=== PATIENT | male | born 1965 ===

== ENCOUNTER 2017-03-31 20:47 | Inpatient (IN) | payer SELFPAY ==
[2017-03-31] MEDS ORDERED: Albuterol-Ipratrop 3 mg / 0.5 (3 ml) UD INH STA ×2 (21:25)
[2017-03-31 21:35] LABS: ABG ALLEN TEST YES; ARTERIAL BLOOD GAS HCO3 23.1 mmol/L (21-28); ARTERIAL BLOOD GAS PH 7.47 (7.35-7.45); ARTERIAL BLOOD GAS PO2 49 mm/Hg (80-100)
[2017-03-31] MEDS ORDERED: Sodium Chloride 0.9% 2,000 ML IV STA (21:39)
[2017-03-31] MEDS ORDERED: Albuterol-Ipratrop 3 mg / 0.5 (3 ml) UD ONE (21:42)
--- NOTE | 2017-03-31 21:54 | ED PDOC ---
HPI: Trauma/Fall - HPI Time Seen by Provider: 03/31/17 21:06 Chief Complaint (Nursing): Trauma Chief Complaint (Provider): Weakness History Per: Patient History/Exam Limitations: no limitations Onset/Duration Of Symptoms: Days (2 days) Additional Complaint(s): 55 y/o male presenting to the emergency department complaining of weakness that began two days ago and lasted since. Patient explains that when walking he feels as if his legs are "giving out" and he had fallen multiple times on his head. He experienced the hardest fall today, as he fell on his face after feeling like he was leaning forward and couldn't stand up straight. Patient developed a cough today, though he feels well now. He denies a fever, chest pain , shortness of breath, abdominal pain, urinary symptoms, or any other symptoms. He also denies recent travel or any past medical history. The patient is an active smoker, drinks socially, and does marijuana. Past Medical History Reviewed: Historical Data, Nursing Documentation, Vital Signs Vital Signs: Last Vital Signs Temp 103.6 F H 03/31/17 20:54 Pulse 125 H 03/31/17 20:54 Resp 18 03/31/17 20:54 BP 135/80 03/31/17 20:54 Pulse Ox 99 03/31/17 20:54 - Medical History PMH: No Chronic Diseases - Family History Family History: States: Unknown Family Hx - Social History Current smoker - smoking cessation education provided: Yes Alcohol: Social Drugs: Cannabis - Home Medications Home Medications: Ambulatory Orders Medication Instructions Recorded No Known Home Med 03/31/17 - Allergies Allergies/Adverse Reactions: Allergies Allergy/AdvReac Type Severity Reaction Status Date / Time No Known Allergies Allergy Verified 03/31/17 21:23 Review of Systems ROS Statement: Except As Marked, All Systems Reviewed And Found Negative Constitutional: Positive for: Weakness. Negative for: Fever Cardiovascular: Negative for: Chest Pain Respiratory: Positive for: Cough (developed today). Negative for: Shortness of Breath Gastrointestinal: Negative for: Abdominal Pain Genitourinary Male: Negative for: Dysuria, Frequency, Incontinence, Hematuria Neurological: Positive for: Weakness (felt like his legs were "giving out") Physical Exam - Reviewed Nursing Documentation Reviewed: Yes Vital Signs Reviewed: Yes - Physical Exam Appears: Positive for: No Acute Distress Head Exam: Positive for: ATRAUMATIC (abrasions to the face, laceration to lower lip) Eye Exam: Positive for: Normal appearance ENT: Positive for: Normal ENT Inspection Neck: Positive for: Normal, Supple Cardiovascular/Chest: Positive for: Regular Rate, Rhythm. Negative for: Murmur Respiratory: Positive for: Rhonchi (coarse breath sounds bilaterally), Wheezing (coarse breath sounds bilaterally). Negative for: Normal Breath Sounds Gastrointestinal/Abdominal: Positive for: Normal Exam, Soft. Negative for: Tenderness Back: Positive for: Normal Inspection Extremity: Positive for: Normal ROM. Negative for: Pedal Edema Neurologic/Psych: Positive for: Alert, Oriented (x3) - Laboratory Results Result Diagrams: 03/31/17 21:50 03/31/17 21:50 - ECG O2 Sat by Pulse Oximetry: 99 (RA) Pulse Ox Interpretation: Normal - Critical Care Total Time (In Min): 60 Medical Decision Making Medical Decision Making: Time: 21:23 Initial impression: Urinary Tract infection, pneumonia, other source of infection possible sepsis Initial plan: --Venous blood gas shock panel --CT Head w/o contrast --CT Maxillofacial w/o contrast --EKG --BNP --CMP --CPK --Magnesium stat --Phosphorous stat --Troponin --CBC --PT & PTT --Chest XRay --Acetaminophen 650 mg PO --Albuterol/Ipratropium 3 ml --Albuterol/Ipratropium 3 ml --Cefepime 2 gm --Sodium Chloride 2000 ml --Blood Culture --Urine Culture --Personnel Supervisor --Vital Signs --O2 via Nasal Cannula --Peak flow pre/post TX --Peak flow pre/post TX --Influenza A B Stat --HIV Rapid --Urinalysis Stat Time: 22:00 --Vancomycin 1gm --Azithromycin 500mg Emmett:[id number] Pt. w/ L sided PNA on xray. febrile w/ white count and lactate of 2.1 Pt. has evidence of sepsis. Sepsis protocol initiated. Dr. Levine aware of patient. Dr. Palacios consulted for troponins elevating- lovenox, phosphate, and r/o PE. CT is nondiagnostic for PE at this time, however lovenox already ordered. Dr. Levine at bedside, will admit to ICU. Scribe Attestation: Documented by Eleni Dager, acting as a scribe for Russ Villeda MD. Provider Scribe Attestation: All medical record entries made by the Scribe were at my direction and personally dictated by me. I have reviewed the chart and agree that the record accurately reflects my personal performance of the history, physical exam, medical decision making, and the department course for this patient. I have also personally directed, reviewed, and agree with the discharge instructions and disposition. Procedures - Time-Out Type of Procedure: suture Site of Procedure: Lip Correct Patient (with visual ID + MR# on ID Band): Yes Correct Procedure: Yes Correct Site Marked: Yes Medication Reconciliation / Bloodwork / Allergies Checked: Yes Physician Name: Dr. Russ Villeda - Laceration/Wound Repair lip Wound Length (cm): 3 Anesthesia: 1% Lidocaine Wound Debrided: minimal Wound Repaired With: Sutures Suture Size/Type: 6:0 Number of Sutures: 5 Layer Closure?: No Wound Complexity: Simple Disposition - Clinical Impression Clinical Impression: Sepsis, Pneumonia, Hypophosphatemia, Elevated troponin - Disposition Disposition Time: 22:40 Condition: GUARDED
[2017-03-31] MEDS ORDERED: Cefepime 2 GM in Sodium Chloride 0.9% 100 ML IVPB STA (22:02)
[2017-03-31] MEDS ORDERED: Azithromycin 500 MG in Sodium Chloride 0.9% 250 ML IVPB STA (22:02)
[2017-03-31] MEDS ORDERED: Vancomycin 1 g Inj ONE (22:21)
[2017-03-31 22:23] LABS: BASO # 0.1 K/uL (0.0-0.2); BASO % 0.6 % (0.0-2.0); HEMATOCRIT 39.2 % (35.0-51.0); LYMPH # 0.5 K/uL (1.0-4.3); MEAN CELL VOLUME 88.4 fl (80.0-94.0); MEAN CORPUSCULAR HEMOGLOBIN 29.7 pg (27.0-31.0); MEAN CORPUSCULAR HGB CONC 33.5 g/dL (33.0-37.0); MEAN PLATELET VOLUME 7.3 fl (7.2-11.7); MONO # 0.5 K/uL (0.0-0.8); MONO % 3.6 % (0.0-10.0); NEUT # 11.6 K/uL (1.8-7.0); NEUT % 91.8 % (50.0-75.0); PLATELET COUNT 189 K/uL (130-400); RED CELL DISTRIBUTION WIDTH 13.1 % (11.5-14.5); WHITE BLOOD COUNT 12.6 K/uL (4.8-10.8)
[2017-03-31 22:30] LABS: ALB/GLOB RATIO 1.2 (1.0-2.1); ALKALINE PHOSPHATASE 65 U/L (38-126); ALT/SGPT 81 U/L (21-72); AST/SGOT 247 U/L (17-59); BLOOD UREA NITROGEN 19 mg/dl (9-20); CALCIUM 8.2 mg/dL (8.4-10.2); CARBON DIOXIDE 23 mmol/L (22-30); CHLORIDE 92 mmol/L (98-107); GFR AFRICAN-AMERICAN > 60; GLUCOSE,RANDOM 126 mg/dL (75-110); POTASSIUM 3.9 MMOL/L (3.6-5.0); SODIUM 124 mmol/l (132-148); TOTAL PROTEIN 6.7 G/DL (6.3-8.2)
[2017-03-31 22:36] LABS: PARTIAL THROMBOPLASTIN TIME 35.2 Seconds (25.6-37.1)
[2017-03-31 22:41] LABS: PHOSPHOROUS 0.9 mg/dl (2.5-4.5)
--- NOTE | 2017-03-31 22:45 | RAD ---
HISTORY: Sepsis Patient COMPARISON: No prior. FINDINGS: LUNGS: Left lower lobe infiltrate. PLEURA: No significant pleural effusion identified, no pneumothorax apparent. CARDIOVASCULAR: Normal. OSSEOUS STRUCTURES: No significant abnormalities. VISUALIZED UPPER ABDOMEN: Normal. OTHER FINDINGS: None. IMPRESSION: Left lower lobe infiltrate.
[2017-03-31] MEDS ORDERED: Lidocaine 1% Inj (20ml) IJ ONE (23:05)
[2017-03-31 23:06] LABS: MYELOCYTE 1 % (0-0); NEUTROPHIL 92 % (42-75); TOTAL CELLS COUNTED 100
--- NOTE | 2017-03-31 23:39 | CT ---
EXAM: CT Head Without Intravenous Contrast CLINICAL HISTORY: 51 years old, male; Injury or trauma; Fall; Initial encounter; Laceration; Without loss of consciousness; Without residual foreign body; Face and forehead; Injury date: Today; Injury details: Falling multiple times. B/l facial laceration. Bleeding lips. Smoker; Additional info: Fever, falls, facial injury TECHNIQUE: Axial computed tomography images of the head/brain without intravenous contrast. All CT scans at this facility use one or more dose reduction techniques, viz.: automated exposure control; ma/kV adjustment per patient size (including targeted exams where dose is matched to indication; i.e. head); or iterative reconstruction technique. Coronal and sagittal reformatted images were created and reviewed. COMPARISON: No relevant prior studies available. FINDINGS: Brain: No intracranial hemorrhage. No mass. No edema. Ventricles: No hydrocephalus. Bones/joints: No calvarial fracture. Mastoid air cells: No mastoid effusion. IMPRESSION: 1. No intracranial hemorrhage. 2. See facial bone CT report for additional details.
--- NOTE | 2017-03-31 23:44 | CT ---
EXAM: CT Maxillofacial Without Intravenous Contrast CLINICAL HISTORY: 51 years old, male; Injury or trauma; Fall; Initial encounter; Laceration; Cheek bone and eyelid and head/scalp and forehead and nose and ocular (eye or eyeball) and orbit/periorbital and maxilla and jaw and lip/oral cavity; Without loss of consciousness; Bilateral; Not specified; Both upper and lower; Without residual foreign body; Injury date: Today; Injury details: Falling multiple times. B/l facial laceration. Bleeding lips. Smoker; Additional info: Fever, falls, facial injury TECHNIQUE: Axial computed tomography images of the face without intravenous contrast. All CT scans at this facility use one or more dose reduction techniques, viz.: automated exposure control; ma/kV adjustment per patient size (including targeted exams where dose is matched to indication; i.e. head); or iterative reconstruction technique. Coronal and sagittal reformatted images were created and reviewed. COMPARISON: No relevant prior studies available. FINDINGS: Bones/joints: No acute fracture. Degenerative changes of cervical spine. Subluxation of LEFT temporomandibular joint. Soft tissues: Mild facial soft tissue swelling. Soft tissue irregularity along lower lip. Orbits: Unremarkable as visualized. Sinuses: Scattered minimal to mild mucosal thickening. Small RIGHT maxillary retention cyst. No air-fluid levels. IMPRESSION: 1. No fracture. 2. Incidental/non-acute findings are described above.
[2017-04-01] MEDS ORDERED: Lidocaine 1% Inj (20ml) ONE (00:30)
[2017-04-01] MEDS ORDERED: Albuterol-Ipratrop 3 mg / 0.5 (3 ml) UD ONE (00:34)
[2017-04-01 00:54] LABS: RBC URINE 3 /hpf (0-3); URINE BACTERIA OCC (<OCC); URINE BILIRUBIN NEGATIVE (NEGATIVE); URINE BLOOD LARGE (NEGATIVE); URINE COLOR YELLOW (YELLOW); URINE GLUCOSE (UA) NEG (Normal); URINE KETONE TRACE mg/dL (NEGATIVE); URINE LEUKOCYTE ESTERASE NEG Leu/uL (Negative); URINE PROTEIN 100 mg/dL (NEGATIVE); WBC URINE 7 /hpf (0-5)
[2017-04-01] MEDS ORDERED: Albuterol-Ipratrop 3 mg / 0.5 (3 ml) UD INH STA (00:56)
[2017-04-01] MEDS ORDERED: Azithromycin 500 MG IV IVPB ONE (00:57)
[2017-04-01] MEDS ORDERED: Sodium Chloride 0.9% 50 ML IV ONE (01:34)
[2017-04-01] MEDS ORDERED: Iodixanol 320 MG/ML 100 ML BOTTLE IV ONE (01:34)
--- NOTE | 2017-04-01 01:39 | CP.PCM.HP ---
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 Falling twice on the day of admission. The first fall he received trauma to the left side of the face and left forehead. The second fall was unto his face causing laceration to his lower lip and nose making it difficult to get up from the ground. He began having non productive cough with chills on the day of admission. He refers one day of diarrhea with no blood in stool nor abdominal pain.No recorded fever, no SOB, no palpitations, nausea, vomits, dysuria nor frequency. In the ED the Temperature was 103.6F with HR of 125/min. 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 FH: refers, Unknown family hx Allergy: NKDA Medication: Denies Present on Admission - Present on Admission Any Indicators Present on Admission: No History of DVT/PE: No History of Uncontrolled Diabetes: No Urinary Catheter: No Decubitus Ulcer Present: No Review of Systems - Constitutional Constitutional: Chills, Frequent Falls. absent: Fever - EENT Eyes: Requires Corrective Lenses. absent: Diplopia, Floaters, Photophobia, Sees Flashes Ears: absent: Decreased Hearing, Ear Discharge, Tinnitus Nose/Mouth/Throat: absent: Epistaxis, Nasal Congestion, Nasal Discharge, Sore Throat - Cardiovascular Cardiovascular: absent: Chest Pain, Dyspnea, Edema - Respiratory Respiratory: Cough. absent: Wheezing, Stridor - Gastrointestinal Gastrointestinal: Diarrhea. absent: Abdominal Pain, Constipation, Nausea, Vomiting - Genitourinary Genitourinary: absent: Dysuria, Flank Pain, Hematuria, Urinary Frequency - Musculoskeletal Musculoskeletal: Myalgias - Integumentary Integumentary: absent: Pruritus, Rash, Skin Ulcer, Sores, Striae, Swelling - Neurological Neurological: Disequilibrium - Psychiatric Psychiatric: absent: Anxiety, Change in Appetite, Depression, Panic Attacks - Endocrine Endocrine: absent: Palpitations, Polydipsia, Polyphagia, Polyuria - Hematologic/Lymphatic Hematologic: absent: Easy Bleeding, Easy Bruising Past Patient History - Past Medical History & Family History Past Medical History?: No - Past Social History Smoking Status: Light Smoker < 10 Cigarettes Daily Alcohol: Social Drugs: Cannabis Home Situation {Lives}: Friends - CARDIAC Hx Cardiac Disorders: No Hx Peripheral Vascular Disease: No - PULMONARY Hx Respiratory Disorders: No - NEUROLOGICAL Hx Neurological Disorder: No - HEENT Hx HEENT Problems: No - RENAL Hx Chronic Kidney Disease: No - ENDOCRINE/METABOLIC Hx Endocrine Disorders: No - HEMATOLOGICAL/ONCOLOGICAL Hx Blood Disorders: No - INTEGUMENTARY Hx Dermatological Problems: No - MUSCULOSKELETAL/RHEUMATOLOGICAL Hx Musculoskeletal Disorders: No - GASTROINTESTINAL Hx Gastrointestinal Disorders: No - GENITOURINARY/GYNECOLOGICAL Hx Genitourinary Disorders: No - PSYCHIATRIC Hx Psychophysiologic Disorder: No Hx Substance Use: No - SURGICAL HISTORY Hx Surgeries: No - ANESTHESIA Hx Anesthesia Reactions: No Meds Allergies/Adverse Reactions: Allergies Allergy/AdvReac Type Severity Reaction Status Date / Time No Known Allergies Allergy Verified 03/31/17 21:23 Physical Exam - Constitutional Additional comments: In mild respiratory distress - Head Exam Head Exam: NORMOCEPHALIC Additional comments: Laceration to the lower lip sutured. Bruise to the nose bridge, left forehead, left side of face. - Eye Exam Eye Exam: EOMI, Normal appearance - ENT Exam ENT Exam: Mucous Membranes Moist, Normal Exam, Normal External Ear Exam, Normal Oropharynx - Neck Exam Neck exam: Positive for: Full Rom, Normal Inspection. Negative for: Lymphadenopathy, Tenderness - Respiratory Exam Respiratory Exam: Rales, Wheezes Additional comments: Expiratory wwheezees to both lung hurt Inspirator rales at the left base. - Cardiovascular Exam Cardiovascular Exam: Tachycardia, REGULAR RHYTHM, +S1, +S2. absent: Gallop, JVD - GI/Abdominal Exam GI & Abdominal Exam: Normal Bowel Sounds, Soft Additional comments: Obese, Soft, non-tender, no viceromegaleas. - Rectal Exam Rectal Exam: Deferred - Extremities Exam Extremities exam: Positive for: full ROM, normal inspection. Negative for: calf tenderness, pedal edema - Back Exam Back exam: NORMAL INSPECTION. absent: CVA tenderness (L), CVA tenderness (R) - Neurological Exam Neurological exam: Alert, CN II-XII Intact, Oriented x3, Reflexes Normal - Psychiatric Exam Psychiatric exam: Normal Affect, Normal Mood - Skin Skin Exam: Dry, Intact, Warm Additional comments: Upper left back with erythematous patch 8CM the longest diameter. Results - Vital Signs Recent Vital Signs: Last Vital Signs Temp 100.2 F H 04/01/17 01:15 Pulse 111 H 04/01/17 01:15 Resp 24 04/01/17 01:15 BP 142/74 04/01/17 01:15 Pulse Ox 95 04/01/17 01:15 - Labs Result Diagrams: 03/31/17 21:50 03/31/17 21:50 Labs: Laboratory Results - last 24 hr 04/01/17 00:30 Troponin I 1.2300 H* - EKG Data EKG comments: Sinus Tachycardia 124/min - Imaging and Cardiology CT scan - head Status: Image reviewed by me, Report reviewed by me Additional comment: FINDINGS: Brain: No intracranial hemorrhage. No mass. No edema. Ventricles: No hydrocephalus. Bones/joints: No calvarial fracture. Mastoid air cells: No mastoid effusion. IMPRESSION: 1. No intracranial hemorrhage. 2. See facial bone CT report for additional details. CT Maxilofacial Status: Report reviewed by me Additional comment: FINDINGS: Bones/joints: No acute fracture. Degenerative changes of cervical spine. Subluxation of LEFT temporomandibular joint. Soft tissues: Mild facial soft tissue swelling. Soft tissue irregularity along lower lip. Orbits: Unremarkable as visualized. Sinuses: Scattered minimal to mild mucosal thickening. Small RIGHT maxillary retention cyst. No air-fluid levels. IMPRESSION: 1. No fracture. 2. Incidental/non-acute findings are described above. CTA Chest Status: Report reviewed by me Additional comment: FINDINGS: Limitations: Motion artifact - mild. Suboptimal timing of bolus. Pulmonary arteries: No significant contrast opacification of pulmonary arteries. Aorta: No aneurysm. No dissection. Lungs: Marked patchy and confluent air space disease LEFT lower lobe. Several scattered patchy groundglass/air space opacities, most pronounced LEFT upper lobe. Minimal mosaic pattern of lung parenchyma. Minimal interlobular septal thickening. Pleural space: No significant effusion. No pneumothorax. Heart: No cardiomegaly. No significant pericardial effusion. Mild coronary artery calcifications. Bones/joints: No acute fracture. No dislocation. Soft tissues: Unremarkable. Lymph nodes: Several subcentimeter/few borderline enlarged short axis mediastinal lymph nodes. Gallbladder and bile ducts: Calcified gallstones. Adrenals: Probable RIGHT adrenal adenoma. RIGHT adrenal calcifications. IMPRESSION: 1. Nondiagnostic for pulmonary embolism. 2. Findings compatible with multifocal pneumonia. Followup to resolution to exclude underlying pathology. 3. Possible early interstitial edema. Clinical correlation is needed. 4. Cholelithiasis. 5. Incidental/non-acute findings are described above. Thank you for allowing us to participate in the care of your patient. Chest x-ray Status: Image reviewed by me Additional comment: Left lower lobe Opacity Mild congestion Assessment & Plan - Assessment and Plan (Free Text) Assessment: #. Multifocal Pneumonia #. Sepsis #. Rhabdomyolysis 3. Hyponatremia #. Hypophosphatemis #. Elevated Troponin #. Transaminitis #. Multiple falls #. Imbalance #. 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 Falling twice receiving trauma to the left side of the face and left forehead, laceration to his lower lip and nose. He began having non productive cough with chills and diarrhea on the day of admission. In the ED the Temperature was 103.6F with HR of 125/min. #. Multifocal Pneumonia - Consult Dr Khalil of Pulmonary - Vancomycin/ Cefepime/Azithromycin given in the ED -Continue with Vancomycin/Azithromycin and Ceftriaxone -Duoneb Q4H #. Sepsis - Consult Dr Parsons - Continue Above Antibiotics - follow Blood and Sputum Cultures - IV fluid at NS 200Mls/min #. Rhabdomyolysis Due to muscle injury caused by the Falls - IV fluids NS at 200mls/hr - Follow CPK levels #. Hyponatremia probably due to SIADH caused by the Pneumonia - IV Fluids NS 200ml/hr because of the Rhabdomyolysis - follow Serum and Urine Osmolality and urine Sodium - Follow Serum Electrolytes #. Hypophosphatemis - Repleat with Neutro Phos - Follow Phosphorous #. Elevated Troponin Probably secondary to cardiac trauma r/o ACS - Consult Dr Atkinson - Lovenox Therapeutic dose Q12H - ASA - Lipid Panel - Serial Troponin - Serial EKG - ECHO for wall motion #. Mild pulmonary congestion r/o CHF - Cardiology on consult - Lasix IV - ECHO for Left ventricle Function and EF #. Transaminitis secondary to the muscle injury - Follow LFT #. Imbalance with Multiple falls - OT/PT evaluation and Treatment #. Nicotine Addiction - Nicotine Patch #. Coagulopathy with elevated INR - Vitamin K 5mg - Follow INR #. Subluxation of the left temperomandibular joint - Pain management #.Cholelithiasis, Stable #. DVT Prophylaxis with SCD and Lovenox #. Code Status: Full - Date & Time Date: 04/01/17 Time: 01:39
[2017-04-01] MEDS ORDERED: Sodium Chloride 3% for Inhalation 4 ML VIAL.NEB IH PRN (01:58)
--- NOTE | 2017-04-01 02:20 | CT ---
EXAM: CT Angiography Chest With Intravenous Contrast CLINICAL HISTORY: 51 years old, male; Signs and symptoms; Dyspnea; Additional info: SOB, tachycardia, high trop. Issues with bolus injection during exam TECHNIQUE: Axial computed tomographic angiography images of the chest with intravenous contrast using pulmonary embolism protocol. All CT scans at this facility use one or more dose reduction techniques, viz.: automated exposure control; ma/kV adjustment per patient size (including targeted exams where dose is matched to indication; i.e. head); or iterative reconstruction technique. MIP reconstructed images were created and reviewed. Coronal and sagittal reformatted images were created and reviewed. CONTRAST: 80 mL of visipaque administered intravenously. COMPARISON: No relevant prior studies available. FINDINGS: Limitations: Motion artifact - mild. Suboptimal timing of bolus. Pulmonary arteries: No significant contrast opacification of pulmonary arteries. Aorta: No aneurysm. No dissection. Lungs: Marked patchy and confluent air space disease LEFT lower lobe. Several scattered patchy groundglass/air space opacities, most pronounced LEFT upper lobe. Minimal mosaic pattern of lung parenchyma. Minimal interlobular septal thickening. Pleural space: No significant effusion. No pneumothorax. Heart: No cardiomegaly. No significant pericardial effusion. Mild coronary artery calcifications. Bones/joints: No acute fracture. No dislocation. Soft tissues: Unremarkable. Lymph nodes: Several subcentimeter/few borderline enlarged short axis mediastinal lymph nodes. Gallbladder and bile ducts: Calcified gallstones. Adrenals: Probable RIGHT adrenal adenoma. RIGHT adrenal calcifications. IMPRESSION: 1. Nondiagnostic for pulmonary embolism. 2. Findings compatible with multifocal pneumonia. Followup to resolution to exclude underlying pathology. 3. Possible early interstitial edema. Clinical correlation is needed. 4. Cholelithiasis. 5. Incidental/non-acute findings are described above.
[2017-04-01 03:08] VITALS: BMI 36.6
[2017-04-01] MEDS: Sodium Chloride 0.9% 1,000 ML IV SCH ×3 (03:45→15:58)
[2017-04-01] MEDS: Albuterol-Ipratrop 3 mg / 0.5 (3 ml) UD INH SCH ×5 (04:57→19:25)
[2017-04-01 05:59] LABS: BASO % 0.2 % (0.0-2.0); EOS % 0.4 % (0.0-4.0); HEMATOCRIT 38.5 % (35.0-51.0); LYMPH # 0.3 K/uL (1.0-4.3); LYMPH % 2.8 % (20.0-40.0); MEAN CELL VOLUME 89.6 fl (80.0-94.0); MEAN CORPUSCULAR HEMOGLOBIN 29.9 pg (27.0-31.0); MEAN CORPUSCULAR HGB CONC 33.4 g/dL (33.0-37.0); MEAN PLATELET VOLUME 7.3 fl (7.2-11.7); MONO # 0.2 K/uL (0.0-0.8); MONO % 1.4 % (0.0-10.0); NEUT # 11.5 K/uL (1.8-7.0); NEUT % 95.2 % (50.0-75.0); NRBC % 0.1 % (0.0-0.0); PLATELET COUNT 183 K/uL (130-400); RED CELL DISTRIBUTION WIDTH 13.3 % (11.5-14.5); WHITE BLOOD COUNT 12.1 K/uL (4.8-10.8)
[2017-04-01] MEDS ORDERED: Influenza Vaccine 18yr & older 0.5 ML/45 MCG SYR IM ONE (06:00)
[2017-04-01] MEDS ORDERED: Pneumococcal 23-Valent Vaccine IM ONE (06:00)
[2017-04-01 06:07] LABS: ALB/GLOB RATIO 1.1 (1.0-2.1); ALKALINE PHOSPHATASE 60 U/L (38-126); ALT/SGPT 106 U/L (21-72); AST/SGOT 361 U/L (17-59); BILIRUBIN,TOTAL 0.9 mg/dl (0.2-1.3); BLOOD UREA NITROGEN 15 mg/dl (9-20); CALCIUM 7.6 mg/dL (8.4-10.2); CARBON DIOXIDE 17 mmol/L (22-30); CHLORIDE 104 mmol/L (98-107); CHOLESTEROL 90 mg/dL (0-199); GFR AFRICAN-AMERICAN > 60; GLUCOSE,RANDOM 138 mg/dL (75-110); POTASSIUM 3.7 MMOL/L (3.6-5.0); SODIUM 134 mmol/l (132-148); TOTAL PROTEIN 6.5 G/DL (6.3-8.2)
[2017-04-01 07:06] LABS: NEUTROPHIL 95 % (42-75); TOTAL CELLS COUNTED 100
[2017-04-01] MEDS: Enoxaparin 100 mg Syringe SC SCH ×2 (08:19→21:43)
[2017-04-01] MEDS: Potassium & Sodium Phosphate PO SCH ×4 (08:19→21:43)
[2017-04-01] MEDS: Azithromycin 500 MG in Sodium Chloride 0.9% 250 ML IVPB SCH (08:20)
--- NOTE | 2017-04-01 09:23 | CARD ---
APPROVED REPORT EKG Measurement Heart [id number] CO [id number] <Conclusion> Sinus tachycardia with premature atrial complexes Otherwise normal ECG
--- NOTE | 2017-04-01 09:24 | CARD ---
APPROVED REPORT EKG Measurement Heart [id number] LA 140P61 [id number] <Conclusion> Sinus tachycardia with premature atrial complexes Otherwise normal ECG
--- NOTE | 2017-04-01 09:24 | CARD ---
APPROVED REPORT EKG Measurement Heart [id number] 142P53 [id number] <Conclusion> Sinus tachycardia with premature atrial complexes Possible Left atrial enlargement Borderline ECG
[2017-04-01 10:27] LABS: BLOOD UREA NITROGEN 15 mg/dl (9-20); CALCIUM 7.5 mg/dL (8.4-10.2); CARBON DIOXIDE 20 mmol/L (22-30); CHLORIDE 103 mmol/L (98-107); GFR AFRICAN-AMERICAN > 60; GLUCOSE,RANDOM 180 mg/dL (75-110); POTASSIUM 3.8 MMOL/L (3.6-5.0); SODIUM 134 mmol/l (132-148)
[2017-04-01 11:26] LABS: ALCOHOL SERUM < 10 mg/dl (0-10)
[2017-04-01] MEDS ORDERED: Multivitamin (MVI) 10 ML, Folic Acid 1 MG, Thiamine 100 MG in Dextrose 5%/0.45% NS 1,00... IV ONE (16:06)
--- NOTE | 2017-04-01 20:42 | CON ---
DATE: HISTORY OF PRESENT ILLNESS: Mr. Harerll is a 51-year-old male who was referred for pulmonary evaluation by Dr. Brennan, following admission to the intensive care unit because of multiple falls at home, feeling dizzy and have to balance with a dry cough and fever for the past several days prior to presentation. He had a fall with a trauma to the left side of the forehead and again fell causing laceration of the lower lip. PAST MEDICAL HISTORY: He has an unremarkable s past medical history. FAMILY HISTORY: Unremarkable. SOCIAL HISTORY: Socially, he smokes one pack of cigarettes daily. 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 Presently lives with a friend. REVIEW OF SYSTEMS: Essentially, unremarkable. PHYSICAL EXAMINATION: GENERAL: The patient is alert and oriented, appears to be in mild distress, because of facial trauma, but in the case that he has improved since admission to the hospital. VITAL SIGNS: Blood pressure 112/75, pulse of 110, respiratory rate is 22 per minute, he is afebrile to low-grade temperature of 99.6 degrees Fahrenheit, O2 sat was 93% on room air. SKIN: Shows fair turgor. HEENT: There is evidence of facial trauma. Mouth shows poor hygiene. LUNGS: Fair aeration with scattered bilateral rales left worse than right. HEART: Regular, tachycardiac. ABDOMEN: Soft and nontender. No organomegaly. EXTREMITIES: Shows no edema or cyanosis. CENTRAL NERVOUS SYSTEM: Grossly intact. LABORATORY DATA: HIV and herpes screen are nonreactive. Influenza A and B negative. Urine toxicology positive for cannabinoids. WBC 12.1, hemoglobin 12.9, platelet count 183,000, neutrophils 95, lymphocytes 2.8. PT is 16.7, INR of 16. ABGs: PH 7.47, pCO2 28, pO2 of 49, bicarbonate of 23, O2 sat 92. Sodium 124, potassium 3.9, BUN 19, creatinine 1.2, serum glucose 125, troponin 1.040, CPK 20,322. Chest x-ray remarkable for left lower lobe infiltrate. EKG, sinus tachycardia with premature intracomplexes, possible left atrial enlargement. IMPRESSION: In this young gentleman with a history of alcohol, marijuana use w ho has had multiple falls with facial trauma and cough with mild shortness of breath and hypoxemia and arterial blood gases is remarkable for pneumonia left base with superimposed alcohol and drug problems and hyponatremia probably secondary to pulmonary infection with syndrome of inappropriate antidiuretic hormone. PLAN: The plan is to continue therapy for pneumonia. Obtain carter cultures. Supplement oxygen. Repeat arterial blood gases. Alcohol withdrawal protocol. We will continue to follow with you. Repeat serial chest x-rays until pneumonia resolves completely. Mark Anthony Khalil MD
[2017-04-01] MEDS ORDERED: Sodium Chloride 0.9% 1,000 ML IV SCH (20:45)
--- NOTE | 2017-04-01 21:48 | CP.PCM.CON ---
History of Present Illness - History of Present Illness History of Present Illness: Infectious Disease Consult Note- Asked to see this patient at the request of hospitalist for fever/sepsis. HPI- Ephraim is a 51 year old male with no pmh who was admitted with 2 days feeling of weakness and heavy sensation in the legs and feeling groggy and chills. 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 He also mentions that he started to have chills and some diarrhea the day of the admission and his friend called EMS and he was brought to ED for further evaluation and treatment . On admission pt. was found to have high fever and leukocytosis and found to also be in rhabdomyolysis and multifocal pneumonia. Pt's urine legionella AG was reported positive. pt. has been on zithromax, vanco and ceftriaxone as per primary team . Pt. currently denies any fever or chills but as per nurse has been febrile. He seems slightly groggy but states he is starting to remember what has happened little by little. He states he does smoke Marijuana but denies using it the day that he felt weak and sluggish. denies any DOW and denies any change in his vision. He denies ever having felt this way before. asper nurse pt. was tachycardic earlier today when he was febrile but not now. Review of Systems - Review of Systems Review of Systems: ROS- + chills at home, + fever while inpatient, denies any DOW, denies any cough, denies any sob, denies any chestpain, + weakness, positive heaviness sensation in his legs, denies any dysurea, + diarrhea at home but denies it here. denies any sick contacts denies any recent travel denies any animal exposure Past Patient History - Past Medical History & Family History Past Medical History?: No - Past Social History Smoking Status: Light Smoker < 10 Cigarettes Daily Alcohol: Social Drugs: Cannabis Home Situation {Lives}: Friends - CARDIAC Hx Cardiac Disorders: No - PULMONARY Hx Respiratory Disorders: No - NEUROLOGICAL Hx Neurological Disorder: No - HEENT Hx HEENT Problems: No - RENAL Hx Chronic Kidney Disease: No - ENDOCRINE/METABOLIC Hx Endocrine Disorders: No - HEMATOLOGICAL/ONCOLOGICAL Hx Blood Disorders: No - INTEGUMENTARY Hx Dermatological Problems: No - MUSCULOSKELETAL/RHEUMATOLOGICAL Hx Musculoskeletal Disorders: No - GASTROINTESTINAL Hx Gastrointestinal Disorders: No - GENITOURINARY/GYNECOLOGICAL Hx Genitourinary Disorders: No - PSYCHIATRIC Hx Psychophysiologic Disorder: No Hx Substance Use: No - SURGICAL HISTORY Hx Surgeries: No - ANESTHESIA Hx Anesthesia Reactions: No Meds Allergies/Adverse Reactions: Allergies Allergy/AdvReac Type Severity Reaction Status Date / Time No Known Allergies Allergy Verified 03/31/17 21:23 - Medications Medications: Current Medications Acetaminophen (Tylenol 325mg Tab) 325 mg PO Q4 PRN PRN Reason: Fever >100.4 F Albuterol/Ipratropium (Duoneb 3 Mg/0.5 Mg (3 Ml) Ud) 3 ml INH RQ4 [facility] Last Admin: 04/01/17 19:25 Dose: 3 ml Aspirin (Ecotrin) 81 mg PO DAILY [facility] Last Admin: 04/01/17 08:19 Dose: 81 mg Carvedilol (Coreg) 3.125 mg PO Q12 [facility] Last Admin: 04/01/17 21:42 Dose: 3.125 mg Enoxaparin Sodium (Lovenox) 90 mg SC Q12 [facility] PRN Reason: Protocol Last Admin: 04/01/17 21:43 Dose: 90 mg Furosemide (Lasix) 40 mg IV DAILY [facility] Vancomycin HCl 1 gm/ Sodium (Chloride) 250 mls @ 166.667 mls/hr IVPB Q12 [facility] Last Admin: 04/01/17 21:41 Dose: 166.667 mls/hr Azithromycin 500 mg/ Sodium (Chloride) 250 mls @ 250 mls/hr IVPB DAILY [facility] Last Admin: 04/01/17 08:20 Dose: 250 mls/hr Ceftriaxone Sodium 1 gm/ (Sodium Chloride) 100 mls @ 100 mls/hr IVPB DAILY [facility] Last Admin: 04/01/17 11:40 Dose: 100 mls/hr Multivitamins/Vitamin C 10 ml/Folic Acid 1 mg/ Thiamine HCl 100 mg/ Dextrose/ Sodium Chloride 1,011.2 mls @ 125 mls/hr IV .Q8H6M ONE Stop: 04/02/17 00:11 Last Admin: 04/01/17 17:10 Dose: 125 mls/hr Sodium Chloride (Sodium Chloride 0.9%) 1,000 mls @ 125 mls/hr IV .Q8H [facility] Stop: 04/02/17 20:34 Lorazepam (Ativan) 1 mg IVP Q6 PRN PRN Reason: Agitation Nicotine (Nicoderm Cq) 1 patch TD DAILY [facility] Last Admin: 04/01/17 08:22 Dose: 1 patch Potassium Phos/Sodium Phos (Neutra-Phos) 1 pkt PO QID [facility] Stop: 04/04/17 09:01 Last Admin: 04/01/17 21:43 Dose: 1 pkt Physical Exam - Constitutional Appears: No Acute Distress - Head Exam Additional comments: small left forehead superficail abrasion and one on the tip of the nose and one in left lower lip region - Eye Exam Eye Exam: EOMI, PERRL - ENT Exam ENT Exam: Normal Oropharynx - Neck Exam Neck exam: Positive for: Full Rom Additional comments: supple - Respiratory Exam Additional comments: slightly tachypneic coarse breath sounds b/l + mild exp wheezing b/l as well - Cardiovascular Exam Cardiovascular Exam: Tachycardia, +S1, +S2 - GI/Abdominal Exam GI & Abdominal Exam: Normal Bowel Sounds, Soft Additional comments: NT, ND no guarding, No rebound - Extremities Exam Additional comments: no edema b/l LE - Neurological Exam Neurological exam: Alert Additional comments: oriented x 3 but somewhat groggy - Skin Skin Exam: Abrasion Additional comments: small abrasion on forehead and tip of nose and left lip region + echymosis on left knee region adn left upper back region and posterior left arm region Results - Vital Signs Recent Vital Signs: Last Vital Signs Temp 99.5 F 04/01/17 20:00 Pulse 111 H 04/01/17 21:42 Resp 22 04/01/17 20:00 BP 103/61 04/01/17 21:42 Pulse Ox 95 04/01/17 20:00 - Labs Result Diagrams: 04/02/17 04:45 04/02/17 04:45 Labs: Laboratory Results - last 24 hr 04/01/17 04/01/17 04/01/17 00:30 02:20 02:20 WBC RBC Hgb Hct MCV MCH MCHC RDW Plt Count MPV Neut % (Auto) Lymph % (Auto) [place] % (Auto) Eos % (Auto) Baso % (Auto) Neut # Lymph # [place] # Eos # Baso # Neutrophils % (Manual) Lymphocytes % (Manual) Monocytes % (Manual) Platelet Estimate PT INR Sodium Potassium Chloride Carbon Dioxide Anion Gap BUN Creatinine Est GFR ( Amer) Est GFR (Non-Af Amer) Random Glucose Serum Osmolality 276 Lactic Acid 1.0 Calcium Total Bilirubin AST ALT Alkaline Phosphatase Total Creatine Kinase Troponin I 1.2300 H* Total Protein Albumin Globulin Albumin/Globulin Ratio Triglycerides Cholesterol LDL Cholesterol Direct HDL Cholesterol Urine Osmolality Ur Random Sodium Ur Random Potassium Urine Opiates Screen Urine Methadone Screen Ur Barbiturates Screen Ur Phencyclidine Scrn Ur Amphetamines Screen U Benzodiazepines Scrn U Oth Cocaine Metabols U Cannabinoids Screen Alcohol, Quantitative Ur L.pneumophila Ag 04/01/17 04/01/17 04/01/17 02:45 02:45 05:30 WBC 12.1 H RBC 4.30 L Hgb 12.9 Hct 38.5 MCV 89.6 MCH 29.9 MCHC 33.4 RDW 13.3 Plt Count 183 MPV 7.3 Neut % (Auto) 95.2 H Lymph % (Auto) 2.8 L [place] % (Auto) 1.4 Eos % (Auto) 0.4 Baso % (Auto) 0.2 Neut # 11.5 H Lymph # 0.3 L [place] # 0.2 Eos # 0.0 Baso # 0.0 Neutrophils % (Manual) 95 H Lymphocytes % (Manual) 4 L Monocytes % (Manual) 1 Platelet Estimate Normal PT INR Sodium Potassium Chloride Carbon Dioxide Anion Gap BUN Creatinine Est GFR ( Amer) Est GFR (Non-Af Amer) Random Glucose Serum Osmolality Lactic Acid Calcium Total Bilirubin AST ALT Alkaline Phosphatase Total Creatine Kinase Troponin I Total Protein Albumin Globulin Albumin/Globulin Ratio Triglycerides Cholesterol LDL Cholesterol Direct HDL Cholesterol Urine Osmolality 215 L Ur Random Sodium 17 Ur Random Potassium 10.4 Urine Opiates Screen Negative Urine Methadone Screen Negative Ur Barbiturates Screen Negative Ur Phencyclidine Scrn Negative Ur Amphetamines Screen Negative U Benzodiazepines Scrn Negative U Oth Cocaine Metabols Negative U Cannabinoids Screen Positive H Alcohol, Quantitative Ur L.pneumophila Ag 04/01/17 04/01/17 04/01/17 05:30 10:00 10:15 WBC RBC Hgb Hct MCV MCH MCHC RDW Plt Count MPV Neut % (Auto) Lymph % (Auto) [place] % (Auto) Eos % (Auto) Baso % (Auto) Neut # Lymph # [place] # Eos # Baso # Neutrophils % (Manual) Lymphocytes % (Manual) Monocytes % (Manual) Platelet Estimate PT INR Sodium 134 134 Potassium 3.7 3.8 Chloride 104 103 Carbon Dioxide 17 L 20 L Anion Gap 17 15 BUN 15 15 Creatinine 1.0 0.9 Est GFR ( Amer) > 60 > 60 Est GFR (Non-Af Amer) > 60 > 60 Random Glucose 138 H 180 H Serum Osmolality Lactic Acid Calcium 7.6 L 7.5 L Total Bilirubin 0.9 AST 361 H D ALT 106 H D Alkaline Phosphatase 60 Total Creatine Kinase 13166 H 00261 H Troponin I 0.7760 H* 0.5340 H* Total Protein 6.5 Albumin 3.4 L Globulin 3.1 Albumin/Globulin Ratio 1.1 Triglycerides 176 H Cholesterol 90 LDL Cholesterol Direct 32 HDL Cholesterol 14 L Urine Osmolality Ur Random Sodium Ur Random Potassium Urine Opiates Screen Urine Methadone Screen Ur Barbiturates Screen Ur Phencyclidine Scrn Ur Amphetamines Screen U Benzodiazepines Scrn U Oth Cocaine Metabols U Cannabinoids Screen Alcohol, Quantitative < 10 Ur L.pneumophila Ag Positive H 04/01/17 11:30 WBC RBC Hgb Hct MCV MCH MCHC RDW Plt Count MPV Neut % (Auto) Lymph % (Auto) [place] % (Auto) Eos % (Auto) Baso % (Auto) Neut # Lymph # [place] # Eos # Baso # Neutrophils % (Manual) Lymphocytes % (Manual) Monocytes % (Manual) Platelet Estimate PT 16.6 H INR 1.6 H Sodium Potassium Chloride Carbon Dioxide Anion Gap BUN Creatinine Est GFR ( Amer) Est GFR (Non-Af Amer) Random Glucose Serum Osmolality Lactic Acid Calcium Total Bilirubin AST ALT Alkaline Phosphatase Total Creatine Kinase Troponin I Total Protein Albumin Globulin Albumin/Globulin Ratio Triglycerides Cholesterol LDL Cholesterol Direct HDL Cholesterol Urine Osmolality Ur Random Sodium Ur Random Potassium Urine Opiates Screen Urine Methadone Screen Ur Barbiturates Screen Ur Phencyclidine Scrn Ur Amphetamines Screen U Benzodiazepines Scrn U Oth Cocaine Metabols U Cannabinoids Screen Alcohol, Quantitative Ur L.pneumophila Ag Laboratory Results - last 72 hr 03/31/17 03/31/17 03/31/17 21:28 21:31 21:46 WBC RBC Hgb Hct MCV MCH MCHC RDW Plt Count MPV Neut % (Auto) Lymph % (Auto) [place] % (Auto) Eos % (Auto) Baso % (Auto) Neut # Lymph # [place] # Eos # Baso # Neutrophils % (Manual) Band Neutrophils % Lymphocytes % (Manual) Monocytes % (Manual) Myelocytes % Platelet Estimate RBC Morphology Polychromasia PT INR APTT pCO2 28 L pO2 49 L HCO3 23.1 ABG pH 7.47 H ABG Total CO2 21.3 L ABG O2 Saturation 92.1 L ABG O2 Content ABG Base Excess -2.0 ABG Hemoglobin ABG Carboxyhemoglobin POC ABG HHb (Measured) ABG Methemoglobin ABG O2 Capacity Raúl Test Yes ABG Potassium 3.8 A-a O2 Difference 66.0 Hgb O2 Saturation Sodium 122.0 L Chloride 92.0 L Glucose 140 H Lactate 2.1 Vent Mode FiO2 21.0 Potassium Carbon Dioxide Anion Gap BUN Creatinine Est GFR ( Amer) Est GFR (Non-Af Amer) POC Glucose (mg/dL) 125 H Random Glucose Hemoglobin A1c Serum Osmolality Lactic Acid Calcium Phosphorus Magnesium Total Bilirubin AST ALT Alkaline Phosphatase Total Creatine Kinase Troponin I NT-Pro-B Natriuret Pep Total Protein Albumin Globulin Albumin/Globulin Ratio Triglycerides Cholesterol LDL Cholesterol Direct HDL Cholesterol Arterial Blood Potassium 3.8 Urine Color Yellow Urine Clarity Cloudy Urine pH 6.0 Ur Specific [place] 1.011 Urine Protein 100 Urine Glucose (UA) Neg Urine Ketones Trace Urine Blood Large Urine Nitrate Negative Urine Bilirubin Negative Urine Urobilinogen 2.0 Ur Leukocyte Esterase Neg Urine RBC (Auto) 3 Urine Microscopic WBC 7 H Ur Squamous Epith Cells 1 Urine Bacteria Occ H Urine Yeast (Budding) Occ H Urine Osmolality Ur Random Sodium Ur Random Potassium Vancomycin Trough Urine Opiates Screen Urine Methadone Screen Ur Barbiturates Screen Ur Phencyclidine Scrn Ur Amphetamines Screen U Benzodiazepines Scrn U Oth Cocaine Metabols U Cannabinoids Screen Alcohol, Quantitative HIV-1 Ab Rapid Screen Influenza Typ A,B (EIA) Ur L.pneumophila Ag 03/31/17 03/31/17 03/31/17 21:50 21:50 21:50 WBC 12.6 H RBC 4.43 Hgb 13.1 Hct 39.2 MCV 88.4 MCH 29.7 MCHC 33.5 RDW 13.1 Plt Count 189 MPV 7.3 Neut % (Auto) 91.8 H Lymph % (Auto) 4.0 L [place] % (Auto) 3.6 Eos % (Auto) 0.0 Baso % (Auto) 0.6 Neut # 11.6 H Lymph # 0.5 L [place] # 0.5 Eos # 0.0 Baso # 0.1 Neutrophils % (Manual) 92 H Band Neutrophils % Lymphocytes % (Manual) 3 L Monocytes % (Manual) 4 Myelocytes % 1 H Platelet Estimate Normal RBC Morphology Polychromasia Slight PT 16.7 H INR 1.6 H APTT 35.2 pCO2 pO2 HCO3 ABG pH ABG Total CO2 ABG O2 Saturation ABG O2 Content ABG Base Excess ABG Hemoglobin ABG Carboxyhemoglobin POC ABG HHb (Measured) ABG Methemoglobin ABG O2 Capacity Raúl Test ABG Potassium A-a O2 Difference Hgb O2 Saturation Sodium 124 L Chloride 92 L Glucose Lactate Vent Mode FiO2 Potassium 3.9 Carbon Dioxide 23 Anion Gap 13 BUN 19 Creatinine 1.2 Est GFR ( Amer) > 60 Est GFR (Non-Af Amer) > 60 POC Glucose (mg/dL) Random Glucose 126 H Hemoglobin A1c Serum Osmolality Lactic Acid Calcium 8.2 L Phosphorus 0.9 L* Magnesium 2.0 Total Bilirubin 1.0 AST 247 H ALT 81 H Alkaline Phosphatase 65 Total Creatine Kinase 75358 H Troponin I 1.0400 H* NT-Pro-B Natriuret Pep 1280 H Total Protein 6.7 Albumin 3.6 Globulin 3.1 Albumin/Globulin Ratio 1.2 Triglycerides Cholesterol LDL Cholesterol Direct HDL Cholesterol Arterial Blood Potassium Urine Color Urine Clarity Urine pH Ur Specific [place] Urine Protein Urine Glucose (UA) Urine Ketones Urine Blood Urine Nitrate Urine Bilirubin Urine Urobilinogen Ur Leukocyte Esterase Urine RBC (Auto) Urine Microscopic WBC Ur Squamous Epith Cells Urine Bacteria Urine Yeast (Budding) Urine Osmolality Ur Random Sodium Ur Random Potassium Vancomycin Trough Urine Opiates Screen Urine Methadone Screen Ur Barbiturates Screen Ur Phencyclidine Scrn Ur Amphetamines Screen U Benzodiazepines Scrn U Oth Cocaine Metabols U Cannabinoids Screen Alcohol, Quantitative HIV-1 Ab Rapid Screen Influenza Typ A,B (EIA) Ur L.pneumophila Ag 03/31/17 03/31/17 04/01/17 21:50 21:56 00:30 WBC RBC Hgb Hct MCV MCH MCHC RDW Plt Count MPV Neut % (Auto) Lymph % (Auto) [place] % (Auto) Eos % (Auto) Baso % (Auto) Neut # Lymph # [place] # Eos # Baso # Neutrophils % (Manual) Band Neutrophils % Lymphocytes % (Manual) Monocytes % (Manual) Myelocytes % Platelet Estimate RBC Morphology Polychromasia PT INR APTT pCO2 pO2 HCO3 ABG pH ABG Total CO2 ABG O2 Saturation ABG O2 Content ABG Base Excess ABG Hemoglobin ABG Carboxyhemoglobin POC ABG HHb (Measured) ABG Methemoglobin ABG O2 Capacity Raúl Test ABG Potassium A-a O2 Difference Hgb O2 Saturation Sodium Chloride Glucose Lactate Vent Mode FiO2 Potassium Carbon Dioxide Anion Gap BUN Creatinine Est GFR ( Amer) Est GFR (Non-Af Amer) POC Glucose (mg/dL) Random Glucose Hemoglobin A1c Serum Osmolality Lactic Acid Calcium Phosphorus Magnesium Total Bilirubin AST ALT Alkaline Phosphatase Total Creatine Kinase Troponin I 1.2300 H* NT-Pro-B Natriuret Pep Total Protein Albumin Globulin Albumin/Globulin Ratio Triglycerides Cholesterol LDL Cholesterol Direct HDL Cholesterol Arterial Blood Potassium Urine Color Urine Clarity Urine pH Ur Specific [place] Urine Protein Urine Glucose (UA) Urine Ketones Urine Blood Urine Nitrate Urine Bilirubin Urine Urobilinogen Ur Leukocyte Esterase Urine RBC (Auto) Urine Microscopic WBC Ur Squamous Epith Cells Urine Bacteria Urine Yeast (Budding) Urine Osmolality Ur Random Sodium Ur Random Potassium Vancomycin Trough Urine Opiates Screen Urine Methadone Screen Ur Barbiturates Screen Ur Phencyclidine Scrn Ur Amphetamines Screen U Benzodiazepines Scrn U Oth Cocaine Metabols U Cannabinoids Screen Alcohol, Quantitative HIV-1 Ab Rapid Screen Non reactive Influenza Typ A,B (EIA) Negative for flu a/b Ur L.pneumophila Ag 04/01/17 04/01/17 04/01/17 02:20 02:20 02:45 WBC RBC Hgb Hct MCV MCH MCHC RDW Plt Count MPV Neut % (Auto) Lymph % (Auto) [place] % (Auto) Eos % (Auto) Baso % (Auto) Neut # Lymph # [place] # Eos # Baso # Neutrophils % (Manual) Band Neutrophils % Lymphocytes % (Manual) Monocytes % (Manual) Myelocytes % Platelet Estimate RBC Morphology Polychromasia PT INR APTT pCO2 pO2 HCO3 ABG pH ABG Total CO2 ABG O2 Saturation ABG O2 Content ABG Base Excess ABG Hemoglobin ABG Carboxyhemoglobin POC ABG HHb (Measured) ABG Methemoglobin ABG O2 Capacity Raúl Test ABG Potassium A-a O2 Difference Hgb O2 Saturation Sodium Chloride Glucose Lactate Vent Mode FiO2 Potassium Carbon Dioxide Anion Gap BUN Creatinine Est GFR ( Amer) Est GFR (Non-Af Amer) POC Glucose (mg/dL) Random Glucose Hemoglobin A1c Serum Osmolality 276 Lactic Acid 1.0 Calcium Phosphorus Magnesium Total Bilirubin AST ALT Alkaline Phosphatase Total Creatine Kinase Troponin I NT-Pro-B Natriuret Pep Total Protein Albumin Globulin Albumin/Globulin Ratio Triglycerides Cholesterol LDL Cholesterol Direct HDL Cholesterol Arterial Blood Potassium Urine Color Urine Clarity Urine pH Ur Specific [place] Urine Protein Urine Glucose (UA) Urine Ketones Urine Blood Urine Nitrate Urine Bilirubin Urine Urobilinogen Ur Leukocyte Esterase Urine RBC (Auto) Urine Microscopic WBC Ur Squamous Epith Cells Urine Bacteria Urine Yeast (Budding) Urine Osmolality 215 L Ur Random Sodium Ur Random Potassium Vancomycin Trough Urine Opiates Screen Urine Methadone Screen Ur Barbiturates Screen Ur Phencyclidine Scrn Ur Amphetamines Screen U Benzodiazepines Scrn U Oth Cocaine Metabols U Cannabinoids Screen Alcohol, Quantitative HIV-1 Ab Rapid Screen Influenza Typ A,B (EIA) Ur L.pneumophila Ag 04/01/17 04/01/17 04/01/17 02:45 05:30 05:30 WBC 12.1 H RBC 4.30 L Hgb 12.9 Hct 38.5 MCV 89.6 MCH 29.9 MCHC 33.4 RDW 13.3 Plt Count 183 MPV 7.3 Neut % (Auto) 95.2 H Lymph % (Auto) 2.8 L [place] % (Auto) 1.4 Eos % (Auto) 0.4 Baso % (Auto) 0.2 Neut # 11.5 H Lymph # 0.3 L [place] # 0.2 Eos # 0.0 Baso # 0.0 Neutrophils % (Manual) 95 H Band Neutrophils % Lymphocytes % (Manual) 4 L Monocytes % (Manual) 1 Myelocytes % Platelet Estimate Normal RBC Morphology Polychromasia PT INR APTT pCO2 pO2 HCO3 ABG pH ABG Total CO2 ABG O2 Saturation ABG O2 Content ABG Base Excess ABG Hemoglobin ABG Carboxyhemoglobin POC ABG HHb (Measured) ABG Methemoglobin ABG O2 Capacity Raúl Test ABG Potassium A-a O2 Difference Hgb O2 Saturation Sodium 134 Chloride 104 Glucose Lactate Vent Mode FiO2 Potassium 3.7 Carbon Dioxide 17 L Anion Gap 17 BUN 15 Creatinine 1.0 Est GFR ( Amer) > 60 Est GFR (Non-Af Amer) > 60 POC Glucose (mg/dL) Random Glucose 138 H Hemoglobin A1c Serum Osmolality Lactic Acid Calcium 7.6 L Phosphorus Magnesium Total Bilirubin 0.9 AST 361 H D ALT 106 H D Alkaline Phosphatase 60 Total Creatine Kinase 01271 H Troponin I 0.7760 H* NT-Pro-B Natriuret Pep Total Protein 6.5 Albumin 3.4 L Globulin 3.1 Albumin/Globulin Ratio 1.1 Triglycerides 176 H Cholesterol 90 LDL Cholesterol Direct 32 HDL Cholesterol 14 L Arterial Blood Potassium Urine Color Urine Clarity Urine pH Ur Specific [place] Urine Protein Urine Glucose (UA) Urine Ketones Urine Blood Urine Nitrate Urine Bilirubin Urine Urobilinogen Ur Leukocyte Esterase Urine RBC (Auto) Urine Microscopic WBC Ur Squamous Epith Cells Urine Bacteria Urine Yeast (Budding) Urine Osmolality Ur Random Sodium 17 Ur Random Potassium 10.4 Vancomycin Trough Urine Opiates Screen Negative Urine Methadone Screen Negative Ur Barbiturates Screen Negative Ur Phencyclidine Scrn Negative Ur Amphetamines Screen Negative U Benzodiazepines Scrn Negative U Oth Cocaine Metabols Negative U Cannabinoids Screen Positive H Alcohol, Quantitative HIV-1 Ab Rapid Screen Influenza Typ A,B (EIA) Ur L.pneumophila Ag 04/01/17 04/01/17 04/01/17 10:00 10:15 11:30 WBC RBC Hgb Hct MCV MCH MCHC RDW Plt Count MPV Neut % (Auto) Lymph % (Auto) [place] % (Auto) Eos % (Auto) Baso % (Auto) Neut # Lymph # [place] # Eos # Baso # Neutrophils % (Manual) Band Neutrophils % Lymphocytes % (Manual) Monocytes % (Manual) Myelocytes % Platelet Estimate RBC Morphology Polychromasia PT 16.6 H INR 1.6 H APTT pCO2 pO2 HCO3 ABG pH ABG Total CO2 ABG O2 Saturation ABG O2 Content ABG Base Excess ABG Hemoglobin ABG Carboxyhemoglobin POC ABG HHb (Measured) ABG Methemoglobin ABG O2 Capacity Raúl Test ABG Potassium A-a O2 Difference Hgb O2 Saturation Sodium 134 Chloride 103 Glucose Lactate Vent Mode FiO2 Potassium 3.8 Carbon Dioxide 20 L Anion Gap 15 BUN 15 Creatinine 0.9 Est GFR ( Amer) > 60 Est GFR (Non-Af Amer) > 60 POC Glucose (mg/dL) Random Glucose 180 H Hemoglobin A1c Serum Osmolality Lactic Acid Calcium 7.5 L Phosphorus Magnesium Total Bilirubin AST ALT Alkaline Phosphatase Total Creatine Kinase 69417 H Troponin I 0.5340 H* NT-Pro-B Natriuret Pep Total Protein Albumin Globulin Albumin/Globulin Ratio Triglycerides Cholesterol LDL Cholesterol Direct HDL Cholesterol Arterial Blood Potassium Urine Color Urine Clarity Urine pH Ur Specific [place] Urine Protein Urine Glucose (UA) Urine Ketones Urine Blood Urine Nitrate Urine Bilirubin Urine Urobilinogen Ur Leukocyte Esterase Urine RBC (Auto) Urine Microscopic WBC Ur Squamous Epith Cells Urine Bacteria Urine Yeast (Budding) Urine Osmolality Ur Random Sodium Ur Random Potassium Vancomycin Trough Urine Opiates Screen Urine Methadone Screen Ur Barbiturates Screen Ur Phencyclidine Scrn Ur Amphetamines Screen U Benzodiazepines Scrn U Oth Cocaine Metabols U Cannabinoids Screen Alcohol, Quantitative < 10 HIV-1 Ab Rapid Screen Influenza Typ A,B (EIA) Ur L.pneumophila Ag Positive H 04/02/17 04/02/17 04/02/17 04:45 04:45 04:45 WBC 13.1 H RBC 4.10 L Hgb 12.3 Hct 36.6 MCV 89.3 MCH 30.0 MCHC 33.6 RDW 13.8 Plt Count 193 MPV 7.5 Neut % (Auto) 90.9 H Lymph % (Auto) 3.8 L [place] % (Auto) 4.8 Eos % (Auto) 0.3 Baso % (Auto) 0.2 Neut # 11.9 H Lymph # 0.5 L [place] # 0.6 Eos # 0.0 Baso # 0.0 Neutrophils % (Manual) 87 H Band Neutrophils % 2 Lymphocytes % (Manual) 7 L Monocytes % (Manual) 4 Myelocytes % Platelet Estimate Normal RBC Morphology Normal Polychromasia PT INR APTT pCO2 pO2 HCO3 ABG pH ABG Total CO2 ABG O2 Saturation ABG O2 Content ABG Base Excess ABG Hemoglobin ABG Carboxyhemoglobin POC ABG HHb (Measured) ABG Methemoglobin ABG O2 Capacity Raúl Test ABG Potassium A-a O2 Difference Hgb O2 Saturation Sodium 138 Chloride 105 Glucose Lactate Vent Mode FiO2 Potassium 4.2 Carbon Dioxide 25 Anion Gap 12 BUN 15 Creatinine 0.7 L Est GFR ( Amer) > 60 Est GFR (Non-Af Amer) > 60 POC Glucose (mg/dL) Random Glucose 159 H Hemoglobin A1c 6.1 Serum Osmolality Lactic Acid Calcium 7.9 L Phosphorus 2.5 Magnesium Total Bilirubin 0.6 AST 334 H ALT 139 H D Alkaline Phosphatase 57 Total Creatine Kinase 00041 H Troponin I NT-Pro-B Natriuret Pep Total Protein 6.0 L Albumin 3.1 L Globulin 2.9 Albumin/Globulin Ratio 1.1 Triglycerides Cholesterol LDL Cholesterol Direct HDL Cholesterol Arterial Blood Potassium Urine Color Urine Clarity Urine pH Ur Specific [place] Urine Protein Urine Glucose (UA) Urine Ketones Urine Blood Urine Nitrate Urine Bilirubin Urine Urobilinogen Ur Leukocyte Esterase Urine RBC (Auto) Urine Microscopic WBC Ur Squamous Epith Cells Urine Bacteria Urine Yeast (Budding) Urine Osmolality Ur Random Sodium Ur Random Potassium Vancomycin Trough Urine Opiates Screen Urine Methadone Screen Ur Barbiturates Screen Ur Phencyclidine Scrn Ur Amphetamines Screen U Benzodiazepines Scrn U Oth Cocaine Metabols U Cannabinoids Screen Alcohol, Quantitative HIV-1 Ab Rapid Screen Influenza Typ A,B (EIA) Ur L.pneumophila Ag 04/02/17 04/02/17 04:45 05:22 WBC RBC Hgb Hct MCV MCH MCHC RDW Plt Count MPV Neut % (Auto) Lymph % (Auto) [place] % (Auto) Eos % (Auto) Baso % (Auto) Neut # Lymph # [place] # Eos # Baso # Neutrophils % (Manual) Band Neutrophils % Lymphocytes % (Manual) Monocytes % (Manual) Myelocytes % Platelet Estimate RBC Morphology Polychromasia PT INR APTT pCO2 35 pO2 62 L HCO3 24.8 ABG pH 7.44 ABG Total CO2 24.9 ABG O2 Saturation 96.1 ABG O2 Content 16.4 ABG Base Excess 0 ABG Hemoglobin 12.6 ABG Carboxyhemoglobin 2.1 H POC ABG HHb (Measured) 3.7 ABG Methemoglobin 1.9 ABG O2 Capacity 17.1 Raúl Test Yes ABG Potassium A-a O2 Difference 122.0 Hgb O2 Saturation 92.3 L Sodium Chloride Glucose Lactate Vent Mode Nasal cannula FiO2 32.0 Potassium Carbon Dioxide Anion Gap BUN Creatinine Est GFR ( Amer) Est GFR (Non-Af Amer) POC Glucose (mg/dL) Random Glucose Hemoglobin A1c Serum Osmolality Lactic Acid Calcium Phosphorus Magnesium Total Bilirubin AST ALT Alkaline Phosphatase Total Creatine Kinase Troponin I NT-Pro-B Natriuret Pep Total Protein Albumin Globulin Albumin/Globulin Ratio Triglycerides Cholesterol LDL Cholesterol Direct HDL Cholesterol Arterial Blood Potassium Urine Color Urine Clarity Urine pH Ur Specific [place] Urine Protein Urine Glucose (UA) Urine Ketones Urine Blood Urine Nitrate Urine Bilirubin Urine Urobilinogen Ur Leukocyte Esterase Urine RBC (Auto) Urine Microscopic WBC Ur Squamous Epith Cells Urine Bacteria Urine Yeast (Budding) Urine Osmolality Ur Random Sodium Ur Random Potassium Vancomycin Trough 8.8 Urine Opiates Screen Urine Methadone Screen Ur Barbiturates Screen Ur Phencyclidine Scrn Ur Amphetamines Screen U Benzodiazepines Scrn U Oth Cocaine Metabols U Cannabinoids Screen Alcohol, Quantitative HIV-1 Ab Rapid Screen Influenza Typ A,B (EIA) Ur L.pneumophila Ag Microbiology 04/01/17 05:00 Nose MRSA Culture (Admit) - Final MRSA NOT DETECTED 03/31/17 05:00 Urine,Clean Catch Urine Culture - Final No Growth (<1,000 CFU/ML) 03/31/17 05:00 Blood Blood Culture - Preliminary NO GROWTH AFTER 24 HOURS 03/31/17 05:00 Blood Blood Culture - Preliminary NO GROWTH AFTER 24 HOURS Accession No. : [id number] Patient Name / ID : CHAR CARPENTER / [id number] Exam Date : 04/01/2017 01:31:31 ( Approved ) Study Comment : Sex / Age : M / 51Y Creator : Otto Angulo MD Dictator : Manual Tester : Manager Trade : Otto Angulo MD Approver2 : Report Date : 04/01/2017 02:20:00 My Comment : [facility] Division of Radiology [address] [place] [address] Tel. no. Patient Name: JAYDEN PARDO Pt. Address: [address] [place] [address] Med. Rec #: [id number] [place] [address]: Sheryl TAVERAS,Rosalinda Goldman Pt CELL Order Location: .ICU/ CCU : 1965 Male Age: 51 Order #: [id number] Reason for exam: SOB, Tachycardia, High Trop CT Scan ANGIO CHEST PE PROTOCOL Exam Date: 04/01/17 This imaging exam was performed at [facility] ADDENDUM Addendum created by Otto Angulo MD on 04/01/2017 3:36:28 AM EDT Lymph nodes: Several subcentimeter/few borderline enlarged/few mildly enlarged short axis mediastinal and hilar lymph nodes. Initial report created on 04/01/2017 2:20:16 AM EDT EXAM: CT Angiography Chest With Intravenous Contrast CLINICAL HISTORY: 51 years old, male; Signs and symptoms; Dyspnea; Additional info: SOB, tachycardia, high trop. Issues with bolus injection during exam TECHNIQUE: Axial computed tomographic angiography images of the chest with intravenous contrast using pulmonary embolism protocol. All CT scans at this facility use one or more dose reduction techniques, viz.: automated exposure control; ma/kV adjustment per patient size (including targeted exams where dose is matched to indication; i.e. head); or iterative reconstruction technique. MIP reconstructed images were created and reviewed. Coronal and sagittal reformatted images were created and reviewed. CONTRAST: 80 mL of visipaque administered intravenously. COMPARISON: No relevant prior studies available. FINDINGS: Limitations: Motion artifact - mild. Suboptimal timing of bolus. Pulmonary arteries: No significant contrast opacification of pulmonary arteries. Aorta: No aneurysm. No dissection. Lungs: Marked patchy and confluent air space disease LEFT lower lobe. Several scattered patchy groundglass/air space opacities, most pronounced LEFT upper lobe. Minimal mosaic pattern of lung parenchyma. Minimal interlobular septal thickening. Pleural space: No significant effusion. No pneumothorax. Heart: No cardiomegaly. No significant pericardial effusion. Mild coronary artery calcifications. Bones/joints: No acute fracture. No dislocation. Soft tissues: Unremarkable. Lymph nodes: Several subcentimeter/few borderline enlarged short axis mediastinal lymph nodes. Gallbladder and bile ducts: Calcified gallstones. Adrenals: Probable RIGHT adrenal adenoma. RIGHT adrenal calcifications. IMPRESSION: 1. Nondiagnostic for pulmonary embolism. 2. Findings compatible with multifocal pneumonia. Followup to resolution to exclude underlying pathology. 3. Possible early interstitial edema. Clinical correlation is needed. 4. Cholelithiasis. 5. Incidental/non-acute findings are described above. Addendum Dictated By: Otto Angulo MD Addendum Dictated Date Time:04/01/17 Addendum Signed by:Otto Angulo MD Addendum signed Date Time: 04/01/17335 Addendum Transcribed By: CONSTANCE Addendum Transcribed Date Time: 04/01/17 [facility] EXAM: CT Angiography Chest With Intravenous Contrast CLINICAL HISTORY: 51 years old, male; Signs and symptoms; Dyspnea; Additional info: SOB, tachycardia, high trop. Issues with bolus injection during exam TECHNIQUE: Axial computed tomographic angiography images of the chest with intravenous contrast using pulmonary embolism protocol. All CT scans at this facility use one or more dose reduction techniques, viz.: automated exposure control; ma/kV adjustment per patient size (including targeted exams where dose is matched to indication; i.e. head); or iterative reconstruction technique. MIP reconstructed images were created and reviewed. Coronal and sagittal reformatted images were created and reviewed. CONTRAST: 80 mL of visipaque administered intravenously. COMPARISON: No relevant prior studies available. FINDINGS: Limitations: Motion artifact - mild. Suboptimal timing of bolus. Pulmonary arteries: No significant contrast opacification of pulmonary arteries. Aorta: No aneurysm. No dissection. Lungs: Marked patchy and confluent air space disease LEFT lower lobe. Several scattered patchy groundglass/air space opacities, most pronounced LEFT upper lobe. Minimal mosaic pattern of lung parenchyma. Minimal interlobular septal thickening. Pleural space: No significant effusion. No pneumothorax. Heart: No cardiomegaly. No significant pericardial effusion. Mild coronary artery calcifications. Bones/joints: No acute fracture. No dislocation. Soft tissues: Unremarkable. Lymph nodes: Several subcentimeter/few borderline enlarged short axis mediastinal lymph nodes. Gallbladder and bile ducts: Calcified gallstones. Adrenals: Probable RIGHT adrenal adenoma. RIGHT adrenal calcifications. IMPRESSION: 1. Nondiagnostic for pulmonary embolism. 2. Findings compatible with multifocal pneumonia. Followup to resolution to exclude underlying pathology. 3. Possible early interstitial edema. Clinical correlation is needed. 4. Cholelithiasis. 5. Incidental/non-acute findings are described above. Dictated By: Otto Angulo MD Dictated Date/Time: 04/01/17219 Signed By: Otto Angulo MD Date Signed: [id number] Transcribed By: CONSTANCE Transcribe Date/Time : 04/01/17219 [facility]/SHRUTI Accession No. : [id number] Patient Name / ID : CHAR CARPENTER / [id number] Exam Date : 03/31/2017 22:59:05 ( Approved ) Study Comment : Sex / Age : M / 51Y Creator : Otto Angulo MD Dictator : Manual Tester : Manager Trade : Otto Angulo MD Approver2 : Report Date : 03/31/2017 23:43:00 My Comment : [facility] Division of Radiology [address] [place] [address] Tel. no. Patient Name: JAYDEN PARDO Pt. Address: [address] [place] [address] Rec #: [id number] [place] [address]: MD Ronal [facility] Pt CELL Order Location: .TEL : 1965 Male Age: 51 Order #: [id number] Reason for exam: fever, falls, facial injury CT Scan MAXILLOFACIAL W/O CONTRAST Exam Date: 03/31/17 This imaging exam was performed at [facility] EXAM: CT Maxillofacial Without Intravenous Contrast CLINICAL HISTORY: 51 years old, male; Injury or trauma; Fall; Initial encounter; Laceration; Cheek bone and eyelid and head/scalp and forehead and nose and ocular (eye or eyeball) and orbit/periorbital and maxilla and jaw and lip/oral cavity; Without loss of consciousness; Bilateral; Not specified; Both upper and lower; Without residual foreign body; Injury date: Today; Injury details: Falling multiple times. B/l facial laceration. Bleeding lips. Smoker; Additional info: Fever, falls, facial injury TECHNIQUE: Axial computed tomography images of the face without intravenous contrast. All CT scans at this facility use one or more dose reduction techniques, viz.: automated exposure control; ma/kV adjustment per patient size (including targeted exams where dose is matched to indication; i.e. head); or iterative reconstruction technique. Coronal and sagittal reformatted images were created and reviewed. COMPARISON: No relevant prior studies available. FINDINGS: Bones/joints: No acute fracture. Degenerative changes of cervical spine. Subluxation of LEFT temporomandibular joint. Soft tissues: Mild facial soft tissue swelling. Soft tissue irregularity along lower lip. Orbits: Unremarkable as visualized. Sinuses: Scattered minimal to mild mucosal thickening. Small RIGHT maxillary retention cyst. No air-fluid levels. IMPRESSION: 1. No fracture. 2. Incidental/non-acute findings are described above. Dictated By: Otto Angulo MD Dictated Date/Time: 03/31/172342 Signed By: Otto Angulo MD Date Signed: [id number] Exam Date : 03/31/2017 22:56:18 ( Approved ) Study Comment : Sex / Age : M / 51Y Creator : Otto Angulo MD Dictator : Manual Tester : Manager Trade : Otto Angulo MD Approver2 : Report Date : 03/31/2017 23:38:00 My Comment : [facility] Division of Radiology [address] [place] [address] Tel. no. Patient Name: JAYDEN PARDO Pt. Address: [address] [place] [address]. Rec #: [id number] [place] [address]: MD Ronal [facility] Pt CELL Order Location: TEL : 1965 Male Age: 51 Order #: [id number] Reason for exam: fever, falls, facial injury CT Scan HEAD W/O CONTRAST Exam Date: 03/31/17 This imaging exam was performed at [facility] EXAM: CT Head Without Intravenous Contrast CLINICAL HISTORY: 51 years old, male; Injury or trauma; Fall; Initial encounter; Laceration; Without loss of consciousness; Without residual foreign body; Face and forehead; Injury date: Today; Injury details: Falling multiple times. B/l facial laceration. Bleeding lips. Smoker; Additional info: Fever, falls, facial injury TECHNIQUE: Axial computed tomography images of the head/brain without intravenous contrast. All CT scans at this facility use one or more dose reduction techniques, viz.: automated exposure control; ma/kV adjustment per patient size (including targeted exams where dose is matched to indication; i.e. head); or iterative reconstruction technique. Coronal and sagittal reformatted images were created and reviewed. COMPARISON: No relevant prior studies available. FINDINGS: Brain: No intracranial hemorrhage. No mass. No edema. Ventricles: No hydrocephalus. Bones/joints: No calvarial fracture. Mastoid air cells: No mastoid effusion. IMPRESSION: 1. No intracranial hemorrhage. 2. See facial bone CT report for additional details. Dictated By: Otto Angulo MD Dictated Date/Time: 03/31/172337 Signed By: Otto Angulo MD Date Signed: [id number] Transcribed By: CONSTANCE Transcribe Date/Time : 03/31/172337 [facility]02/VRD Assessment & Plan (1) Legionella pneumophila infection Status: Acute (2) Pneumonia Status: Acute (3) Fever Status: Acute (4) Rhabdomyolysis Status: Acute (5) Transaminitis Status: Acute - Assessment and Plan (Free Text) Assessment: A/P- 51 year old male with no PMH admitted with rhabdomyolysis, fever, leukocytosis and multifocal pneumonia. 1. + legionella pneumophila 2.multifocal pneumonia 3. rhabdomyolysis 4.fever 5.transaminitis t-max 102.[address]- multifocal pneumonia urine legionella- pos HIV ab- neg influenza- neg blood cx- neg x 3 UA- neg urine tox- pos for cannabis high CK Transaminitis trending up Plan- advise to continue with azithromycin for legionella treatment. advise to d/c ceftriaxone and place on broader spectrum antibiotic namely zosyn for broader gram neg coverage. advise to continue with IV vancomycin , keep trough <15. check sputum cx. IV hydration for the rhabdo as per ICU team. check hepatitis panel in light of the transaminitis. transaminitis could be secondary to sepsis and or meds such and/or rhanbdo itself as well. f/u LFTs . check 2 more blood cx. All above d/w patient and he verbalizes full understanding of all above. Thank you for allowing me to take part in the care of this patient. ICU time spent 70 minutes. all labs and imaging and notes reviewed.
[2017-04-02] MEDS: Albuterol-Ipratrop 3 mg / 0.5 (3 ml) UD INH SCH ×6 (00:42→19:31)
[2017-04-02 05:03] LABS: BASO % 0.2 % (0.0-2.0); EOS % 0.3 % (0.0-4.0); HEMATOCRIT 36.6 % (35.0-51.0); LYMPH # 0.5 K/uL (1.0-4.3); LYMPH % 3.8 % (20.0-40.0); MEAN CELL VOLUME 89.3 fl (80.0-94.0); MEAN CORPUSCULAR HGB CONC 33.6 g/dL (33.0-37.0); MEAN PLATELET VOLUME 7.5 fl (7.2-11.7); MONO # 0.6 K/uL (0.0-0.8); MONO % 4.8 % (0.0-10.0); NEUT # 11.9 K/uL (1.8-7.0); NEUT % 90.9 % (50.0-75.0); PLATELET COUNT 193 K/uL (130-400); RED CELL DISTRIBUTION WIDTH 13.8 % (11.5-14.5); WHITE BLOOD COUNT 13.1 K/uL (4.8-10.8)
[2017-04-02 05:08] LABS: ALKALINE PHOSPHATASE 57 U/L (38-126); ALT/SGPT 139 U/L (21-72); AST/SGOT 334 U/L (17-59); BILIRUBIN,TOTAL 0.6 mg/dl (0.2-1.3); BLOOD UREA NITROGEN 15 mg/dl (9-20); CALCIUM 7.9 mg/dL (8.4-10.2); CARBON DIOXIDE 25 mmol/L (22-30); CHLORIDE 105 mmol/L (98-107); GFR AFRICAN-AMERICAN > 60; GLUCOSE,RANDOM 159 mg/dL (75-110); PHOSPHOROUS 2.5 mg/dl (2.5-4.5); POTASSIUM 4.2 MMOL/L (3.6-5.0); SODIUM 138 mmol/l (132-148)
[2017-04-02 05:23] LABS: ALB/GLOB RATIO 1.1 (1.0-2.1)
[2017-04-02 05:25] LABS: ABG ALLEN TEST YES; ARTERIAL BLOOD GAS HCO3 24.8 mmol/L (21-28); ARTERIAL BLOOD GAS MODE NASAL CANNULA; ARTERIAL BLOOD GAS O2 CAPACITY 17.1 mL/dL (16-24); ARTERIAL BLOOD GAS O2 CONTENT 16.4 ML/dL (15-23); ARTERIAL BLOOD GAS PH 7.44 (7.35-7.45); ARTERIAL BLOOD GAS PO2 62 mm/Hg (80-100); ARTERIAL BLOOD HGB O2 SAT 92.3 % (95.0-98.0); CARBOXYHEMOGLOBIN 2.1 % (0.5-1.5); HHB 3.7 % (0.0-5.0); METHEMOGLOBIN 1.9 % (0.0-3.0)
[2017-04-02 06:17] LABS: NEUTROPHIL 87 % (42-75); TOTAL CELLS COUNTED 100
--- NOTE | 2017-04-02 07:26 | CP.CCUPN ---
CCU Subjective - Physician Review Events Since Last Encounter (Free Text): 04/02/17 16:16 The patient was Seen/interviewed and examined by me at the bedside during ICU round, Medical records reviewed and Management issues were discussed and formulated with the house staff. 51 Y/O M who presented to the emergency department last night complaining of weakness that began two days ago and lasted since, He was admitted to the ICU for Multifocal Pneumonia, Sepsis, Elevated trop, Hyponatremia and Rhabdomyolysis Due to muscle injury caused by the Falls Started on IV aggressive hydrations, Antibiotics with IV Vanco, Rocephin and Zithromax Repeat labs reviewed [employer] trending down and Alcohol <10 Pt's urine legionella AG was reported positive. Pt AAO x3. Alert, follows some commands This morning he feels well and is hemodynamically stable, denies any chest pain or SOB Awake, comfortable, NAD Tmax overnight 101.9, had fever this mornig and was tachcardiac received one dose of Tylenol and motrin, HR better now Blood and urine cultures negative Last 24H I&O 4798/1550 On IV hydrations with 0.9% NS at 125/H, Good urine output IV ceftriaxone switched to zosyn for broader spectrum coverage 04/02/17 16:35 HIV AB: neg Influenza: neg 04/01/2017: CT Angiography Chest With Intravenous Contrast Adrenals: Probable RIGHT adrenal adenoma. RIGHT adrenal calcifications. IMPRESSION: 1. Nondiagnostic for pulmonary embolism. 2. Findings compatible with multifocal pneumonia. Followup to resolution to exclude underlying pathology. 3. Possible early interstitial edema. Clinical correlation is needed. 4. Cholelithiasis. CCU Objective - Vital Signs / Intake & Output Vital Signs (Last 4 hours): Vital Signs Temp Pulse Resp BP Pulse Ox 04/02/17 06:00 122 H 19 115/74 95 04/02/17 04:00 98.5 F 116 H 23 108/76 92 L Intake and Output (Last 8hrs): Intake & Output 04/01/17 04/02/17 04/02/17 22:59 06:59 14:59 Intake Total 2588 1250 Output Total 400 600 Balance 2188 650 Intake: IV 2100 1250 Intake, Piggyback 250 Oral 238 Output: Urine 400 600 Urine, Voided 400 600 Other: # Voids Urine, Voided 1 2 # Bowel Movements 0 - Physical Exam Physical Exam Limitations: Positive for: Clinical Condition Pupils: Positive for: PERRL Extroacular Muscles: Positive for: EOMI Conjunctiva: Positive for: Normal Mouth: Positive for: Moist Mucous Membranes Nose (Internal): Positive for: Normal Inspection Neck: Positive for: Normal Range of Motion, Trachea Midline. Negative for: Meningeal Signs, MIDLINE TENDERNESS, Paraspinal Tenderness, JVD, Lymphadenopathy , Bruit, Other Respiratory/Chest: Positive for: Respiratory Distress (MILD, Tachtpnea), Wheezes , Rhonchi, Tachypneic. Negative for: Rales Cardiovascular: Positive for: Regular Rate and Rhythm, Normal S1, S2, Peripheal Pulses Present, Tachycardic. Negative for: Murmurs Abdomen: Positive for: Normal Bowel Sounds. Negative for: Tenderness, Distention, Peritoneal Signs Upper Extremity: Positive for: Normal Inspection, Capillary Refill < 2s. Negative for: Cyanosis, Edema Lower Extremity: Positive for: Normal Inspection, NORMAL PULSES, Capillary Refill < 2 s. Negative for: Edema, CALF TENDERNESS Neurological: Positive for: GCS=15, CN II-XII Intact, Speech Normal, Motor Func Grossly Intact, Normal Sensory Function Psychiatric: Positive for: Alert, Oriented x 3 - Medications Active Medications: Active Medications Generic Name Dose Route Start Last Admin Trade Name Freq PRN Reason Stop Dose Admin Acetaminophen 325 mg 04/01/17 04:28 Tylenol 325mg Tab PO Q4 PRN Fever >100.4 F Albuterol/Ipratropium 3 ml 04/01/17 04:00 04/02/17 05:17 Duoneb 3 Mg/0.5 Mg (3 Ml) Ud INH 3 ml RQ4 JUAREZ Administration Aspirin 81 mg 04/01/17 09:00 04/01/17 08:19 Ecotrin PO 81 mg DAILY JUAREZ Administration Carvedilol 3.125 mg 04/01/17 21:00 04/01/17 21:42 Coreg PO 3.125 mg Q12 JUAREZ Administration Enoxaparin Sodium 90 mg 04/01/17 09:00 04/01/17 21:43 Lovenox SC 90 mg Q12 JUAREZ Administration Protocol Furosemide 40 mg 04/02/17 09:00 Lasix IV DAILY JUAREZ Vancomycin HCl 1 gm/ Sodium 250 mls @ 166.667 mls/hr 04/01/17 09:00 04/01/17 21:41 Chloride IVPB 166.667 mls/hr Q12 JUAREZ Administration Azithromycin 500 mg/ Sodium 250 mls @ 250 mls/hr 04/01/17 09:00 04/01/17 08: 20 Chloride IVPB 250 mls/hr DAILY JUAREZ Administration Ceftriaxone Sodium 1 gm/ 100 mls @ 100 mls/hr 04/01/17 09:00 04/01/17 11:40 Sodium Chloride IVPB 100 mls/hr DAILY JUAREZ Administration Sodium Chloride 1,000 mls @ 125 mls/hr 04/01/17 20:45 04/01/17 23:00 Sodium Chloride 0.9% IV 04/02/17 20:34 125 mls/hr .Q8H JUAREZ Administration Lorazepam 1 mg 04/01/17 21:02 Ativan IVP Q6 PRN Agitation Nicotine 1 patch 04/01/17 09:00 04/01/17 08:22 Nicoderm Cq TD 1 patch DAILY JUAREZ Administration Potassium Phos/Sodium Phos 1 pkt 04/01/17 09:00 04/01/17 21:43 Neutra-Phos PO 04/04/17 09:01 1 pkt QID JUAREZ Administration - Patient Studies Lab Studies: Lab Studies 04/02/17 04/02/17 04/02/17 Range/Units 05:22 04:45 04:45 WBC 13.1 H (4.8-10.8) K/uL RBC 4.10 L (4.40-5.90) Mil/uL Hgb 12.3 (12.0-18.0) g/dL Hct 36.6 (35.0-51.0) % MCV 89.3 (80.0-94.0) fl MCH 30.0 (27.0-31.0) pg MCHC 33.6 (33.0-37.0) g/dL RDW 13.8 (11.5-14.5) % Plt Count 193 (130-400) K/uL MPV 7.5 (7.2-11.7) fl Neut % (Auto) 90.9 H (50.0-75.0) % Lymph % (Auto) 3.8 L (20.0-40.0) % [place] % (Auto) 4.8 (0.0-10.0) % Eos % (Auto) 0.3 (0.0-4.0) % Baso % (Auto) 0.2 (0.0-2.0) % Neut # 11.9 H (1.8-7.0) K/uL Lymph # 0.5 L (1.0-4.3) K/uL [place] # 0.6 (0.0-0.8) K/uL Eos # 0.0 (0.0-0.7) K/uL Baso # 0.0 (0.0-0.2) K/uL Neutrophils % (Manual) 87 H (42-75) % Band Neutrophils % 2 (0-2) % Lymphocytes % (Manual) 7 L (20-50) % Monocytes % (Manual) 4 (0-10) % Platelet Estimate Normal (NORMAL) RBC Morphology Normal (NORMAL) PT (9.8-13.1) Seconds INR (0.9-1.2) pCO2 35 (35-45) mm/Hg pO2 62 L (80-100) mm/Hg HCO3 24.8 (21-28) mmol/L ABG pH 7.44 (7.35-7.45) ABG Total CO2 24.9 (22-28) mmol/L ABG O2 Saturation 96.1 (95-98) % ABG O2 Content 16.4 (15-23) ML/dL ABG Base Excess 0 (-2.0-3.0) mmol/L ABG Hemoglobin 12.6 (11.7-17.4) g/dL ABG Carboxyhemoglobin 2.1 H (0.5-1.5) % POC ABG HHb (Measured) 3.7 (0.0-5.0) % ABG Methemoglobin 1.9 (0.0-3.0) % ABG O2 Capacity 17.1 (16-24) mL/dL Raúl Test Yes A-a O2 Difference 122.0 mm/Hg Hgb O2 Saturation 92.3 L (95.0-98.0) % Vent Mode Nasal cannula FiO2 32.0 % Sodium (132-148) mmol/l Potassium (3.6-5.0) MMOL/L Chloride (98-107) mmol/L Carbon Dioxide (22-30) mmol/L Anion Gap (10-20) BUN (9-20) mg/dl Creatinine (0.8-1.5) mg/dL Est GFR ( Amer) Est GFR (Non-Af Amer) Random Glucose (75-110) mg/dL Calcium (8.4-10.2) mg/dL Phosphorus (2.5-4.5) mg/dl Total Bilirubin (0.2-1.3) mg/dl AST (17-59) U/L ALT (21-72) U/L Alkaline Phosphatase (38-126) U/L Total Creatine Kinase (55-170) U/L Troponin I (0.00-0.120) ng/mL Total Protein (6.3-8.2) G/DL Albumin (3.5-5.0) g/dL Globulin (2.2-3.9) gm/dL Albumin/Globulin Ratio (1.0-2.1) Vancomycin Trough 8.8 (5.0-10.0) ug/mL Alcohol, Quantitative (0-10) mg/dl Ur L.pneumophila Ag (NEGATIVE) 04/02/17 04/01/17 04/01/17 Range/Units 04:45 11:30 10:15 WBC (4.8-10.8) K/uL RBC (4.40-5.90) Mil/uL Hgb (12.0-18.0) g/dL Hct (35.0-51.0) % MCV (80.0-94.0) fl MCH (27.0-31.0) pg MCHC (33.0-37.0) g/dL RDW (11.5-14.5) % Plt Count (130-400) K/uL MPV (7.2-11.7) fl Neut % (Auto) (50.0-75.0) % Lymph % (Auto) (20.0-40.0) % [place] % (Auto) (0.0-10.0) % Eos % (Auto) (0.0-4.0) % Baso % (Auto) (0.0-2.0) % Neut # (1.8-7.0) K/uL Lymph # (1.0-4.3) K/uL [place] # (0.0-0.8) K/uL Eos # (0.0-0.7) K/uL Baso # (0.0-0.2) K/uL Neutrophils % (Manual) (42-75) % Band Neutrophils % (0-2) % Lymphocytes % (Manual) (20-50) % Monocytes % (Manual) (0-10) % Platelet Estimate (NORMAL) RBC Morphology (NORMAL) PT 16.6 H (9.8-13.1) Seconds INR 1.6 H (0.9-1.2) pCO2 (35-45) mm/Hg pO2 (80-100) mm/Hg HCO3 (21-28) mmol/L ABG pH (7.35-7.45) ABG Total CO2 (22-28) mmol/L ABG O2 Saturation (95-98) % ABG O2 Content (15-23) ML/dL ABG Base Excess (-2.0-3.0) mmol/L ABG Hemoglobin (11.7-17.4) g/dL ABG Carboxyhemoglobin (0.5-1.5) % POC ABG HHb (Measured) (0.0-5.0) % ABG Methemoglobin (0.0-3.0) % ABG O2 Capacity (16-24) mL/dL Raúl Test A-a O2 Difference mm/Hg Hgb O2 Saturation (95.0-98.0) % Vent Mode FiO2 % Sodium 138 (132-148) mmol/l Potassium 4.2 (3.6-5.0) MMOL/L Chloride 105 (98-107) mmol/L Carbon Dioxide 25 (22-30) mmol/L Anion Gap 12 (10-20) BUN 15 (9-20) mg/dl Creatinine 0.7 L (0.8-1.5) mg/dL Est GFR ( Amer) > 60 Est GFR (Non-Af Amer) > 60 Random Glucose 159 H (75-110) mg/dL Calcium 7.9 L (8.4-10.2) mg/dL Phosphorus 2.5 (2.5-4.5) mg/dl Total Bilirubin 0.6 (0.2-1.3) mg/dl AST 334 H (17-59) U/L ALT 139 H D (21-72) U/L Alkaline Phosphatase 57 (38-126) U/L Total Creatine Kinase 77154 H (55-170) U/L Troponin I (0.00-0.120) ng/mL Total Protein 6.0 L (6.3-8.2) G/DL Albumin 3.1 L (3.5-5.0) g/dL Globulin 2.9 (2.2-3.9) gm/dL Albumin/Globulin Ratio 1.1 (1.0-2.1) Vancomycin Trough (5.0-10.0) ug/mL Alcohol, Quantitative (0-10) mg/dl Ur L.pneumophila Ag Positive H (NEGATIVE) 04/01/17 Range/Units 10:00 WBC (4.8-10.8) K/uL RBC (4.40-5.90) Mil/uL Hgb (12.0-18.0) g/dL Hct (35.0-51.0) % MCV (80.0-94.0) fl MCH (27.0-31.0) pg MCHC (33.0-37.0) g/dL RDW (11.5-14.5) % Plt Count (130-400) K/uL MPV (7.2-11.7) fl Neut % (Auto) (50.0-75.0) % Lymph % (Auto) (20.0-40.0) % [place] % (Auto) (0.0-10.0) % Eos % (Auto) (0.0-4.0) % Baso % (Auto) (0.0-2.0) % Neut # (1.8-7.0) K/uL Lymph # (1.0-4.3) K/uL [place] # (0.0-0.8) K/uL Eos # (0.0-0.7) K/uL Baso # (0.0-0.2) K/uL Neutrophils % (Manual) (42-75) % Band Neutrophils % (0-2) % Lymphocytes % (Manual) (20-50) % Monocytes % (Manual) (0-10) % Platelet Estimate (NORMAL) RBC Morphology (NORMAL) PT (9.8-13.1) Seconds INR (0.9-1.2) pCO2 (35-45) mm/Hg pO2 (80-100) mm/Hg HCO3 (21-28) mmol/L ABG pH (7.35-7.45) ABG Total CO2 (22-28) mmol/L ABG O2 Saturation (95-98) % ABG O2 Content (15-23) ML/dL ABG Base Excess (-2.0-3.0) mmol/L ABG Hemoglobin (11.7-17.4) g/dL ABG Carboxyhemoglobin (0.5-1.5) % POC ABG HHb (Measured) (0.0-5.0) % ABG Methemoglobin (0.0-3.0) % ABG O2 Capacity (16-24) mL/dL Raúl Test A-a O2 Difference mm/Hg Hgb O2 Saturation (95.0-98.0) % Vent Mode FiO2 % Sodium 134 (132-148) mmol/l Potassium 3.8 (3.6-5.0) MMOL/L Chloride 103 (98-107) mmol/L Carbon Dioxide 20 L (22-30) mmol/L Anion Gap 15 (10-20) BUN 15 (9-20) mg/dl Creatinine 0.9 (0.8-1.5) mg/dL Est GFR ( Amer) > 60 Est GFR (Non-Af Amer) > 60 Random Glucose 180 H (75-110) mg/dL Calcium 7.5 L (8.4-10.2) mg/dL Phosphorus (2.5-4.5) mg/dl Total Bilirubin (0.2-1.3) mg/dl AST (17-59) U/L ALT (21-72) U/L Alkaline Phosphatase (38-126) U/L Total Creatine Kinase 37999 H (55-170) U/L Troponin I 0.5340 H* (0.00-0.120) ng/mL Total Protein (6.3-8.2) G/DL Albumin (3.5-5.0) g/dL Globulin (2.2-3.9) gm/dL Albumin/Globulin Ratio (1.0-2.1) Vancomycin Trough (5.0-10.0) ug/mL Alcohol, Quantitative < 10 (0-10) mg/dl Ur L.pneumophila Ag (NEGATIVE) Laboratory Results - last 24 hr 04/01/17 04/01/17 04/01/17 10:00 10:15 11:30 WBC RBC Hgb Hct MCV MCH MCHC RDW Plt Count MPV Neut % (Auto) Lymph % (Auto) [place] % (Auto) Eos % (Auto) Baso % (Auto) Neut # Lymph # [place] # Eos # Baso # Neutrophils % (Manual) Band Neutrophils % Lymphocytes % (Manual) Monocytes % (Manual) Platelet Estimate RBC Morphology PT 16.6 H INR 1.6 H pCO2 pO2 HCO3 ABG pH ABG Total CO2 ABG O2 Saturation ABG O2 Content ABG Base Excess ABG Hemoglobin ABG Carboxyhemoglobin POC ABG HHb (Measured) ABG Methemoglobin ABG O2 Capacity Raúl Test A-a O2 Difference Hgb O2 Saturation Vent Mode FiO2 Sodium 134 Potassium 3.8 Chloride 103 Carbon Dioxide 20 L Anion Gap 15 BUN 15 Creatinine 0.9 Est GFR ( Amer) > 60 Est GFR (Non-Af Amer) > 60 Random Glucose 180 H Calcium 7.5 L Phosphorus Total Bilirubin AST ALT Alkaline Phosphatase Total Creatine Kinase 11768 H Troponin I 0.5340 H* Total Protein Albumin Globulin Albumin/Globulin Ratio Vancomycin Trough Alcohol, Quantitative < 10 Ur L.pneumophila Ag Positive H 04/02/17 04/02/17 04/02/17 04:45 04:45 04:45 WBC 13.1 H RBC 4.10 L Hgb 12.3 Hct 36.6 MCV 89.3 MCH 30.0 MCHC 33.6 RDW 13.8 Plt Count 193 MPV 7.5 Neut % (Auto) 90.9 H Lymph % (Auto) 3.[address] % (Auto) 4.8 Eos % (Auto) 0.3 Baso % (Auto) 0.2 Neut # 11.9 H Lymph # 0.[address] # 0.6 Eos # 0.0 Baso # 0.0 Neutrophils % (Manual) 87 H Band Neutrophils % 2 Lymphocytes % (Manual) 7 L Monocytes % (Manual) 4 Platelet Estimate Normal RBC Morphology Normal PT INR pCO2 pO2 HCO3 ABG pH ABG Total CO2 ABG O2 Saturation ABG O2 Content ABG Base Excess ABG Hemoglobin ABG Carboxyhemoglobin POC ABG HHb (Measured) ABG Methemoglobin ABG O2 Capacity Raúl Test A-a O2 Difference Hgb O2 Saturation Vent Mode FiO2 Sodium 138 Potassium 4.2 Chloride 105 Carbon Dioxide 25 Anion Gap 12 BUN 15 Creatinine 0.7 L Est GFR ( Amer) > 60 Est GFR (Non-Af Amer) > 60 Random Glucose 159 H Calcium 7.9 L Phosphorus 2.5 Total Bilirubin 0.6 AST 334 H ALT 139 H D Alkaline Phosphatase 57 Total Creatine Kinase 48078 H Troponin I Total Protein 6.0 L Albumin 3.1 L Globulin 2.9 Albumin/Globulin Ratio 1.1 Vancomycin Trough 8.8 Alcohol, Quantitative Ur L.pneumophila Ag 04/02/17 05:22 WBC RBC Hgb Hct MCV MCH MCHC RDW Plt Count MPV Neut % (Auto) Lymph % (Auto) [place] % (Auto) Eos % (Auto) Baso % (Auto) Neut # Lymph # [place] # Eos # Baso # Neutrophils % (Manual) Band Neutrophils % Lymphocytes % (Manual) Monocytes % (Manual) Platelet Estimate RBC Morphology PT INR pCO2 35 pO2 62 L HCO3 24.8 ABG pH 7.44 ABG Total CO2 24.9 ABG O2 Saturation 96.1 ABG O2 Content 16.4 ABG Base Excess 0 ABG Hemoglobin 12.6 ABG Carboxyhemoglobin 2.1 H POC ABG HHb (Measured) 3.7 ABG Methemoglobin 1.9 ABG O2 Capacity 17.1 Raúl Test Yes A-a O2 Difference 122.0 Hgb O2 Saturation 92.3 L Vent Mode Nasal cannula FiO2 32.0 Sodium Potassium Chloride Carbon Dioxide Anion Gap BUN Creatinine Est GFR ( Amer) Est GFR (Non-Af Amer) Random Glucose Calcium Phosphorus Total Bilirubin AST ALT Alkaline Phosphatase Total Creatine Kinase Troponin I Total Protein Albumin Globulin Albumin/Globulin Ratio Vancomycin Trough Alcohol, Quantitative Ur L.pneumophila Ag Review of Systems - Cardiovascular Cardiovascular: Dyspnea, Dyspnea on Exertion. absent: Chest Pain, Chest Pain at Rest, Chest Pain with Activity, Claudication, Diaphoresis - Respiratory Respiratory: Cough, Dyspnea, Dyspnea on Exertion, Chest Congestion. absent: Hemoptysis, Wheezing, Snoring, Stridor - Gastrointestinal Gastrointestinal: absent: Abdominal Pain Critical Care Progress Note - Extremities/Vascular Does the Patient have a Central Venous Catheter?: No Does the Patient need a Central Venous Catheter?: No - Nutrition Nutrition: Nutrition Category Date Time Status Heart Healthy Diet [DIET] Diets 04/01/17 Breakfast Active Assessment/Plan (1) Fever Current Visit: Yes Status: Acute (2) Legionella pneumophila infection Current Visit: Yes Status: Acute (3) Pneumonia Current Visit: Yes Status: Acute (4) Rhabdomyolysis Current Visit: Yes Status: Acute (5) Transaminitis Current Visit: Yes Status: Acute - Assessment and Plan (Free Text) Assessment: Continue current management, IV Hydrations, Cardiology and ID consulted IV ceftriaxone switched to zosyn for broader spectrum coverage Follow up final C/S results Continue ASA, Carvedilol, Lovenox and Antibiotics (as per ID) Duoneb 3 Mg/0.5 Mg (3 Ml) Ud) 3 ml INH RQ4 Trend CPK, LFTs,. check hepatitis panel OOB ECHO today Nicotine 1 patch TD DAILY PRN Ativan GI/DVT PPX
--- NOTE | 2017-04-02 07:30 | CP.PCM.PN ---
Subjective - Date & Time of Evaluation Date of Evaluation: 04/02/17 Time of Evaluation: 07:29 - Subjective Subjective: pt seen examined bedside audible wheezing, not in distress. tmax overnight 101.9, Blood cultures ordered LFTs trending up will eval all meds CK trending down Repeat CXR pending TACHY this AM 120s, likely 2/2 fever good urine output no other complaints, pt stable, cont monitor Objective - Vital Signs/Intake and Output Vital Signs (last 24 hours): Temp Pulse Resp BP Pulse Ox 98.5 F 122 H 19 115/74 95 04/02/17 04:00 04/02/17 06:00 04/02/17 06:00 04/02/17 06:00 04/02/17 06:00 GEN: WDWN, alert, cooperative HEENT: facial abrasions. PERRL, EOMI Neck: supple, no lymphadenopathy CARDIO: +S1S2, RRR, NO M/R/G LUNG: +audible wheezes/rhonchi bilaterally ABD: soft, NT, ND, no masses, no HSM EXT: no edema, pedal pulses Neuro: AAOx3, Strength equal, bilateral UE/LE Psych: normal mood, normal affect Intake and Output: 04/02/17 04/02/17 06:59 18:59 Intake Total 2000 Output Total 1000 Balance 1000 - Medications Medications: Current Medications Acetaminophen (Tylenol 325mg Tab) 325 mg PO Q4 PRN PRN Reason: Fever >100.4 F Albuterol/Ipratropium (Duoneb 3 Mg/0.5 Mg (3 Ml) Ud) 3 ml INH RQ4 JUAREZ Last Admin: 04/02/17 05:17 Dose: 3 ml Aspirin (Ecotrin) 81 mg PO DAILY JUAREZ Last Admin: 04/01/17 08:19 Dose: 81 mg Carvedilol (Coreg) 3.125 mg PO Q12 JUAREZ Last Admin: 04/01/17 21:42 Dose: 3.125 mg Enoxaparin Sodium (Lovenox) 90 mg SC Q12 JUAREZ PRN Reason: Protocol Last Admin: 04/01/17 21:43 Dose: 90 mg Furosemide (Lasix) 40 mg IV DAILY [facility] Vancomycin HCl 1 gm/ Sodium (Chloride) 250 mls @ 166.667 mls/hr IVPB Q12 JUAREZ Last Admin: 04/01/17 21:41 Dose: 166.667 mls/hr Azithromycin 500 mg/ Sodium (Chloride) 250 mls @ 250 mls/hr IVPB DAILY [facility] Last Admin: 04/01/17 08:20 Dose: 250 mls/hr Ceftriaxone Sodium 1 gm/ (Sodium Chloride) 100 mls @ 100 mls/hr IVPB DAILY [facility] Last Admin: 04/01/17 11:40 Dose: 100 mls/hr Sodium Chloride (Sodium Chloride 0.9%) 1,000 mls @ 125 mls/hr IV .Q8H [facility] Stop: 04/02/17 20:34 Last Admin: 04/01/17 23:00 Dose: 125 mls/hr Lorazepam (Ativan) 1 mg IVP Q6 PRN PRN Reason: Agitation Nicotine (Nicoderm Cq) 1 patch TD DAILY [facility] Last Admin: 04/01/17 08:22 Dose: 1 patch Potassium Phos/Sodium Phos (Neutra-Phos) 1 pkt PO QID [facility] Stop: 04/04/17 09:01 Last Admin: 04/01/17 21:43 Dose: 1 pkt - Labs Labs: 04/02/17 04:45 04/02/17 04:45 PT 16.6 Seconds (9.8-13.1) H 04/01/17 11:30 INR 1.6 (0.9-1.2) H 04/01/17 11:30 APTT 35.2 Seconds (25.6-37.1) 03/31/17 21:50 Assessment and Plan - Assessment and Plan (Free Text) Plan: CT scan - head FINDINGS: Brain: No intracranial hemorrhage. No mass. No edema. Ventricles: No hydrocephalus. Bones/joints: No calvarial fracture. Mastoid air cells: No mastoid effusion. IMPRESSION: 1. No intracranial hemorrhage. 2. See facial bone CT report for additional details. CT Maxilofacial FINDINGS: Bones/joints: No acute fracture. Degenerative changes of cervical spine. Subluxation of LEFT temporomandibular joint. Soft tissues: Mild facial soft tissue swelling. Soft tissue irregularity along lower lip. Orbits: Unremarkable as visualized. Sinuses: Scattered minimal to mild mucosal thickening. Small RIGHT maxillary retention cyst. No air-fluid levels. IMPRESSION: 1. No fracture. 2. Incidental/non-acute findings are described above. CTA Chest FINDINGS: Limitations: Motion artifact - mild. Suboptimal timing of bolus. Pulmonary arteries: No significant contrast opacification of pulmonary arteries. Aorta: No aneurysm. No dissection. Lungs: Marked patchy and confluent air space disease LEFT lower lobe. Several scattered patchy groundglass/air space opacities, most pronounced LEFT upper lobe. Minimal mosaic pattern of lung parenchyma. Minimal interlobular septal thickening. Pleural space: No significant effusion. No pneumothorax. Heart: No cardiomegaly. No significant pericardial effusion. Mild coronary artery calcifications. Bones/joints: No acute fracture. No dislocation. Soft tissues: Unremarkable. Lymph nodes: Several subcentimeter/few borderline enlarged short axis mediastinal lymph nodes. Gallbladder and bile ducts: Calcified gallstones. Adrenals: Probable RIGHT adrenal adenoma. RIGHT adrenal calcifications. IMPRESSION: 1. Nondiagnostic for pulmonary embolism. 2. Findings compatible with multifocal pneumonia. Followup to resolution to exclude underlying pathology. 3. Possible early interstitial edema. Clinical correlation is needed. 4. Cholelithiasis. 5. Incidental/non-acute findings are described above. Thank you for allowing us to participate in the care of your patient. Chest x-ray Left lower lobe Opacity Mild congestion #. Multifocal Pneumonia #. Sepsis #. Rhabdomyolysis 3. Hyponatremia #. Hypophosphatemis #. Elevated Troponin #. Transaminitis #. Multiple falls #. Imbalance #. 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 Falling twice receiving trauma to the left side of the face and left forehead, laceration to his lower lip and nose. He began having non productive cough with chills and diarrhea on the day of admission. In the ED the Temperature was 103.6F with HR of 125/min. #. Multifocal Pneumonia - pt admitted for ETOH, trauma 2/2 fall, found to have URI sx, CT showed multifocal pneumonia - WBC trending up today, as are LFTs - will evaluate abx' - + Legionella POSITIVE cont Azithromycin - Mycoplasma pending - Consult Dr Khalil of Pulmonary - Vancomycin/Cefepime/Azithromycin given in the ED -Continue with Vancomycin/Azithromycin and Ceftriaxone -Duoneb Q4H - initiate steroids for audible wheezing today, will likely cause additional leukocytosis tomorrow - REPEAT chest XR today pending #. Sepsis - Consult Dr Parsons - Continue Above Antibiotics, discussed re: LFTs - follow Blood and Sputum Cultures - IV fluid at NS 200Mls/min #. Rhabdomyolysis Due to muscle injury caused by the Falls - IV fluids NS at 200mls/hr - Follow CPK levels, which are trneding down #. Hyponatremia probably due to SIADH caused by the Pneumonia - IV Fluids NS 200ml/hr because of the Rhabdomyolysis - follow Serum and Urine Osmolality and urine Sodium - Follow Serum Electrolytes - RESOLVED #. Hypophosphatemia - Repleat with Neutro Phos - Follow Phosphorous #. Elevated Troponin Probably secondary to cardiac trauma r/o ACS - Consult Dr Atkinson - Lovenox Therapeutic dose Q12H - ASA - Lipid Panel - Serial Troponin - Serial EKG - ECHO for wall motion #. Mild pulmonary congestion r/o CHF - Cardiology on consult - Lasix IV - ECHO for Left ventricle Function and EF #. Transaminitis secondary to the muscle injury - Follow LFT, trending up, will monitor #. Imbalance with Multiple falls - OT/PT evaluation and Treatment #. Nicotine Addiction - Nicotine Patch #. Coagulopathy with elevated INR - Vitamin K 5mg - Follow INR #. Subluxation of the left temperomandibular joint - Pain management #.Cholelithiasis, Stable #. DVT Prophylaxis with SCD and Lovenox #. Code Status: Full
[2017-04-02] MEDS: Enoxaparin 100 mg Syringe SC SCH ×2 (08:58→20:21)
[2017-04-02] MEDS: Potassium & Sodium Phosphate PO SCH ×4 (09:00→21:54)
[2017-04-02] MEDS: Azithromycin 500 MG in Sodium Chloride 0.9% 250 ML IVPB SCH (09:02)
[2017-04-02] MEDS: NS IVPB SCH ×2 (13:29→17:41)
[2017-04-02] MEDS: METHYLPREDNISOLONE IVPB SCH ×2 (13:29→17:41)
--- NOTE | 2017-04-02 14:10 | PN ---
DATE: SUBJECTIVE: The patient is at times confused and he is tremulous. He is also febrile and has fever with 102.4 and currently is 99.9. PHYSICAL EXAMINATION VITAL SIGNS: Blood pressure 107/63, hear rate 105, and temperature 99.9. HEENT: Frontal abrasions. CHEST: Bibasilar course and crepitations. HEART: S1 and S2 regular. ABDOMEN: Soft. EXTREMITIES: Trace leg edema. LABORATORY DATA: Today's white count 15.1, hemoglobin, hematocrit, and platelet count are within normal limits. Today's SMA-7 is within normal limits except for glucose of 159 and creatinine 0.7. Total CPK today is 18,000. Troponin 0.534. Today's chest x-ray revealed worsening opacification of the entire left lung as well as right middle lobe. ASSESSMENT: 1. Legionella pneumonia. 2. Rhabdomyolysis. 3. Cannabinoid abuse. 4. Alcohol abuse. RECOMMENDATIONS: Continue current IV Zithromax and IV Rocephin. Continue subcutaneous Lovenox at 90 mg twice a day, normal saline infusion 125 mL per hour, Lasix was started at 40 mg intravenously daily today which I agree with and continue Coreg at 3.125 mg once a day. Awaiting bedside echo cardiac study today. The patient sounds a specific candidate for invasive cardiac workup at least at this time. Marcio Atkinson MD
--- NOTE | 2017-04-02 14:27 | CON ---
REASON FOR CONSULTATION: Elevated troponin. HISTORY OF PRESENT ILLNESS: The patient is a 51-year-old male who was admitted to ICU because of weakness and a fall and the patient sustained frontal ecchymosis. The patient has history of EtOH abuse. He did report shortness of breath and was diagnosed with Legionella pneumonia as well as rhabdomyolysis. The patient also tested positive for cannabinoids. The patient is having chest pain and he is unaware of any prior cardiac history. MEDICATIONS: Zithromax 500 mg intravenously daily, Rocephin 1 g intravenously daily, vancomycin 1 g intravenously q. 12 hours. The patient is on nicotine patch, multivitamin infusion, subcutaneous Lovenox at 90 mg twice a day in a therapeutic regimen. Lasix at 40 mg intravenously q. 8 hours, aspirin 81 mg once a day. PHYSICAL EXAMINATION: GENERAL: The patient is a middle-aged male, who is anxious and tremulous. VITAL SIGNS: Blood pressure 123/73, heart rate 115, temperature 101.6, respirations . HEENT: Frontal ecchymosis. NECK: No JVD. CHEST: Bilateral rhonchi. HEART: S1 and S2 regular. ABDOMEN: Soft. EXTREMITIES: Trace leg edema. LABORATORY DATA: SMA-7 is within normal limits except for glucose of 180 and carbon dioxide of 20. Troponins were as follows 1.04, 0.77, 0.534. Phosphorous was below normal on admission at 0.9. Total creatine kinase, the highest number is 31,276. Urine legionella antigen is positive and drug screen is positive for cannabinoids. Alcohol level is below 10. INR is 1.1. revealed sinus tachycardia with premature atrial complexes, possible left atrial enlargement, heart rate 124. Today's EKG revealed sinus tachycardia with premature atrial complexes, rate 118. Head CT scan without contrast, revealed no intracranial hemorrhage. Maxillofacial CT scan without contrast revealed no fracture. Chest CT angio revealed nondiagnostic for pulmonary embolus. Findings compatible with multifocal pneumonia. Possible early interstitial edema. Cholelithiasis. ASSESSMENT: 1. Legionella pneumonia. 2. Rhabdomyolysis. 3. Alcohol withdrawal. 4. Marijuana abuse. 5. Hypophosphatemia. RECOMMENDATIONS: Case was discussed yesterday with Emergency Room team and today with the database specialist. Continue current triple antibiotic therapy, including IV Rocephin, IV Zithromax and IV vancomycin. Continue intravenous multivitamin infusion and continue hydration with normal saline. Monitor for any signs of volume overload. Monitor for alcohol withdrawal. Continue IV Lasix q. 8 hours and aspirin 81 mg once a day. Statins will not be advisable in view of elevated liver enzymes. I will start Coreg at 3.125 mg twice a day. Obtain a bedside echocardiogram. Marcio Atkinson MD
--- NOTE | 2017-04-02 14:55 | RAD ---
HISTORY: Pneumonia. COMPARISON: 03/31/2017 single-view chest. April 01, 2017. CT thorax FINDINGS: LUNGS: Progression of multifocal infiltrates particularly left lower lobe and left upper lobe. Right upper lobe infiltrate is more conspicuous. PLEURA: No significant pleural effusion identified, no pneumothorax apparent. CARDIOVASCULAR: Normal. OSSEOUS STRUCTURES: No significant abnormalities. VISUALIZED UPPER ABDOMEN: Normal. OTHER FINDINGS: PET-CT IMPRESSION: Worsening bilateral infiltrates left greater than right
[2017-04-02] MEDS: Piperacillin/Tazobact 3.375 GM in Sodium Chloride 0.9% 100 ML IVPB SCH (17:41)
[2017-04-02] MEDS: Sodium Chloride 0.9% 1,000 ML IV SCH (20:25)
[2017-04-03] MEDS: NS IVPB SCH ×3 (00:05→16:48)
[2017-04-03] MEDS: Albuterol-Ipratrop 3 mg / 0.5 (3 ml) UD INH SCH ×6 (00:05→19:32)
[2017-04-03] MEDS: METHYLPREDNISOLONE IVPB SCH ×3 (00:05→16:48)
[2017-04-03] MEDS: Piperacillin/Tazobact 3.375 GM in Sodium Chloride 0.9% 100 ML IVPB SCH ×3 (00:06→16:48)
[2017-04-03] MEDS ORDERED: Albuterol-Ipratrop 3 mg / 0.5 (3 ml) UD INH STA ×2 (02:10→08:09)
[2017-04-03] MEDS: Sodium Chloride 0.9% 1,000 ML IV SCH (04:02)
[2017-04-03 05:35] LABS: BASO % 0.2 % (0.0-2.0); EOS # 0.1 K/uL (0.0-0.7); EOS % 0.7 % (0.0-4.0); HEMATOCRIT 36.9 % (35.0-51.0); LYMPH # 0.3 K/uL (1.0-4.3); LYMPH % 2.7 % (20.0-40.0); MEAN CELL VOLUME 88.9 fl (80.0-94.0); MEAN CORPUSCULAR HEMOGLOBIN 30.5 pg (27.0-31.0); MEAN CORPUSCULAR HGB CONC 34.4 g/dL (33.0-37.0); MEAN PLATELET VOLUME 7.8 fl (7.2-11.7); MONO # 0.2 K/uL (0.0-0.8); MONO % 1.9 % (0.0-10.0); NEUT # 11.5 K/uL (1.8-7.0); NEUT % 94.5 % (50.0-75.0); NRBC % 1.4 % (0.0-0.0); PLATELET COUNT 218 K/uL (130-400); RED CELL DISTRIBUTION WIDTH 13.9 % (11.5-14.5); WHITE BLOOD COUNT 12.1 K/uL (4.8-10.8)
[2017-04-03 07:37] LABS: BLOOD UREA NITROGEN 19 mg/dl (9-20); CALCIUM 7.8 mg/dL (8.4-10.2); CARBON DIOXIDE 24 mmol/L (22-30); CHLORIDE 105 mmol/L (98-107); GFR AFRICAN-AMERICAN > 60; GLUCOSE,RANDOM 161 mg/dL (75-110); MAGNESIUM 2.1 MG/DL (1.6-2.3); PHOSPHOROUS 2.6 mg/dl (2.5-4.5); POTASSIUM 4.1 MMOL/L (3.6-5.0); SODIUM 136 mmol/l (132-148); TOTAL PROTEIN 6.1 G/DL (6.3-8.2)
[2017-04-03 07:38] LABS: ALB/GLOB RATIO 0.9 (1.0-2.1); ALKALINE PHOSPHATASE 62 U/L (38-126); ALT/SGPT 184 U/L (21-72); AST/SGOT 291 U/L (17-59); BILIRUBIN,TOTAL 0.8 mg/dl (0.2-1.3)
[2017-04-03] MEDS ORDERED: Albuterol-Ipratrop 3 mg / 0.5 (3 ml) UD INH SCH (08:00)
[2017-04-03 08:18] LABS: ABG ALLEN TEST YES; ARTERIAL BLOOD GAS HCO3 24.8 mmol/L (21-28); ARTERIAL BLOOD GAS O2 CAPACITY 17.8 mL/dL (16-24); ARTERIAL BLOOD GAS O2 CONTENT 15.3 ML/dL (15-23); ARTERIAL BLOOD GAS PH 7.42 (7.35-7.45); ARTERIAL BLOOD GAS PO2 45 mm/Hg (80-100); ARTERIAL BLOOD HGB O2 SAT 82.2 % (95.0-98.0); CARBOXYHEMOGLOBIN 2.3 % (0.5-1.5); HHB 13.6 % (0.0-5.0)
[2017-04-03] MEDS: Enoxaparin 100 mg Syringe SC SCH ×2 (08:31→21:00)
[2017-04-03] MEDS: Potassium & Sodium Phosphate PO SCH ×4 (08:32→22:00)
[2017-04-03] MEDS: Azithromycin 500 MG in Sodium Chloride 0.9% 250 ML IVPB SCH (08:33)
--- NOTE | 2017-04-03 08:38 | CP.CCUPN ---
CCU Subjective - Physician Review Events Since Last Encounter (Free Text): 04/03/17 14:40 51 Y/O M who presented to the emergency department on03/31 night complaining of weakness that began two days ago and lasted since, He was admitted to the ICU for Multifocal Pneumonia, Sepsis, Elevated trop, Hyponatremia and Rhabdomyolysis Due to muscle injury caused by the fall at home. Patient is former tobacco smoker, actively drinks Alcohol and smokes marijuana He was started on IV aggressive hydrations, Antibiotics with IV Vanco, Rocephin and Zithromax Repeat labs reviewed CPK & Trop trending down and Alcohol <10 Pt's urine legionella AG was reported positive. IV ceftriaxone switched to zosyn for broader spectrum coverage Overnight he is more confused, Afebrile overnight, Tmx 102.4 yesterday morning Blood and urine cultures negative Last 24H I&O 4715/2851 This morning he is more anxious/agitated, received 1 mg IV Ativan at 6AM, and another dose about 8AM. Labored breathing this morning and mild distress noted, Stat CXR/ABG ordered.He was also noted to with audable wheezing, Stat dose of IV Solumedrol and Neb given Low threshold for intubation and mechanical ventilation. This morning labs reviewed CPK level [id number], Stable renal function, Persistant leucocytosis CCU Objective - Vital Signs / Intake & Output Vital Signs (Last 4 hours): Vital Signs Pulse Resp BP Pulse Ox 04/03/17 08:32 121 H 115/84 04/03/17 06:00 115 H 33 H 122/81 100 Intake and Output (Last 8hrs): Intake & Output 04/02/17 04/03/17 04/03/17 22:59 06:59 14:59 Intake Total 1490 1325 Output Total 501 800 Balance 989 525 Intake: IV 750 875 Intake, Piggyback 250 150 Oral 490 300 Output: Urine 501 800 Urine, Voided 501 800 Other: # Voids Urine, Voided 250 1 - Physical Exam Physical Exam Limitations: Positive for: Altered Mental Status, Clinical Condition Head: Positive for: Atraumatic, Normocephalic Pupils: Positive for: PERRL Extroacular Muscles: Positive for: EOMI Conjunctiva: Positive for: Normal Mouth: Positive for: Moist Mucous Membranes Nose (Internal): Positive for: Normal Inspection Neck: Positive for: Normal Range of Motion, Trachea Midline. Negative for: Meningeal Signs, MIDLINE TENDERNESS, Paraspinal Tenderness, JVD, Lymphadenopathy , Bruit, Other Respiratory/Chest: Positive for: Respiratory Distress (MILD, Tachtpnea), Accessory Muscle Use, Wheezes, Rhonchi, Tachypneic. Negative for: Rales Cardiovascular: Positive for: Regular Rate and Rhythm, Normal S1, S2, Peripheal Pulses Present, Tachycardic. Negative for: Murmurs Abdomen: Positive for: Normal Bowel Sounds. Negative for: Tenderness, Distention, Peritoneal Signs Upper Extremity: Positive for: Normal Inspection, Capillary Refill < 2s. Negative for: Cyanosis, Edema Lower Extremity: Positive for: Normal Inspection, NORMAL PULSES, Capillary Refill < 2 s. Negative for: Edema, CALF TENDERNESS Neurological: Positive for: GCS=15, CN II-XII Intact, Speech Normal, Motor Func Grossly Intact, Normal Sensory Function Psychiatric: Positive for: Alert, Oriented x 3 - Medications Active Medications: Active Medications Generic Name Dose Route Start Last Admin Trade Name Freq PRN Reason Stop Dose Admin Albuterol/Ipratropium 3 ml 04/01/17 04:00 04/03/17 07:49 Duoneb 3 Mg/0.5 Mg (3 Ml) Ud INH 3 ml RQ4 [facility] Administration Aspirin 81 mg 04/01/17 09:00 04/03/17 08:33 Ecotrin PO 81 mg DAILY JU[facility]Z Administration Carvedilol 3.125 mg 04/01/17 21:00 04/03/17 08:32 Coreg PO 3.125 mg Q12 [facility] Administration Enoxaparin Sodium 90 mg 04/01/17 09:00 04/03/17 08:31 Lovenox SC 90 mg Q12 [facility] Administration Protocol Furosemide 40 mg 04/02/17 09:00 04/02/17 09:11 Lasix IV 40 mg DAILY JU[facility]Z Administration Vancomycin HCl 1 gm/ Sodium 250 mls @ 166.667 mls/hr 04/01/17 09:00 04/03/17 08:37 Chloride IVPB 166.667 mls/hr Q12 [facility] Administration Azithromycin 500 mg/ Sodium 250 mls @ 250 mls/hr 04/01/17 09:00 04/03/17 08: 33 Chloride IVPB 250 mls/hr DAILY [facility] Administration Methylprednisolone 60 mg/ 50 mls @ 100 mls/hr 04/02/17 10:30 04/03/17 08:36 Sodium Chloride IVPB 100 mls/hr Q8 [facility] Administration Piperacillin Sod/Tazobactam 100 mls @ 100 mls/hr 04/02/17 17:00 04/03/17 08: 34 Sod 3.375 gm/ Sodium Chloride IVPB 100 mls/hr Q8 [facility] Administration Sodium Chloride 1,000 mls @ 125 mls/hr 04/02/17 20:00 04/03/17 04:02 Sodium Chloride 0.9% IV 04/03/17 20:00 125 mls/hr .Q8H [facility] Administration Lorazepam 1 mg 04/01/17 21:02 04/03/17 06:10 Ativan IVP 1 mg Q6 PRN Administration Agitation Nicotine 1 patch 04/01/17 09:00 04/03/17 08:32 Nicoderm Cq TD 1 patch DAILY [facility] Administration Potassium Phos/Sodium Phos 1 pkt 04/01/17 09:00 04/03/17 08:32 Neutra-Phos PO 04/04/17 09:01 1 pkt QID [facility]Z Administration - Patient Studies Lab Studies: Microbiology Studies 03/31/17 05:00 Blood Culture - Preliminary Blood NO GROWTH AFTER 48 HOURS 03/31/17 05:00 Blood Culture - Preliminary Blood NO GROWTH AFTER 48 HOURS 04/02/17 10:53 Gram Stain - Final Sputum 04/01/17 05:00 MRSA Culture (Admit) - Final Nose MRSA NOT DETECTED 03/31/17 05:00 Urine Culture - Final Urine,Clean Catch No Growth (<1,000 CFU/ML) Lab Studies 04/03/17 04/03/17 04/03/17 Range/Units 08:05 04:10 04:10 WBC 12.1 H (4.8-10.8) K/uL RBC 4.15 L (4.40-5.90) Mil/uL Hgb 12.7 (12.0-18.0) g/dL Hct 36.9 (35.0-51.0) % MCV 88.9 (80.0-94.0) fl MCH 30.5 (27.0-31.0) pg MCHC 34.4 (33.0-37.0) g/dL RDW 13.9 (11.5-14.5) % Plt Count 218 (130-400) K/uL MPV 7.8 (7.2-11.7) fl Neut % (Auto) 94.5 H (50.0-75.0) % Lymph % (Auto) 2.7 L (20.0-40.0) % [place] % (Auto) 1.9 (0.0-10.0) % Eos % (Auto) 0.7 (0.0-4.0) % Baso % (Auto) 0.2 (0.0-2.0) % Neut # 11.5 H (1.8-7.0) K/uL Lymph # 0.3 L (1.0-4.3) K/uL [place] # 0.2 (0.0-0.8) K/uL Eos # 0.1 (0.0-0.7) K/uL Baso # 0.0 (0.0-0.2) K/uL pCO2 38 (35-45) mm/Hg pO2 45 L (80-100) mm/Hg HCO3 24.8 (21-28) mmol/L ABG pH 7.42 (7.35-7.45) ABG Total CO2 25.8 (22-28) mmol/L ABG O2 Saturation 85.8 L (95-98) % ABG O2 Content 15.3 (15-23) ML/dL ABG Base Excess 0.3 (-2.0-3.0) mmol/L ABG Hemoglobin 13.3 (11.7-17.4) g/dL ABG Carboxyhemoglobin 2.3 H (0.5-1.5) % POC ABG HHb (Measured) 13.6 H (0.0-5.0) % ABG Methemoglobin 2.0 (0.0-3.0) % ABG O2 Capacity 17.8 (16-24) mL/dL Raúl Test Yes A-a O2 Difference 164.0 mm/Hg Hgb O2 Saturation 82.2 L (95.0-98.0) % FiO2 36.0 % Sodium 136 (132-148) mmol/l Potassium 4.1 (3.6-5.0) MMOL/L Chloride 105 (98-107) mmol/L Carbon Dioxide 24 (22-30) mmol/L Anion Gap 11 (10-20) BUN 19 (9-20) mg/dl Creatinine 0.7 L (0.8-1.5) mg/dL Est GFR ( Amer) > 60 Est GFR (Non-Af Amer) > 60 Random Glucose 161 H (75-110) mg/dL Hemoglobin A1c (4.2-6.5) % Calcium 7.8 L (8.4-10.2) mg/dL Phosphorus 2.6 (2.5-4.5) mg/dl Magnesium 2.1 (1.6-2.3) MG/DL Total Bilirubin 0.8 (0.2-1.3) mg/dl AST 291 H (17-59) U/L ALT 184 H D (21-72) U/L Alkaline Phosphatase 62 (38-126) U/L Total Creatine Kinase 7783 H (55-170) U/L Total Protein 6.1 L (6.3-8.2) G/DL Albumin 2.9 L (3.5-5.0) g/dL Globulin 3.2 (2.2-3.9) gm/dL Albumin/Globulin Ratio 0.9 L (1.0-2.1) 04/02/17 Range/Units 04:45 WBC (4.8-10.8) K/uL RBC (4.40-5.90) Mil/uL Hgb (12.0-18.0) g/dL Hct (35.0-51.0) % MCV (80.0-94.0) fl MCH (27.0-31.0) pg MCHC (33.0-37.0) g/dL RDW (11.5-14.5) % Plt Count (130-400) K/uL MPV (7.2-11.7) fl Neut % (Auto) (50.0-75.0) % Lymph % (Auto) (20.0-40.0) % [place] % (Auto) (0.0-10.0) % Eos % (Auto) (0.0-4.0) % Baso % (Auto) (0.0-2.0) % Neut # (1.8-7.0) K/uL Lymph # (1.0-4.3) K/uL [place] # (0.0-0.8) K/uL Eos # (0.0-0.7) K/uL Baso # (0.0-0.2) K/uL pCO2 (35-45) mm/Hg pO2 (80-100) mm/Hg HCO3 (21-28) mmol/L ABG pH (7.35-7.45) ABG Total CO2 (22-28) mmol/L ABG O2 Saturation (95-98) % ABG O2 Content (15-23) ML/dL ABG Base Excess (-2.0-3.0) mmol/L ABG Hemoglobin (11.7-17.4) g/dL ABG Carboxyhemoglobin (0.5-1.5) % POC ABG HHb (Measured) (0.0-5.0) % ABG Methemoglobin (0.0-3.0) % ABG O2 Capacity (16-24) mL/dL Raúl Test A-a O2 Difference mm/Hg Hgb O2 Saturation (95.0-98.0) % FiO2 % Sodium (132-148) mmol/l Potassium (3.6-5.0) MMOL/L Chloride (98-107) mmol/L Carbon Dioxide (22-30) mmol/L Anion Gap (10-20) BUN (9-20) mg/dl Creatinine (0.8-1.5) mg/dL Est GFR ( Amer) Est GFR (Non-Af Amer) Random Glucose (75-110) mg/dL Hemoglobin A1c 6.1 (4.2-6.5) % Calcium (8.4-10.2) mg/dL Phosphorus (2.5-4.5) mg/dl Magnesium (1.6-2.3) MG/DL Total Bilirubin (0.2-1.3) mg/dl AST (17-59) U/L ALT (21-72) U/L Alkaline Phosphatase (38-126) U/L Total Creatine Kinase (55-170) U/L Total Protein (6.3-8.2) G/DL Albumin (3.5-5.0) g/dL Globulin (2.2-3.9) gm/dL Albumin/Globulin Ratio (1.0-2.1) Laboratory Results - last 24 hr 04/02/17 04/03/17 04/03/17 04:45 04:10 04:10 WBC 12.1 H RBC 4.15 L Hgb 12.7 Hct 36.9 MCV 88.9 MCH 30.5 MCHC 34.4 RDW 13.9 Plt Count 218 MPV 7.8 Neut % (Auto) 94.5 H Lymph % (Auto) 2.7 L [place] % (Auto) 1.9 Eos % (Auto) 0.7 Baso % (Auto) 0.2 Neut # 11.5 H Lymph # 0.3 L [place] # 0.2 Eos # 0.1 Baso # 0.0 pCO2 pO2 HCO3 ABG pH ABG Total CO2 ABG O2 Saturation ABG O2 Content ABG Base Excess ABG Hemoglobin ABG Carboxyhemoglobin POC ABG HHb (Measured) ABG Methemoglobin ABG O2 Capacity Raúl Test A-a O2 Difference Hgb O2 Saturation FiO2 Sodium 136 Potassium 4.1 Chloride 105 Carbon Dioxide 24 Anion Gap 11 BUN 19 Creatinine 0.7 L Est GFR ( Amer) > 60 Est GFR (Non-Af Amer) > 60 Random Glucose 161 H Hemoglobin A1c 6.1 Calcium 7.8 L Phosphorus 2.6 Magnesium 2.1 Total Bilirubin 0.8 AST 291 H ALT 184 H D Alkaline Phosphatase 62 Total Creatine Kinase 7783 H Total Protein 6.1 L Albumin 2.9 L Globulin 3.2 Albumin/Globulin Ratio 0.9 L 04/03/17 08:05 WBC RBC Hgb Hct MCV MCH MCHC RDW Plt Count MPV Neut % (Auto) Lymph % (Auto) [place] % (Auto) Eos % (Auto) Baso % (Auto) Neut # Lymph # [place] # Eos # Baso # pCO2 38 pO2 45 L HCO3 24.8 ABG pH 7.42 ABG Total CO2 25.8 ABG O2 Saturation 85.8 L ABG O2 Content 15.3 ABG Base Excess 0.3 ABG Hemoglobin 13.3 ABG Carboxyhemoglobin 2.3 H POC ABG HHb (Measured) 13.6 H ABG Methemoglobin 2.0 ABG O2 Capacity 17.8 Raúl Test Yes A-a O2 Difference 164.0 Hgb O2 Saturation 82.2 L FiO2 36.0 Sodium Potassium Chloride Carbon Dioxide Anion Gap BUN Creatinine Est GFR ( Amer) Est GFR (Non-Af Amer) Random Glucose Hemoglobin A1c Calcium Phosphorus Magnesium Total Bilirubin AST ALT Alkaline Phosphatase Total Creatine Kinase Total Protein Albumin Globulin Albumin/Globulin Ratio Critical Care Progress Note - Extremities/Vascular Does the Patient have a Central Venous Catheter?: No Does the Patient need a Central Venous Catheter?: No Does the Patient have a [place] Catheter?: No Does the Patient need a [place] Catheter?: No - Nutrition Nutrition: Nutrition Category Date Time Status Heart Healthy Diet [DIET] Diets 04/01/17 Breakfast Active Assessment/Plan (1) Fever Current Visit: Yes Status: Acute (2) Legionella pneumophila infection Current Visit: Yes Status: Acute (3) Pneumonia Current Visit: Yes Status: Acute (4) Rhabdomyolysis Current Visit: Yes Status: Acute (5) Transaminitis Current Visit: Yes Status: Acute - Assessment and Plan (Free Text) Assessment: IV ceftriaxone switched to zosyn for broader spectrum coverage Low threshold for intubation and mechanical ventilation. Follow up final C/S results IV Solumedrol Continue ASA, Carvedilol, Lovenox and Antibiotics (as per ID) Duoneb 3 Mg/0.5 Mg (3 Ml) Ud) 3 ml INH RQ4 Trend CPK, LFTs, check hepatitis panel OOB F/up ECHO results Nicotine 1 patch TD DAILY PRN Ativan Cardiology and ID consulted GI/DVT PPX
--- NOTE | 2017-04-03 08:57 | CP.PCM.PN ---
Subjective - Date & Time of Evaluation Date of Evaluation: 04/03/17 Time of Evaluation: 08:30 - Subjective Subjective: Patient seen and examined bedside. Lethargic, tachycardic , tachypneic . With episodes of confusion and delirium overnight, agitated , received ativan this AM BP 122/81 Hr 120 RR 33 Tmax 100.1 last 12 hours saturating 98 % on 4 L O2 via [place]c ABG PO2 45 PCO2 38 HCO3 24 ph 7.4 CXR with diffuse bilateral infiltrates I/O 4715/2841 Objective - Vital Signs/Intake and Output Vital Signs (last 24 hours): Temp Pulse Resp BP Pulse Ox 99.8 F H 121 H 22 115/84 99 04/03/17 08:00 04/03/17 08:32 04/03/17 08:00 04/03/17 08:32 04/03/17 08:00 Intake and Output: 04/03/17 04/03/17 06:59 18:59 Intake Total 2065 Output Total 801 Balance 1264 - Medications Medications: Current Medications Albuterol/Ipratropium (Duoneb 3 Mg/0.5 Mg (3 Ml) Ud) 3 ml INH RQ4 [facility] Last Admin: 04/03/17 07:49 Dose: 3 ml Aspirin (Ecotrin) 81 mg PO DAILY [facility] Last Admin: 04/03/17 08:33 Dose: 81 mg Carvedilol (Coreg) 3.125 mg PO Q12 [facility] Last Admin: 04/03/17 08:32 Dose: 3.125 mg Enoxaparin Sodium (Lovenox) 90 mg SC Q12 [facility] PRN Reason: Protocol Last Admin: 04/03/17 08:31 Dose: 90 mg Furosemide (Lasix) 40 mg IV DAILY [facility] Last Admin: 04/02/17 09:11 Dose: 40 mg Vancomycin HCl 1 gm/ Sodium (Chloride) 250 mls @ 166.667 mls/hr IVPB Q12 [facility] Last Admin: 04/03/17 08:37 Dose: 166.667 mls/hr Azithromycin 500 mg/ Sodium (Chloride) 250 mls @ 250 mls/hr IVPB DAILY [facility] Last Admin: 04/03/17 08:33 Dose: 250 mls/hr Methylprednisolone 60 mg/ (Sodium Chloride) 50 mls @ 100 mls/hr IVPB Q8 [facility] Last Admin: 04/03/17 08:36 Dose: 100 mls/hr Piperacillin Sod/Tazobactam (Sod 3.375 gm/ Sodium Chloride) 100 mls @ 100 mls/ hr IVPB Q8 [facility] Last Admin: 04/03/17 08:34 Dose: 100 mls/hr Sodium Chloride (Sodium Chloride 0.9%) 1,000 mls @ 125 mls/hr IV .Q8H [facility] Stop: 04/03/17 20:00 Last Admin: 04/03/17 04:02 Dose: 125 mls/hr Lorazepam (Ativan) 1 mg IVP Q6 PRN PRN Reason: Agitation Last Admin: 04/03/17 06:10 Dose: 1 mg Nicotine (Nicoderm Cq) 1 patch TD DAILY [facility] Last Admin: 04/03/17 08:32 Dose: 1 patch Potassium Phos/Sodium Phos (Neutra-Phos) 1 pkt PO QID [facility] Stop: 04/04/17 09:01 Last Admin: 04/03/17 08:32 Dose: 1 pkt - Labs Labs: 04/03/17 04:10 04/03/17 04:10 PT 16.6 Seconds (9.8-13.1) H 04/01/17 11:30 INR 1.6 (0.9-1.2) H 04/01/17 11:30 APTT 35.2 Seconds (25.6-37.1) 03/31/17 21:50 - Constitutional Appears: In Acute Distress (in respiratory distress with accessory muiscle use ) , Confused, Other (lethargic , ) - Head Exam Head Exam: ATRAUMATIC, NORMAL INSPECTION Additional comments: small left forehead superficail abrasion and one on the tip of the nose and one in left lower lip region - Eye Exam Eye Exam: PERRL - ENT Exam ENT Exam: Mucous Membranes Dry - Neck Exam Neck Exam: Normal Inspection - Respiratory Exam Respiratory Exam: Accessory Muscle Use, Decreased Breath Sounds (bibasilar ), Prolonged Expiratory Phase, Rhonchi, Wheezes (diffuse bilateral ), Respiratory Distress - Cardiovascular Exam Cardiovascular Exam: Tachycardia. absent: JVD - GI/Abdominal Exam GI & Abdominal Exam: Soft, Tenderness (with palpation to left mid abomen). absent: Guarding, Rebound - Rectal Exam Rectal Exam: Deferred - Extremities Exam Extremities Exam: Full ROM, Normal Capillary Refill, Normal Inspection. 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 Falling twice receiving trauma to the left side of the face and left forehead, laceration to his lower lip and nose. He began having non productive cough with chills and diarrhea on the day of admission. In the ED the Temperature was 103.6F with HR of 125/min. Patient admitted to ICU for Sepsis, acute hypoxemic respiratory failure 1. Sepsis Most likely secondary to multifocal Pneumonia Follow up blood , urine , sputum cx Continue Vanco, Zosyn and Zithromax IV ID , pulmonary on consult Continue IVF 2.Acute hypoxemic respiratory failure secondary to Multifocal Pneumonia CXr showed diffuse bilateral infiltartes WBC still elevated 12 K Legionella Ag positive Continue IV antibiotics, Duonebs, Solumedrol IV ABG showing significant hypoxemia 45 and patient is lethargic and delirious Will most likely need to be intubated Pulmonary and critical care cosnultants following 3. Metabolic encephalopathy Multifactorial :most likely secondary to hypoxemia,sepsis and possible ETOG withdrawal Continue respiratory support Thiamine, folic acid anmd MVI on IVF Repeat ABG and CXR patient will most likely need to be intubated 4. Suspected ETOH withdrawal / Impending DT-s patient tachycardic , delirius , agitated , flushed started Thimain, Folic acid and MVI Ativan PRN Avoid sedation 5. Rhabdomyolysis most likely due to muscle injury caused by the [place] [address] to 7783 Continue IVF 6.Hyponatremia - resolved probably due to SIADH caused by the legionella Pneumonia continue IV Fluids 7.Elevated Troponin Probably secondary to cardiac trauma Consult with Dr Atkinson appreciated Continue Lovenox Therapeutic dose Q12H, ASA no statin due to elevated LFT-s F/u echo report 8.Hypophosphatemia Replete with Neutro Phos 9. Imbalance with Multiple falls CT head showed no acute pathology -OT/PT evaluation and Treatment once stable 10. Mild pulmonary congestion r/o CHF Cardiology on consult Lasix IV f/u ECHO 11.Transaminitis secondary to the muscle injury and sepsis Follow up LFT, tr-s 12. Nicotine Addiction Nicotine Patch 13. Coagulopathy with elevated INR Vitamin K 5mg given repeat INR 14. Subluxation of the left temperomandibular joint Pain management 15.Cholelithiasis Stable 16. DVT Prophylaxis with SCD and Lovenox
[2017-04-03] MEDS ORDERED: Thiamine 100 MG, Folic Acid 1 MG, Multivitamin 10 ML in Sodium Chloride 0.9% 1,000 ML IV SCH ×2 (09:01→09:15)
[2017-04-03] MEDS ORDERED: Midazolam 2 MG/2 ML VIAL ONE ×2 (09:38→10:00)
--- NOTE | 2017-04-03 09:38 | CP.PCM.PN ---
Subjective - Date & Time of Evaluation Date of Evaluation: 04/03/17 Time of Evaluation: 09:38 - Subjective Subjective: OBTUNDED,DYSPNEIC AND TACHYCARDIC TODAY MODERATE RESPIRATORY DISTRESS WITH AUDIBLE RALES AND WHEEZING CXR-WORSENING PNEUMONIA WILL NEED ENDOTRACHEAL INTUBATION AND VENTILATION CASE DISCUSSED WITH THE DRAINMAN AND HOSPITALIST Objective - Vital Signs/Intake and Output Vital Signs (last 24 hours): Temp Pulse Resp BP Pulse Ox 99.8 F H 121 H 22 115/84 99 04/03/17 08:00 04/03/17 08:32 04/03/17 08:00 04/03/17 08:32 04/03/17 08:00 Intake and Output: 04/03/17 04/03/17 06:59 18:59 Intake Total 2065 Output Total 801 Balance 1264 - Medications Medications: Current Medications Albuterol/Ipratropium (Duoneb 3 Mg/0.5 Mg (3 Ml) Ud) 3 ml INH RQ4 [facility] Last Admin: 04/03/17 07:49 Dose: 3 ml Aspirin (Ecotrin) 81 mg PO DAILY [facility] Last Admin: 04/03/17 08:33 Dose: 81 mg Carvedilol (Coreg) 3.125 mg PO Q12 [facility] Last Admin: 04/03/17 08:32 Dose: 3.125 mg Enoxaparin Sodium (Lovenox) 90 mg SC Q12 [facility] PRN Reason: Protocol Last Admin: 04/03/17 08:31 Dose: 90 mg Furosemide (Lasix) 40 mg IV DAILY [facility] Last Admin: 04/02/17 09:11 Dose: 40 mg Vancomycin HCl 1 gm/ Sodium (Chloride) 250 mls @ 166.667 mls/hr IVPB Q12 [facility] Last Admin: 04/03/17 08:37 Dose: 166.667 mls/hr Azithromycin 500 mg/ Sodium (Chloride) 250 mls @ 250 mls/hr IVPB DAILY [facility] Last Admin: 04/03/17 08:33 Dose: 250 mls/hr Methylprednisolone 60 mg/ (Sodium Chloride) 50 mls @ 100 mls/hr IVPB Q8 [facility] Last Admin: 04/03/17 08:36 Dose: 100 mls/hr Piperacillin Sod/Tazobactam (Sod 3.375 gm/ Sodium Chloride) 100 mls @ 100 mls/ hr IVPB Q8 [facility] Last Admin: 04/03/17 08:34 Dose: 100 mls/hr Thiamine HCl 100 mg/ Folic Acid 1 mg/ Multivitamins/Vitamin C 10 ml/ Sodium Chloride 1,011.2 mls @ 125 mls/hr IV .Q8H6M [facility] Stop: 04/03/17 17:06 Lorazepam (Ativan) 1 mg IVP Q6 PRN PRN Reason: Agitation Last Admin: 04/03/17 06:10 Dose: 1 mg Nicotine (Nicoderm Cq) 1 patch TD DAILY [facility] Last Admin: 04/03/17 08:32 Dose: 1 patch Potassium Phos/Sodium Phos (Neutra-Phos) 1 pkt PO QID [facility] Stop: 04/04/17 09:01 Last Admin: 04/03/17 08:32 Dose: 1 pkt - Labs Labs: 04/03/17 04:10 04/03/17 04:10 PT 16.6 Seconds (9.8-13.1) H 04/01/17 11:30 INR 1.6 (0.9-1.2) H 04/01/17 11:30 APTT 35.2 Seconds (25.6-37.1) 03/31/17 21:50
[2017-04-03] MEDS ORDERED: Propofol 10 mg/ml 3,000 MG/300 ML VIAL ONE (09:39)
[2017-04-03] MEDS: Propofol 10 mg/ml 1,000 MG/100 ML VIAL IV SCH ×4 (10:00→22:59)
[2017-04-03 10:06] LABS: EOSINOPHIL 1 % (0-7); NEUTROPHIL 88 % (42-75); TOTAL CELLS COUNTED 100
--- NOTE | 2017-04-03 10:19 | PCM.ANES ---
Anesthesia Emergent Intubation - Diagnosis Working Diagnosis:: pneumonia - Consult Reason for Consult:: respiratory distress - Intubation Attempts Previous Number of Intubation Attempts:: 0 - Pre-Intubation Vital Signs Blood Pressure: 111/67 Heart Rate: 115 Respiratory Rate: 34 O2 Sat: 91 FIO2: 30 Oxygen Delivery Method: Nasal Cannula Level Of Consciousness: Combative, Disoriented Intubation Meds Given: Versed, Propofol - Airway Management Oropharyngeal Area Suctioned: Yes PreOxygenation: 100 Inhalation: No Rapid Sequence: No Cricoid Pressure: No Possible Aspiration: No - Method of Intubation Intubation Method: Oral ETT ETT Size: 7.5 Lipline@: 23 Easy: No Atramatic: No (patient was resisting intubation) - Intubation Devices Jono Blade Size Used: 4 [place] Forcepts Used: No [place] Scope Used: No Fiber Optic Scope: No - Placement Confirmation Breath Sounds Present & Equal Bilaterally: Yes Gurgling Sounds Not Audible at Epigastrum: No Positive EtCO2: Yes Portable CXR: No - Post-Intubation Vital Signs Blood Pressure: 115/69 Heart Rate: 113 Respiratory Rate: 20 O2 Sat: 94 FIO2: 1
--- NOTE | 2017-04-03 10:32 | RAD ---
PROCEDURE: CHEST RADIOGRAPH, 1 VIEW HISTORY: Pneumonia, follow up COMPARISON: Portable chest 04/02/2017. FINDINGS: LUNGS: Exposure is increased in taking this into account, opacity at the mid to superior left lung has increased suggesting worsening left upper lobe and likely lingular pneumonia with the left heart border diminished in clarity. Further, opacity at the mid right chest extends toward the right heart border and partially obliterates the suggesting right middle lobe infiltrate which is worsened as well. PLEURA: No pneumothorax or pleural fluid seen. CARDIOVASCULAR: Cardiac silhouette is partially obscured but is likely unchanged. Pulmonary vascular pattern is obscured by infiltrates bilaterally. OSSEOUS STRUCTURES: No significant abnormalities. VISUALIZED UPPER ABDOMEN: Normal. OTHER FINDINGS: None. IMPRESSION: Interval worsening of bilateral pneumonia, greater at the left and right sides as discussed above. Left upper lobe and right middle lobes appear most affected as well as likely medial left lower lobe.
[2017-04-03] MEDS ORDERED: Midazolam 2 MG/2 ML VIAL IV ONE (11:32)
--- NOTE | 2017-04-03 12:03 | RAD ---
PROCEDURE: CHEST RADIOGRAPH, 1 VIEW HISTORY: post intubation COMPARISON: Portable chest 04/02/2017 9:07 a.m.. FINDINGS: Patient now status post endotracheal intubation with the tube terminating just below level of clavicles in the plane of the trachea and well above the nav. In a NG tube is in place with tip directed into left upper quadrant abdomen but off the image inferiorly. LUNGS: Status posts mechanical ventilation, improved aeration is appreciate bilaterally with bilateral infiltrates remaining greater the left and right lung with the right leg and contrary at the mid lung/perihilar region and left lung affecting the majority of left lung base sparing the lateral left base and medial left apex. PLEURA: No pneumothorax or pleural fluid seen. CARDIOVASCULAR: Normal. OSSEOUS STRUCTURES: No significant abnormalities. VISUALIZED UPPER ABDOMEN: Normal. OTHER FINDINGS: None. IMPRESSION: Status post endotracheal intubation as discussed above. Bilateral pulmonary infiltrates remains significantly greater the left and right sides with improved aeration noted diffusely status post endotracheal intubation. No pleural effusion bilaterally.
--- NOTE | 2017-04-03 12:06 | CP.PCM.PN ---
Subjective - Date & Time of Evaluation Date of Evaluation: 04/03/17 Time of Evaluation: 12:06 - Subjective Subjective: ID Note- Pt. seen and examined in ICU today. Pt. apparently was in resp distress earlier today and hence was intubatd. currently he is intubated and sedated. low grade fever earlier today. Objective - Vital Signs/Intake and Output Vital Signs (last 24 hours): Temp Pulse Resp BP Pulse Ox 99.8 F H 115 H 34 H 111/67 91 L 04/03/17 08:00 04/03/17 10:23 04/03/17 10:23 04/03/17 10:23 04/03/17 10:23 Intake and Output: 04/03/17 04/03/17 06:59 18:59 Intake Total 2065 Output Total 801 Balance 1264 - Medications Medications: Current Medications Albuterol/Ipratropium (Duoneb 3 Mg/0.5 Mg (3 Ml) Ud) 3 ml INH RQ4 [facility] Last Admin: 04/03/17 11:28 Dose: 3 ml Aspirin (Ecotrin) 81 mg PO DAILY [facility] Last Admin: 04/03/17 08:33 Dose: 81 mg Carvedilol (Coreg) 3.125 mg PO Q12 [facility] Last Admin: 04/03/17 08:32 Dose: 3.125 mg Enoxaparin Sodium (Lovenox) 90 mg SC Q12 [facility] PRN Reason: Protocol Last Admin: 04/03/17 08:31 Dose: 90 mg Furosemide (Lasix) 40 mg IV DAILY [facility] Last Admin: 04/02/17 09:11 Dose: 40 mg Vancomycin HCl 1 gm/ Sodium (Chloride) 250 mls @ 166.667 mls/hr IVPB Q12 [facility] Last Admin: 04/03/17 08:37 Dose: 166.667 mls/hr Azithromycin 500 mg/ Sodium (Chloride) 250 mls @ 250 mls/hr IVPB DAILY [facility] Last Admin: 04/03/17 08:33 Dose: 250 mls/hr Methylprednisolone 60 mg/ (Sodium Chloride) 50 mls @ 100 mls/hr IVPB Q8 [facility] Last Admin: 04/03/17 08:36 Dose: 100 mls/hr Piperacillin Sod/Tazobactam (Sod 3.375 gm/ Sodium Chloride) 100 mls @ 100 mls/ hr IVPB Q8 [facility] Last Admin: 04/03/17 08:34 Dose: 100 mls/hr Thiamine HCl 100 mg/ Folic Acid 1 mg/ Multivitamins/Vitamin C 10 ml/ Sodium Chloride 1,011.2 mls @ 125 mls/hr IV .Q8H6M [facility] Stop: 04/03/17 17:06 Last Admin: 04/03/17 11:27 Dose: 125 mls/hr Propofol (Diprivan) 1,000 mg in 100 mls @ 17.35 mls/hr IV .Q5H46M [facility]; 25 MCG/ KG/MIN PRN Reason: Protocol Stop: 04/04/17 11:36 Lorazepam (Ativan) 1 mg IVP Q6 PRN PRN Reason: Agitation Last Admin: 04/03/17 06:10 Dose: 1 mg Nicotine (Nicoderm Cq) 1 patch TD DAILY [facility] Last Admin: 04/03/17 08:32 Dose: 1 patch Potassium Phos/Sodium Phos (Neutra-Phos) 1 pkt PO QID [facility] Stop: 04/04/17 09:01 Last Admin: 04/03/17 08:32 Dose: 1 pkt - Labs Labs: - Additional Findings Additional findings: - Constitutional Appears: Intubated and sedated - Head Exam Additional comments: small left forehead superficail abrasion and one on the tip of the nose and one in left lower lip region - Eye Exam Eye Exam: EOMI, PERRL - ENT Exam ENT Exam: ET tube in place - Neck Exam Neck exam: Positive for: Full Rom Additional comments: supple - Respiratory Exam Additional comments: Intubated coarse breath sounds b/l + mild exp wheezing b/l as well - Cardiovascular Exam Cardiovascular Exam: Tachycardia, +S1, +S2 - GI/Abdominal Exam GI & Abdominal Exam: Normal Bowel Sounds, Soft Additional comments: NT, ND no guarding, No rebound - Extremities Exam Additional comments: no edema b/l LE - Neurological Exam Neurological exam: Alert Additional comments: sedated - Skin Skin Exam: Abrasion Additional comments: small abrasion on forehead and tip of nose and left lip region + echymosis on left knee region adn left upper back region and posterior left arm region Laboratory Results - last 72 hr 03/31/17 03/31/17 03/31/17 21:28 21:31 21:46 WBC RBC Hgb Hct MCV MCH MCHC RDW Plt Count MPV Neut % (Auto) Lymph % (Auto) [place] % (Auto) Eos % (Auto) Baso % (Auto) Neut # Lymph # [place] # Eos # Baso # Neutrophils % (Manual) Band Neutrophils % Lymphocytes % (Manual) Monocytes % (Manual) Eosinophils % (Manual) Myelocytes % Platelet Estimate RBC Morphology Polychromasia PT INR APTT pCO2 28 L pO2 49 L HCO3 23.1 ABG pH 7.47 H ABG Total CO2 21.3 L ABG O2 Saturation 92.1 L ABG O2 Content ABG Base Excess -2.0 ABG Hemoglobin ABG Carboxyhemoglobin POC ABG HHb (Measured) ABG Methemoglobin ABG O2 Capacity Raúl Test Yes ABG Potassium 3.8 A-a O2 Difference 66.0 Hgb O2 Saturation Sodium 122.0 L Chloride 92.0 L Glucose 140 H Lactate 2.1 Vent Mode FiO2 21.0 Potassium Carbon Dioxide Anion Gap BUN Creatinine Est GFR ( Amer) Est GFR (Non-Af Amer) POC Glucose (mg/dL) 125 H Random Glucose Hemoglobin A1c Serum Osmolality Lactic Acid Calcium Phosphorus Magnesium Total Bilirubin AST ALT Alkaline Phosphatase Total Creatine Kinase Troponin I NT-Pro-B Natriuret Pep Total Protein Albumin Globulin Albumin/Globulin Ratio Triglycerides Cholesterol LDL Cholesterol Direct HDL Cholesterol Arterial Blood Potassium 3.8 Urine Color Yellow Urine Clarity Cloudy Urine pH 6.0 Ur Specific [place] 1.011 Urine Protein 100 Urine Glucose (UA) Neg Urine Ketones Trace Urine Blood Large Urine Nitrate Negative Urine Bilirubin Negative Urine Urobilinogen 2.0 Ur Leukocyte Esterase Neg Urine RBC (Auto) 3 Urine Microscopic WBC 7 H Ur Squamous Epith Cells 1 Urine Bacteria Occ H Urine Yeast (Budding) Occ H Urine Osmolality Ur Random Sodium Ur Random Potassium Vancomycin Trough Urine Opiates Screen Urine Methadone Screen Ur Barbiturates Screen Ur Phencyclidine Scrn Ur Amphetamines Screen U Benzodiazepines Scrn U Oth Cocaine Metabols U Cannabinoids Screen Alcohol, Quantitative HIV-1 Ab Rapid Screen Influenza Typ A,B (EIA) Ur L.pneumophila Ag Mycoplasma pneumon IgM 03/31/17 03/31/17 03/31/17 21:50 21:50 21:50 WBC 12.6 H RBC 4.43 Hgb 13.1 Hct 39.2 MCV 88.4 MCH 29.7 MCHC 33.5 RDW 13.1 Plt Count 189 MPV 7.3 Neut % (Auto) 91.8 H Lymph % (Auto) 4.0 L [place] % (Auto) 3.6 Eos % (Auto) 0.0 Baso % (Auto) 0.6 Neut # 11.6 H Lymph # 0.5 L [place] # 0.5 Eos # 0.0 Baso # 0.1 Neutrophils % (Manual) 92 H Band Neutrophils % Lymphocytes % (Manual) 3 L Monocytes % (Manual) 4 Eosinophils % (Manual) Myelocytes % 1 H Platelet Estimate Normal RBC Morphology Polychromasia Slight PT 16.7 H INR 1.6 H APTT 35.2 pCO2 pO2 HCO3 ABG pH ABG Total CO2 ABG O2 Saturation ABG O2 Content ABG Base Excess ABG Hemoglobin ABG Carboxyhemoglobin POC ABG HHb (Measured) ABG Methemoglobin ABG O2 Capacity Raúl Test ABG Potassium A-a O2 Difference Hgb O2 Saturation Sodium 124 L Chloride 92 L Glucose Lactate Vent Mode FiO2 Potassium 3.9 Carbon Dioxide 23 Anion Gap 13 BUN 19 Creatinine 1.2 Est GFR ( Amer) > 60 Est GFR (Non-Af Amer) > 60 POC Glucose (mg/dL) Random Glucose 126 H Hemoglobin A1c Serum Osmolality Lactic Acid Calcium 8.2 L Phosphorus 0.9 L* Magnesium 2.0 Total Bilirubin 1.0 AST 247 H ALT 81 H Alkaline Phosphatase 65 Total Creatine Kinase 13443 H Troponin I 1.0400 H* NT-Pro-B Natriuret Pep 1280 H Total Protein 6.7 Albumin 3.6 Globulin 3.1 Albumin/Globulin Ratio 1.2 Triglycerides Cholesterol LDL Cholesterol Direct HDL Cholesterol Arterial Blood Potassium Urine Color Urine Clarity Urine pH Ur Specific [place] Urine Protein Urine Glucose (UA) Urine Ketones Urine Blood Urine Nitrate Urine Bilirubin Urine Urobilinogen Ur Leukocyte Esterase Urine RBC (Auto) Urine Microscopic WBC Ur Squamous Epith Cells Urine Bacteria Urine Yeast (Budding) Urine Osmolality Ur Random Sodium Ur Random Potassium Vancomycin Trough Urine Opiates Screen Urine Methadone Screen Ur Barbiturates Screen Ur Phencyclidine Scrn Ur Amphetamines Screen U Benzodiazepines Scrn U Oth Cocaine Metabols U Cannabinoids Screen Alcohol, Quantitative HIV-1 Ab Rapid Screen Influenza Typ A,B (EIA) Ur L.pneumophila Ag Mycoplasma pneumon IgM 03/31/17 03/31/17 04/01/17 21:50 21:56 00:30 WBC RBC Hgb Hct MCV MCH MCHC RDW Plt Count MPV Neut % (Auto) Lymph % (Auto) [place] % (Auto) Eos % (Auto) Baso % (Auto) Neut # Lymph # [place] # Eos # Baso # Neutrophils % (Manual) Band Neutrophils % Lymphocytes % (Manual) Monocytes % (Manual) Eosinophils % (Manual) Myelocytes % Platelet Estimate RBC Morphology Polychromasia PT INR APTT pCO2 pO2 HCO3 ABG pH ABG Total CO2 ABG O2 Saturation ABG O2 Content ABG Base Excess ABG Hemoglobin ABG Carboxyhemoglobin POC ABG HHb (Measured) ABG Methemoglobin ABG O2 Capacity Raú[place] Test ABG Potassium A-a O2 Difference Hgb O2 Saturation Sodium Chloride Glucose Lactate Vent Mode FiO2 Potassium Carbon Dioxide Anion Gap BUN Creatinine Est GFR ( Amer) Est GFR (Non-Af Amer) POC Glucose (mg/dL) Random Glucose Hemoglobin A1c Serum Osmolality Lactic Acid Calcium Phosphorus Magnesium Total Bilirubin AST ALT Alkaline Phosphatase Total Creatine Kinase Troponin I 1.2300 H* NT-Pro-B Natriuret Pep Total Protein Albumin Globulin Albumin/Globulin Ratio Triglycerides Cholesterol LDL Cholesterol Direct HDL Cholesterol Arterial Blood Potassium Urine Color Urine Clarity Urine pH Ur Specific [place] Urine Protein Urine Glucose (UA) Urine Ketones Urine Blood Urine Nitrate Urine Bilirubin Urine Urobilinogen Ur Leukocyte Esterase Urine RBC (Auto) Urine Microscopic WBC Ur Squamous Epith Cells Urine Bacteria Urine Yeast (Budding) Urine Osmolality Ur Random Sodium Ur Random Potassium Vancomycin Trough Urine Opiates Screen Urine Methadone Screen Ur Barbiturates Screen Ur Phencyclidine Scrn Ur Amphetamines Screen U Benzodiazepines Scrn U Oth Cocaine Metabols U Cannabinoids Screen Alcohol, Quantitative HIV-1 Ab Rapid Screen Non reactive Influenza Typ A,B (EIA) Negative for flu a/b Ur L.pneumophila Ag Mycoplasma pneumon IgM 04/01/17 04/01/17 04/01/17 02:20 02:20 02:45 WBC RBC Hgb Hct MCV MCH MCHC RDW Plt Count MPV Neut % (Auto) Lymph % (Auto) [place] % (Auto) Eos % (Auto) Baso % (Auto) Neut # Lymph # [place] # Eos # Baso # Neutrophils % (Manual) Band Neutrophils % Lymphocytes % (Manual) Monocytes % (Manual) Eosinophils % (Manual) Myelocytes % Platelet Estimate RBC Morphology Polychromasia PT INR APTT pCO2 pO2 HCO3 ABG pH ABG Total CO2 ABG O2 Saturation ABG O2 Content ABG Base Excess ABG Hemoglobin ABG Carboxyhemoglobin POC ABG HHb (Measured) ABG Methemoglobin ABG O2 Capacity [place] Test ABG Potassium A-a O2 Difference Hgb O2 Saturation Sodium Chloride Glucose Lactate Vent Mode FiO2 Potassium Carbon Dioxide Anion Gap BUN Creatinine Est GFR ( Amer) Est GFR (Non-Af Amer) POC Glucose (mg/dL) Random Glucose Hemoglobin A1c Serum Osmolality 276 Lactic Acid 1.0 Calcium Phosphorus Magnesium Total Bilirubin AST ALT Alkaline Phosphatase Total Creatine Kinase Troponin I NT-Pro-B Natriuret Pep Total Protein Albumin Globulin Albumin/Globulin Ratio Triglycerides Cholesterol LDL Cholesterol Direct HDL Cholesterol Arterial Blood Potassium Urine Color Urine Clarity Urine pH Ur Specific [place] Urine Protein Urine Glucose (UA) Urine Ketones Urine Blood Urine Nitrate Urine Bilirubin Urine Urobilinogen Ur Leukocyte Esterase Urine RBC (Auto) Urine Microscopic WBC Ur Squamous Epith Cells Urine Bacteria Urine Yeast (Budding) Urine Osmolality 215 L Ur Random Sodium Ur Random Potassium Vancomycin Trough Urine Opiates Screen Urine Methadone Screen Ur Barbiturates Screen Ur Phencyclidine Scrn Ur Amphetamines Screen U Benzodiazepines Scrn U Oth Cocaine Metabols U Cannabinoids Screen Alcohol, Quantitative HIV-1 Ab Rapid Screen Influenza Typ A,B (EIA) Ur L.pneumophila Ag Mycoplasma pneumon IgM 04/01/17 04/01/17 04/01/17 02:45 05:30 05:30 WBC 12.1 H RBC 4.30 L Hgb 12.9 Hct 38.5 MCV 89.6 MCH 29.9 MCHC 33.4 RDW 13.3 Plt Count 183 MPV 7.3 Neut % (Auto) 95.2 H Lymph % (Auto) 2.8 L [place] % (Auto) 1.4 Eos % (Auto) 0.4 Baso % (Auto) 0.2 Neut # 11.5 H Lymph # 0.3 L [place] # 0.2 Eos # 0.0 Baso # 0.0 Neutrophils % (Manual) 95 H Band Neutrophils % Lymphocytes % (Manual) 4 L Monocytes % (Manual) 1 Eosinophils % (Manual) Myelocytes % Platelet Estimate Normal RBC Morphology Polychromasia PT INR APTT pCO2 pO2 HCO3 ABG pH ABG Total CO2 ABG O2 Saturation ABG O2 Content ABG Base Excess ABG Hemoglobin ABG Carboxyhemoglobin POC ABG HHb (Measured) ABG Methemoglobin ABG O2 Capacity Raú[place] Test ABG Potassium A-a O2 Difference Hgb O2 Saturation Sodium 134 Chloride 104 Glucose Lactate Vent Mode FiO2 Potassium 3.7 Carbon Dioxide 17 L Anion Gap 17 BUN 15 Creatinine 1.0 Est GFR ( Amer) > 60 Est GFR (Non-Af Amer) > 60 POC Glucose (mg/dL) Random Glucose 138 H Hemoglobin A1c Serum Osmolality Lactic Acid Calcium 7.6 L Phosphorus Magnesium Total Bilirubin 0.9 AST 361 H D ALT 106 H D Alkaline Phosphatase 60 Total Creatine Kinase 85055 H Troponin I 0.7760 H* NT-Pro-B Natriuret Pep Total Protein 6.5 Albumin 3.4 L Globulin 3.1 Albumin/Globulin Ratio 1.1 Triglycerides 176 H Cholesterol 90 LDL Cholesterol Direct 32 HDL Cholesterol 14 L Arterial Blood Potassium Urine Color Urine Clarity Urine pH Ur Specific [place] Urine Protein Urine Glucose (UA) Urine Ketones Urine Blood Urine Nitrate Urine Bilirubin Urine Urobilinogen Ur Leukocyte Esterase Urine RBC (Auto) Urine Microscopic WBC Ur Squamous Epith Cells Urine Bacteria Urine Yeast (Budding) Urine Osmolality Ur Random Sodium 17 Ur Random Potassium 10.4 Vancomycin Trough Urine Opiates Screen Negative Urine Methadone Screen Negative Ur Barbiturates Screen Negative Ur Phencyclidine Scrn Negative Ur Amphetamines Screen Negative U Benzodiazepines Scrn Negative U Oth Cocaine Metabols Negative U Cannabinoids Screen Positive H Alcohol, Quantitative HIV-1 Ab Rapid Screen Influenza Typ A,B (EIA) Ur L.pneumophila Ag Mycoplasma pneumon IgM 04/01/17 04/01/17 04/01/17 10:00 10:00 10:15 WBC RBC Hgb Hct MCV MCH MCHC RDW Plt Count MPV Neut % (Auto) Lymph % (Auto) [place] % (Auto) Eos % (Auto) Baso % (Auto) Neut # Lymph # [place] # Eos # Baso # Neutrophils % (Manual) Band Neutrophils % Lymphocytes % (Manual) Monocytes % (Manual) Eosinophils % (Manual) Myelocytes % Platelet Estimate RBC Morphology Polychromasia PT INR APTT pCO2 pO2 HCO3 ABG pH ABG Total CO2 ABG O2 Saturation ABG O2 Content ABG Base Excess ABG Hemoglobin ABG Carboxyhemoglobin POC ABG HHb (Measured) ABG Methemoglobin ABG O2 Capacity [place] Test ABG Potassium A-a O2 Difference Hgb O2 Saturation Sodium 134 Chloride 103 Glucose Lactate Vent Mode FiO2 Potassium 3.8 Carbon Dioxide 20 L Anion Gap 15 BUN 15 Creatinine 0.9 Est GFR ( Amer) > 60 Est GFR (Non-Af Amer) > 60 POC Glucose (mg/dL) Random Glucose 180 H Hemoglobin A1c Serum Osmolality Lactic Acid Calcium 7.5 L Phosphorus Magnesium Total Bilirubin AST ALT Alkaline Phosphatase Total Creatine Kinase 11262 H Troponin I 0.5340 H* NT-Pro-B Natriuret Pep Total Protein Albumin Globulin Albumin/Globulin Ratio Triglycerides Cholesterol LDL Cholesterol Direct HDL Cholesterol Arterial Blood Potassium Urine Color Urine Clarity Urine pH Ur Specific [place] Urine Protein Urine Glucose (UA) Urine Ketones Urine Blood Urine Nitrate Urine Bilirubin Urine Urobilinogen Ur Leukocyte Esterase Urine RBC (Auto) Urine Microscopic WBC Ur Squamous Epith Cells Urine Bacteria Urine Yeast (Budding) Urine Osmolality Ur Random Sodium Ur Random Potassium Vancomycin Trough Urine Opiates Screen Urine Methadone Screen Ur Barbiturates Screen Ur Phencyclidine Scrn Ur Amphetamines Screen U Benzodiazepines Scrn U Oth Cocaine Metabols U Cannabinoids Screen Alcohol, Quantitative < 10 HIV-1 Ab Rapid Screen Influenza Typ A,B (EIA) Ur L.pneumophila Ag Positive H Mycoplasma pneumon IgM 2 04/01/17 04/02/17 04/02/17 11:30 04:45 04:45 WBC 13.1 H RBC 4.10 L Hgb 12.3 Hct 36.6 MCV 89.3 MCH 30.0 MCHC 33.6 RDW 13.8 Plt Count 193 MPV 7.5 Neut % (Auto) 90.9 H Lymph % (Auto) 3.8 L [place] % (Auto) 4.8 Eos % (Auto) 0.3 Baso % (Auto) 0.2 Neut # 11.9 H Lymph # 0.5 L [place] # 0.6 Eos # 0.0 Baso # 0.0 Neutrophils % (Manual) 87 H Band Neutrophils % 2 Lymphocytes % (Manual) 7 L Monocytes % (Manual) 4 Eosinophils % (Manual) Myelocytes % Platelet Estimate Normal RBC Morphology Normal Polychromasia PT 16.6 H INR 1.6 H APTT pCO2 pO2 HCO3 ABG pH ABG Total CO2 ABG O2 Saturation ABG O2 Content ABG Base Excess ABG Hemoglobin ABG Carboxyhemoglobin POC ABG HHb (Measured) ABG Methemoglobin ABG O2 Capacity Raú[place] Test ABG Potassium A-a O2 Difference Hgb O2 Saturation Sodium 138 Chloride 105 Glucose Lactate Vent Mode FiO2 Potassium 4.2 Carbon Dioxide 25 Anion Gap 12 BUN 15 Creatinine 0.7 L Est GFR ( Amer) > 60 Est GFR (Non-Af Amer) > 60 POC Glucose (mg/dL) Random Glucose 159 H Hemoglobin A1c Serum Osmolality Lactic Acid Calcium 7.9 L Phosphorus 2.5 Magnesium Total Bilirubin 0.6 AST 334 H ALT 139 H D Alkaline Phosphatase 57 Total Creatine Kinase 10303 H Troponin I NT-Pro-B Natriuret Pep Total Protein 6.0 L Albumin 3.1 L Globulin 2.9 Albumin/Globulin Ratio 1.1 Triglycerides Cholesterol LDL Cholesterol Direct HDL Cholesterol Arterial Blood Potassium Urine Color Urine Clarity Urine pH Ur Specific [place] Urine Protein Urine Glucose (UA) Urine Ketones Urine Blood Urine Nitrate Urine Bilirubin Urine Urobilinogen Ur Leukocyte Esterase Urine RBC (Auto) Urine Microscopic WBC Ur Squamous Epith Cells Urine Bacteria Urine Yeast (Budding) Urine Osmolality Ur Random Sodium Ur Random Potassium Vancomycin Trough Urine Opiates Screen Urine Methadone Screen Ur Barbiturates Screen Ur Phencyclidine Scrn Ur Amphetamines Screen U Benzodiazepines Scrn U Oth Cocaine Metabols U Cannabinoids Screen Alcohol, Quantitative HIV-1 Ab Rapid Screen Influenza Typ A,B (EIA) Ur L.pneumophila Ag Mycoplasma pneumon IgM 04/02/17 04/02/17 04/02/17 04:45 04:45 05:22 WBC RBC Hgb Hct MCV MCH MCHC RDW Plt Count MPV Neut % (Auto) Lymph % (Auto) [place] % (Auto) Eos % (Auto) Baso % (Auto) Neut # Lymph # [place] # Eos # Baso # Neutrophils % (Manual) Band Neutrophils % Lymphocytes % (Manual) Monocytes % (Manual) Eosinophils % (Manual) Myelocytes % Platelet Estimate RBC Morphology Polychromasia PT INR APTT pCO2 35 pO2 62 L HCO3 24.8 ABG pH 7.44 ABG Total CO2 24.9 ABG O2 Saturation 96.1 ABG O2 Content 16.4 ABG Base Excess 0 ABG Hemoglobin 12.6 ABG Carboxyhemoglobin 2.1 H POC ABG HHb (Measured) 3.7 ABG Methemoglobin 1.9 ABG O2 Capacity 17.1 Raúl Test Yes ABG Potassium A-a O2 Difference 122.0 Hgb O2 Saturation 92.3 L Sodium Chloride Glucose Lactate Vent Mode Nasal cannula FiO2 32.0 Potassium Carbon Dioxide Anion Gap BUN Creatinine Est GFR ( Amer) Est GFR (Non-Af Amer) POC Glucose (mg/dL) Random Glucose Hemoglobin A1c 6.1 Serum Osmolality Lactic Acid Calcium Phosphorus Magnesium Total Bilirubin AST ALT Alkaline Phosphatase Total Creatine Kinase Troponin I NT-Pro-B Natriuret Pep Total Protein Albumin Globulin Albumin/Globulin Ratio Triglycerides Cholesterol LDL Cholesterol Direct HDL Cholesterol Arterial Blood Potassium Urine Color Urine Clarity Urine pH Ur Specific [place] Urine Protein Urine Glucose (UA) Urine Ketones Urine Blood Urine Nitrate Urine Bilirubin Urine Urobilinogen Ur Leukocyte Esterase Urine RBC (Auto) Urine Microscopic WBC Ur Squamous Epith Cells Urine Bacteria Urine Yeast (Budding) Urine Osmolality Ur Random Sodium Ur Random Potassium Vancomycin Trough 8.8 Urine Opiates Screen Urine Methadone Screen Ur Barbiturates Screen Ur Phencyclidine Scrn Ur Amphetamines Screen U Benzodiazepines Scrn U Oth Cocaine Metabols U Cannabinoids Screen Alcohol, Quantitative HIV-1 Ab Rapid Screen Influenza Typ A,B (EIA) Ur L.pneumophila Ag Mycoplasma pneumon IgM 04/03/17 04/03/17 04/03/17 04:10 04:10 08:05 WBC 12.1 H RBC 4.15 L Hgb 12.7 Hct 36.9 MCV 88.9 MCH 30.5 MCHC 34.4 RDW 13.9 Plt Count 218 MPV 7.8 Neut % (Auto) 94.5 H Lymph % (Auto) 2.7 L [place] % (Auto) 1.9 Eos % (Auto) 0.7 Baso % (Auto) 0.2 Neut # 11.5 H Lymph # 0.3 L [place] # 0.2 Eos # 0.1 Baso # 0.0 Neutrophils % (Manual) 88 H Band Neutrophils % 3 H Lymphocytes % (Manual) 3 L Monocytes % (Manual) 5 Eosinophils % (Manual) 1 Myelocytes % Platelet Estimate Normal RBC Morphology Normal Polychromasia PT INR APTT pCO2 38 pO2 45 L HCO3 24.8 ABG pH 7.42 ABG Total CO2 25.8 ABG O2 Saturation 85.8 L ABG O2 Content 15.3 ABG Base Excess 0.3 ABG Hemoglobin 13.3 ABG Carboxyhemoglobin 2.3 H POC ABG HHb (Measured) 13.6 H ABG Methemoglobin 2.0 ABG O2 Capacity 17.8 Raúl Test Yes ABG Potassium A-a O2 Difference 164.0 Hgb O2 Saturation 82.2 L Sodium 136 Chloride 105 Glucose Lactate Vent Mode FiO2 36.0 Potassium 4.1 Carbon Dioxide 24 Anion Gap 11 BUN 19 Creatinine 0.7 L Est GFR ( Amer) > 60 Est GFR (Non-Af Amer) > 60 POC Glucose (mg/dL) Random Glucose 161 H Hemoglobin A1c Serum Osmolality Lactic Acid Calcium 7.8 L Phosphorus 2.6 Magnesium 2.1 Total Bilirubin 0.8 AST 291 H ALT 184 H D Alkaline Phosphatase 62 Total Creatine Kinase 7783 H Troponin I NT-Pro-B Natriuret Pep Total Protein 6.1 L Albumin 2.9 L Globulin 3.2 Albumin/Globulin Ratio 0.9 L Triglycerides Cholesterol LDL Cholesterol Direct HDL Cholesterol Arterial Blood Potassium Urine Color Urine Clarity Urine pH Ur Specific [place] Urine Protein Urine Glucose (UA) Urine Ketones Urine Blood Urine Nitrate Urine Bilirubin Urine Urobilinogen Ur Leukocyte Esterase Urine RBC (Auto) Urine Microscopic WBC Ur Squamous Epith Cells Urine Bacteria Urine Yeast (Budding) Urine Osmolality Ur Random Sodium Ur Random Potassium Vancomycin Trough Urine Opiates Screen Urine Methadone Screen Ur Barbiturates Screen Ur Phencyclidine Scrn Ur Amphetamines Screen U Benzodiazepines Scrn U Oth Cocaine Metabols U Cannabinoids Screen Alcohol, Quantitative HIV-1 Ab Rapid Screen Influenza Typ A,B (EIA) Ur L.pneumophila Ag Mycoplasma pneumon IgM Microbiology 04/02/17 17:00 Blood-Venous Blood Culture - Preliminary NO GROWTH AFTER 24 HOURS 04/02/17 17:00 Blood-Venous Blood Culture - Preliminary NO GROWTH AFTER 24 HOURS 04/02/17 10:45 Blood Blood Culture - Preliminary NO GROWTH AFTER 24 HOURS 04/02/17 10:40 Blood Blood Culture - Preliminary NO GROWTH AFTER 24 HOURS 03/31/17 05:00 Blood Blood Culture - Preliminary NO GROWTH AFTER 48 HOURS 03/31/17 05:00 Blood Blood Culture - Preliminary NO GROWTH AFTER 48 HOURS 04/02/17 10:53 Sputum Gram Stain - Final 04/01/17 05:00 Nose MRSA Culture (Admit) - Final MRSA NOT DETECTED 03/31/17 05:00 Urine,Clean Catch Urine Culture - Final No Growth (<1,000 CFU/ML) Accession No. : [id number] Patient Name / ID : CHAR CARPENTER / [id number] Exam Date : 04/03/2017 11:07:53 ( Approved ) Study Comment : Sex / Age : M / 51Y Creator : Jairon Edwards MD Dictator : Jairon Edwards MD Financial Investigator : Channel Development Manager : Jairon Edwards MD Approver2 : Report Date : 04/03/2017 12:01:45 My Comment : PROCEDURE: CHEST RADIOGRAPH, 1 VIEW HISTORY: post intubation COMPARISON: Portable chest 04/02/2017 9:07 a.m.. FINDINGS: Patient now status post endotracheal intubation with the tube terminating just below level of clavicles in the plane of the trachea and well above the nav. In a NG tube is in place with tip directed into left upper quadrant abdomen but off the image inferiorly. LUNGS: Status posts mechanical ventilation, improved aeration is appreciate bilaterally with bilateral infiltrates remaining greater the left and right lung with the right leg and contrary at the mid lung/perihilar region and left lung affecting the majority of left lung base sparing the lateral left base and medial left apex. PLEURA: No pneumothorax or pleural fluid seen. CARDIOVASCULAR: Normal. OSSEOUS STRUCTURES: No significant abnormalities. VISUALIZED UPPER ABDOMEN: Normal. OTHER FINDINGS: None. IMPRESSION: Status post endotracheal intubation as discussed above. Bilateral pulmonary infiltrates remains significantly greater the left and right sides with improved aeration noted diffusely status post endotracheal intubation. No pleural effusion bilaterally. Assessment and Plan (1) Legionella pneumophila infection Status: Acute (2) Pneumonia Status: Acute (3) Fever Status: Acute (4) Rhabdomyolysis Status: Acute (5) Transaminitis Status: Acute - Assessment and Plan (Free Text) Assessment: A/P- 51 year old male with no PMH admitted with rhabdomyolysis, fever, leukocytosis and multifocal pneumonia. 1. + legionella pneumophila 2.multifocal pneumonia 3. rhabdomyolysis 4.fever 5.transaminitis t-max 100 tachycardic resp distress s/p intubation today chest ct- multifocal pneumonia urine legionella- pos HIV ab- neg influenza- neg blood cx- neg x 6 UA- neg urine tox- pos for cannabis high CK but trending down Transaminitis lower today Plan- advise to continue with azithromycin for legionella treatment. day #3 advise to d/c zosyn and start meropenem today. advise to continue with IV vancomycin , keep trough <15. check sputum cx. IV hydration for the rhabdo as per ICU team. await hepatitis panel in light of the transaminitis. transaminitis could be secondary to sepsis and or meds such and/or rhanbdo itself as well. f/u LFT. ICu time 50 minutes.
--- NOTE | 2017-04-03 14:58 | CARD ---
APPROVED REPORT EXAM: Two-dimensional and M-mode echocardiogram with Doppler and color Doppler. Other Information Quality : Good[employer] : NSR INDICATION ELEVATED TROPONIN 2D DIMENSIONS IVSd1.14 (0.7-1.1cm)LVDd5.75 (3.9-5.9cm) LVOT Diameter2.33 (1.8-2.4cm)PWd1.01 (0.7-1.1cm) IVSs1.00 (0.8-1.2cm)LVDs5.01 (2.5-4.0cm) FS (%) 12.8 %PWs1.33 (0.8-1.2cm) M-Mode DIMENSIONS Left Atrium (MM)4.73 (2.5-4.0cm)IVSd1.03 (0.7-1.1cm) Aortic Root3.11 (2.2-3.7cm)LVDd6.32 (4.0-5.6cm) Aortic Cusp Exc.2.25 (1.5-2.0cm)PWd0.83 (0.7-1.1cm) IVSs1.49 cmFS (%) 29 % LVDs4.47 (2.0-3.8cm)PWs1.42 cm Mitral Valve E/A ratio0.0 TDI E/Lateral E'0.0E/Medial E'0.0 Pulmonary Valve PV Peak [id number]/s LEFT VENTRICLE The left ventricle is normal size. There is normal left ventricular wall thickness. The systolic function is mildly to moderately impaired. The Ejection Fraction is 30-35%. There is global hypokinesis of the left ventricle. The left ventricular diastolic function is normal. No left ventricle thrombus noted on this study. There is no mass noted in the left ventricle. RIGHT VENTRICLE The right ventricle is normal size. There is normal right ventricular wall thickness. The right ventricular systolic function is normal. ATRIA The left atrium size is normal. The right atrium size is normal. The interatrial septum is intact with no evidence for an atrial septal defect. AORTIC VALVE The aortic valve is normal in structure and function. No aortic regurgitation is present. There is no aortic valvular stenosis. There is no aortic valvular vegetation. MITRAL VALVE The mitral valve is normal in structure and function. There is no evidence of mitral valve prolapse. There is no mitral valve stenosis. Mitral regurgitation is mild. TRICUSPID VALVE The tricuspid valve is normal in structure and function. There is no tricuspid valve regurgitation noted. There is no tricuspid valve prolapse or vegetation. There is no tricuspid valve stenosis. PULMONIC VALVE The pulmonary valve is normal in structure and function. There is no pulmonic valvular regurgitation. There is no pulmonic valvular stenosis. GREAT VESSELS The aortic root is normal in size. The IVC is normal in size and collapses >50% with inspiration. PERICARDIAL EFFUSION The pericardium appears normal. There is no pleural effusion. <Conclusion> The left ventricle is normal size. The systolic function is mildly to moderately impaired. The Ejection Fraction is 30-35%. There is global hypokinesis of the left ventricle. Mitral regurgitation is mild.
--- NOTE | 2017-04-03 19:32 | PN ---
DATE: SUBJECTIVE: The patient is in respiratory failure requiring intubation and mechanical ventilation, currently sedated. PHYSICAL EXAMINATION: VITAL SIGNS: Blood pressure 94/55, heart rate 99, temperature 98.8, respirations 19. HEENT: Normocephalic. CHEST: Bilateral coarse crepitations. HEART: S1 and S2 regular. EXTREMITIES: Trace leg edema. LABORATORY DATA: Hemoglobin and hematocrit 12.7 and 36.9, white count 12.1, platelet count 118,000. SMA-7 is within normal limit, except for glucose is 161 and creatinine of 0.7. Total creatine kinase 7783. Chest x-ray revealed worsening bilateral pneumonia. ASSESSMENT: 1. Acute respiratory failure. 2. Legionella pneumonia. 3. Borderline troponin elevation. 4. Cannabinoid abuse. RECOMMENDATIONS: Continue current IV Zithromax, IV Zosyn and IV vancomycin. Continue thiamine and multivitamin infusion. Continue Lasix 20 mg intravenously once a day, therapeutic subcutaneous Lovenox 90 mg twice a day, Coreg 3.125 mg twice a day and IV Ativan p.r.n. Marcio Atkinosn MD
[2017-04-03] MEDS: Meropenem 1 GM in Sodium Chloride 0.9% 100 ML IVPB SCH (23:09)
[2017-04-04] MEDS: Albuterol-Ipratrop 3 mg / 0.5 (3 ml) UD INH SCH ×7 (00:05→23:29)
[2017-04-04] MEDS: NS IVPB SCH ×2 (00:15→08:22)
[2017-04-04] MEDS: METHYLPREDNISOLONE IVPB SCH ×2 (00:15→08:22)
[2017-04-04] MEDS: Meropenem 1 GM in Sodium Chloride 0.9% 100 ML IVPB SCH ×3 (00:16→16:10)
[2017-04-04] MEDS ORDERED: Dextrose 5%/0.9% NS 1,000 ML IV SCH (01:00)
[2017-04-04] MEDS: Propofol 10 mg/ml 1,000 MG/100 ML VIAL IV SCH ×5 (04:00→19:00)
[2017-04-04 05:13] LABS: HEMATOCRIT 36.5 % (35.0-51.0); MEAN CELL VOLUME 90.8 fl (80.0-94.0); MEAN CORPUSCULAR HEMOGLOBIN 29.8 pg (27.0-31.0); MEAN CORPUSCULAR HGB CONC 32.8 g/dL (33.0-37.0); RED CELL DISTRIBUTION WIDTH 14.3 % (11.5-14.5); WHITE BLOOD COUNT 13.5 K/uL (4.8-10.8)
[2017-04-04 05:20] LABS: ABG ALLEN TEST YES; ABG MECHANICAL RATE 16; ARTERIAL BLOOD GAS MODE A/C; ARTERIAL BLOOD GAS O2 CAPACITY 16.9 mL/dL (16-24); ARTERIAL BLOOD GAS O2 CONTENT 16.7 ML/dL (15-23); ARTERIAL BLOOD GAS PH 7.46 (7.35-7.45); ARTERIAL BLOOD GAS PO2 85 mm/Hg (80-100); ARTERIAL BLOOD HGB O2 SAT 95.2 % (95.0-98.0); ATERIAL BLOOD GAS PEEP 5; CARBOXYHEMOGLOBIN 1.6 % (0.5-1.5); HHB 1.2 % (0.0-5.0)
[2017-04-04 05:30] LABS: ALKALINE PHOSPHATASE 55 U/L (38-126); ALT/SGPT 159 U/L (21-72); AST/SGOT 161 U/L (17-59); BILIRUBIN,TOTAL 0.7 mg/dl (0.2-1.3); BLOOD UREA NITROGEN 25 mg/dl (9-20); CALCIUM 8.2 mg/dL (8.4-10.2); CARBON DIOXIDE 30 mmol/L (22-30); CHLORIDE 106 mmol/L (98-107); GFR AFRICAN-AMERICAN > 60; GLUCOSE,RANDOM 202 mg/dL (75-110); POTASSIUM 4.5 MMOL/L (3.6-5.0); SODIUM 142 mmol/l (132-148); TOTAL PROTEIN 5.5 G/DL (6.3-8.2)
[2017-04-04] MEDS: Enoxaparin 100 mg Syringe SC SCH ×2 (08:20→20:19)
[2017-04-04] MEDS: Potassium & Sodium Phosphate PO SCH (08:21)
[2017-04-04] MEDS: Azithromycin 500 MG in Sodium Chloride 0.9% 250 ML IVPB SCH (08:24)
--- NOTE | 2017-04-04 10:05 | RAD ---
PROCEDURE: CHEST RADIOGRAPH, 1 VIEW HISTORY: multifocal pneumonia COMPARISON: Made with chest radiograph 04/03/[address] scan chest dated 04/01/2017. FINDINGS: In situ ETT, tip of which lies approximately 6.5 cm above nav. NGT is present, the tip of which appears to be located in the left parasagittal upper abdomen. LUNGS: Persistent patchy infiltrate left lower lobe. There is also an area of atelectasis and or infiltrate in the right mid lung field. PLEURA: No pneumothorax or pleural fluid seen. CARDIOVASCULAR: Normal. OSSEOUS STRUCTURES: No significant abnormalities. VISUALIZED UPPER ABDOMEN: Normal. OTHER FINDINGS: None. IMPRESSION: Persistent patchy infiltrate left lower lobe. There is also an area of atelectasis and or infiltrate in the right mid lung field.
--- NOTE | 2017-04-04 12:42 | CP.PCM.PN ---
Subjective - Date & Time of Evaluation Date of Evaluation: 04/04/17 Time of Evaluation: 12:00 - Subjective Subjective: ID note- Pt. seen and examined today in ICU. remains intubated and sedated but FIO2 requirement much lower. Objective - Vital Signs/Intake and Output Vital Signs (last 24 hours): Temp Pulse Resp BP Pulse Ox 97.4 F L 75 25 H 104/76 98 04/04/17 12:00 04/04/17 12:00 04/04/17 12:00 04/04/17 12:00 04/04/17 12:00 Intake and Output: 04/04/17 04/04/17 06:59 18:59 Intake Total 1575 950 Output Total 700 Balance 875 950 - Medications Medications: Current Medications Albuterol/Ipratropium (Duoneb 3 Mg/0.5 Mg (3 Ml) Ud) 3 ml INH RQ4 [facility] Last Admin: 04/04/17 11:09 Dose: 3 ml Aspirin (Ecotrin) 81 mg PO DAILY [facility] Last Admin: 04/04/17 08:20 Dose: 81 mg Carvedilol (Coreg) 3.125 mg PO Q12 [facility] Last Admin: 04/04/17 08:08 Dose: Not Given Enoxaparin Sodium (Lovenox) 90 mg SC Q12 [facility] PRN Reason: Protocol Last Admin: 04/04/17 08:20 Dose: 90 mg Vancomycin HCl 1 gm/ Sodium (Chloride) 250 mls @ 166.667 mls/hr IVPB Q12 [facility] Last Admin: 04/04/17 08:23 Dose: 166.667 mls/hr Azithromycin 500 mg/ Sodium (Chloride) 250 mls @ 250 mls/hr IVPB DAILY [facility] Last Admin: 04/04/17 08:24 Dose: 250 mls/hr Meropenem 1 gm/ Sodium (Chloride) 100 mls @ 100 mls/hr IVPB Q8 [facility] Last Admin: 04/04/17 08:21 Dose: 100 mls/hr Dextrose/Sodium Chloride (Dextrose 5%/0.9% Ns 1000 Ml) 1,000 mls @ 75 mls/hr IV .[id number] [facility] Stop: 04/05/17 00:47 Last Admin: 04/04/17 01:56 Dose: 75 mls/hr Lorazepam (Ativan) 1 mg IVP Q6 PRN PRN Reason: Agitation Last Admin: 04/03/17 21:41 Dose: 1 mg Nicotine (Nicoderm Cq) 1 patch TD DAILY [facility] Last Admin: 04/04/17 08:22 Dose: 1 patch Pantoprazole Sodium (Protonix Inj) 40 mg IVP DAILY [facility] - Labs Labs: - Additional Findings Additional findings: - Head Exam Additional comments: small left forehead superficial abrasion and one on the tip of the nose and one in left lower lip region - ENT Exam ENT Exam: ET tube in place - Neck Exam Neck exam: Positive for: Full Rom Additional comments: supple - Respiratory Exam Additional comments: Intubated coarse breath sounds b/l + mild exp wheezing b/l as well - Cardiovascular Exam Cardiovascular Exam: Tachycardia, +S1, +S2 - GI/Abdominal Exam GI & Abdominal Exam: Normal Bowel Sounds, Soft Additional comments: NT, ND no guarding, No rebound - Extremities Exam Additional comments: no edema b/l LE - Neurological Exam Neurological exam: Alert Additional comments: sedated Laboratory Results - last 72 hr 04/01/17 04/02/17 04/02/17 10:00 04:45 04:45 WBC 13.1 H RBC 4.10 L Hgb 12.3 Hct 36.6 MCV 89.3 MCH 30.0 MCHC 33.6 RDW 13.8 Plt Count 193 MPV 7.5 Neut % (Auto) 90.9 H Lymph % (Auto) 3.8 L [place] % (Auto) 4.8 Eos % (Auto) 0.3 Baso % (Auto) 0.2 Neut # 11.9 H Lymph # 0.5 L [place] # 0.6 Eos # 0.0 Baso # 0.0 Neutrophils % (Manual) 87 H Band Neutrophils % 2 Lymphocytes % (Manual) 7 L Monocytes % (Manual) 4 Eosinophils % (Manual) Platelet Estimate Normal RBC Morphology Normal pCO2 pO2 HCO3 ABG pH ABG Total CO2 ABG O2 Saturation ABG O2 Content ABG Base Excess ABG Hemoglobin ABG Carboxyhemoglobin POC ABG HHb (Measured) ABG Methemoglobin ABG O2 Capacity Raúl Test A-a O2 Difference Hgb O2 Saturation Vent Mode Mechanical Rate FiO2 Tidal Volume PEEP Sodium 138 Potassium 4.2 Chloride 105 Carbon Dioxide 25 Anion Gap 12 BUN 15 Creatinine 0.7 L Est GFR ( Amer) > 60 Est GFR (Non-Af Amer) > 60 Random Glucose 159 H Hemoglobin A1c Lactic Acid Calcium 7.9 L Phosphorus 2.5 Magnesium Total Bilirubin 0.6 AST 334 H ALT 139 H D Alkaline Phosphatase 57 Total Creatine Kinase 78081 H Total Protein 6.0 L Albumin 3.1 L Globulin 2.9 Albumin/Globulin Ratio 1.1 Vancomycin Trough Mycoplasma pneumon IgM 2 04/02/17 04/02/17 04/02/17 04:45 04:45 05:22 WBC RBC Hgb Hct MCV MCH MCHC RDW Plt Count MPV Neut % (Auto) Lymph % (Auto) [place] % (Auto) Eos % (Auto) Baso % (Auto) Neut # Lymph # [place] # Eos # Baso # Neutrophils % (Manual) Band Neutrophils % Lymphocytes % (Manual) Monocytes % (Manual) Eosinophils % (Manual) Platelet Estimate RBC Morphology pCO2 35 pO2 62 L HCO3 24.8 ABG pH 7.44 ABG Total CO2 24.9 ABG O2 Saturation 96.1 ABG O2 Content 16.4 ABG Base Excess 0 ABG Hemoglobin 12.6 ABG Carboxyhemoglobin 2.1 H POC ABG HHb (Measured) 3.7 ABG Methemoglobin 1.9 ABG O2 Capacity 17.1 Raúl Test Yes A-a O2 Difference 122.0 Hgb O2 Saturation 92.3 L Vent Mode Nasal cannula Mechanical Rate FiO2 32.0 Tidal Volume PEEP Sodium Potassium Chloride Carbon Dioxide Anion Gap BUN Creatinine Est GFR ( Amer) Est GFR (Non-Af Amer) Random Glucose Hemoglobin A1c 6.1 Lactic Acid Calcium Phosphorus Magnesium Total Bilirubin AST ALT Alkaline Phosphatase Total Creatine Kinase Total Protein Albumin Globulin Albumin/Globulin Ratio Vancomycin Trough 8.8 Mycoplasma pneumon IgM 04/03/17 04/03/17 04/03/17 04:10 04:10 08:05 WBC 12.1 H RBC 4.15 L Hgb 12.7 Hct 36.9 MCV 88.9 MCH 30.5 MCHC 34.4 RDW 13.9 Plt Count 218 MPV 7.8 Neut % (Auto) 94.5 H Lymph % (Auto) 2.7 L [place] % (Auto) 1.9 Eos % (Auto) 0.7 Baso % (Auto) 0.2 Neut # 11.5 H Lymph # 0.3 L [place] # 0.2 Eos # 0.1 Baso # 0.0 Neutrophils % (Manual) 88 H Band Neutrophils % 3 H Lymphocytes % (Manual) 3 L Monocytes % (Manual) 5 Eosinophils % (Manual) 1 Platelet Estimate Normal RBC Morphology Normal pCO2 38 pO2 45 L HCO3 24.8 ABG pH 7.42 ABG Total CO2 25.8 ABG O2 Saturation 85.8 L ABG O2 Content 15.3 ABG Base Excess 0.3 ABG Hemoglobin 13.3 ABG Carboxyhemoglobin 2.3 H POC ABG HHb (Measured) 13.6 H ABG Methemoglobin 2.0 ABG O2 Capacity 17.8 Raúl Test Yes A-a O2 Difference 164.0 Hgb O2 Saturation 82.2 L Vent Mode Mechanical Rate FiO2 36.0 Tidal Volume PEEP Sodium 136 Potassium 4.1 Chloride 105 Carbon Dioxide 24 Anion Gap 11 BUN 19 Creatinine 0.7 L Est GFR ( Amer) > 60 Est GFR (Non-Af Amer) > 60 Random Glucose 161 H Hemoglobin A1c Lactic Acid Calcium 7.8 L Phosphorus 2.6 Magnesium 2.1 Total Bilirubin 0.8 AST 291 H ALT 184 H D Alkaline Phosphatase 62 Total Creatine Kinase 7783 H Total Protein 6.1 L Albumin 2.9 L Globulin 3.2 Albumin/Globulin Ratio 0.9 L Vancomycin Trough Mycoplasma pneumon IgM 04/04/17 04/04/17 04/04/17 04:45 04:45 04:45 WBC 13.5 H RBC 4.02 L Hgb 11.9 L Hct 36.5 MCV 90.8 MCH 29.8 MCHC 32.8 L RDW 14.3 Plt Count 237 MPV Neut % (Auto) Lymph % (Auto) [place] % (Auto) Eos % (Auto) Baso % (Auto) Neut # Lymph # [place] # Eos # Baso # Neutrophils % (Manual) Band Neutrophils % Lymphocytes % (Manual) Monocytes % (Manual) Eosinophils % (Manual) Platelet Estimate RBC Morphology pCO2 pO2 HCO3 ABG pH ABG Total CO2 ABG O2 Saturation ABG O2 Content ABG Base Excess ABG Hemoglobin ABG Carboxyhemoglobin POC ABG HHb (Measured) ABG Methemoglobin ABG O2 Capacity Raúl Test A-a O2 Difference Hgb O2 Saturation Vent Mode Mechanical Rate FiO2 Tidal Volume PEEP Sodium 142 Potassium 4.5 Chloride 106 Carbon Dioxide 30 Anion Gap 11 BUN 25 H Creatinine 0.7 L Est GFR ( Amer) > 60 Est GFR (Non-Af Amer) > 60 Random Glucose 202 H Hemoglobin A1c Lactic Acid 1.4 Calcium 8.2 L Phosphorus Magnesium Total Bilirubin 0.7 AST 161 H D ALT 159 H Alkaline Phosphatase 55 Total Creatine Kinase Total Protein 5.5 L Albumin 2.8 L Globulin 2.7 Albumin/Globulin Ratio 1.0 Vancomycin Trough Mycoplasma pneumon IgM 04/04/17 05:18 WBC RBC Hgb Hct MCV MCH MCHC RDW Plt Count MPV Neut % (Auto) Lymph % (Auto) [place] % (Auto) Eos % (Auto) Baso % (Auto) Neut # Lymph # [place] # Eos # Baso # Neutrophils % (Manual) Band Neutrophils % Lymphocytes % (Manual) Monocytes % (Manual) Eosinophils % (Manual) Platelet Estimate RBC Morphology pCO2 44 pO2 85 HCO3 30.0 H ABG pH 7.46 H ABG Total CO2 32.7 H ABG O2 Saturation 98.8 H ABG O2 Content 16.7 ABG Base Excess 6.6 H ABG Hemoglobin 12.4 ABG Carboxyhemoglobin 1.6 H POC ABG HHb (Measured) 1.2 ABG Methemoglobin 2.0 ABG O2 Capacity 16.9 Raúl Test Yes A-a O2 Difference 288.0 Hgb O2 Saturation 95.2 Vent Mode A/c Mechanical Rate 16 FiO2 60.0 Tidal Volume 500 PEEP 5 Sodium Potassium Chloride Carbon Dioxide Anion Gap BUN Creatinine Est GFR ( Amer) Est GFR (Non-Af Amer) Random Glucose Hemoglobin A1c Lactic Acid Calcium Phosphorus Magnesium Total Bilirubin AST ALT Alkaline Phosphatase Total Creatine Kinase Total Protein Albumin Globulin Albumin/Globulin Ratio Vancomycin Trough Mycoplasma pneumon IgM Microbiology 04/02/17 10:53 Sputum Gram Stain - Final 04/02/17 10:53 Sputum Sputum Culture - Final NORMAL ORAL RAISSA 04/02/17 10:45 Blood Blood Culture - Preliminary NO GROWTH AFTER 48 HOURS 04/02/17 10:40 Blood Blood Culture - Preliminary NO GROWTH AFTER 48 HOURS 03/31/17 05:00 Blood Blood Culture - Preliminary NO GROWTH AFTER 3 DAYS 03/31/17 05:00 Blood Blood Culture - Preliminary NO GROWTH AFTER 3 DAYS 04/02/17 17:00 Blood-Venous Blood Culture - Preliminary NO GROWTH AFTER 24 HOURS 04/02/17 17:00 Blood-Venous Blood Culture - Preliminary NO GROWTH AFTER 24 HOURS 04/01/17 05:00 Nose MRSA Culture (Admit) - Final MRSA NOT DETECTED 03/31/17 05:00 Urine,Clean Catch Urine Culture - Final No Growth (<1,000 CFU/ML) Assessment and Plan (1) Legionella pneumophila infection Status: Acute (2) Pneumonia Status: Acute (3) Fever Status: Acute (4) Rhabdomyolysis Status: Acute (5) Transaminitis Status: Acute - Assessment and Plan (Free Text) Assessment: A/P- 51 year old male with no PMH admitted with rhabdomyolysis, fever, leukocytosis and multifocal pneumonia. 1. + legionella pneumophila 2.multifocal pneumonia 3. rhabdomyolysis 4.fever 5.transaminitis afebrile past 48 hours resp distress s/p intubation [address]- multifocal pneumonia urine legionella- pos HIV ab- neg influenza- neg blood cx- neg x 6 UA- neg urine tox- pos for cannabis high CK but trending down Transaminitis trending downsputum cx- neg Plan- advise to continue with azithromycin for legionella treatment. day #4 continue with IV meropenem day #2. advise to continue with IV vancomycin , keep trough <15. check sputum cx. IV hydration for the rhabdo as per ICU team. ICu time 50 minutes.
--- NOTE | 2017-04-04 12:55 | CP.PCM.PN ---
Subjective - Date & Time of Evaluation Date of Evaluation: 04/04/17 Time of Evaluation: 12:56 - Subjective Subjective: intubated and being ventilated sedated with diprivan Objective - Vital Signs/Intake and Output Vital Signs (last 24 hours): Temp Pulse Resp BP Pulse Ox 97.4 F L 75 25 H 104/76 98 04/04/17 12:00 04/04/17 12:00 04/04/17 12:00 04/04/17 12:00 04/04/17 12:00 Intake and Output: 04/04/17 04/04/17 06:59 18:59 Intake Total 1575 950 Output Total 700 Balance 875 950 - Medications Medications: Current Medications Albuterol/Ipratropium (Duoneb 3 Mg/0.5 Mg (3 Ml) Ud) 3 ml INH RQ4 [facility] Last Admin: 04/04/17 11:09 Dose: 3 ml Aspirin (Ecotrin) 81 mg PO DAILY [facility] Last Admin: 04/04/17 08:20 Dose: 81 mg Carvedilol (Coreg) 3.125 mg PO Q12 [facility] Last Admin: 04/04/17 08:08 Dose: Not Given Enoxaparin Sodium (Lovenox) 90 mg SC Q12 [facility] PRN Reason: Protocol Last Admin: 04/04/17 08:20 Dose: 90 mg Vancomycin HCl 1 gm/ Sodium (Chloride) 250 mls @ 166.667 mls/hr IVPB Q12 [facility] Last Admin: 04/04/17 08:23 Dose: 166.667 mls/hr Azithromycin 500 mg/ Sodium (Chloride) 250 mls @ 250 mls/hr IVPB DAILY [facility] Last Admin: 04/04/17 08:24 Dose: 250 mls/hr Meropenem 1 gm/ Sodium (Chloride) 100 mls @ 100 mls/hr IVPB Q8 [facility] Last Admin: 04/04/17 08:21 Dose: 100 mls/hr Dextrose/Sodium Chloride (Dextrose 5%/0.9% Ns 1000 Ml) 1,000 mls @ 75 mls/hr IV .[id number] [facility] Stop: 04/05/17 00:47 Last Admin: 04/04/17 01:56 Dose: 75 mls/hr Lorazepam (Ativan) 1 mg IVP Q6 PRN PRN Reason: Agitation Last Admin: 04/03/17 21:41 Dose: 1 mg Nicotine (Nicoderm Cq) 1 patch TD DAILY [facility] Last Admin: 04/04/17 08:22 Dose: 1 patch Pantoprazole Sodium (Protonix Inj) 40 mg IVP DAILY [facility] - Labs Labs: 04/04/17 04:45 04/04/17 04:45 PT 16.6 Seconds (9.8-13.1) H 04/01/17 11:30 INR 1.6 (0.9-1.2) H 04/01/17 11:30 APTT 35.2 Seconds (25.6-37.1) 03/31/17 21:50 - Constitutional Appears: Chronically Ill - Head Exam Head Exam: ATRAUMATIC, NORMAL INSPECTION, NORMOCEPHALIC - Eye Exam Eye Exam: EOMI, Normal appearance, PERRL Pupil Exam: NORMAL ACCOMODATION, PERRL - ENT Exam ENT Exam: Mucous Membranes Moist, Normal Exam - Neck Exam Neck Exam: Full ROM, Normal Inspection. absent: Lymphadenopathy - Respiratory Exam Respiratory Exam: Clear to Ausculation Bilateral, Rales Additional comments: ventilated - Cardiovascular Exam Cardiovascular Exam: REGULAR RHYTHM, +S1, +S2. absent: Murmur - GI/Abdominal Exam GI & Abdominal Exam: Soft, Normal Bowel Sounds. absent: Tenderness - Rectal Exam Rectal Exam: NORMAL INSPECTION - Extremities Exam Extremities Exam: Full ROM, Normal Capillary Refill, Normal Inspection. absent : Joint Swelling, Pedal Edema - Back Exam Back Exam: NORMAL INSPECTION - Neurological Exam Neurological Exam: Alert, Awake, CN II-XII Intact, Normal Gait, Oriented x3 - Psychiatric Exam Psychiatric exam: Normal Affect, Normal Mood - Skin Skin Exam: Dry, Intact, Normal Color, Warm Assessment and Plan - Assessment and Plan (Free Text) Assessment: acute respiratory failure bilateral pneumonia Plan: continue antibiotic rx and vent care attempt to extubate once clinically stable and pneumonia resolves
--- NOTE | 2017-04-04 14:48 | CP.PCM.PN ---
Subjective - Date & Time of Evaluation Date of Evaluation: 04/04/17 Time of Evaluation: 07:30 - Subjective Subjective: Patient seen and examined bedside.Intubated on MV PRVC mode 16/450/5/60 % with ABG 44/85/30/7.46 , sedated on Propofol drip Hemodynamically stable, afebrile last 24 hours , WBC 13 k Hgb 11.9 BUN/cr 25/0.7 AST/ALt 161/159 CXR showed improved left lower lobe infiltrate I/O 3105/2700 No acute issues overnight Objective - Vital Signs/Intake and Output Vital Signs (last 24 hours): Temp Pulse Resp BP Pulse Ox 97.4 F L 80 24 101/63 100 04/04/17 12:00 04/04/17 14:00 04/04/17 14:00 04/04/17 14:00 04/04/17 14:00 Intake and Output: 04/04/17 04/04/17 06:59 18:59 Intake Total 1575 1134 Output Total 700 Balance 875 1134 - Medications Medications: Current Medications Albuterol/Ipratropium (Duoneb 3 Mg/0.5 Mg (3 Ml) Ud) 3 ml INH RQ4 [facility] Last Admin: 04/04/17 11:09 Dose: 3 ml Aspirin (Ecotrin) 81 mg PO DAILY [facility] Last Admin: 04/04/17 08:20 Dose: 81 mg Carvedilol (Coreg) 3.125 mg PO Q12 [facility] Last Admin: 04/04/17 08:08 Dose: Not Given Enoxaparin Sodium (Lovenox) 90 mg SC Q12 [facility] PRN Reason: Protocol Last Admin: 04/04/17 08:20 Dose: 90 mg Vancomycin HCl 1 gm/ Sodium (Chloride) 250 mls @ 166.667 mls/hr IVPB Q12 [facility] Last Admin: 04/04/17 08:23 Dose: 166.667 mls/hr Azithromycin 500 mg/ Sodium (Chloride) 250 mls @ 250 mls/hr IVPB DAILY [facility] Last Admin: 04/04/17 08:24 Dose: 250 mls/hr Meropenem 1 gm/ Sodium (Chloride) 100 mls @ 100 mls/hr IVPB Q8 [facility] Last Admin: 04/04/17 08:21 Dose: 100 mls/hr Dextrose/Sodium Chloride (Dextrose 5%/0.9% Ns 1000 Ml) 1,000 mls @ 75 mls/hr IV .[id number] [facility] Stop: 04/05/17 00:47 Last Admin: 04/04/17 01:56 Dose: 75 mls/hr Lorazepam (Ativan) 1 mg IVP Q6 PRN PRN Reason: Agitation Last Admin: 04/03/17 21:41 Dose: 1 mg Nicotine (Nicoderm Cq) 1 patch TD DAILY [facility] Last Admin: 04/04/17 08:22 Dose: 1 patch Pantoprazole Sodium (Protonix Inj) 40 mg IVP DAILY [facility] - Labs Labs: 04/04/17 04:45 04/04/17 04:45 PT 16.6 Seconds (9.8-13.1) H 04/01/17 11:30 INR 1.6 (0.9-1.2) H 04/01/17 11:30 APTT 35.2 Seconds (25.6-37.1) 03/31/17 21:50 - Constitutional Appears: Other (intubated on MV sedated ) - Head Exam Head Exam: NORMOCEPHALIC Additional comments: multiple left frontal , nasal bridge and lower lip abrasions - Eye Exam Eye Exam: EOMI, PERRL Pupil Exam: NORMAL ACCOMODATION - ENT Exam ENT Exam: Mucous Membranes Dry, Normal Exam - Neck Exam Neck Exam: Normal Inspection - Respiratory Exam Respiratory Exam: absent: Rhonchi, Wheezes, Respiratory Distress Additional comments: intubated - Cardiovascular Exam Cardiovascular Exam: REGULAR RHYTHM, RRR, +S1, +S2. absent: JVD - GI/Abdominal Exam GI & Abdominal Exam: Soft, Normal Bowel Sounds. absent: Distended, Guarding, Rebound - Rectal Exam Rectal Exam: Deferred - Extremities Exam Extremities Exam: Normal Capillary Refill, Normal Inspection. 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 Falling twice receiving trauma to the left side of the face and left forehead, laceration to his lower lip and nose. He began having non productive cough with chills and diarrhea on the day of admission. In the ED the Temperature was 103.6F with HR of 125/min. Patient admitted to ICU for Sepsis, acute hypoxemic respiratory failure .at present intubated on MV and sedated 1. Sepsis Most likely secondary to multifocal Pneumonia blood , urine , sputum cx-- with no growth so far CXR today showed improvement , LLL infiltrate Continue Vanco, Zithromax IV . Changed Zosyn to Meropenem IV ID , pulmonary on consult Vent management with daily weaning protocol 2.Acute hypoxemic respiratory failure secondary to Multifocal Pneumonia Intubated ON MV PRVC/ Ac mode 16/450/5/60 % FIO2 ABG 44/85/30/7.46 CXR today showed improvement ,present LLL infiltrate WBC still elevated 13.5 K Legionella Ag positive Continue IV antibiotics( Meropenem, Vanco and Zithromax ), Duonebs,vent weaning trials as tolerated Discontinued Solumedrol IV Pulmonary consulted 3. Metabolic encephalopathy Patient was confused , agitated, restless , lethargic yesterday Multifactorial :most likely secondary to hypoxemia,sepsis and possible ETOH withdrawal Continue vent support , sedation with propofol and sedation vacation Thiamine, folic acid and MVI on IVF 4. Suspected ETOH withdrawal / Impending DT-s patient was tachycardic , delirius , agitated , flushed At present sedated on propofol drip and better continue Thiamin, Folic acid and MVI 5. Rhabdomyolysis most likely due to muscle injury caused by the [place] [address] to 7783 Continue IVF 6.Hyponatremia - resolved probably due to SIADH caused by the legionella Pneumonia continue IV Fluids 7.Elevated Troponin Probably secondary to cardiac trauma Consult with Dr Atkinson appreciated Continue Lovenox Therapeutic dose Q12H, ASA no statin due to elevated LFT-s echo showed global hypokinesis and EF 30-35 5 No cardiac intervention at present 8.Hypophosphatemia Repleted with Neutro Phos 9. Imbalance with Multiple falls CT head showed no acute pathology OT/PT evaluation and Treatment once stable 10. Mild pulmonary congestion most likely CHF systolic dysfunction EF 30-35% with global hypokinesis Cardiology on consult monitor I/O lasix PRN Continue ASa, Lovenox therapeutic and coreg 11.Transaminitis secondary to the muscle injury and sepsis improving 12. Nicotine Addiction Nicotine Patch offered 13. Coagulopathy with elevated INR Vitamin K 5mg given repeat INR 14. Subluxation of the left temperomandibular joint Pain management PRN 15.Cholelithiasis Stable 16. DVT Prophylaxis with SCD and Lovenox
--- NOTE | 2017-04-04 15:14 | CP.CCUPN ---
<Ara Rosen - Last Filed: 04/04/17 14:37> CCU Subjective - Physician Review Subjective (Free Text): 04/04/17 14:37 Patient seen and examined at bedside. Remains intubated, sedated, a trial of spontaneous breathing resulted in paradoxical abdominal breathing. 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 FiO2 was lowered to 35%, pt tolerated it. CCU Objective - Vital Signs / Intake & Output Vital Signs (Last 4 hours): Vital Signs Temp Pulse Resp BP Pulse Ox 04/04/17 14:00 80 24 101/63 100 04/04/17 13:00 86 28 H 119/63 100 04/04/17 12:00 97.4 F L 75 25 H 104/76 98 04/04/17 11:00 81 19 100/60 100 Intake and Output (Last 8hrs): Intake & Output 04/03/17 04/04/17 04/04/17 22:59 06:59 14:59 Intake Total 855 1040 1134 Output Total 1600 700 Balance -349 304 4926 Weight 256 lb Intake: IV 505 650 434 Intake, Piggyback 290 150 650 Tube Feeding 50 Free Water Flush 60 240 Output: Urine 1600 700 Urethral (Vernon) 1600 700 - Physical Exam Head: Positive for: Normocephalic, Abrasion (left face, bridge of nose, lower lip) Pupils: Positive for: PERRL Extroacular Muscles: Positive for: EOMI Conjunctiva: Positive for: Normal Mouth: Positive for: Moist Mucous Membranes Neck: Positive for: Normal Range of Motion. Negative for: Meningeal Signs, MIDLINE TENDERNESS, Paraspinal Tenderness, JVD, Lymphadenopathy, Bruit, Other Respiratory/Chest: Positive for: Respiratory Distress (intubated, tachypnea during spontaneous breathing trial), Accessory Muscle Use (paradoxical abdominal breathing), Wheezes, Rhonchi, Tachypneic. Negative for: Rales Cardiovascular: Positive for: Regular Rate and Rhythm, Normal S1, S2, Peripheal Pulses Present. Negative for: Murmurs Abdomen: Positive for: Other (decreased bowel sounds). Negative for: Tenderness , Distention, Peritoneal Signs Upper Extremity: Positive for: Normal Inspection (bilateral wrist restraints, IV line in right and left hand), Capillary Refill < 2s. Negative for: Cyanosis , Edema Lower Extremity: Positive for: Normal Inspection, NORMAL PULSES, Capillary Refill < 2 s. Negative for: Edema, CALF TENDERNESS Neurological: Positive for: Other (strength 5/5, responds with hand adjunct sociology professor and head gestures when off sedation) Psychiatric: Positive for: Alert (for short period of time on sedation vacation : awake, follows commands) - Medications Active Medications: Active Medications Generic Name Dose Route Start Last Admin Trade Name Freq PRN Reason Stop Dose Admin Albuterol/Ipratropium 3 ml 04/01/17 04:00 04/04/17 11:09 Duoneb 3 Mg/0.5 Mg (3 Ml) Ud INH 3 ml RQ4 [facility] Administration Aspirin 81 mg 04/01/17 09:00 04/04/17 08:20 Ecotrin PO 81 mg DAILY [facility] Administration Carvedilol 3.125 mg 04/01/17 21:00 04/04/17 08:08 Coreg PO Not Given Q12 [facility] Enoxaparin Sodium 90 mg 04/01/17 09:00 04/04/17 08:20 Lovenox SC 90 mg Q12 [facility] Administration Protocol Vancomycin HCl 1 gm/ Sodium 250 mls @ 166.667 mls/hr 04/01/17 09:00 04/04/17 08:23 Chloride IVPB 166.667 mls/hr Q12 [facility] Administration Azithromycin 500 mg/ Sodium 250 mls @ 250 mls/hr 04/01/17 09:00 04/04/17 08: 24 Chloride IVPB 250 mls/hr DAILY [facility] Administration Meropenem 1 gm/ Sodium 100 mls @ 100 mls/hr 04/03/17 20:30 04/04/17 08:21 Chloride IVPB 100 mls/hr Q8 [facility] Administration Dextrose/Sodium Chloride 1,000 mls @ 75 mls/hr 04/04/17 01:00 04/04/17 01:56 Dextrose 5%/0.9% Ns 1000 Ml IV 04/05/17 00:47 75 mls/hr .[id number] [facility] Administration Lorazepam 1 mg 04/01/17 21:02 04/03/17 21:41 Ativan IVP 1 mg Q6 PRN Administration Agitation Nicotine 1 patch 04/01/17 09:00 04/04/17 08:22 Nicoderm Cq TD 1 patch DAILY [facility] Administration Pantoprazole Sodium 40 mg 04/04/17 12:30 Protonix Inj IVP DAILY [facility] - Patient Studies Lab Studies: Microbiology Studies 04/02/17 10:53 Gram Stain - Final Sputum Sputum Culture - Final NORMAL ORAL RAISSA 04/02/17 10:45 Blood Culture - Preliminary Blood NO GROWTH AFTER 48 HOURS 04/02/17 10:40 Blood Culture - Preliminary Blood NO GROWTH AFTER 48 HOURS 03/31/17 05:00 Blood Culture - Preliminary Blood NO GROWTH AFTER 3 DAYS 03/31/17 05:00 Blood Culture - Preliminary Blood NO GROWTH AFTER 3 DAYS 04/02/17 17:00 Blood Culture - Preliminary Blood-Venous NO GROWTH AFTER 24 HOURS 04/02/17 17:00 Blood Culture - Preliminary Blood-Venous NO GROWTH AFTER 24 HOURS Lab Studies 04/04/17 04/04/17 04/04/17 Range/Units 05:18 04:45 04:45 WBC (4.8-10.8) K/uL RBC (4.40-5.90) Mil/uL Hgb (12.0-18.0) g/dL Hct (35.0-51.0) % MCV (80.0-94.0) fl MCH (27.0-31.0) pg MCHC (33.0-37.0) g/dL RDW (11.5-14.5) % Plt Count (130-400) K/uL pCO2 44 (35-45) mm/Hg pO2 85 (80-100) mm/Hg HCO3 30.0 H (21-28) mmol/L ABG pH 7.46 H (7.35-7.45) ABG Total CO2 32.7 H (22-28) mmol/L ABG O2 Saturation 98.8 H (95-98) % ABG O2 Content 16.7 (15-23) ML/dL ABG Base Excess 6.6 H (-2.0-3.0) mmol/L ABG Hemoglobin 12.4 (11.7-17.4) g/dL ABG Carboxyhemoglobin 1.6 H (0.5-1.5) % POC ABG HHb (Measured) 1.2 (0.0-5.0) % ABG Methemoglobin 2.0 (0.0-3.0) % ABG O2 Capacity 16.9 (16-24) mL/dL Raúl Test Yes A-a O2 Difference 288.0 mm/Hg Hgb O2 Saturation 95.2 (95.0-98.0) % Vent Mode A/c Mechanical Rate 16 FiO2 60.0 % Tidal Volume 500 PEEP 5 Sodium 142 (132-148) mmol/l Potassium 4.5 (3.6-5.0) MMOL/L Chloride 106 (98-107) mmol/L Carbon Dioxide 30 (22-30) mmol/L Anion Gap 11 (10-20) BUN 25 H (9-20) mg/dl Creatinine 0.7 L (0.8-1.5) mg/dL Est GFR ( Amer) > 60 Est GFR (Non-Af Amer) > 60 Random Glucose 202 H (75-110) mg/dL Lactic Acid 1.4 (0.7-2.1) MMOL/L Calcium 8.2 L (8.4-10.2) mg/dL Total Bilirubin 0.7 (0.2-1.3) mg/dl AST 161 H D (17-59) U/L ALT 159 H (21-72) U/L Alkaline Phosphatase 55 (38-126) U/L Total Protein 5.5 L (6.3-8.2) G/DL Albumin 2.8 L (3.5-5.0) g/dL Globulin 2.7 (2.2-3.9) gm/dL Albumin/Globulin Ratio 1.0 (1.0-2.1) Mycoplasma pneumon IgM (<770) U/mL 04/04/17 04/01/17 Range/Units 04:45 10:00 WBC 13.5 H (4.8-10.8) K/uL RBC 4.02 L (4.40-5.90) Mil/uL Hgb 11.9 L (12.0-18.0) g/dL Hct 36.5 (35.0-51.0) % MCV 90.8 (80.0-94.0) fl MCH 29.8 (27.0-31.0) pg MCHC 32.8 L (33.0-37.0) g/dL RDW 14.3 (11.5-14.5) % Plt Count 237 (130-400) K/uL pCO2 (35-45) mm/Hg pO2 (80-100) mm/Hg HCO3 (21-28) mmol/L ABG pH (7.35-7.45) ABG Total CO2 (22-28) mmol/L ABG O2 Saturation (95-98) % ABG O2 Content (15-23) ML/dL ABG Base Excess (-2.0-3.0) mmol/L ABG Hemoglobin (11.7-17.4) g/dL ABG Carboxyhemoglobin (0.5-1.5) % POC ABG HHb (Measured) (0.0-5.0) % ABG Methemoglobin (0.0-3.0) % ABG O2 Capacity (16-24) mL/dL Raúl Test A-a O2 Difference mm/Hg Hgb O2 Saturation (95.0-98.0) % Vent Mode Mechanical Rate FiO2 % Tidal Volume PEEP Sodium (132-148) mmol/l Potassium (3.6-5.0) MMOL/L Chloride (98-107) mmol/L Carbon Dioxide (22-30) mmol/L Anion Gap (10-20) BUN (9-20) mg/dl Creatinine (0.8-1.5) mg/dL Est GFR ( Amer) Est GFR (Non-Af Amer) Random Glucose (75-110) mg/dL Lactic Acid (0.7-2.1) MMOL/L Calcium (8.4-10.2) mg/dL Total Bilirubin (0.2-1.3) mg/dl AST (17-59) U/L ALT (21-72) U/L Alkaline Phosphatase (38-126) U/L Total Protein (6.3-8.2) G/DL Albumin (3.5-5.0) g/dL Globulin (2.2-3.9) gm/dL Albumin/Globulin Ratio (1.0-2.1) Mycoplasma pneumon IgM 2 (<770) U/mL Laboratory Results - last 24 hr 04/01/17 04/04/17 04/04/17 10:00 04:45 04:45 WBC 13.5 H RBC 4.02 L Hgb 11.9 L Hct 36.5 MCV 90.8 MCH 29.8 MCHC 32.8 L RDW 14.3 Plt Count 237 pCO2 pO2 HCO3 ABG pH ABG Total CO2 ABG O2 Saturation ABG O2 Content ABG Base Excess ABG Hemoglobin ABG Carboxyhemoglobin POC ABG HHb (Measured) ABG Methemoglobin ABG O2 Capacity Raúl Test A-a O2 Difference Hgb O2 Saturation Vent Mode Mechanical Rate FiO2 Tidal Volume PEEP Sodium 142 Potassium 4.5 Chloride 106 Carbon Dioxide 30 Anion Gap 11 BUN 25 H Creatinine 0.7 L Est GFR ( Amer) > 60 Est GFR (Non-Af Amer) > 60 Random Glucose 202 H Lactic Acid Calcium 8.2 L Total Bilirubin 0.7 AST 161 H D ALT 159 H Alkaline Phosphatase 55 Total Protein 5.5 L Albumin 2.8 L Globulin 2.7 Albumin/Globulin Ratio 1.0 Mycoplasma pneumon IgM 2 04/04/17 04/04/17 04:45 05:18 WBC RBC Hgb Hct MCV MCH MCHC RDW Plt Count pCO2 44 pO2 85 HCO3 30.0 H ABG pH 7.46 H ABG Total CO2 32.7 H ABG O2 Saturation 98.8 H ABG O2 Content 16.7 ABG Base Excess 6.6 H ABG Hemoglobin 12.4 ABG Carboxyhemoglobin 1.6 H POC ABG HHb (Measured) 1.2 ABG Methemoglobin 2.0 ABG O2 Capacity 16.9 Raúl Test Yes A-a O2 Difference 288.0 Hgb O2 Saturation 95.2 Vent Mode A/c Mechanical Rate 16 FiO2 60.0 Tidal Volume 500 PEEP 5 Sodium Potassium Chloride Carbon Dioxide Anion Gap BUN Creatinine Est GFR ( Amer) Est GFR (Non-Af Amer) Random Glucose Lactic Acid 1.4 Calcium Total Bilirubin AST ALT Alkaline Phosphatase Total Protein Albumin Globulin Albumin/Globulin Ratio Mycoplasma pneumon IgM Review of Systems - Review of Systems Systems not reviewed;Unavailable: Intubated (was able to nod "no" to pain) Critical Care Progress Note - Ventilator Checklist Head of Bed 30 Degrees: Yes Daily Sedation Vacation: Yes Daily Assessment of Readiness to Wean: Yes Daily Spontaneous Breathing Trial: Yes PUD Prophalyxis: Yes DVT Prophylaxis: Yes Oral Care with Chlorhexidine Gluconate {CHG}: Yes - Vent Settings MODE:: PRVC TIDAL VOLUME:: 500 RESP RATE:: 16 FIO2:: 35 PEEP:: 5 - Extremities/Vascular Does the Patient have a Central Venous Catheter?: No Does the Patient need a Central Venous Catheter?: No Does the Patient have a Vernon Catheter?: Yes Does the Patient need a Vernon Catheter?: Yes Catheter Insertion Criteria: Need for accurate measurement of output in critically ill patient - Restraints Justification for Restraints: High risk for self extubation - Prophylaxis GI Prophylaxis GI: PPI - Prophylaxis DVT Prophylaxis DVT: Heparin SQ - Nutrition Nutrition: Nutrition Category Date Time Status NPO Diet [DIET] Diets 04/03/17 Breakfast Active Assessment/Plan - Assessment and Plan (Free Text) Assessment: 51 yr old M with PMHx of current smoker 1 PPD and marijuana use admitted to ICU for sepsis and acute respiratory failure requiring intubation secondary to Multifocal pneumonia, hyperphosphatemia and elevated serial troponins. Patient remains intubated, with daily spontaneous breathing trials and daily sedation vacation. 1. Acute Hypoxemic Respiratory Failure secondary to Multifocal pneumonia 2. Sepsis with no shock state 3. Coagulopathy 4. Acute Rhabdomyolysis/ monitor for pigment nephropathy 5. Troponin elevation (non-ischemic elevation) as well as mild transaminase elevations secondary to rhabdomyolysis 6. s/p multiple falls of unclear etiology with multiple facial abrasions/ lacerations head trauma ruled out 7. Cardiomyopathy of unclear etiology 8. Hx of substance abuse (Cannabinoids and possible Etoh) 9. s/p Hyponatremia on admission 10. DVT/GI prophylaxis 1. Intubated 04/03/17; Urine + Legionella pneumophila Ag; ID on board- Azithromycin, Meropenem and Vancomycin 2. Given a trial of spontaneous breathing, tolerated only 3-5 min before becoming tachypneic and returning to full MV support 3. INR 1.6 on admission and next day, f/u INR 4. Increase IV fluid hydration today, remains on the vent with lung protection, FiO2 requirements have not increased Hopefully will avoid further rise in BUN/Cr 5. Per cardio pt is on therapeutic Lovenox, Coreg and ASA. If transaminases do not return to normal levels, will consider hepatitis serologies 6. 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 Echo showed LVEF 30-35%, cardiology on board, will follow recommendations 8. Utox + for cannabinoids, continue to observe for possible signs of Etoh withdrawal 9. Na was 124 on 03/31/17; pt was hydrated with NS and Na is now wnl 10. Therapeutic Lovenox and ASA/ Protonix 40mg IV QD - Date & Time Date: 04/04/17 Time: 10:00 <Norm Ziegler - Last Filed: 04/04/17 18:05> Assessment/Plan - Assessment and Plan (Free Text) Plan: Attestation: Patient seen and examined at the bedside with Resident Dr. Hilda Rosen; and I agree with her outline of plans and management as documented below and discussed on AM rounds today, April 04, 2017.
[2017-04-04] MEDS: THIAMINE IV SCH (16:37)
[2017-04-04] MEDS: SODIUM CHLORIDE IV SCH (16:37)
[2017-04-04] MEDS: MULTIVITAMIN IV SCH (16:37)
[2017-04-04] MEDS: FOLIC ACID IV SCH (16:37)
[2017-04-04] MEDS ORDERED: Propofol 10 mg/ml 1,000 MG/100 ML VIAL IV SCH (18:45)
--- NOTE | 2017-04-04 20:30 | PN ---
SUBJECTIVE: The patient has to be started on sedation again. He is still on the ventilator. PHYSICAL EXAMINATION VITAL SIGNS: Blood pressure 108/65, heart rate 92, temperature 97.4, respirations 25. HEENT: Normocephalic. CHEST: Bilateral coarse crepitations. HEART: S1 and S2 regular. EXTREMITIES: No edema. LABORATORY DATA: Today's BUN and creatinine 25 and 0.7, glucose 202. The rest of SMA-7 is within normal limits. Calcium below normal at 8.2. Liver enzyme elevation has improved compared to yesterday. Hemoglobin and hematocrit 11.9 and 36.5, white count 15.5, platelet count 137,000. Today's official chest x-ray report, persistent patchy infiltrate left lower lobe. There is also an area of atelectasis or infiltrate in the right mid lung field. ASSESSMENT: 1. Legionella pneumonia. 2. Respiratory failure. 3. Borderline troponin elevation. 4. Ethyl alcohol abuse. 5. ejection fraction, and the echo finding reported ejection fraction of 30% to 35% with global hypokinesis of the left ventricle. RECOMMENDATIONS: Continue IV Zithromax, IV meropenem, and IV vancomycin. Continue Coreg at 3.125 mg twice a day. Hold on diuretic therapy in view of prerenal azotemia picture. The patient is also a suitable candidate for invasive cardiac workup at least at this time. Continue therapeutic subcutaneous Lovenox at 90 mg twice a day. Marcio Atkinson MD
[2017-04-05] MEDS ORDERED: Dextrose 5%/0.9% NS 1,000 ML IV SCH ×2 (00:10→00:14)
[2017-04-05] MEDS: Meropenem 1 GM in Sodium Chloride 0.9% 100 ML IVPB SCH ×3 (00:49→16:42)
[2017-04-05] MEDS: Propofol 10 mg/ml 1,000 MG/100 ML VIAL IV SCH ×4 (00:55→17:23)
[2017-04-05] MEDS: Albuterol-Ipratrop 3 mg / 0.5 (3 ml) UD INH SCH ×6 (04:55→23:38)
[2017-04-05 05:18] LABS: ABG ALLEN TEST YES; ABG MECHANICAL RATE 16; ARTERIAL BLOOD GAS HCO3 30.1 mmol/L (21-28); ARTERIAL BLOOD GAS MODE PRVC AC; ARTERIAL BLOOD GAS O2 CAPACITY 17.4 mL/dL (16-24); ARTERIAL BLOOD GAS O2 CONTENT 16.9 ML/dL (15-23); ARTERIAL BLOOD GAS PH 7.47 (7.35-7.45); ARTERIAL BLOOD GAS PO2 67 mm/Hg (80-100); ARTERIAL BLOOD HGB O2 SAT 93.1 % (95.0-98.0); ATERIAL BLOOD GAS PEEP 5; CARBOXYHEMOGLOBIN 2.2 % (0.5-1.5); METHEMOGLOBIN 1.7 % (0.0-3.0)
[2017-04-05 06:28] LABS: HEMATOCRIT 38.4 % (35.0-51.0); MEAN CELL VOLUME 90.7 fl (80.0-94.0); MEAN CORPUSCULAR HGB CONC 33.1 g/dL (33.0-37.0); RED CELL DISTRIBUTION WIDTH 14.1 % (11.5-14.5); WHITE BLOOD COUNT 13.4 K/uL (4.8-10.8)
[2017-04-05] MEDS ORDERED: Acetaminophen 650mg/20.3ml solution UD PO PRN (06:30)
[2017-04-05 06:40] LABS: ALB/GLOB RATIO 1.1 (1.0-2.1); ALKALINE PHOSPHATASE 64 U/L (38-126); ALT/SGPT 151 U/L (21-72); AST/SGOT 139 U/L (17-59); BILIRUBIN,TOTAL 0.8 mg/dl (0.2-1.3); BLOOD UREA NITROGEN 25 mg/dl (9-20); CALCIUM 8.1 mg/dL (8.4-10.2); CARBON DIOXIDE 26 mmol/L (22-30); CHLORIDE 110 mmol/L (98-107); GFR AFRICAN-AMERICAN > 60; GLUCOSE,RANDOM 126 mg/dL (75-110); MAGNESIUM 2.2 MG/DL (1.6-2.3); PHOSPHOROUS 2.3 mg/dl (2.5-4.5); POTASSIUM 4.3 MMOL/L (3.6-5.0); SODIUM 142 mmol/l (132-148); TOTAL PROTEIN 5.8 G/DL (6.3-8.2)
[2017-04-05 06:55] LABS: THYROID STIMULATING HORMONE 1.33 mIU/ML (0.46-4.68)
[2017-04-05] MEDS: Enoxaparin 100 mg Syringe SC SCH ×2 (08:01→20:43)
[2017-04-05] MEDS: Azithromycin 500 MG in Sodium Chloride 0.9% 250 ML IVPB SCH (08:02)
[2017-04-05] MEDS: THIAMINE IV SCH (09:28)
[2017-04-05] MEDS: MULTIVITAMIN IV SCH (09:28)
[2017-04-05] MEDS: SODIUM CHLORIDE IV SCH (09:28)
[2017-04-05] MEDS: FOLIC ACID IV SCH (09:28)
--- NOTE | 2017-04-05 09:35 | CP.PCM.PN ---
Subjective - Date & Time of Evaluation Date of Evaluation: 04/05/17 Time of Evaluation: 09:37 - Subjective Subjective: still intubated and being ventilated more awake today Objective - Vital Signs/Intake and Output Vital Signs (last 24 hours): Temp Pulse Resp BP Pulse Ox 100.6 F H 98 H 25 H 115/67 97 04/05/17 08:00 04/05/17 08:00 04/05/17 08:00 04/05/17 08:00 04/05/17 08:00 Intake and Output: 04/05/17 04/05/17 06:59 18:59 Intake Total 1805 312 Output Total 0 Balance 1805 312 - Medications Medications: Current Medications Acetaminophen (Tylenol 650mg/20.3ml Solution Ud) 650 mg PO Q6 PRN PRN Reason: Fever >100.4 F Last Admin: 04/05/17 06:44 Dose: 650 mg Albuterol/Ipratropium (Duoneb 3 Mg/0.5 Mg (3 Ml) Ud) 3 ml INH RQ4 [facility] Last Admin: 04/05/17 07:25 Dose: 3 ml Aspirin (Ecotrin) 81 mg PO DAILY [facility] Last Admin: 04/05/17 08:00 Dose: 81 mg Carvedilol (Coreg) 3.125 mg PO Q12 [facility] Last Admin: 04/05/17 08:00 Dose: 3.125 mg Enoxaparin Sodium (Lovenox) 90 mg SC Q12 [facility] PRN Reason: Protocol Last Admin: 04/05/17 08:01 Dose: 90 mg Vancomycin HCl 1 gm/ Sodium (Chloride) 250 mls @ 166.667 mls/hr IVPB Q12 [facility] Last Admin: 04/05/17 08:03 Dose: 166.667 mls/hr Azithromycin 500 mg/ Sodium (Chloride) 250 mls @ 250 mls/hr IVPB DAILY [facility] Last Admin: 04/05/17 08:02 Dose: 250 mls/hr Meropenem 1 gm/ Sodium (Chloride) 100 mls @ 100 mls/hr IVPB Q8 [facility] Last Admin: 04/05/17 08:01 Dose: 100 mls/hr Thiamine HCl 100 mg/ Folic Acid 1 mg/ Multivitamins/Vitamin C 10 ml/ Sodium Chloride 1,011.2 mls @ 80 mls/hr IV .[id number] [facility] Stop: 04/05/17 15:46 Last Admin: 04/05/17 09:28 Dose: 80 mls/hr Propofol (Diprivan) 1,000 mg in 100 mls @ 17.418 mls/hr IV .[id number] [facility]; 25 MCG/ KG/MIN PRN Reason: Protocol Stop: 04/05/17 18:41 Last Titration: 04/05/17 06:50 Dose: 25 mcg/kg/min, 17.418 mls/hr Lorazepam (Ativan) 1 mg IVP Q6 PRN PRN Reason: Agitation Last Admin: 04/05/17 01:55 Dose: 1 mg Nicotine (Nicoderm Cq) 1 patch TD DAILY [facility] Last Admin: 04/05/17 08:01 Dose: 1 patch Pantoprazole Sodium (Protonix Inj) 40 mg IVP DAILY [facility] Last Admin: 04/05/17 08:01 Dose: 40 mg - Labs Labs: 04/05/17 05:00 04/05/17 05:00 PT 13.7 Seconds (9.8-13.1) H 04/05/17 05:00 INR 1.3 (0.9-1.2) H 04/05/17 05:00 APTT 35.2 Seconds (25.6-37.1) 03/31/17 21:50 - Constitutional Appears: Chronically Ill - Head Exam Head Exam: ATRAUMATIC, NORMAL INSPECTION, NORMOCEPHALIC - Eye Exam Eye Exam: EOMI, Normal appearance, PERRL Pupil Exam: NORMAL ACCOMODATION, PERRL - ENT Exam ENT Exam: Mucous Membranes Moist, Normal Exam - Neck Exam Neck Exam: Full ROM, Normal Inspection. absent: Lymphadenopathy - Respiratory Exam Respiratory Exam: Decreased Breath Sounds, Rales, Wheezes Additional comments: on the respirator - Cardiovascular Exam Cardiovascular Exam: REGULAR RHYTHM, +S1, +S2. absent: Murmur - GI/Abdominal Exam GI & Abdominal Exam: Soft, Normal Bowel Sounds. absent: Tenderness - Rectal Exam Rectal Exam: NORMAL INSPECTION - Extremities Exam Extremities Exam: Full ROM, Normal Capillary Refill, Normal Inspection. absent : Joint Swelling, Pedal Edema - Back Exam Back Exam: NORMAL INSPECTION - Psychiatric Exam Psychiatric exam: Normal Affect, Normal Mood - Skin Skin Exam: Dry, Intact, Normal Color, Warm Assessment and Plan - Assessment and Plan (Free Text) Assessment: acute resp failure rhabdomyolysis Plan: continue present rx
--- NOTE | 2017-04-05 09:57 | CP.PCM.PN ---
Subjective - Date & Time of Evaluation Date of Evaluation: 04/05/17 Time of Evaluation: 12:00 - Subjective Subjective: ID Note- Pt. seen and examined today in ICU. remains intubated and as per ICU team gets tachycardic once sedation is weaned and hence he is still on sedation. Febrile today. Objective - Vital Signs/Intake and Output Vital Signs (last 24 hours): Temp Pulse Resp BP Pulse Ox 100.6 F H 98 H 25 H 115/67 97 04/05/17 08:00 04/05/17 08:00 04/05/17 08:00 04/05/17 08:00 04/05/17 08:00 Intake and Output: 04/05/17 04/05/17 06:59 18:59 Intake Total 1805 312 Output Total 0 Balance 1805 312 - Medications Medications: Current Medications Acetaminophen (Tylenol 650mg/20.3ml Solution Ud) 650 mg PO Q6 PRN PRN Reason: Fever >100.4 F Last Admin: 04/05/17 06:44 Dose: 650 mg Albuterol/Ipratropium (Duoneb 3 Mg/0.5 Mg (3 Ml) Ud) 3 ml INH RQ4 [facility] Last Admin: 04/05/17 07:25 Dose: 3 ml Aspirin (Ecotrin) 81 mg PO DAILY [facility] Last Admin: 04/05/17 08:00 Dose: 81 mg Carvedilol (Coreg) 3.125 mg PO Q12 [facility] Last Admin: 04/05/17 08:00 Dose: 3.125 mg Enoxaparin Sodium (Lovenox) 90 mg SC Q12 [facility] PRN Reason: Protocol Last Admin: 04/05/17 08:01 Dose: 90 mg Vancomycin HCl 1 gm/ Sodium (Chloride) 250 mls @ 166.667 mls/hr IVPB Q12 [facility] Last Admin: 04/05/17 08:03 Dose: 166.667 mls/hr Azithromycin 500 mg/ Sodium (Chloride) 250 mls @ 250 mls/hr IVPB DAILY [facility] Last Admin: 04/05/17 08:02 Dose: 250 mls/hr Meropenem 1 gm/ Sodium (Chloride) 100 mls @ 100 mls/hr IVPB Q8 [facility] Last Admin: 04/05/17 08:01 Dose: 100 mls/hr Thiamine HCl 100 mg/ Folic Acid 1 mg/ Multivitamins/Vitamin C 10 ml/ Sodium Chloride 1,011.2 mls @ 80 mls/hr IV .[id number] [facility] Stop: 04/05/17 15:46 Last Admin: 04/05/17 09:28 Dose: 80 mls/hr Propofol (Diprivan) 1,000 mg in 100 mls @ 17.418 mls/hr IV .[id number] JUAREZ; 25 MCG/ KG/MIN PRN Reason: Protocol Stop: 04/05/17 18:41 Last Titration: 04/05/17 06:50 Dose: 25 mcg/kg/min, 17.418 mls/hr Lorazepam (Ativan) 1 mg IVP Q6 PRN PRN Reason: Agitation Last Admin: 04/05/17 01:55 Dose: 1 mg Nicotine (Nicoderm Cq) 1 patch TD DAILY [facility] Last Admin: 04/05/17 08:01 Dose: 1 patch Pantoprazole Sodium (Protonix Inj) 40 mg IVP DAILY [facility] Last Admin: 04/05/17 08:01 Dose: 40 mg - Labs Labs: - Additional Findings Additional findings: - Head Exam Additional comments: small left forehead superficial abrasion and one on the tip of the nose and one in left lower lip region - ENT Exam ENT Exam: ET tube in place - Neck Exam Neck exam: Positive for: Full Rom Additional comments: supple - Respiratory Exam Additional comments: Intubated coarse breath sounds b/l - Cardiovascular Exam Cardiovascular Exam: Tachycardia, +S1, +S2 - GI/Abdominal Exam GI & Abdominal Exam: Normal Bowel Sounds, Soft Additional comments: NT, ND no guarding, No rebound - Extremities Exam Additional comments: no edema b/l LE - Neurological Exam Neurological exam: Additional comments: sedated Laboratory Results - last 72 hr 04/01/17 04/03/17 04/03/17 10:00 04:10 04:10 WBC 12.1 H RBC 4.15 L Hgb 12.7 Hct 36.9 MCV 88.9 MCH 30.5 MCHC 34.4 RDW 13.9 Plt Count 218 MPV 7.8 Neut % (Auto) 94.5 H Lymph % (Auto) 2.7 L [place] % (Auto) 1.9 Eos % (Auto) 0.7 Baso % (Auto) 0.2 Neut # 11.5 H Lymph # 0.3 L [place] # 0.2 Eos # 0.1 Baso # 0.0 Neutrophils % (Manual) 88 H Band Neutrophils % 3 H Lymphocytes % (Manual) 3 L Monocytes % (Manual) 5 Eosinophils % (Manual) 1 Platelet Estimate Normal RBC Morphology Normal PT INR pCO2 pO2 HCO3 ABG pH ABG Total CO2 ABG O2 Saturation ABG O2 Content ABG Base Excess ABG Hemoglobin ABG Carboxyhemoglobin POC ABG HHb (Measured) ABG Methemoglobin ABG O2 Capacity Ra[place] Test A-a O2 Difference Hgb O2 Saturation Vent Mode Mechanical Rate FiO2 Tidal Volume PEEP Sodium 136 Potassium 4.1 Chloride 105 Carbon Dioxide 24 Anion Gap 11 BUN 19 Creatinine 0.7 L Est GFR ( Amer) > 60 Est GFR (Non-Af Amer) > 60 Random Glucose 161 H Lactic Acid Calcium 7.8 L Phosphorus 2.6 Magnesium 2.1 Total Bilirubin 0.8 AST 291 H ALT 184 H D Alkaline Phosphatase 62 Total Creatine Kinase 7783 H NT-Pro-B Natriuret Pep Total Protein 6.1 L Albumin 2.9 L Globulin 3.2 Albumin/Globulin Ratio 0.9 L Vitamin B12 Free T4 TSH 3rd Generation Mycoplasma pneumon IgM 2 04/03/17 04/04/17 04/04/17 08:05 04:45 04:45 WBC 13.5 H RBC 4.02 L Hgb 11.9 L Hct 36.5 MCV 90.8 MCH 29.8 MCHC 32.8 L RDW 14.3 Plt Count 237 MPV Neut % (Auto) Lymph % (Auto) [place] % (Auto) Eos % (Auto) Baso % (Auto) Neut # Lymph # [place] # Eos # Baso # Neutrophils % (Manual) Band Neutrophils % Lymphocytes % (Manual) Monocytes % (Manual) Eosinophils % (Manual) Platelet Estimate RBC Morphology PT INR pCO2 38 pO2 45 L HCO3 24.8 ABG pH 7.42 ABG Total CO2 25.8 ABG O2 Saturation 85.8 L ABG O2 Content 15.3 ABG Base Excess 0.3 ABG Hemoglobin 13.3 ABG Carboxyhemoglobin 2.3 H POC ABG HHb (Measured) 13.6 H ABG Methemoglobin 2.0 ABG O2 Capacity 17.8 Raúl Test Yes A-a O2 Difference 164.0 Hgb O2 Saturation 82.2 L Vent Mode Mechanical Rate FiO2 36.0 Tidal Volume PEEP Sodium 142 Potassium 4.5 Chloride 106 Carbon Dioxide 30 Anion Gap 11 BUN 25 H Creatinine 0.7 L Est GFR ( Amer) > 60 Est GFR (Non-Af Amer) > 60 Random Glucose 202 H Lactic Acid Calcium 8.2 L Phosphorus Magnesium Total Bilirubin 0.7 AST 161 H D ALT 159 H Alkaline Phosphatase 55 Total Creatine Kinase NT-Pro-B Natriuret Pep Total Protein 5.5 L Albumin 2.8 L Globulin 2.7 Albumin/Globulin Ratio 1.0 Vitamin B12 Free T4 TSH 3rd Generation Mycoplasma pneumon IgM 04/04/17 04/04/17 04/05/17 04:45 05:18 05:00 WBC 13.4 H RBC 4.23 L Hgb 12.7 Hct 38.4 MCV 90.7 MCH 30.0 MCHC 33.1 RDW 14.1 Plt Count 343 D MPV Neut % (Auto) Lymph % (Auto) [place] % (Auto) Eos % (Auto) Baso % (Auto) Neut # Lymph # [place] # Eos # Baso # Neutrophils % (Manual) Band Neutrophils % Lymphocytes % (Manual) Monocytes % (Manual) Eosinophils % (Manual) Platelet Estimate RBC Morphology PT INR pCO2 44 pO2 85 HCO3 30.0 H ABG pH 7.46 H ABG Total CO2 32.7 H ABG O2 Saturation 98.8 H ABG O2 Content 16.7 ABG Base Excess 6.6 H ABG Hemoglobin 12.4 ABG Carboxyhemoglobin 1.6 H POC ABG HHb (Measured) 1.2 ABG Methemoglobin 2.0 ABG O2 Capacity 16.9 Raúl Test Yes A-a O2 Difference 288.0 Hgb O2 Saturation 95.2 Vent Mode A/c Mechanical Rate 16 FiO2 60.0 Tidal Volume 500 PEEP 5 Sodium Potassium Chloride Carbon Dioxide Anion Gap BUN Creatinine Est GFR ( Amer) Est GFR (Non-Af Amer) Random Glucose Lactic Acid 1.4 Calcium Phosphorus Magnesium Total Bilirubin AST ALT Alkaline Phosphatase Total Creatine Kinase NT-Pro-B Natriuret Pep Total Protein Albumin Globulin Albumin/Globulin Ratio Vitamin B12 Free T4 TSH 3rd Generation Mycoplasma pneumon IgM 04/05/17 04/05/17 04/05/17 05:00 05:00 05:00 WBC RBC Hgb Hct MCV MCH MCHC RDW Plt Count MPV Neut % (Auto) Lymph % (Auto) [place] % (Auto) Eos % (Auto) Baso % (Auto) Neut # Lymph # [place] # Eos # Baso # Neutrophils % (Manual) Band Neutrophils % Lymphocytes % (Manual) Monocytes % (Manual) Eosinophils % (Manual) Platelet Estimate RBC Morphology PT 13.7 H INR 1.3 H pCO2 pO2 HCO3 ABG pH ABG Total CO2 ABG O2 Saturation ABG O2 Content ABG Base Excess ABG Hemoglobin ABG Carboxyhemoglobin POC ABG HHb (Measured) ABG Methemoglobin ABG O2 Capacity Raúl Test A-a O2 Difference Hgb O2 Saturation Vent Mode Mechanical Rate FiO2 Tidal Volume PEEP Sodium 142 Potassium 4.3 Chloride 110 H Carbon Dioxide 26 Anion Gap 10 BUN 25 H Creatinine 0.7 L Est GFR ( Amer) > 60 Est GFR (Non-Af Amer) > 60 Random Glucose 126 H Lactic Acid Calcium 8.1 L Phosphorus 2.3 L Magnesium 2.2 Total Bilirubin 0.8 AST 139 H ALT 151 H Alkaline Phosphatase 64 Total Creatine Kinase 1515 H NT-Pro-B Natriuret Pep 425 Total Protein 5.8 L Albumin 3.0 L Globulin 2.8 Albumin/Globulin Ratio 1.1 Vitamin B12 766 Free T4 1.63 TSH 3rd Generation 1.33 Mycoplasma pneumon IgM 04/05/17 05:10 WBC RBC Hgb Hct MCV MCH MCHC RDW Plt Count MPV Neut % (Auto) Lymph % (Auto) [place] % (Auto) Eos % (Auto) Baso % (Auto) Neut # Lymph # [place] # Eos # Baso # Neutrophils % (Manual) Band Neutrophils % Lymphocytes % (Manual) Monocytes % (Manual) Eosinophils % (Manual) Platelet Estimate RBC Morphology PT INR pCO2 43 pO2 67 L HCO3 30.1 H ABG pH 7.47 H ABG Total CO2 32.6 H ABG O2 Saturation 96.9 ABG O2 Content 16.9 ABG Base Excess 6.8 H ABG Hemoglobin 12.9 ABG Carboxyhemoglobin 2.2 H POC ABG HHb (Measured) 3.0 ABG Methemoglobin 1.7 ABG O2 Capacity 17.4 Raúl Test Yes A-a O2 Difference 129.0 Hgb O2 Saturation 93.1 L Vent Mode Prvc ac Mechanical Rate 16 FiO2 35.0 Tidal Volume 500 PEEP 5 Sodium Potassium Chloride Carbon Dioxide Anion Gap BUN Creatinine Est GFR ( Amer) Est GFR (Non-Af Amer) Random Glucose Lactic Acid Calcium Phosphorus Magnesium Total Bilirubin AST ALT Alkaline Phosphatase Total Creatine Kinase NT-Pro-B Natriuret Pep Total Protein Albumin Globulin Albumin/Globulin Ratio Vitamin B12 Free T4 TSH 3rd Generation Mycoplasma pneumon IgM Microbiology 04/04/17 12:49 Trachasp Gram Stain - Final 04/04/17 12:49 Trachasp Sputum Culture - Preliminary NORMAL ORAL RAISSA 04/02/17 10:45 Blood Blood Culture - Preliminary NO GROWTH AFTER 3 DAYS 04/02/17 10:40 Blood Blood Culture - Preliminary NO GROWTH AFTER 3 DAYS 04/03/17 08:34 Urine,[place] Urine Culture - Final No Growth (<1,000 CFU/ML) 03/31/17 05:00 Blood Blood Culture - Preliminary NO GROWTH AFTER 4 DAYS 03/31/17 05:00 Blood Blood Culture - Preliminary NO GROWTH AFTER 4 DAYS 04/02/17 17:00 Blood-Venous Blood Culture - Preliminary NO GROWTH AFTER 48 HOURS 04/02/17 17:00 Blood-Venous Blood Culture - Preliminary NO GROWTH AFTER 48 HOURS 04/02/17 10:53 Sputum Gram Stain - Final 04/02/17 10:53 Sputum Sputum Culture - Final NORMAL ORAL RAISSA 04/01/17 05:00 Nose MRSA Culture (Admit) - Final MRSA NOT DETECTED 03/31/17 05:00 Urine,Clean Catch Urine Culture - Final No Growth (<1,000 CFU/ML) Accession No. : [id number] Patient Name / ID : CHAR CARPENTER / [id number] Exam Date : 04/05/2017 04:34:11 ( Approved ) Study Comment : Sex / Age : M / 51Y Creator : NADINE CAMACHO MD Dictator : NADINE CAMACHO MD Dolly Operator : Mining Support Worker : NADINE CAMACHO MD Approver2 : Report Date : 04/05/2017 10:40:58 My Comment : HISTORY: pneumonia COMPARISON: 04/04/2017. FINDINGS: The endotracheal tube is high in position and terminates at the thoracic inlet. The nasogastric tube terminates in the stomach. LUNGS: There is improving airspace disease in the right mid lung. There is persistent airspace disease in the left perihilar region and lower lobe. PLEURA: Suspect left pleural effusion. No significant right pleural effusion identified , no pneumothorax apparent. CARDIOVASCULAR: Normal. OSSEOUS STRUCTURES: No significant abnormalities. VISUALIZED UPPER ABDOMEN: Normal. OTHER FINDINGS: None. IMPRESSION: Improving right middle lobe. Persistent left lower lobe and perihilar pneumonia and left pleural effusion. Endotracheal tube is high in position and terminates at the thoracic inlet. Assessment and Plan (1) Legionella pneumophila infection Status: Acute (2) Pneumonia Status: Acute (3) Fever Status: Acute (4) Rhabdomyolysis Status: Acute (5) Transaminitis Status: Acute - Assessment and Plan (Free Text) Assessment: A/P- 51 year old male with no PMH admitted with rhabdomyolysis, fever, leukocytosis and multifocal pneumonia. 1. + legionella pneumophila 2.multifocal pneumonia 3. rhabdomyolysis 4.fever 5.transaminitis was afebrile for 48 hours and now today again febrile resp distress s/p intubation [address]- multifocal pneumonia urine legionella- pos HIV ab- neg influenza- neg blood cx- neg x 6 UA- neg urine tox- pos for cannabis high CK but trending down Transaminitis trending down sputum cx- neg cxr- report Improving right middle lobe. Persistent left lower lobe and perihilar pneumonia and left pleural effusion. Plan- advise to continue with azithromycin for legionella treatment. day #5. continue with IV meropenem day #3. advise to continue with IV vancomycin , keep trough <15. IV hydration for the rhabdo as per ICU team. check 2 more blood cx and Ua nd urine cx today. ICU time 50 minutes.
--- NOTE | 2017-04-05 10:46 | RAD ---
HISTORY: pneumonia COMPARISON: 04/04/2017. FINDINGS: The endotracheal tube is high in position and terminates at the thoracic inlet. The nasogastric tube terminates in the stomach. LUNGS: There is improving airspace disease in the right mid lung. There is persistent airspace disease in the left perihilar region and lower lobe. PLEURA: Suspect left pleural effusion. No significant right pleural effusion identified, no pneumothorax apparent. CARDIOVASCULAR: Normal. OSSEOUS STRUCTURES: No significant abnormalities. VISUALIZED UPPER ABDOMEN: Normal. OTHER FINDINGS: None. IMPRESSION: Improving right middle lobe. Persistent left lower lobe and perihilar pneumonia and left pleural effusion. Endotracheal tube is high in position and terminates at the thoracic inlet.
--- NOTE | 2017-04-05 11:49 | CP.PCM.PN ---
Subjective - Date & Time of Evaluation Date of Evaluation: 04/05/17 Time of Evaluation: 11:00 - Subjective Subjective: Pt seen and examined Pt is sedated on Propofol Remains intubated Febrile Was restless this am , calmed down after sedation Objective - Vital Signs/Intake and Output Vital Signs (last 24 hours): Temp Pulse Resp BP Pulse Ox 100.6 F H 99 H 30 H 118/67 99 04/05/17 08:00 04/05/17 10:00 04/05/17 10:00 04/05/17 10:00 04/05/17 10:00 Intake and Output: 04/05/17 04/05/17 06:59 18:59 Intake Total 1805 1266 Output Total 0 Balance 1805 1266 - Medications Medications: Current Medications Acetaminophen (Tylenol 650mg/20.3ml Solution Ud) 650 mg PO Q6 PRN PRN Reason: Fever >100.4 F Last Admin: 04/05/17 06:44 Dose: 650 mg Albuterol/Ipratropium (Duoneb 3 Mg/0.5 Mg (3 Ml) Ud) 3 ml INH RQ4 [facility] Last Admin: 04/05/17 11:18 Dose: 3 ml Aspirin (Ecotrin) 81 mg PO DAILY [facility] Last Admin: 04/05/17 08:00 Dose: 81 mg Carvedilol (Coreg) 3.125 mg PO Q12 [facility] Last Admin: 04/05/17 08:00 Dose: 3.125 mg Enoxaparin Sodium (Lovenox) 90 mg SC Q12 [facility] PRN Reason: Protocol Last Admin: 04/05/17 08:01 Dose: 90 mg Vancomycin HCl 1 gm/ Sodium (Chloride) 250 mls @ 166.667 mls/hr IVPB Q12 [facility] Last Admin: 04/05/17 08:03 Dose: 166.667 mls/hr Azithromycin 500 mg/ Sodium (Chloride) 250 mls @ 250 mls/hr IVPB DAILY [facility] Last Admin: 04/05/17 08:02 Dose: 250 mls/hr Meropenem 1 gm/ Sodium (Chloride) 100 mls @ 100 mls/hr IVPB Q8 [facility] Last Admin: 04/05/17 08:01 Dose: 100 mls/hr Thiamine HCl 100 mg/ Folic Acid 1 mg/ Multivitamins/Vitamin C 10 ml/ Sodium Chloride 1,011.2 mls @ 80 mls/hr IV .[id number] [facility] Stop: 04/05/17 15:46 Last Admin: 04/05/17 09:28 Dose: 80 mls/hr Propofol (Diprivan) 1,000 mg in 100 mls @ 17.418 mls/hr IV .[id number] [facility]; 25 MCG/ KG/MIN PRN Reason: Protocol Stop: 04/05/17 18:41 Last Admin: 04/05/17 11:16 Dose: 25 mcg/kg/min, 17.418 mls/hr Lorazepam (Ativan) 1 mg IVP Q6 PRN PRN Reason: Agitation Last Admin: 04/05/17 10:42 Dose: 1 mg Nicotine (Nicoderm Cq) 1 patch TD DAILY [facility] Last Admin: 04/05/17 08:01 Dose: 1 patch Pantoprazole Sodium (Protonix Inj) 40 mg IVP DAILY [facility] Last Admin: 04/05/17 08:01 Dose: 40 mg - Labs Labs: 04/05/17 05:00 04/05/17 05:00 PT 13.7 Seconds (9.8-13.1) H 04/05/17 05:00 INR 1.3 (0.9-1.2) H 04/05/17 05:00 APTT 35.2 Seconds (25.6-37.1) 03/31/17 21:50 - Constitutional Appears: Other (Intubated on Vent) - Head Exam Head Exam: NORMAL INSPECTION, NORMOCEPHALIC - Eye Exam Eye Exam: Normal appearance, PERRL - ENT Exam ENT Exam: Mucous Membranes Dry, Normal External Ear Exam - Respiratory Exam Respiratory Exam: Rales, Rhonchi Additional comments: Intubated on Vent - Cardiovascular Exam Cardiovascular Exam: REGULAR RHYTHM, +S1, +S2 - GI/Abdominal Exam GI & Abdominal Exam: Soft, Normal Bowel Sounds. 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 Falling twice receiving trauma to the left side of the face and left forehead, laceration to his lower lip and nose. He began having non productive cough with chills and diarrhea on the day of admission. In the ED the Temperature was 103.6F with HR of 125/min. Patient admitted to ICU for Sepsis, acute hypoxemic respiratory failure. At present intubated on MV and sedated 1. Sepsis Most likely secondary to multifocal Pneumonia blood , urine , sputum cx-- with no growth so far CXR showed improvement , LLL infiltrate Continue Vanco, Zithromax IV . Changed Zosyn to Meropenem IV ID , pulmonary on consult Vent management with daily weaning protocol Legionella + 2.Acute hypoxemic respiratory failure secondary to Multifocal Pneumonia Intubated ON MV PRVC/AC CXR today showed improvement ,present LLL infiltrate WBC still elevated 13..4 K Legionella Ag positive Continue IV antibiotics( Meropenem, Vanco and Zithromax ), Duonebs,vent weaning trials as tolerated Discontinued Solumedrol IV Pulmonary consulted 3. Metabolic encephalopathy Patient was confused , agitated, restless , lethargic Multifactorial :most likely secondary to hypoxemia,sepsis and possible ETOH withdrawal Continue vent support , sedation with propofol and sedation vacation Thiamine, folic acid and MVI on IVF 4. Suspected ETOH withdrawal / Impending DT-s patient was tachycardic , delirius , agitated , flushed At present sedated on propofol drip and better continue Thiamine, Folic acid and MVI 5. Rhabdomyolysis most likely due to muscle injury caused by the [place] [id number] to [id number] Continue IVF 6.Hyponatremia - resolved probably due to SIADH caused by the legionella Pneumonia continue IV Fluids 7.Elevated Troponin Probably secondary to cardiac trauma Consult with Dr Atkinson appreciated Continue Lovenox Therapeutic dose Q12H, ASA no statin due to elevated LFT-s, CPK echo showed global hypokinesis and EF 30-35 5 No cardiac intervention at present 8.Hypophosphatemia Repleted with Neutro Phos 9. Imbalance with Multiple falls CT head showed no acute pathology OT/PT evaluation and Treatment once stable 10. Mild pulmonary congestion most likely CHF systolic dysfunction EF 30-35% with global hypokinesis Cardiology on consult monitor I/O lasix PRN Continue ASa, Lovenox therapeutic and coreg 11.Transaminitis secondary to the muscle injury and sepsis improving 12. Nicotine Addiction Nicotine Patch 13. Coagulopathy with elevated INR Vitamin K 5mg given repeat INR 1.3 14. Subluxation of the left temperomandibular joint Pain management PRN 15.Cholelithiasis Stable 16. DVT Prophylaxis with SCD and Lovenox
--- NOTE | 2017-04-05 12:06 | CP.CCUPN ---
<Ara Rosen - Last Filed: 04/05/17 11:28> CCU Subjective - Physician Review Subjective (Free Text): 04/05/17 11:28 Patient seen and examined at bedside, remains intubated. Daily sedation vacation this AM resulted in pt being awake and alert, spontaneously moving all extremities, nodding head "no" when asked of he felt any pain and when abd palpated also denied pain. Explained to patient sedation would continue as he is tachypneic while on the vent and becomes restless while awake. CCU Objective - Vital Signs / Intake & Output Vital Signs (Last 4 hours): Vital Signs Temp Pulse Resp BP Pulse Ox 04/05/17 10:00 99 H 30 H 118/67 99 04/05/17 09:00 98 H 29 H 122/65 98 04/05/17 08:00 100.6 F H 98 H 25 H 115/67 97 04/05/17 07:44 100.9 F H Intake and Output (Last 8hrs): Intake & Output 04/04/17 04/05/17 04/05/17 22:59 06:59 14:59 Intake Total 1340 1125 1266 Output Total 600 Balance 740 1125 1266 Intake: IV 480 595 386 Intake, Piggyback 350 100 450 Tube Feeding 360 280 280 Free Water Flush 150 150 150 Output: Gastric Amount 0 Stomach 0 Urine 600 Urethral (Marcano) 600 - Physical Exam Head: Positive for: Normocephalic, Abrasion (left face, bridge of nose, lower lip) Pupils: Positive for: PERRL Extroacular Muscles: Positive for: EOMI Conjunctiva: Positive for: Normal Mouth: Positive for: Moist Mucous Membranes (OG tube in place,continuous feed; ET tube in place-vent on PRVC mode) Nose (Internal): Positive for: Normal Inspection Neck: Positive for: Normal Range of Motion. Negative for: Meningeal Signs, MIDLINE TENDERNESS, Paraspinal Tenderness, JVD, Lymphadenopathy, Bruit, Other Respiratory/Chest: Positive for: Respiratory Distress (intubated, tachypneic at rest while on PRVC vent mode), Accessory Muscle Use (paradoxical abdominal breathing), Wheezes, Rhonchi, Tachypneic. Negative for: Rales Cardiovascular: Positive for: Regular Rate and Rhythm, Normal S1, S2, Peripheal Pulses Present. Negative for: Murmurs Abdomen: Negative for: Tenderness, Distention, Peritoneal Signs Genitourinary Male: Positive for: Other (marcano catheter in place, draining clear yellow urine) Upper Extremity: Positive for: Normal Inspection (bilateral wrist restraints, IV line in right and left hand), Capillary Refill < 2s. Negative for: Cyanosis , Edema Lower Extremity: Positive for: Normal Inspection, NORMAL PULSES, Capillary Refill < 2 s. Negative for: Edema, CALF TENDERNESS Neurological: Positive for: Other (strength 5/5, spontaneous movements of all extremities, head gestures when off sedation) Psychiatric: Positive for: Alert (for short period of time on sedation vacation : awake, follows commands) - Medications Active Medications: Active Medications Generic Name Dose Route Start Last Admin Trade Name Freq PRN Reason Stop Dose Admin Acetaminophen 650 mg 04/05/17 06:30 04/05/17 06:44 Tylenol 650mg/20.3ml Solution Ud PO 650 mg Q6 PRN Administration Fever >100.4 F Albuterol/Ipratropium 3 ml 04/01/17 04:00 04/05/17 11:18 Duoneb 3 Mg/0.5 Mg (3 Ml) Ud INH 3 ml RQ4 JUAREZ Administration Aspirin 81 mg 04/01/17 09:00 04/05/17 08:00 Ecotrin PO 81 mg DAILY JUAREZ Administration Carvedilol 3.125 mg 04/01/17 21:00 04/05/17 08:00 Coreg PO 3.125 mg Q12 JUAREZ Administration Enoxaparin Sodium 90 mg 04/01/17 09:00 04/05/17 08:01 Lovenox SC 90 mg Q12 JUAREZ Administration Protocol Vancomycin HCl 1 gm/ Sodium 250 mls @ 166.667 mls/hr 04/01/17 09:00 04/05/17 08:03 Chloride IVPB 166.667 mls/hr Q12 JUAREZ Administration Azithromycin 500 mg/ Sodium 250 mls @ 250 mls/hr 04/01/17 09:00 04/05/17 08: 02 Chloride IVPB 250 mls/hr DAILY JUAREZ Administration Meropenem 1 gm/ Sodium 100 mls @ 100 mls/hr 04/03/17 20:30 04/05/17 08:01 Chloride IVPB 100 mls/hr Q8 JUAREZ Administration Thiamine HCl 100 mg/ Folic 1,011.2 mls @ 80 mls/hr 04/04/17 16:00 04/05/17 09 :28 Acid 1 mg/ Multivitamins/ IV 04/05/17 15:46 80 mls/hr Vitamin C 10 ml/ Sodium .[id number] JUAREZ Administration Chloride Propofol 1,000 mg in 100 mls @ 17.418 mls/hr 04/04/17 19:00 04/05/17 11:16 Diprivan IV 04/05/17 18:41 25 mcg/kg/min .[id number] JUAREZ 17.418 mls/hr Protocol Administration 25 MCG/KG/MIN Lorazepam 1 mg 04/01/17 21:02 04/05/17 10:42 Ativan IVP 1 mg Q6 PRN Administration Agitation Nicotine 1 patch 04/01/17 09:00 04/05/17 08:01 Nicoderm Cq TD 1 patch DAILY JUAREZ Administration Pantoprazole Sodium 40 mg 04/04/17 12:30 04/05/17 08:01 Protonix Inj IVP 40 mg DAILY JUAREZ Administration - Patient Studies Lab Studies: Microbiology Studies 04/02/17 10:45 Blood Culture - Preliminary Blood NO GROWTH AFTER 3 DAYS 04/02/17 10:40 Blood Culture - Preliminary Blood NO GROWTH AFTER 3 DAYS 04/03/17 08:34 Urine Culture - Final Urine,Marcano No Growth (<1,000 CFU/ML) 03/31/17 05:00 Blood Culture - Preliminary Blood NO GROWTH AFTER 4 DAYS 03/31/17 05:00 Blood Culture - Preliminary Blood NO GROWTH AFTER 4 DAYS 04/04/17 12:49 Gram Stain - Final Trachasp 04/02/17 17:00 Blood Culture - Preliminary Blood-Venous NO GROWTH AFTER 48 HOURS 04/02/17 17:00 Blood Culture - Preliminary Blood-Venous NO GROWTH AFTER 48 HOURS 04/02/17 10:53 Gram Stain - Final Sputum Sputum Culture - Final NORMAL ORAL RAISSA Lab Studies 04/05/17 04/05/17 04/05/17 Range/Units 05:10 05:00 05:00 WBC (4.8-10.8) K/uL RBC (4.40-5.90) Mil/uL Hgb (12.0-18.0) g/dL Hct (35.0-51.0) % MCV (80.0-94.0) fl MCH (27.0-31.0) pg MCHC (33.0-37.0) g/dL RDW (11.5-14.5) % Plt Count (130-400) K/uL PT 13.7 H (9.8-13.1) Seconds INR 1.3 H (0.9-1.2) pCO2 43 (35-45) mm/Hg pO2 67 L (80-100) mm/Hg HCO3 30.1 H (21-28) mmol/L ABG pH 7.47 H (7.35-7.45) ABG Total CO2 32.6 H (22-28) mmol/L ABG O2 Saturation 96.9 (95-98) % ABG O2 Content 16.9 (15-23) ML/dL ABG Base Excess 6.8 H (-2.0-3.0) mmol/L ABG Hemoglobin 12.9 (11.7-17.4) g/dL ABG Carboxyhemoglobin 2.2 H (0.5-1.5) % POC ABG HHb (Measured) 3.0 (0.0-5.0) % ABG Methemoglobin 1.7 (0.0-3.0) % ABG O2 Capacity 17.4 (16-24) mL/dL Raúl Test Yes A-a O2 Difference 129.0 mm/Hg Hgb O2 Saturation 93.1 L (95.0-98.0) % Vent Mode Prvc ac Mechanical Rate 16 FiO2 35.0 % Tidal Volume 500 PEEP 5 Sodium (132-148) mmol/l Potassium (3.6-5.0) MMOL/L Chloride (98-107) mmol/L Carbon Dioxide (22-30) mmol/L Anion Gap (10-20) BUN (9-20) mg/dl Creatinine (0.8-1.5) mg/dL Est GFR ( Amer) Est GFR (Non-Af Amer) Random Glucose (75-110) mg/dL Calcium (8.4-10.2) mg/dL Phosphorus (2.5-4.5) mg/dl Magnesium (1.6-2.3) MG/DL Total Bilirubin (0.2-1.3) mg/dl AST (17-59) U/L ALT (21-72) U/L Alkaline Phosphatase (38-126) U/L Total Creatine Kinase (55-170) U/L NT-Pro-B Natriuret Pep (0-900) pg/ml Total Protein (6.3-8.2) G/DL Albumin (3.5-5.0) g/dL Globulin (2.2-3.9) gm/dL Albumin/Globulin Ratio (1.0-2.1) Vitamin B12 (239-931) pg/mL Free T4 1.63 (0.78-2.19) ng/dL TSH 3rd Generation (0.46-4.68) mIU/ML 04/05/17 04/05/17 Range/Units 05:00 05:00 WBC 13.4 H (4.8-10.8) K/uL RBC 4.23 L (4.40-5.90) Mil/uL Hgb 12.7 (12.0-18.0) g/dL Hct 38.4 (35.0-51.0) % MCV 90.7 (80.0-94.0) fl MCH 30.0 (27.0-31.0) pg MCHC 33.1 (33.0-37.0) g/dL RDW 14.1 (11.5-14.5) % Plt Count 343 D (130-400) K/uL PT (9.8-13.1) Seconds INR (0.9-1.2) pCO2 (35-45) mm/Hg pO2 (80-100) mm/Hg HCO3 (21-28) mmol/L ABG pH (7.35-7.45) ABG Total CO2 (22-28) mmol/L ABG O2 Saturation (95-98) % ABG O2 Content (15-23) ML/dL ABG Base Excess (-2.0-3.0) mmol/L ABG Hemoglobin (11.7-17.4) g/dL ABG Carboxyhemoglobin (0.5-1.5) % POC ABG HHb (Measured) (0.0-5.0) % ABG Methemoglobin (0.0-3.0) % ABG O2 Capacity (16-24) mL/dL Raúl Test A-a O2 Difference mm/Hg Hgb O2 Saturation (95.0-98.0) % Vent Mode Mechanical Rate FiO2 % Tidal Volume PEEP Sodium 142 (132-148) mmol/l Potassium 4.3 (3.6-5.0) MMOL/L Chloride 110 H (98-107) mmol/L Carbon Dioxide 26 (22-30) mmol/L Anion Gap 10 (10-20) BUN 25 H (9-20) mg/dl Creatinine 0.7 L (0.8-1.5) mg/dL Est GFR ( Amer) > 60 Est GFR (Non-Af Amer) > 60 Random Glucose 126 H (75-110) mg/dL Calcium 8.1 L (8.4-10.2) mg/dL Phosphorus 2.3 L (2.5-4.5) mg/dl Magnesium 2.2 (1.6-2.3) MG/DL Total Bilirubin 0.8 (0.2-1.3) mg/dl AST 139 H (17-59) U/L ALT 151 H (21-72) U/L Alkaline Phosphatase 64 (38-126) U/L Total Creatine Kinase 1515 H (55-170) U/L NT-Pro-B Natriuret Pep 425 (0-900) pg/ml Total Protein 5.8 L (6.3-8.2) G/DL Albumin 3.0 L (3.5-5.0) g/dL Globulin 2.8 (2.2-3.9) gm/dL Albumin/Globulin Ratio 1.1 (1.0-2.1) Vitamin B12 766 (239-931) pg/mL Free T4 (0.78-2.19) ng/dL TSH 3rd Generation 1.33 (0.46-4.68) mIU/ML Laboratory Results - last 24 hr 04/05/17 04/05/17 04/05/17 05:00 05:00 05:00 WBC 13.4 H RBC 4.23 L Hgb 12.7 Hct 38.4 MCV 90.7 MCH 30.0 MCHC 33.1 RDW 14.1 Plt Count 343 D PT 13.7 H INR 1.3 H pCO2 pO2 HCO3 ABG pH ABG Total CO2 ABG O2 Saturation ABG O2 Content ABG Base Excess ABG Hemoglobin ABG Carboxyhemoglobin POC ABG HHb (Measured) ABG Methemoglobin ABG O2 Capacity Raúl Test A-a O2 Difference Hgb O2 Saturation Vent Mode Mechanical Rate FiO2 Tidal Volume PEEP Sodium 142 Potassium 4.3 Chloride 110 H Carbon Dioxide 26 Anion Gap 10 BUN 25 H Creatinine 0.7 L Est GFR ( Amer) > 60 Est GFR (Non-Af Amer) > 60 Random Glucose 126 H Calcium 8.1 L Phosphorus 2.3 L Magnesium 2.2 Total Bilirubin 0.8 AST 139 H ALT 151 H Alkaline Phosphatase 64 Total Creatine Kinase 1515 H NT-Pro-B Natriuret Pep 425 Total Protein 5.8 L Albumin 3.0 L Globulin 2.8 Albumin/Globulin Ratio 1.1 Vitamin B12 766 Free T4 TSH 3rd Generation 1.33 04/05/17 04/05/17 05:00 05:10 WBC RBC Hgb Hct MCV MCH MCHC RDW Plt Count PT INR pCO2 43 pO2 67 L HCO3 30.1 H ABG pH 7.47 H ABG Total CO2 32.6 H ABG O2 Saturation 96.9 ABG O2 Content 16.9 ABG Base Excess 6.8 H ABG Hemoglobin 12.9 ABG Carboxyhemoglobin 2.2 H POC ABG HHb (Measured) 3.0 ABG Methemoglobin 1.7 ABG O2 Capacity 17.4 Raúl Test Yes A-a O2 Difference 129.0 Hgb O2 Saturation 93.1 L Vent Mode Prvc ac Mechanical Rate 16 FiO2 35.0 Tidal Volume 500 PEEP 5 Sodium Potassium Chloride Carbon Dioxide Anion Gap BUN Creatinine Est GFR ( Amer) Est GFR (Non-Af Amer) Random Glucose Calcium Phosphorus Magnesium Total Bilirubin AST ALT Alkaline Phosphatase Total Creatine Kinase NT-Pro-B Natriuret Pep Total Protein Albumin Globulin Albumin/Globulin Ratio Vitamin B12 Free T4 1.63 TSH 3rd Generation Review of Systems - Review of Systems Systems not reviewed;Unavailable: Intubated (but denies any pain and abdominal pain with head gestures) Critical Care Progress Note - Ventilator Checklist Head of Bed 30 Degrees: Yes Daily Sedation Vacation: Yes Daily Assessment of Readiness to Wean: Yes Daily Spontaneous Breathing Trial: No (held today as patient was tachypneic at rest while on vent ) PUD Prophalyxis: Yes DVT Prophylaxis: Yes Oral Care with Chlorhexidine Gluconate {CHG}: Yes - Vent Settings MODE:: PRVC TIDAL VOLUME:: 500 RESP RATE:: 16 FIO2:: 40 PEEP:: 5 - Extremities/Vascular Does the Patient have a Central Venous Catheter?: No Does the Patient need a Central Venous Catheter?: No Does the Patient have a Marcano Catheter?: Yes Does the Patient need a Marcano Catheter?: Yes Catheter Insertion Criteria: Need for accurate measurement of output in critically ill patient - Restraints Justification for Restraints: High risk for self extubation - Prophylaxis GI Prophylaxis GI: PPI - Prophylaxis DVT Prophylaxis DVT: Lovenox - Nutrition Nutrition: Nutrition Category Date Time Status NPO Diet [DIET] Diets 04/03/17 Breakfast Active Assessment/Plan - Assessment and Plan (Free Text) Assessment: 51 yr old M with PMHx of current smoker 1 PPD and marijuana use admitted to ICU for sepsis and acute respiratory failure requiring intubation secondary to Multifocal pneumonia, hyperphosphatemia and elevated serial troponins. Patient remains intubated. Today we held daily spontaneous breathing trial as patient is tachypneic at rest while on PRVC/AC vent mode. Daily sedation vacation done , patient spontaneously moves al extremities, becomes restless, will nod head to answer some questions. 1. Acute Hypoxemic Respiratory Failure secondary to Multifocal pneumonia 2. Sepsis with no shock state 3. Coagulopathy 4. Acute Rhabdomyolysis/ monitor for pigment nephropathy 5. Troponin elevation (non-ischemic elevation) as well as mild transaminase elevations secondary to rhabdomyolysis 6. s/p multiple falls of unclear etiology with multiple facial abrasions/ lacerations head trauma ruled out 7. Cardiomyopathy of unclear etiology 8. Hx of substance abuse (Cannabinoids and possible Etoh) 9. s/p Hyponatremia on admission 10. DVT/GI prophylaxis 1. Intubated 04/03/17; Urine + Legionella pneumophila Ag; ID on board- Azithromycin, Meropenem and Vancomycin, vanco trough 13.6 this AM, CXR: improving right middle lobe pneumonia, persistent LLL and perihilar pneumonia, and left pleural effusion 2. Held trial of spontaneous breathing today as pt is tachypneic at rest on PRVC vent mode, remains on full MV support 3. INR 1.3 today, improved 4. IV fluids, remains on the vent with lung protection, FiO2 requirements increased to 40%, Hopefully will avoid further rise in BUN/Cr 5. Per cardio pt is on therapeutic Lovenox, Coreg and ASA. If transaminases do not return to normal levels, will consider hepatitis serologies 6. 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 Echo showed LVEF 30-35%, cardiology on board, will follow recommendations 8. Utox + for cannabinoids, continue to observe for possible signs of Etoh withdrawal 9. Na was 124 on 03/31/17; pt was hydrated with NS and Na is now wnl 10. Therapeutic Lovenox and ASA/ Protonix 40mg IV QD - Date & Time Date: 04/05/17 Time: 10:30 <Norm Ziegler - Last Filed: 04/05/17 19:42> Assessment/Plan - Assessment and Plan (Free Text) Plan: Attestation: Patient seen and examined at the bedside with Resident Dr. Hilda Rosen; and I agree with her outline of plans and management as documented below and discussed on AM rounds today, April 05, 2017.
[2017-04-05] MEDS ORDERED: Potassium Phosphate 30 MMOLE in Dextrose 5% In Water 250 ML IV ONE (14:51)
[2017-04-05 18:20] LABS: URINE COLOR YELLOW (YELLOW)
[2017-04-05 18:21] LABS: PH,URINE 6 (5.0-8.0); URINE BILIRUBIN NEGATIVE (NEGATIVE); URINE BLOOD NEGATIVE (NEGATIVE); URINE GLUCOSE (UA) NEGATIVE (Normal); URINE KETONE NEGATIVE (NEGATIVE); URINE PROTEIN TRACE mg/dL (NEGATIVE)
[2017-04-05 18:22] LABS: RBC URINE 2 /hpf (0-3); URINE LEUKOCYTE ESTERASE NEGATIVE Leu/uL (Negative); URINE UROBILINOGEN 0.2 mg/dL (0.2-1.0); WBC URINE 2 /hpf (0-5)
[2017-04-05 19:03] LABS: FOLATE 16.1 ng/mL
[2017-04-05] MEDS ORDERED: Propofol 10 mg/ml 1,000 MG/100 ML VIAL IV SCH (23:45)
[2017-04-06] MEDS: Meropenem 1 GM in Sodium Chloride 0.9% 100 ML IVPB SCH ×3 (00:06→16:40)
--- NOTE | 2017-04-06 00:20 | PN ---
SUBJECTIVE: The patient is still on a ventilation, she is sedated. PHYSICAL EXAMINATION VITAL SIGNS: Blood pressure 115/66, heart rate 95, temperature 99.1, respirations 28.. HEENT: Normocephalic. CHEST: Left basal rales. HEART: Heart sounds regular. EXTREMITIES: No edema. LABORATORY DATA: Hemoglobin and hematocrit 12.7 and 38.4, white count 16.4, platelet count 343,000. SMA-7: Sodium 142, potassium 4.3, chloride 110, CO2 26, glucose 126, BUN 25, creatinine 0.7. Chest x-ray revealed left lower lobe infiltrate. ASSESSMENT: 1. Legionella pneumonia. 2. Respiratory failure. 3. Cardiomyopathy. 4. Borderline troponin elevation. 5. ETOH abuse. 6. Status post fall. RECOMMENDATIONS: Continue current IV Zithromax, IV meropenem and IV vancomycin. Continue Coreg 3.125 mg twice a day, therapeutic subcutaneous Lovenox 90 mg twice a day, aspirin 81 mg once a day. Start enalapril 2.5 mg daily via nasogastric tube and Lasix once a day. Marcio Atkinson MD
[2017-04-06] MEDS: Albuterol-Ipratrop 3 mg / 0.5 (3 ml) UD INH SCH ×6 (03:26→23:37)
[2017-04-06 05:36] LABS: HEMATOCRIT 35.1 % (35.0-51.0); MEAN CELL VOLUME 91.2 fl (80.0-94.0); MEAN CORPUSCULAR HEMOGLOBIN 30.1 pg (27.0-31.0); RED CELL DISTRIBUTION WIDTH 14.1 % (11.5-14.5); WHITE BLOOD COUNT 9.2 K/uL (4.8-10.8)
[2017-04-06 05:43] LABS: ALKALINE PHOSPHATASE 53 U/L (38-126); ALT/SGPT 128 U/L (21-72); AST/SGOT 102 U/L (17-59); BILIRUBIN,TOTAL 0.6 mg/dl (0.2-1.3); BLOOD UREA NITROGEN 19 mg/dl (9-20); CALCIUM 7.9 mg/dL (8.4-10.2); CARBON DIOXIDE 31 mmol/L (22-30); CHLORIDE 104 mmol/L (98-107); GFR AFRICAN-AMERICAN > 60; GLUCOSE,RANDOM 112 mg/dL (75-110); PHOSPHOROUS 3.4 mg/dl (2.5-4.5); POTASSIUM 3.9 MMOL/L (3.6-5.0); SODIUM 140 mmol/l (132-148); TOTAL PROTEIN 5.3 G/DL (6.3-8.2)
[2017-04-06 05:54] LABS: ABG ALLEN TEST YES; ABG MECHANICAL RATE 16; ARTERIAL BLOOD GAS HCO3 33.5 mmol/L (21-28); ARTERIAL BLOOD GAS MODE A/C; ARTERIAL BLOOD GAS O2 CAPACITY 15.7 mL/dL (16-24); ARTERIAL BLOOD GAS O2 CONTENT 15.1 ML/dL (15-23); ARTERIAL BLOOD GAS PH 7.52 (7.35-7.45); ARTERIAL BLOOD GAS PO2 64 mm/Hg (80-100); ARTERIAL BLOOD HGB O2 SAT 92.6 % (95.0-98.0); ATERIAL BLOOD GAS PEEP 5; HHB 3.5 % (0.0-5.0); METHEMOGLOBIN 1.8 % (0.0-3.0)
[2017-04-06] MEDS: Propofol 10 mg/ml 1,000 MG/100 ML VIAL IV SCH ×3 (06:15→23:27)
--- NOTE | 2017-04-06 09:20 | CP.CCUPN ---
<Ara Rosen - Last Filed: 04/06/17 08:52> CCU Subjective - Physician Review Subjective (Free Text): 04/06/17 08:52 Patient seen and examined at bedside, remains intubated and sedated. FiO2 increased to 60% due to low pO2 on ABG this AM. CXR this AM shows minimal improvement in LLL pneumonia. Will continue mechanical ventilation weaning protocol as tolerated. CCU Objective - Vital Signs / Intake & Output Vital Signs (Last 4 hours): Vital Signs Temp Pulse Resp BP Pulse Ox 04/06/17 08:00 98.9 F 87 19 119/64 100 04/06/17 07:00 87 24 121/69 04/06/17 06:00 91 H 22 124/72 100 04/06/17 05:00 94 H 26 H 130/63 100 Intake and Output (Last 8hrs): Intake & Output 04/05/17 04/06/17 04/06/17 22:59 06:59 14:59 Intake Total 1958 1120 Output Total 2900 900 Balance -942 220 Intake: IV 818 400 Intake, Piggyback 350 Tube Feeding 490 420 Free Water Flush 300 300 Output: Urine 2900 900 Urethral (Marcano) 2900 900 Other: # Bowel Movements 1 - Physical Exam Head: Positive for: Normocephalic, Abrasion (left face, bridge of nose, lower lip) Mouth: Positive for: Moist Mucous Membranes (OG tube in place,continuous feed; ET tube in place-vent on PRVC mode) Nose (Internal): Positive for: Normal Inspection Neck: Positive for: Normal Range of Motion. Negative for: Meningeal Signs, MIDLINE TENDERNESS, Paraspinal Tenderness, JVD, Lymphadenopathy, Bruit, Other Respiratory/Chest: Positive for: Respiratory Distress (intubated, normal O2 sat on PRVC mode at 60% FiO2), Rhonchi (mild, bilateral). Negative for: Rales Cardiovascular: Positive for: Regular Rate and Rhythm, Normal S1, S2, Peripheal Pulses Present. Negative for: Murmurs Abdomen: Negative for: Tenderness, Distention, Peritoneal Signs Genitourinary Male: Positive for: Other (marcano catheter in place, draining clear yellow urine) Upper Extremity: Positive for: Normal Inspection (bilateral wrist restraints, IV line in right and left hand), Capillary Refill < 2s. Negative for: Cyanosis , Edema Lower Extremity: Positive for: Normal Inspection, NORMAL PULSES, Capillary Refill < 2 s. Negative for: Edema, CALF TENDERNESS Neurological: Positive for: Other (sedated) Skin: Positive for: Warm, Dry - Medications Active Medications: Active Medications Generic Name Dose Route Start Last Admin Trade Name Freq PRN Reason Stop Dose Admin Acetaminophen 650 mg 04/05/17 06:30 04/05/17 06:44 Tylenol 650mg/20.3ml Solution Ud PO 650 mg Q6 PRN Administration Fever >100.4 F Albuterol/Ipratropium 3 ml 04/01/17 04:00 04/06/17 07:38 Duoneb 3 Mg/0.5 Mg (3 Ml) Ud INH 3 ml RQ4 JUAREZ Administration Aspirin 81 mg 04/01/17 09:00 04/05/17 08:00 Ecotrin PO 81 mg DAILY JUAREZ Administration Carvedilol 3.125 mg 04/01/17 21:00 04/05/17 20:42 Coreg PO 3.125 mg Q12 JUAREZ Administration Enalapril Maleate 2.5 mg 04/05/17 16:30 04/05/17 17:47 Vasotec NG 2.5 mg DAILY JUAREZ Administration Enoxaparin Sodium 90 mg 04/01/17 09:00 04/05/17 20:43 Lovenox SC 90 mg Q12 JUAREZ Administration Protocol Furosemide 40 mg 04/05/17 16:30 04/05/17 17:24 Lasix IV 40 mg DAILY JUAREZ Administration Vancomycin HCl 1 gm/ Sodium 250 mls @ 166.667 mls/hr 04/01/17 09:00 04/05/17 20:44 Chloride IVPB 166.667 mls/hr Q12 JUAREZ Administration Azithromycin 500 mg/ Sodium 250 mls @ 250 mls/hr 04/01/17 09:00 04/05/17 08: 02 Chloride IVPB 250 mls/hr DAILY JUAREZ Administration Meropenem 1 gm/ Sodium 100 mls @ 100 mls/hr 04/03/17 20:30 04/06/17 00:06 Chloride IVPB 100 mls/hr Q8 JUAREZ Administration Propofol 1,000 mg in 100 mls @ 17.418 mls/hr 04/06/17 06:15 04/06/17 06:15 Diprivan IV 04/07/17 06:12 25 mcg/kg/min .Q5H45M JUAREZ 17.418 mls/hr Protocol Administration 25 MCG/KG/MIN Lorazepam 1 mg 04/01/17 21:02 04/05/17 10:42 Ativan IVP 1 mg Q6 PRN Administration Agitation Nicotine 1 patch 04/01/17 09:00 04/05/17 08:01 Nicoderm Cq TD 1 patch DAILY JUAREZ Administration Pantoprazole Sodium 40 mg 04/04/17 12:30 04/05/17 08:01 Protonix Inj IVP 40 mg DAILY JUAREZ Administration - Patient Studies Lab Studies: Microbiology Studies 03/31/17 05:00 Blood Culture - Final Blood NO GROWTH AFTER 5 DAYS Gram Stain - Final TEST NOT PERFORMED 03/31/17 05:00 Blood Culture - Final Blood NO GROWTH AFTER 5 DAYS Gram Stain - Final TEST NOT PERFORMED 04/02/17 17:00 Blood Culture - Preliminary Blood-Venous NO GROWTH AFTER 3 DAYS 04/02/17 17:00 Blood Culture - Preliminary Blood-Venous NO GROWTH AFTER 3 DAYS 04/04/17 12:49 Gram Stain - Final Trachasp Sputum Culture - Preliminary NORMAL ORAL RAISSA 04/02/17 10:45 Blood Culture - Preliminary Blood NO GROWTH AFTER 3 DAYS 04/02/17 10:40 Blood Culture - Preliminary Blood NO GROWTH AFTER 3 DAYS 04/03/17 08:34 Urine Culture - Final Urine,Marcano No Growth (<1,000 CFU/ML) Lab Studies 04/06/17 04/06/17 04/06/17 Range/Units 06:00 04:30 04:30 WBC 9.2 (4.8-10.8) K/uL RBC 3.84 L (4.40-5.90) Mil/uL Hgb 11.6 L (12.0-18.0) g/dL Hct 35.1 (35.0-51.0) % MCV 91.2 (80.0-94.0) fl MCH 30.1 (27.0-31.0) pg MCHC 33.0 (33.0-37.0) g/dL RDW 14.1 (11.5-14.5) % Plt Count 302 (130-400) K/uL pCO2 43 (35-45) mm/Hg pO2 64 L (80-100) mm/Hg HCO3 33.5 H (21-28) mmol/L ABG pH 7.52 H (7.35-7.45) ABG Total CO2 36.4 H (22-28) mmol/L ABG O2 Saturation 96.4 (95-98) % ABG O2 Content 15.1 (15-23) ML/dL ABG Base Excess 11.1 H (-2.0-3.0) mmol/L ABG Hemoglobin 11.6 L (11.7-17.4) g/dL ABG Carboxyhemoglobin 2.0 H (0.5-1.5) % POC ABG HHb (Measured) 3.5 (0.0-5.0) % ABG Methemoglobin 1.8 (0.0-3.0) % ABG O2 Capacity 15.7 L (16-24) mL/dL Raúl Test Yes A-a O2 Difference 167.0 mm/Hg Hgb O2 Saturation 92.6 L (95.0-98.0) % Vent Mode A/c Mechanical Rate 16 FiO2 40.0 % Tidal Volume 500 PEEP 5 Sodium 140 (132-148) mmol/l Potassium 3.9 (3.6-5.0) MMOL/L Chloride 104 (98-107) mmol/L Carbon Dioxide 31 H (22-30) mmol/L Anion Gap 9 L (10-20) BUN 19 (9-20) mg/dl Creatinine 0.6 L (0.8-1.5) mg/dL Est GFR ( Amer) > 60 Est GFR (Non-Af Amer) > 60 Random Glucose 112 H (75-110) mg/dL Calcium 7.9 L (8.4-10.2) mg/dL Phosphorus 3.4 (2.5-4.5) mg/dl Magnesium 2.0 (1.6-2.3) MG/DL Total Bilirubin 0.6 (0.2-1.3) mg/dl AST 102 H D (17-59) U/L ALT 128 H (21-72) U/L Alkaline Phosphatase 53 (38-126) U/L Total Creatine Kinase 1100 H (55-170) U/L Total Protein 5.3 L (6.3-8.2) G/DL Albumin 2.6 L (3.5-5.0) g/dL Globulin 2.7 (2.2-3.9) gm/dL Albumin/Globulin Ratio 1.0 (1.0-2.1) Folate ng/mL Urine Color (YELLOW) Urine Clarity (Clear) Urine pH (5.0-8.0) Ur Specific Tea (1.003-1.030) Urine Protein (NEGATIVE) mg/dL Urine Glucose (UA) (Normal) mg/dL Urine Ketones (NEGATIVE) mg/dL Urine Blood (NEGATIVE) Urine Nitrate (NEGATIVE) Urine Bilirubin (NEGATIVE) Urine Urobilinogen (0.2-1.0) mg/dL Ur Leukocyte Esterase (Negative) José Luis/uL Urine RBC (Auto) (0-3) /hpf Urine Microscopic WBC (0-5) /hpf Ur Squamous Epith Cells (0-5) /hpf Mycoplasma pneumon IgG (<=0.90) Mycoplasma pneumon IgM (<770) U/mL 04/05/17 04/05/17 04/01/17 Range/Units 17:08 05:00 10:00 WBC (4.8-10.8) K/uL RBC (4.40-5.90) Mil/uL Hgb (12.0-18.0) g/dL Hct (35.0-51.0) % MCV (80.0-94.0) fl MCH (27.0-31.0) pg MCHC (33.0-37.0) g/dL RDW (11.5-14.5) % Plt Count (130-400) K/uL pCO2 (35-45) mm/Hg pO2 (80-100) mm/Hg HCO3 (21-28) mmol/L ABG pH (7.35-7.45) ABG Total CO2 (22-28) mmol/L ABG O2 Saturation (95-98) % ABG O2 Content (15-23) ML/dL ABG Base Excess (-2.0-3.0) mmol/L ABG Hemoglobin (11.7-17.4) g/dL ABG Carboxyhemoglobin (0.5-1.5) % POC ABG HHb (Measured) (0.0-5.0) % ABG Methemoglobin (0.0-3.0) % ABG O2 Capacity (16-24) mL/dL Raúl Test A-a O2 Difference mm/Hg Hgb O2 Saturation (95.0-98.0) % Vent Mode Mechanical Rate FiO2 % Tidal Volume PEEP Sodium (132-148) mmol/l Potassium (3.6-5.0) MMOL/L Chloride (98-107) mmol/L Carbon Dioxide (22-30) mmol/L Anion Gap (10-20) BUN (9-20) mg/dl Creatinine (0.8-1.5) mg/dL Est GFR ( Amer) Est GFR (Non-Af Amer) Random Glucose (75-110) mg/dL Calcium (8.4-10.2) mg/dL Phosphorus (2.5-4.5) mg/dl Magnesium (1.6-2.3) MG/DL Total Bilirubin (0.2-1.3) mg/dl AST (17-59) U/L ALT (21-72) U/L Alkaline Phosphatase (38-126) U/L Total Creatine Kinase (55-170) U/L Total Protein (6.3-8.2) G/DL Albumin (3.5-5.0) g/dL Globulin (2.2-3.9) gm/dL Albumin/Globulin Ratio (1.0-2.1) Folate 16.1 ng/mL Urine Color Yellow (YELLOW) Urine Clarity Clear (Clear) Urine pH 6 (5.0-8.0) Ur Specific Tea 1.025 (1.003-1.030) Urine Protein Trace (NEGATIVE) mg/dL Urine Glucose (UA) Negative (Normal) mg/dL Urine Ketones Negative (NEGATIVE) mg/dL Urine Blood Negative (NEGATIVE) Urine Nitrate Negative (NEGATIVE) Urine Bilirubin Negative (NEGATIVE) Urine Urobilinogen 0.2 (0.2-1.0) mg/dL Ur Leukocyte Esterase Negative (Negative) José Luis/uL Urine RBC (Auto) 2 (0-3) /hpf Urine Microscopic WBC 2 (0-5) /hpf Ur Squamous Epith Cells 3 (0-5) /hpf Mycoplasma pneumon IgG 1.00 H (<=0.90) Mycoplasma pneumon IgM 2 (<770) U/mL Laboratory Results - last 24 hr 04/01/17 04/05/17 04/05/17 10:00 05:00 17:08 WBC RBC Hgb Hct MCV MCH MCHC RDW Plt Count pCO2 pO2 HCO3 ABG pH ABG Total CO2 ABG O2 Saturation ABG O2 Content ABG Base Excess ABG Hemoglobin ABG Carboxyhemoglobin POC ABG HHb (Measured) ABG Methemoglobin ABG O2 Capacity Raúl Test A-a O2 Difference Hgb O2 Saturation Vent Mode Mechanical Rate FiO2 Tidal Volume PEEP Sodium Potassium Chloride Carbon Dioxide Anion Gap BUN Creatinine Est GFR ( Amer) Est GFR (Non-Af Amer) Random Glucose Calcium Phosphorus Magnesium Total Bilirubin AST ALT Alkaline Phosphatase Total Creatine Kinase Total Protein Albumin Globulin Albumin/Globulin Ratio Folate 16.1 Urine Color Yellow Urine Clarity Clear Urine pH 6 Ur Specific Tea 1.025 Urine Protein Trace Urine Glucose (UA) Negative Urine Ketones Negative Urine Blood Negative Urine Nitrate Negative Urine Bilirubin Negative Urine Urobilinogen 0.2 Ur Leukocyte Esterase Negative Urine RBC (Auto) 2 Urine Microscopic WBC 2 Ur Squamous Epith Cells 3 Mycoplasma pneumon IgG 1.00 H Mycoplasma pneumon IgM 2 04/06/17 04/06/17 04/06/17 04:30 04:30 06:00 WBC 9.2 RBC 3.84 L Hgb 11.6 L Hct 35.1 MCV 91.2 MCH 30.1 MCHC 33.0 RDW 14.1 Plt Count 302 pCO2 43 pO2 64 L HCO3 33.5 H ABG pH 7.52 H ABG Total CO2 36.4 H ABG O2 Saturation 96.4 ABG O2 Content 15.1 ABG Base Excess 11.1 H ABG Hemoglobin 11.6 L ABG Carboxyhemoglobin 2.0 H POC ABG HHb (Measured) 3.5 ABG Methemoglobin 1.8 ABG O2 Capacity 15.7 L Raúl Test Yes A-a O2 Difference 167.0 Hgb O2 Saturation 92.6 L Vent Mode A/c Mechanical Rate 16 FiO2 40.0 Tidal Volume 500 PEEP 5 Sodium 140 Potassium 3.9 Chloride 104 Carbon Dioxide 31 H Anion Gap 9 L BUN 19 Creatinine 0.6 L Est GFR ( Amer) > 60 Est GFR (Non-Af Amer) > 60 Random Glucose 112 H Calcium 7.9 L Phosphorus 3.4 Magnesium 2.0 Total Bilirubin 0.6 AST 102 H D ALT 128 H Alkaline Phosphatase 53 Total Creatine Kinase 1100 H Total Protein 5.3 L Albumin 2.6 L Globulin 2.7 Albumin/Globulin Ratio 1.0 Folate Urine Color Urine Clarity Urine pH Ur Specific Tea Urine Protein Urine Glucose (UA) Urine Ketones Urine Blood Urine Nitrate Urine Bilirubin Urine Urobilinogen Ur Leukocyte Esterase Urine RBC (Auto) Urine Microscopic WBC Ur Squamous Epith Cells Mycoplasma pneumon IgG Mycoplasma pneumon IgM Review of Systems - Review of Systems Systems not reviewed;Unavailable: Intubated Critical Care Progress Note - Ventilator Checklist Head of Bed 30 Degrees: Yes Daily Sedation Vacation: Yes Daily Assessment of Readiness to Wean: Yes Daily Spontaneous Breathing Trial: Yes PUD Prophalyxis: Yes DVT Prophylaxis: Yes Oral Care with Chlorhexidine Gluconate {CHG}: Yes - Vent Settings MODE:: PRVC (/AC) TIDAL VOLUME:: 500 RESP RATE:: 16 FIO2:: 60 PEEP:: 5 - Extremities/Vascular Does the Patient have a Central Venous Catheter?: No Does the Patient need a Central Venous Catheter?: No Does the Patient have a Marcano Catheter?: Yes Does the Patient need a Marcano Catheter?: Yes Catheter Insertion Criteria: Need for accurate measurement of output in critically ill patient - Restraints Justification for Restraints: High risk for self extubation - Prophylaxis GI Prophylaxis GI: PPI - Prophylaxis DVT Prophylaxis DVT: Lovenox (therapeutic) - Nutrition Nutrition: Nutrition Category Date Time Status NPO Diet [DIET] Diets 04/03/17 Breakfast Active Assessment/Plan - Assessment and Plan (Free Text) Assessment: 51 yr old M with PMHx of current smoker 1 PPD and marijuana use admitted to ICU for sepsis and acute respiratory failure requiring intubation secondary to Multifocal pneumonia, hyperphosphatemia and elevated serial troponins. Patient remains intubated on PRVC/AC vent mode, FiO2 increased to 60% this AM due to low pO2 on ABG. Will proceed with vent weaning protocol as tolerated as well as daily sedation vacation. 1. Acute Hypoxemic Respiratory Failure secondary to Multifocal pneumonia 2. Sepsis with no shock state 3. Coagulopathy 4. Acute Rhabdomyolysis/ monitor for pigment nephropathy 5. Troponin elevation (non-ischemic elevation) as well as mild transaminase elevations secondary to rhabdomyolysis 6. s/p multiple falls of unclear etiology with multiple facial abrasions/ lacerations head trauma ruled out 7. Cardiomyopathy of unclear etiology 8. Hx of substance abuse (Cannabinoids and possible Etoh) 9. s/p Hyponatremia on admission 10. DVT/GI prophylaxis 1. Intubated 04/03/17; Urine + Legionella pneumophila Ag; ID on board- Azithromycin, Meropenem and Vancomycin, vanco trough 13.6 yesterday, CXR: improving right middle lobe pneumonia and minimally improved LLL pneumonia, also present left perihilar pneumonia and pleural effusion 2. Will perform weaning protocol as tolerated, on PRVC vent mode, remains on full MV support 3. INR 1.3 yesterday. Significantly improved since admission. 4. Total creatinine kinase 1,100 today, continue IV fluids at 80ml/hr, remains on vent with lung protection, BUN improved 5. Per cardio pt is on therapeutic Lovenox, Coreg and ASA. Transaminases improving, if they do not return to normal levels, will consider hepatitis serologies 6. [employer] HEAD infection has not been entirely ruled out; pt on empiric antibiotics x 7 days; TSH, FT4, B12, folate and phosphorus within normal limits 7. Echo showed LVEF 30-35%, cardiology on board, will follow recommendations 8. Utox + for cannabinoids, continue to observe for possible signs of Etoh withdrawal 9. Na was 124 on 03/31/17; pt was hydrated with NS and Na is now wnl 10. Therapeutic Lovenox and ASA/ Protonix 40mg IV QD - Date & Time Date: 04/06/17 Time: 07:30 <Norm Ziegler - Last Filed: 04/06/17 13:51> Assessment/Plan - Assessment and Plan (Free Text) Plan: Attestation: Patient seen and examined at the bedside with Resident Dr. Hilda Rosen; and I agree with her outline of plans and management as documented below and discussed on AM rounds today, April 06, 2017.
[2017-04-06] MEDS: Enoxaparin 100 mg Syringe SC SCH (09:30)
[2017-04-06] MEDS: Azithromycin 500 MG in Sodium Chloride 0.9% 250 ML IVPB SCH (10:00)
[2017-04-06] MEDS ORDERED: Sodium Chloride 0.9% 2,000 ML IV SCH (10:45)
--- NOTE | 2017-04-06 11:23 | CP.PCM.PN ---
Subjective - Date & Time of Evaluation Date of Evaluation: 04/06/17 Time of Evaluation: 11:00 - Subjective Subjective: Pt remains intubated on VEnt Failed weaning triall PRVC/AC 50 % FiO2 Still febrile however lower grade CXR today minimal improvement from previous Leukocytosis resolved Pt is sedated Objective - Vital Signs/Intake and Output Vital Signs (last 24 hours): Temp Pulse Resp BP Pulse Ox 98.9 F 89 19 122/73 100 04/06/17 08:00 04/06/17 09:30 04/06/17 08:00 04/06/17 09:30 04/06/17 08:00 Intake and Output: 04/06/17 04/06/17 06:59 18:59 Intake Total 1960 Output Total 2900 Balance -940 - Medications Medications: Current Medications Acetaminophen (Tylenol 650mg/20.3ml Solution Ud) 650 mg PO Q6 PRN PRN Reason: Fever >100.4 F Last Admin: 04/05/17 06:44 Dose: 650 mg Albuterol/Ipratropium (Duoneb 3 Mg/0.5 Mg (3 Ml) Ud) 3 ml INH RQ4 [facility] Last Admin: 04/06/17 11:15 Dose: 3 ml Aspirin (Ecotrin) 81 mg PO DAILY [facility] Last Admin: 04/06/17 09:30 Dose: 81 mg Carvedilol (Coreg) 3.125 mg PO Q12 JUAREZ Last Admin: 04/06/17 09:30 Dose: 3.125 mg Enalapril Maleate (Vasotec) 2.5 mg NG DAILY JUAREZ Last Admin: 04/06/17 09:30 Dose: 2.5 mg Enoxaparin Sodium (Lovenox) 40 mg SC DAILY JUAREZ PRN Reason: Protocol Furosemide (Lasix) 40 mg IV DAILY [facility] Last Admin: 04/06/17 09:30 Dose: 40 mg Vancomycin HCl 1 gm/ Sodium (Chloride) 250 mls @ 166.667 mls/hr IVPB Q12 JUAREZ Last Admin: 04/06/17 10:37 Dose: 166.667 mls/hr Azithromycin 500 mg/ Sodium (Chloride) 250 mls @ 250 mls/hr IVPB DAILY [facility] Last Admin: 04/05/17 08:02 Dose: 250 mls/hr Meropenem 1 gm/ Sodium (Chloride) 100 mls @ 100 mls/hr IVPB Q8 JUAREZ Last Admin: 04/06/17 09:35 Dose: 100 mls/hr Propofol (Diprivan) 1,000 mg in 100 mls @ 17.418 mls/hr IV .Q5H45M JUAREZ; 25 MCG/ KG/MIN PRN Reason: Protocol Stop: 04/07/17 06:12 Last Admin: 04/06/17 06:15 Dose: 25 mcg/kg/min, 17.418 mls/hr Sodium Chloride (Sodium Chloride 0.9%) 2,000 mls @ 80 mls/hr IV .Q24H [facility] Stop: 04/07/17 10:41 Lorazepam (Ativan) 1 mg IVP Q6 PRN PRN Reason: Agitation Last Admin: 04/05/17 10:42 Dose: 1 mg Nicotine (Nicoderm Cq) 1 patch TD DAILY [facility] Last Admin: 04/06/17 09:30 Dose: 1 patch Pantoprazole Sodium (Protonix Inj) 40 mg IVP DAILY [facility] Last Admin: 04/06/17 09:30 Dose: 40 mg - Labs Labs: 04/06/17 04:30 04/06/17 04:30 PT 13.7 Seconds (9.8-13.1) H 04/05/17 05:00 INR 1.3 (0.9-1.2) H 04/05/17 05:00 APTT 35.2 Seconds (25.6-37.1) 03/31/17 21:50 - Constitutional Appears: Other (Intubated on Vent) - Head Exam Head Exam: NORMAL INSPECTION, NORMOCEPHALIC - Eye Exam Eye Exam: Normal appearance, PERRL - ENT Exam ENT Exam: Mucous Membranes Dry, Normal External Ear Exam - Respiratory Exam Respiratory Exam: Rales, Rhonchi Additional comments: Intubated on Vent - Cardiovascular Exam Cardiovascular Exam: REGULAR RHYTHM, +S1, +S2 - GI/Abdominal Exam GI & Abdominal Exam: Soft, Normal Bowel Sounds. 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 Falling twice receiving trauma to the left side of the face and left forehead, laceration to his lower lip and nose. He began having non productive cough with chills and diarrhea on the day of admission. In the ED the Temperature was 103.6F with HR of 125/min. Patient admitted to ICU for Sepsis, acute hypoxemic respiratory failure. At present intubated on MV and sedated 1. Sepsis Most likely secondary to multifocal Pneumonia blood , urine , sputum cx-- with no growth so far CXR showed improvement , LLL infiltrate Initially on Zosyn, Vanco, Zithromax IV . Changed Zosyn to Meropenem IV ID , pulmonary on consult Vent management with daily weaning protocol Legionella + Leukocytosis normalized 2.Acute hypoxemic respiratory failure secondary to Multifocal Pneumonia Intubated ON MV PRVC/AC CXR today showed improvement ,present LLL infiltrate WBC still elevated 13..4 K Legionella Ag positive Continue IV antibiotics( Meropenem, Vanco and Zithromax ), Duonebs,vent weaning trials as tolerated Discontinued Solumedrol IV Pulmonary consulted 3. Metabolic encephalopathy Patient was confused , agitated, restless , lethargic Multifactorial :most likely secondary to hypoxemia,sepsis and possible ETOH withdrawal Continue vent support , sedation with propofol and sedation vacation Thiamine, folic acid and MVI on IVF 4. Suspected ETOH withdrawal / Impending DT-s patient was tachycardic , delirius , agitated , flushed At present sedated on propofol drip and better continue Thiamine, Folic acid and MVI 5. Rhabdomyolysis most likely due to muscle injury caused by the [place] [id number] to 1100 Continue IVF 6.Hyponatremia - resolved probably due to SIADH caused by the legionella Pneumonia continue IV Fluids 7.Elevated Troponin Probably secondary to cardiac trauma Consult with Dr Atkinson appreciated Continue Lovenox Therapeutic dose Q12H, ASA no statin due to elevated LFT-s, CPK echo showed global hypokinesis and EF 30-35 5 No cardiac intervention at present 8.Hypophosphatemia Repleted with Neutro Phos 9. Imbalance with Multiple falls CT head showed no acute pathology OT/PT evaluation and Treatment once stable 10. Mild pulmonary congestion most likely CHF systolic dysfunction EF 30-35% with global hypokinesis Cardiology on consult monitor I/O lasix PRN Continue ASa, Lovenox therapeutic and coreg 11.Transaminitis secondary to the muscle injury and sepsis improving 12. Nicotine Addiction Nicotine Patch 13. Coagulopathy with elevated INR Vitamin K 5mg given repeat INR 1.3 14. Subluxation of the left temperomandibular joint Pain management PRN 15.Cholelithiasis Stable 16. DVT Prophylaxis with SCD and Lovenox
--- NOTE | 2017-04-06 11:31 | CP.PCM.PN ---
Subjective - Date & Time of Evaluation Date of Evaluation: 04/06/17 Time of Evaluation: 11:30 - Subjective Subjective: ID Note- Pt. seen and examined today in ICU. remains intubated but is awake and responds. denies any pain. Objective - Vital Signs/Intake and Output Vital Signs (last 24 hours): Temp Pulse Resp BP Pulse Ox 98.9 F 89 19 122/73 100 04/06/17 08:00 04/06/17 09:30 04/06/17 08:00 04/06/17 09:30 04/06/17 08:00 Intake and Output: 04/06/17 04/06/17 06:59 18:59 Intake Total 1960 Output Total 2900 Balance -940 - Medications Medications: Current Medications Acetaminophen (Tylenol 650mg/20.3ml Solution Ud) 650 mg PO Q6 PRN PRN Reason: Fever >100.4 F Last Admin: 04/05/17 06:44 Dose: 650 mg Albuterol/Ipratropium (Duoneb 3 Mg/0.5 Mg (3 Ml) Ud) 3 ml INH RQ4 [facility] Last Admin: 04/06/17 11:15 Dose: 3 ml Aspirin (Ecotrin) 81 mg PO DAILY [facility] Last Admin: 04/06/17 09:30 Dose: 81 mg Carvedilol (Coreg) 3.125 mg PO Q12 [facility] Last Admin: 04/06/17 09:30 Dose: 3.125 mg Enalapril Maleate (Vasotec) 2.5 mg NG DAILY [facility] Last Admin: 04/06/17 09:30 Dose: 2.5 mg Enoxaparin Sodium (Lovenox) 40 mg SC DAILY [facility] PRN Reason: Protocol Furosemide (Lasix) 40 mg IV DAILY [facility] Last Admin: 04/06/17 09:30 Dose: 40 mg Vancomycin HCl 1 gm/ Sodium (Chloride) 250 mls @ 166.667 mls/hr IVPB Q12 [facility] Last Admin: 04/06/17 10:37 Dose: 166.667 mls/hr Azithromycin 500 mg/ Sodium (Chloride) 250 mls @ 250 mls/hr IVPB DAILY [facility] Last Admin: 04/05/17 08:02 Dose: 250 mls/hr Meropenem 1 gm/ Sodium (Chloride) 100 mls @ 100 mls/hr IVPB Q8 [facility] Last Admin: 04/06/17 09:35 Dose: 100 mls/hr Propofol (Diprivan) 1,000 mg in 100 mls @ 17.418 mls/hr IV .Q5H45M [facility]; 25 MCG/ KG/MIN PRN Reason: Protocol Stop: 04/07/17 06:12 Last Admin: 04/06/17 06:15 Dose: 25 mcg/kg/min, 17.418 mls/hr Sodium Chloride (Sodium Chloride 0.9%) 2,000 mls @ 80 mls/hr IV .Q24H [facility] Stop: 04/07/17 10:41 Lorazepam (Ativan) 1 mg IVP Q6 PRN PRN Reason: Agitation Last Admin: 04/05/17 10:42 Dose: 1 mg Nicotine (Nicoderm Cq) 1 patch TD DAILY [facility] Last Admin: 04/06/17 09:30 Dose: 1 patch Pantoprazole Sodium (Protonix Inj) 40 mg IVP DAILY [facility] Last Admin: 04/06/17 09:30 Dose: 40 mg - Labs Labs: - Additional Findings Additional findings: - Head Exam Additional comments: small left forehead superficial abrasion and one on the tip of the nose and one in left lower lip region - ENT Exam ENT Exam: ET tube in place - Neck Exam Neck exam: Positive for: Full Rom Additional comments: supple - Respiratory Exam Additional comments: Intubated coarse breath sounds b/l - Cardiovascular Exam Cardiovascular Exam: Tachycardia, +S1, +S2 - GI/Abdominal Exam GI & Abdominal Exam: Normal Bowel Sounds, Soft Additional comments: NT, ND no guarding, No rebound - Extremities Exam Additional comments: no edema b/l LE - Neurological Exam Neurological exam: Additional comments: awake and responds Laboratory Results - last 72 hr 04/01/17 04/04/17 04/04/17 10:00 04:45 04:45 WBC 13.5 H RBC 4.02 L Hgb 11.9 L Hct 36.5 MCV 90.8 MCH 29.8 MCHC 32.8 L RDW 14.3 Plt Count 237 PT INR pCO2 pO2 HCO3 ABG pH ABG Total CO2 ABG O2 Saturation ABG O2 Content ABG Base Excess ABG Hemoglobin ABG Carboxyhemoglobin POC ABG HHb (Measured) ABG Methemoglobin ABG O2 Capacity Raúl Test A-a O2 Difference Hgb O2 Saturation Vent Mode Mechanical Rate FiO2 Tidal Volume PEEP Sodium 142 Potassium 4.5 Chloride 106 Carbon Dioxide 30 Anion Gap 11 BUN 25 H Creatinine 0.7 L Est GFR ( Amer) > 60 Est GFR (Non-Af Amer) > 60 Random Glucose 202 H Lactic Acid Calcium 8.2 L Phosphorus Magnesium Total Bilirubin 0.7 AST 161 H D ALT 159 H Alkaline Phosphatase 55 Total Creatine Kinase NT-Pro-B Natriuret Pep Total Protein 5.5 L Albumin 2.8 L Globulin 2.7 Albumin/Globulin Ratio 1.0 Vitamin B12 Folate Free T4 TSH 3rd Generation Urine Color Urine Clarity Urine pH Ur Specific [place] Urine Protein Urine Glucose (UA) Urine Ketones Urine Blood Urine Nitrate Urine Bilirubin Urine Urobilinogen Ur Leukocyte Esterase Urine RBC (Auto) Urine Microscopic WBC Ur Squamous Epith Cells Mycoplasma pneumon IgG 1.00 H Mycoplasma pneumon IgM 2 04/04/17 04/04/17 04/05/17 04:45 05:18 05:00 WBC 13.4 H RBC 4.23 L Hgb 12.7 Hct 38.4 MCV 90.7 MCH 30.0 MCHC 33.1 RDW 14.1 Plt Count 343 D PT INR pCO2 44 pO2 85 HCO3 30.0 H ABG pH 7.46 H ABG Total CO2 32.7 H ABG O2 Saturation 98.8 H ABG O2 Content 16.7 ABG Base Excess 6.6 H ABG Hemoglobin 12.4 ABG Carboxyhemoglobin 1.6 H POC ABG HHb (Measured) 1.2 ABG Methemoglobin 2.0 ABG O2 Capacity 16.9 Raúl Test Yes A-a O2 Difference 288.0 Hgb O2 Saturation 95.2 Vent Mode A/c Mechanical Rate 16 FiO2 60.0 Tidal Volume 500 PEEP 5 Sodium Potassium Chloride Carbon Dioxide Anion Gap BUN Creatinine Est GFR ( Amer) Est GFR (Non-Af Amer) Random Glucose Lactic Acid 1.4 Calcium Phosphorus Magnesium Total Bilirubin AST ALT Alkaline Phosphatase Total Creatine Kinase NT-Pro-B Natriuret Pep Total Protein Albumin Globulin Albumin/Globulin Ratio Vitamin B12 Folate Free T4 TSH 3rd Generation Urine Color Urine Clarity Urine pH Ur Specific [place] Urine Protein Urine Glucose (UA) Urine Ketones Urine Blood Urine Nitrate Urine Bilirubin Urine Urobilinogen Ur Leukocyte Esterase Urine RBC (Auto) Urine Microscopic WBC Ur Squamous Epith Cells Mycoplasma pneumon IgG Mycoplasma pneumon IgM 04/05/17 04/05/17 04/05/17 05:00 05:00 05:00 WBC RBC Hgb Hct MCV MCH MCHC RDW Plt Count PT 13.7 H INR 1.3 H pCO2 pO2 HCO3 ABG pH ABG Total CO2 ABG O2 Saturation ABG O2 Content ABG Base Excess ABG Hemoglobin ABG Carboxyhemoglobin POC ABG HHb (Measured) ABG Methemoglobin ABG O2 Capacity Raú[place] Test A-a O2 Difference Hgb O2 Saturation Vent Mode Mechanical Rate FiO2 Tidal Volume PEEP Sodium 142 Potassium 4.3 Chloride 110 H Carbon Dioxide 26 Anion Gap 10 BUN 25 H Creatinine 0.7 L Est GFR ( Amer) > 60 Est GFR (Non-Af Amer) > 60 Random Glucose 126 H Lactic Acid Calcium 8.1 L Phosphorus 2.3 L Magnesium 2.2 Total Bilirubin 0.8 AST 139 H ALT 151 H Alkaline Phosphatase 64 Total Creatine Kinase 1515 H NT-Pro-B Natriuret Pep 425 Total Protein 5.8 L Albumin 3.0 L Globulin 2.8 Albumin/Globulin Ratio 1.1 Vitamin B12 766 Folate 16.1 Free T4 1.63 TSH 3rd Generation 1.33 Urine Color Urine Clarity Urine pH Ur Specific [place] Urine Protein Urine Glucose (UA) Urine Ketones Urine Blood Urine Nitrate Urine Bilirubin Urine Urobilinogen Ur Leukocyte Esterase Urine RBC (Auto) Urine Microscopic WBC Ur Squamous Epith Cells Mycoplasma pneumon IgG Mycoplasma pneumon IgM 04/05/17 04/05/17 04/06/17 05:10 17:08 04:30 WBC 9.2 RBC 3.84 L Hgb 11.6 L Hct 35.1 MCV 91.2 MCH 30.1 MCHC 33.0 RDW 14.1 Plt Count 302 PT INR pCO2 43 pO2 67 L HCO3 30.1 H ABG pH 7.47 H ABG Total CO2 32.6 H ABG O2 Saturation 96.9 ABG O2 Content 16.9 ABG Base Excess 6.8 H ABG Hemoglobin 12.9 ABG Carboxyhemoglobin 2.2 H POC ABG HHb (Measured) 3.0 ABG Methemoglobin 1.7 ABG O2 Capacity 17.4 Raúl Test Yes A-a O2 Difference 129.0 Hgb O2 Saturation 93.1 L Vent Mode Prvc ac Mechanical Rate 16 FiO2 35.0 Tidal Volume 500 PEEP 5 Sodium Potassium Chloride Carbon Dioxide Anion Gap BUN Creatinine Est GFR ( Amer) Est GFR (Non-Af Amer) Random Glucose Lactic Acid Calcium Phosphorus Magnesium Total Bilirubin AST ALT Alkaline Phosphatase Total Creatine Kinase NT-Pro-B Natriuret Pep Total Protein Albumin Globulin Albumin/Globulin Ratio Vitamin B12 Folate Free T4 TSH 3rd Generation Urine Color Yellow Urine Clarity Clear Urine pH 6 Ur Specific [place] 1.025 Urine Protein Trace Urine Glucose (UA) Negative Urine Ketones Negative Urine Blood Negative Urine Nitrate Negative Urine Bilirubin Negative Urine Urobilinogen 0.2 Ur Leukocyte Esterase Negative Urine RBC (Auto) 2 Urine Microscopic WBC 2 Ur Squamous Epith Cells 3 Mycoplasma pneumon IgG Mycoplasma pneumon IgM 04/06/17 04/06/17 04:30 06:00 WBC RBC Hgb Hct MCV MCH MCHC RDW Plt Count PT INR pCO2 43 pO2 64 L HCO3 33.5 H ABG pH 7.52 H ABG Total CO2 36.4 H ABG O2 Saturation 96.4 ABG O2 Content 15.1 ABG Base Excess 11.1 H ABG Hemoglobin 11.6 L ABG Carboxyhemoglobin 2.0 H POC ABG HHb (Measured) 3.5 ABG Methemoglobin 1.8 ABG O2 Capacity 15.7 L Raúl Test Yes A-a O2 Difference 167.0 Hgb O2 Saturation 92.6 L Vent Mode A/c Mechanical Rate 16 FiO2 40.0 Tidal Volume 500 PEEP 5 Sodium 140 Potassium 3.9 Chloride 104 Carbon Dioxide 31 H Anion Gap 9 L BUN 19 Creatinine 0.6 L Est GFR ( Amer) > 60 Est GFR (Non-Af Amer) > 60 Random Glucose 112 H Lactic Acid Calcium 7.9 L Phosphorus 3.4 Magnesium 2.0 Total Bilirubin 0.6 AST 102 H D ALT 128 H Alkaline Phosphatase 53 Total Creatine Kinase 1100 H NT-Pro-B Natriuret Pep Total Protein 5.3 L Albumin 2.6 L Globulin 2.7 Albumin/Globulin Ratio 1.0 Vitamin B12 Folate Free T4 TSH 3rd Generation Urine Color Urine Clarity Urine pH Ur Specific [place] Urine Protein Urine Glucose (UA) Urine Ketones Urine Blood Urine Nitrate Urine Bilirubin Urine Urobilinogen Ur Leukocyte Esterase Urine RBC (Auto) Urine Microscopic WBC Ur Squamous Epith Cells Mycoplasma pneumon IgG Mycoplasma pneumon IgM Microbiology 04/05/17 16:40 Blood-Venous Blood Culture - Preliminary NO GROWTH AFTER 24 HOURS 04/04/17 12:49 Trachasp Gram Stain - Final 04/04/17 12:49 Trachasp Sputum Culture - Final NORMAL ORAL RAISSA 04/02/17 10:45 Blood Blood Culture - Preliminary NO GROWTH AFTER 4 DAYS 04/02/17 10:40 Blood Blood Culture - Preliminary NO GROWTH AFTER 4 DAYS 03/31/17 05:00 Blood Blood Culture - Final NO GROWTH AFTER 5 DAYS 03/31/17 05:00 Blood Gram Stain - Final TEST NOT PERFORMED 03/31/17 05:00 Blood Blood Culture - Final NO GROWTH AFTER 5 DAYS 03/31/17 05:00 Blood Gram Stain - Final TEST NOT PERFORMED 04/02/17 17:00 Blood-Venous Blood Culture - Preliminary NO GROWTH AFTER 3 DAYS 04/02/17 17:00 Blood-Venous Blood Culture - Preliminary NO GROWTH AFTER 3 DAYS 04/03/17 08:34 Urine,[place] Urine Culture - Final No Growth (<1,000 CFU/ML) 04/02/17 10:53 Sputum Gram Stain - Final 04/02/17 10:53 Sputum Sputum Culture - Final NORMAL ORAL RAISSA 04/01/17 05:00 Nose MRSA Culture (Admit) - Final MRSA NOT DETECTED 03/31/17 05:00 Urine,Clean Catch Urine Culture - Final No Growth (<1,000 CFU/ML) Accession No. : [id number] Patient Name / ID : CHAR CARPENTER / [id number] Exam Date : 04/06/2017 04:49:37 ( Approved ) Study Comment : Sex / Age : M / 51Y Creator : Noé Crocker MD Dictator : Noé Crocker MD Pattern Fitter : Dairy Husbandry Worker : Noé Crocker MD Approver2 : Report Date : 04/06/2017 12:32:03 My Comment : PROCEDURE: CHEST RADIOGRAPH, 1 VIEW HISTORY: mechanical ventilation dependant COMPARISON: Comparison made with prior chest radiograph 04/05/2017 and CTA of the chest dated 04/01/2017. FINDINGS: In situ ETT, tip of which lies approximately 4.75 cm above nav. NGT is present, the tip of which lies in the mid upper abdomen. LUNGS: Vague left lower lobe consolidation less well seen compared to prior CTA chest. Suspect mild right basilar atelectasis. . PLEURA: No pneumothorax or pleural fluid seen. CARDIOVASCULAR: Heart size is borderline/mildly enlarged. OSSEOUS STRUCTURES: No significant abnormalities. VISUALIZED UPPER ABDOMEN: Normal. OTHER FINDINGS: None. IMPRESSION: ETT and NGT as above. Left lower lobe consolidation. Suspect minor right basilar atelectasis. Assessment and Plan (1) Legionella pneumophila infection Status: Acute (2) Pneumonia Status: Acute (3) Fever Status: Acute (4) Rhabdomyolysis Status: Acute (5) Transaminitis Status: Acute - Assessment and Plan (Free Text) Assessment: A/P- 51 year old male with no PMH admitted with rhabdomyolysis, fever, leukocytosis and multifocal pneumonia. 1. + legionella pneumophila 2.multifocal pneumonia 3. rhabdomyolysis 4.fever 5.transaminitis afebrile today resp distress s/p intubation [address]- multifocal pneumonia urine legionella- pos HIV ab- neg influenza- neg blood cx- neg x 7 UA- neg urine tox- pos for cannabis high CK but trending down Transaminitis trending down sputum cx- neg cxr- report noted Plan- advise to continue with azithromycin for legionella treatment. day #6. continue with IV meropenem day #4. advise to continue with IV vancomycin , keep trough <15. IV hydration for the rhabdo as per ICU team. ICU time 50 minutes.
--- NOTE | 2017-04-06 12:29 | CP.PCM.PN ---
Subjective - Date & Time of Evaluation Date of Evaluation: 04/06/17 Time of Evaluation: 12:30 - Subjective Subjective: STILL INTUBATED AND BEING VENTILATED Objective - Vital Signs/Intake and Output Vital Signs (last 24 hours): Temp Pulse Resp BP Pulse Ox 98.9 F 89 19 122/73 100 04/06/17 08:00 04/06/17 09:30 04/06/17 08:00 04/06/17 09:30 04/06/17 08:00 Intake and Output: 04/06/17 04/06/17 06:59 18:59 Intake Total 1960 Output Total 2900 Balance -940 - Medications Medications: Current Medications Acetaminophen (Tylenol 650mg/20.3ml Solution Ud) 650 mg PO Q6 PRN PRN Reason: Fever >100.4 F Last Admin: 04/05/17 06:44 Dose: 650 mg Albuterol/Ipratropium (Duoneb 3 Mg/0.5 Mg (3 Ml) Ud) 3 ml INH RQ4 [facility] Last Admin: 04/06/17 11:15 Dose: 3 ml Aspirin (Ecotrin) 81 mg PO DAILY [facility] Last Admin: 04/06/17 09:30 Dose: 81 mg Carvedilol (Coreg) 3.125 mg PO Q12 [facility] Last Admin: 04/06/17 09:30 Dose: 3.125 mg Enalapril Maleate (Vasotec) 2.5 mg NG DAILY [facility] Last Admin: 04/06/17 09:30 Dose: 2.5 mg Enoxaparin Sodium (Lovenox) 40 mg SC DAILY [facility] PRN Reason: Protocol Furosemide (Lasix) 40 mg IV DAILY [facility] Last Admin: 04/06/17 09:30 Dose: 40 mg Vancomycin HCl 1 gm/ Sodium (Chloride) 250 mls @ 166.667 mls/hr IVPB Q12 [facility] Last Admin: 04/06/17 10:37 Dose: 166.667 mls/hr Azithromycin 500 mg/ Sodium (Chloride) 250 mls @ 250 mls/hr IVPB DAILY [facility] Last Admin: 04/05/17 08:02 Dose: 250 mls/hr Meropenem 1 gm/ Sodium (Chloride) 100 mls @ 100 mls/hr IVPB Q8 [facility] Last Admin: 04/06/17 09:35 Dose: 100 mls/hr Propofol (Diprivan) 1,000 mg in 100 mls @ 17.418 mls/hr IV .Q5H45M [facility]; 25 MCG/ KG/MIN PRN Reason: Protocol Stop: 04/07/17 06:12 Last Admin: 04/06/17 06:15 Dose: 25 mcg/kg/min, 17.418 mls/hr Sodium Chloride (Sodium Chloride 0.9%) 2,000 mls @ 80 mls/hr IV .Q24H [facility] Stop: 04/07/17 10:41 Lorazepam (Ativan) 1 mg IVP Q6 PRN PRN Reason: Agitation Last Admin: 04/05/17 10:42 Dose: 1 mg Nicotine (Nicoderm Cq) 1 patch TD DAILY [facility] Last Admin: 04/06/17 09:30 Dose: 1 patch Pantoprazole Sodium (Protonix Inj) 40 mg IVP DAILY [facility] Last Admin: 04/06/17 09:30 Dose: 40 mg - Labs Labs: 04/06/17 04:30 04/06/17 04:30 PT 13.7 Seconds (9.8-13.1) H 04/05/17 05:00 INR 1.3 (0.9-1.2) H 04/05/17 05:00 APTT 35.2 Seconds (25.6-37.1) 03/31/17 21:50 - Constitutional Appears: No Acute Distress - Head Exam Head Exam: ATRAUMATIC, NORMAL INSPECTION, NORMOCEPHALIC - Eye Exam Eye Exam: EOMI, Normal appearance, PERRL Pupil Exam: NORMAL ACCOMODATION, PERRL - ENT Exam ENT Exam: Mucous Membranes Moist, Normal Exam - Neck Exam Neck Exam: Full ROM, Normal Inspection. absent: Lymphadenopathy - Respiratory Exam Respiratory Exam: Rales Additional comments: ON THE VENT - Cardiovascular Exam Cardiovascular Exam: REGULAR RHYTHM, +S1, +S2. absent: Murmur - GI/Abdominal Exam GI & Abdominal Exam: Soft, Normal Bowel Sounds. absent: Tenderness - Rectal Exam Rectal Exam: NORMAL INSPECTION - Extremities Exam Extremities Exam: Full ROM, Normal Capillary Refill, Normal Inspection. absent : Joint Swelling, Pedal Edema - Back Exam Back Exam: NORMAL INSPECTION - Psychiatric Exam Psychiatric exam: Normal Affect, Normal Mood - Skin Skin Exam: Dry, Intact, Normal Color, Warm Assessment and Plan - Assessment and Plan (Free Text) Assessment: ACUTE RESPIRATORY FAILURE LEGIONELLA PNEUMONIA Plan: CONTINUE PRESENT THERAPY
--- NOTE | 2017-04-06 12:37 | RAD ---
PROCEDURE: CHEST RADIOGRAPH, 1 VIEW HISTORY: mechanical ventilation dependant COMPARISON: Comparison made with prior chest radiograph 04/05/2017 and CTA of the chest dated 04/01/2017. FINDINGS: In situ ETT, tip of which lies approximately 4.75 cm above nav. NGT is present, the tip of which lies in the mid upper abdomen. LUNGS: Vague left lower lobe consolidation less well seen compared to prior CTA chest. Suspect mild right basilar atelectasis. . PLEURA: No pneumothorax or pleural fluid seen. CARDIOVASCULAR: Heart size is borderline/mildly enlarged. OSSEOUS STRUCTURES: No significant abnormalities. VISUALIZED UPPER ABDOMEN: Normal. OTHER FINDINGS: None. IMPRESSION: ETT and NGT as above. Left lower lobe consolidation. Suspect minor right basilar atelectasis.
[2017-04-07] MEDS: Meropenem 1 GM in Sodium Chloride 0.9% 100 ML IVPB SCH ×3 (00:33→16:45)
[2017-04-07] MEDS: Albuterol-Ipratrop 3 mg / 0.5 (3 ml) UD INH SCH ×6 (04:07→23:53)
[2017-04-07] MEDS: Propofol 10 mg/ml 1,000 MG/100 ML VIAL IV SCH ×2 (05:29→11:24)
[2017-04-07 06:06] LABS: ABG ALLEN TEST YES; ABG MECHANICAL RATE 12; ARTERIAL BLOOD GAS HCO3 30.3 mmol/L (21-28); ARTERIAL BLOOD GAS MODE SIMV; ARTERIAL BLOOD GAS O2 CAPACITY 17.2 mL/dL (16-24); ARTERIAL BLOOD GAS O2 CONTENT 16.6 ML/dL (15-23); ARTERIAL BLOOD GAS PH 7.41 (7.35-7.45); ARTERIAL BLOOD GAS PO2 73 mm/Hg (80-100); ARTERIAL BLOOD HGB O2 SAT 93.2 % (95.0-98.0); ATERIAL BLOOD GAS PEEP 5; CARBOXYHEMOGLOBIN 1.9 % (0.5-1.5); HHB 3.4 % (0.0-5.0); METHEMOGLOBIN 1.5 % (0.0-3.0)
[2017-04-07 07:57] LABS: ALKALINE PHOSPHATASE 62 U/L (38-126); ALT/SGPT 113 U/L (21-72); AST/SGOT 105 U/L (17-59); BILIRUBIN,TOTAL 0.7 mg/dl (0.2-1.3); BLOOD UREA NITROGEN 18 mg/dl (9-20); CALCIUM 8.2 mg/dL (8.4-10.2); CARBON DIOXIDE 31 mmol/L (22-30); CHLORIDE 103 mmol/L (98-107); GFR AFRICAN-AMERICAN > 60; GLUCOSE,RANDOM 107 mg/dL (75-110); POTASSIUM 4.2 MMOL/L (3.6-5.0); SODIUM 142 mmol/l (132-148); TOTAL PROTEIN 5.9 G/DL (6.3-8.2)
--- NOTE | 2017-04-07 08:20 | CP.PCM.PN ---
Subjective - Date & Time of Evaluation Date of Evaluation: 04/07/17 Time of Evaluation: 11:00 - Subjective Subjective: Patient seen and examined bedside. Intubated on MV PRVC/Ac mode 12/500/5/60% , awake and alert , follows commands appropriately , calm and cooperative No acute issues overnight. Was on CPAP mode overnigt and tolerated abut changed to PRVC / Ac mode this Am since ABG was 52/73/30/7.4 CXR showed bilateral vascular congestion I/O 2740/900 BP98/60 HR 92 Tmax 109/1 WBC 9.2 Hgb 11.6 plt 302 K OGT with Jevity @ 70 ml/hr [place] in place on soft restrains for safety and Propofol for mild sedation Objective - Vital Signs/Intake and Output Vital Signs (last 24 hours): Temp Pulse Resp BP Pulse Ox 99.4 F 92 H 20 98/60 L 100 04/07/17 04:00 04/07/17 07:00 04/07/17 07:00 04/07/17 07:00 04/07/17 07:00 Intake and Output: 04/07/17 04/07/17 06:59 18:59 Intake Total 2640 Output Total 900 Balance 1740 - Medications Medications: Current Medications Acetaminophen (Tylenol 650mg/20.3ml Solution Ud) 650 mg PO Q6 PRN PRN Reason: Fever >100.4 F Last Admin: 04/05/17 06:44 Dose: 650 mg Albuterol/Ipratropium (Duoneb 3 Mg/0.5 Mg (3 Ml) Ud) 3 ml INH RQ4 [facility] Last Admin: 04/07/17 07:47 Dose: 3 ml Aspirin (Ecotrin) 81 mg PO DAILY [facility] Last Admin: 04/06/17 09:30 Dose: 81 mg Carvedilol (Coreg) 3.125 mg PO Q12 [facility] Last Admin: 04/06/17 20:06 Dose: 3.125 mg Enalapril Maleate (Vasotec) 2.5 mg NG DAILY [facility] Last Admin: 04/06/17 09:30 Dose: 2.5 mg Enoxaparin Sodium (Lovenox) 40 mg SC DAILY [facility] PRN Reason: Protocol Furosemide (Lasix) 40 mg IV DAILY [facility] Last Admin: 04/06/17 09:30 Dose: 40 mg Vancomycin HCl 1 gm/ Sodium (Chloride) 250 mls @ 166.667 mls/hr IVPB Q12 [facility] Last Admin: 04/06/17 20:07 Dose: 166.667 mls/hr Azithromycin 500 mg/ Sodium (Chloride) 250 mls @ 250 mls/hr IVPB DAILY [facility] Last Admin: 04/06/17 10:00 Dose: 250 mls/hr Meropenem 1 gm/ Sodium (Chloride) 100 mls @ 100 mls/hr IVPB Q8 [facility] Last Admin: 04/07/17 00:33 Dose: 100 mls/hr Sodium Chloride (Sodium Chloride 0.9%) 2,000 mls @ 80 mls/hr IV .Q24H [facility] Stop: 04/07/17 10:41 Last Admin: 04/06/17 11:30 Dose: 80 mls/hr Lorazepam (Ativan) 1 mg IVP Q6 PRN PRN Reason: Agitation Last Admin: 04/05/17 10:42 Dose: 1 mg Nicotine (Nicoderm Cq) 1 patch TD DAILY [facility] Last Admin: 04/06/17 09:30 Dose: 1 patch Pantoprazole Sodium (Protonix Inj) 40 mg IVP DAILY [facility] Last Admin: 04/06/17 09:30 Dose: 40 mg - Labs Labs: 04/06/17 04:30 04/07/17 05:30 PT 13.7 Seconds (9.8-13.1) H 04/05/17 05:00 INR 1.3 (0.9-1.2) H 04/05/17 05:00 APTT 35.2 Seconds (25.6-37.1) 03/31/17 21:50 - Constitutional Appears: Non-toxic, No Acute Distress, Other (obese , intubated on MV awake alert , following commands, calm ) - Head Exam Additional comments: left frontal, nasal bridge , lower lip abrasions - Eye Exam Eye Exam: EOMI, PERRL Pupil Exam: NORMAL ACCOMODATION - ENT Exam ENT Exam: Mucous Membranes Moist, Normal Exam - Neck Exam Neck Exam: Full ROM, Normal Inspection - Respiratory Exam Respiratory Exam: Decreased Breath Sounds (bibasilar ), Clear to Ausculation Bilateral, Rhonchi (bilateral ). absent: Accessory Muscle Use, Wheezes, Respiratory Distress Additional comments: intubated - Cardiovascular Exam Cardiovascular Exam: REGULAR RHYTHM, RRR, +S1, +S2. absent: JVD - GI/Abdominal Exam GI & Abdominal Exam: Soft, Normal Bowel Sounds. absent: Distended, Guarding, Tenderness, Rebound - Rectal Exam Rectal Exam: Deferred - Extremities Exam Extremities Exam: Normal Capillary Refill. absent: Calf Tenderness, Pedal Edema Additional comments: bilateral upper extremity edema - Neurological Exam Neurological Exam: Alert, Awake, CN II-XII Intact Additional comments: follows commands. 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 Falling twice receiving trauma to the left side of the face and left forehead, laceration to his lower lip and nose. He began having non productive cough with chills and diarrhea on the day of admission. In the ED the Temperature was 103.6F with HR of 125/min. Patient admitted to ICU for Sepsis, acute hypoxemic respiratory failure. At present intubated on MV, awake ,alert ,calm , follows commands . CXR shows bilateral congestion 1. Sepsis Most likely secondary to multifocal Pneumonia blood , urine , sputum cx-- with no growth so far CXR showed improvement but with vascular congestion today On positive balance for the last 4-5 days and with upper extremity edema. Will give lasix 40 mg IV stat Will start weaning trials this AM and place on CPAP Initially on Zosyn, Vanco, Zithromax IV .Changed Zosyn to Meropenem IV ID , pulmonary on consult Legionella + 2.Acute hypoxemic respiratory failure secondary to Multifocal Pneumonia Intubated ON MV PRVC/AC mode CXR today showed improvement with vascular congestion Place on CPAP Will give Lasix 40 mg IV stat Continue IV antibiotics( Meropenem, Vanco and Zithromax ), Duonebs Pulmonary on consult 3. Metabolic encephalopathy-- resolved Patient was confused , agitated, restless , lethargic Multifactorial :most likely secondary to hypoxemia,sepsis and possible ETOH withdrawal Continue vent support , hold propofol as per weaning protocol Thiamine, folic acid and MVI on IVF 4. Suspected ETOH withdrawal / Impending DT-s -- resolved patient was tachycardic , delirius , agitated , flushed At present calm on very low dose of propofol continue Thiamine, Folic acid and MVI 5. Rhabdomyolysis most likely due to muscle injury caused by the [place] [address] to 1100 Continue IVF low dose 6.Hyponatremia - resolved probably due to SIADH caused by the legionella Pneumonia 7.Elevated Troponin Probably secondary to cardiac trauma Consult with Dr Atkinson appreciated was on Lovenox Therapeutic dose Q12H and now only on prophylactic dose no statin due to elevated LFT-s, CPK echo showed global hypokinesis and EF 30-35 % No cardiac intervention at present Started Coreg,Enalapril and ASA 8.Hypophosphatemia Repleted with Neutro Phos 9. Imbalance with Multiple falls CT head showed no acute pathology OT/PT evaluation and Treatment once stable 10. Mild pulmonary congestion most likely CHF systolic dysfunction EF 30-35% with global hypokinesis Cardiology on consult monitor I/O lasix PRN Continue ASa, coreg, ealapril and Lasix PRN 11.Transaminitis secondary to the muscle injury and sepsis improving 12. Nicotine Addiction Nicotine Patch 13. Coagulopathy with elevated INR Vitamin K 5mg given repeat INR 1.3 14. Subluxation of the left temperomandibular joint Pain management PRN 15.Cholelithiasis Stable 16. DVT Prophylaxis with SCD and Lovenox
[2017-04-07] MEDS: Enoxaparin 40 mg Syringe SC SCH (09:02)
[2017-04-07] MEDS ORDERED: Potassium Chl 20 mEq in NS 1,000 ML IV SCH (09:30)
--- NOTE | 2017-04-07 11:02 | RAD ---
PROCEDURE: CHEST RADIOGRAPH, 1 VIEW HISTORY: pneumonia COMPARISON: Comparison is made to 04/06/2017 FINDINGS: LUNGS: No significant interval change in the lungs noted since the previous exam. The ET tube is again seen at appropriate position. PLEURA: No pneumothorax or pleural fluid seen. CARDIOVASCULAR: Normal. OSSEOUS STRUCTURES: No significant abnormalities. VISUALIZED UPPER ABDOMEN: The NG tube seen extending to the stomach. OTHER FINDINGS: None. IMPRESSION: No significant interval change noted since the previous study.
[2017-04-07] MEDS: Azithromycin 500 MG in Sodium Chloride 0.9% 250 ML IVPB SCH (11:12)
--- NOTE | 2017-04-07 12:10 | CP.PCM.PN ---
Subjective - Date & Time of Evaluation Date of Evaluation: 04/07/17 Time of Evaluation: 12:10 - Subjective Subjective: AWAKE AND ALERT STILL INTUBATED AND BEING VENTILATED VSS Objective - Vital Signs/Intake and Output Vital Signs (last 24 hours): Temp Pulse Resp BP Pulse Ox 99.8 F H 88 21 110/67 100 04/07/17 08:00 04/07/17 08:00 04/07/17 08:00 04/07/17 11:24 04/07/17 08:00 Intake and Output: 04/07/17 04/07/17 06:59 18:59 Intake Total 2640 100 Output Total 900 Balance 1740 100 - Medications Medications: Current Medications Acetaminophen (Tylenol 650mg/20.3ml Solution Ud) 650 mg PO Q6 PRN PRN Reason: Fever >100.4 F Last Admin: 04/05/17 06:44 Dose: 650 mg Albuterol/Ipratropium (Duoneb 3 Mg/0.5 Mg (3 Ml) Ud) 3 ml INH RQ4 [facility] Last Admin: 04/07/17 11:04 Dose: 3 ml Aspirin (Ecotrin) 81 mg PO DAILY [facility] Last Admin: 04/07/17 11:16 Dose: 81 mg Carvedilol (Coreg) 3.125 mg PO Q12 [facility] Last Admin: 04/07/17 11:16 Dose: 3.125 mg Enalapril Maleate (Vasotec) 2.5 mg NG DAILY [facility] Last Admin: 04/07/17 11:16 Dose: 2.5 mg Enoxaparin Sodium (Lovenox) 40 mg SC DAILY [facility] PRN Reason: Protocol Last Admin: 04/07/17 09:02 Dose: 40 mg Vancomycin HCl 1 gm/ Sodium (Chloride) 250 mls @ 166.667 mls/hr IVPB Q12 [facility] Last Admin: 04/07/17 09:01 Dose: 166.667 mls/hr Azithromycin 500 mg/ Sodium (Chloride) 250 mls @ 250 mls/hr IVPB DAILY [facility] Last Admin: 04/07/17 11:12 Dose: 250 mls/hr Meropenem 1 gm/ Sodium (Chloride) 100 mls @ 100 mls/hr IVPB Q8 [facility] Last Admin: 04/07/17 08:58 Dose: 100 mls/hr Potassium Chloride/Sodium Chloride (Potassium Chl 20 Meq In Ns) 1,000 mls @ 80 mls/hr IV .[id number] [facility] Stop: 04/08/17 09:30 Lorazepam (Ativan) 1 mg IVP Q6 PRN PRN Reason: Agitation Last Admin: 04/05/17 10:42 Dose: 1 mg Nicotine (Nicoderm Cq) 1 patch TD DAILY [facility] Last Admin: 04/07/17 11:17 Dose: Not Given Pantoprazole Sodium (Protonix Inj) 40 mg IVP DAILY [facility] Last Admin: 04/07/17 09:01 Dose: 40 mg - Labs Labs: 04/06/17 04:30 04/07/17 05:30 PT 13.7 Seconds (9.8-13.1) H 04/05/17 05:00 INR 1.3 (0.9-1.2) H 04/05/17 05:00 APTT 35.2 Seconds (25.6-37.1) 03/31/17 21:50 - Constitutional Appears: No Acute Distress - Head Exam Head Exam: ATRAUMATIC, NORMAL INSPECTION, NORMOCEPHALIC - Eye Exam Eye Exam: EOMI, Normal appearance, PERRL Pupil Exam: NORMAL ACCOMODATION, PERRL - ENT Exam ENT Exam: Mucous Membranes Moist, Normal Exam - Neck Exam Neck Exam: Full ROM, Normal Inspection. absent: Lymphadenopathy - Respiratory Exam Respiratory Exam: Clear to Ausculation Bilateral Additional comments: ON THE VENT - Cardiovascular Exam Cardiovascular Exam: REGULAR RHYTHM, +S1, +S2. absent: Murmur - GI/Abdominal Exam GI & Abdominal Exam: Soft, Normal Bowel Sounds. absent: Tenderness - Rectal Exam Rectal Exam: NORMAL INSPECTION - Extremities Exam Extremities Exam: Full ROM, Normal Capillary Refill, Normal Inspection. absent : Joint Swelling, Pedal Edema - Back Exam Back Exam: NORMAL INSPECTION - Neurological Exam Neurological Exam: Alert, Awake, CN II-XII Intact, Oriented x3 - Psychiatric Exam Psychiatric exam: Normal Affect, Normal Mood - Skin Skin Exam: Dry, Intact, Normal Color, Warm Assessment and Plan - Assessment and Plan (Free Text) Assessment: RESPIRATORY FAILURE IMPROVED Plan: AWAIT ABG RESULTS EXTUBATE IF ABGS ARE ADEQUATE
--- NOTE | 2017-04-07 12:17 | CP.PCM.PN ---
Subjective - Date & Time of Evaluation Date of Evaluation: 04/07/17 Time of Evaluation: 12:17 - Subjective Subjective: ID Note- Pt. seen and examined today in ICU. remains on the vent but is awake and follows commands. denies any pain any where. Objective - Vital Signs/Intake and Output Vital Signs (last 24 hours): Temp Pulse Resp BP Pulse Ox 99.8 F H 88 21 110/67 100 04/07/17 08:00 04/07/17 08:00 04/07/17 08:00 04/07/17 11:24 04/07/17 08:00 Intake and Output: 04/07/17 04/07/17 06:59 18:59 Intake Total 2640 100 Output Total 900 Balance 1740 100 - Medications Medications: Current Medications Acetaminophen (Tylenol 650mg/20.3ml Solution Ud) 650 mg PO Q6 PRN PRN Reason: Fever >100.4 F Last Admin: 04/05/17 06:44 Dose: 650 mg Albuterol/Ipratropium (Duoneb 3 Mg/0.5 Mg (3 Ml) Ud) 3 ml INH RQ4 [facility] Last Admin: 04/07/17 11:04 Dose: 3 ml Aspirin (Ecotrin) 81 mg PO DAILY [facility] Last Admin: 04/07/17 11:16 Dose: 81 mg Carvedilol (Coreg) 3.125 mg PO Q12 [facility] Last Admin: 04/07/17 11:16 Dose: 3.125 mg Enalapril Maleate (Vasotec) 2.5 mg NG DAILY [facility] Last Admin: 04/07/17 11:16 Dose: 2.5 mg Enoxaparin Sodium (Lovenox) 40 mg SC DAILY [facility] PRN Reason: Protocol Last Admin: 04/07/17 09:02 Dose: 40 mg Vancomycin HCl 1 gm/ Sodium (Chloride) 250 mls @ 166.667 mls/hr IVPB Q12 [facility] Last Admin: 04/07/17 09:01 Dose: 166.667 mls/hr Azithromycin 500 mg/ Sodium (Chloride) 250 mls @ 250 mls/hr IVPB DAILY [facility] Last Admin: 04/07/17 11:12 Dose: 250 mls/hr Meropenem 1 gm/ Sodium (Chloride) 100 mls @ 100 mls/hr IVPB Q8 [facility] Last Admin: 04/07/17 08:58 Dose: 100 mls/hr Potassium Chloride/Sodium Chloride (Potassium Chl 20 Meq In Ns) 1,000 mls @ 80 mls/hr IV .[id number] [facility] Stop: 04/08/17 09:30 Lorazepam (Ativan) 1 mg IVP Q6 PRN PRN Reason: Agitation Last Admin: 04/05/17 10:42 Dose: 1 mg Nicotine (Nicoderm Cq) 1 patch TD DAILY [facility] Last Admin: 04/07/17 11:17 Dose: Not Given Pantoprazole Sodium (Protonix Inj) 40 mg IVP DAILY [facility] Last Admin: 04/07/17 09:01 Dose: 40 mg - Labs Labs: - Additional Findings Additional findings: - Head Exam Additional comments: small left forehead superficial abrasion and one on the tip of the nose and one in left lower lip region - ENT Exam ENT Exam: ET tube in place - Neck Exam Neck exam: Positive for: Full Rom Additional comments: supple - Respiratory Exam Additional comments: Intubated coarse breath sounds b/l - Cardiovascular Exam Cardiovascular Exam: Tachycardia, +S1, +S2 - GI/Abdominal Exam GI & Abdominal Exam: Normal Bowel Sounds, Soft Additional comments: NT, ND no guarding, No rebound - Extremities Exam Additional comments: no edema b/l LE - Neurological Exam Neurological exam: Additional comments: awake and responds Laboratory Results - last 72 hr 04/01/17 04/05/17 04/05/17 10:00 05:00 05:00 WBC 13.4 H RBC 4.23 L Hgb 12.7 Hct 38.4 MCV 90.7 MCH 30.0 MCHC 33.1 RDW 14.1 Plt Count 343 D PT INR pCO2 pO2 HCO3 ABG pH ABG Total CO2 ABG O2 Saturation ABG O2 Content ABG Base Excess ABG Hemoglobin ABG Carboxyhemoglobin POC ABG HHb (Measured) ABG Methemoglobin ABG O2 Capacity Raúl Test A-a O2 Difference Hgb O2 Saturation Vent Mode Mechanical Rate FiO2 Tidal Volume PEEP Pressure Support Sodium 142 Potassium 4.3 Chloride 110 H Carbon Dioxide 26 Anion Gap 10 BUN 25 H Creatinine 0.7 L Est GFR ( Amer) > 60 Est GFR (Non-Af Amer) > 60 Random Glucose 126 H Calcium 8.1 L Phosphorus 2.3 L Magnesium 2.2 Total Bilirubin 0.8 AST 139 H ALT 151 H Alkaline Phosphatase 64 Total Creatine Kinase 1515 H NT-Pro-B Natriuret Pep 425 Total Protein 5.8 L Albumin 3.0 L Globulin 2.8 Albumin/Globulin Ratio 1.1 Vitamin B12 766 Folate 16.1 Free T4 TSH 3rd Generation 1.33 Urine Color Urine Clarity Urine pH Ur Specific [place] Urine Protein Urine Glucose (UA) Urine Ketones Urine Blood Urine Nitrate Urine Bilirubin Urine Urobilinogen Ur Leukocyte Esterase Urine RBC (Auto) Urine Microscopic WBC Ur Squamous Epith Cells Vancomycin Trough Mycoplasma pneumon IgG 1.00 H Mycoplasma pneumon IgM 2 04/05/17 04/05/17 04/05/17 05:00 05:00 05:10 WBC RBC Hgb Hct MCV MCH MCHC RDW Plt Count PT 13.7 H INR 1.3 H pCO2 43 pO2 67 L HCO3 30.1 H ABG pH 7.47 H ABG Total CO2 32.6 H ABG O2 Saturation 96.9 ABG O2 Content 16.9 ABG Base Excess 6.8 H ABG Hemoglobin 12.9 ABG Carboxyhemoglobin 2.2 H POC ABG HHb (Measured) 3.0 ABG Methemoglobin 1.7 ABG O2 Capacity 17.4 Raúl Test Yes A-a O2 Difference 129.0 Hgb O2 Saturation 93.1 L Vent Mode Prvc ac Mechanical Rate 16 FiO2 35.0 Tidal Volume 500 PEEP 5 Pressure Support Sodium Potassium Chloride Carbon Dioxide Anion Gap BUN Creatinine Est GFR ( Amer) Est GFR (Non-Af Amer) Random Glucose Calcium Phosphorus Magnesium Total Bilirubin AST ALT Alkaline Phosphatase Total Creatine Kinase NT-Pro-B Natriuret Pep Total Protein Albumin Globulin Albumin/Globulin Ratio Vitamin B12 Folate Free T4 1.63 TSH 3rd Generation Urine Color Urine Clarity Urine pH Ur Specific [place] Urine Protein Urine Glucose (UA) Urine Ketones Urine Blood Urine Nitrate Urine Bilirubin Urine Urobilinogen Ur Leukocyte Esterase Urine RBC (Auto) Urine Microscopic WBC Ur Squamous Epith Cells Vancomycin Trough Mycoplasma pneumon IgG Mycoplasma pneumon IgM 04/05/17 04/06/17 04/06/17 17:08 04:30 04:30 WBC 9.2 RBC 3.84 L Hgb 11.6 L Hct 35.1 MCV 91.2 MCH 30.1 MCHC 33.0 RDW 14.1 Plt Count 302 PT INR pCO2 pO2 HCO3 ABG pH ABG Total CO2 ABG O2 Saturation ABG O2 Content ABG Base Excess ABG Hemoglobin ABG Carboxyhemoglobin POC ABG HHb (Measured) ABG Methemoglobin ABG O2 Capacity Raúl Test A-a O2 Difference Hgb O2 Saturation Vent Mode Mechanical Rate FiO2 Tidal Volume PEEP Pressure Support Sodium 140 Potassium 3.9 Chloride 104 Carbon Dioxide 31 H Anion Gap 9 L BUN 19 Creatinine 0.6 L Est GFR ( Amer) > 60 Est GFR (Non-Af Amer) > 60 Random Glucose 112 H Calcium 7.9 L Phosphorus 3.4 Magnesium 2.0 Total Bilirubin 0.6 AST 102 H D ALT 128 H Alkaline Phosphatase 53 Total Creatine Kinase 1100 H NT-Pro-B Natriuret Pep Total Protein 5.3 L Albumin 2.6 L Globulin 2.7 Albumin/Globulin Ratio 1.0 Vitamin B12 Folate Free T4 TSH 3rd Generation Urine Color Yellow Urine Clarity Clear Urine pH 6 Ur Specific [place] 1.025 Urine Protein Trace Urine Glucose (UA) Negative Urine Ketones Negative Urine Blood Negative Urine Nitrate Negative Urine Bilirubin Negative Urine Urobilinogen 0.2 Ur Leukocyte Esterase Negative Urine RBC (Auto) 2 Urine Microscopic WBC 2 Ur Squamous Epith Cells 3 Vancomycin Trough Mycoplasma pneumon IgG Mycoplasma pneumon IgM 04/06/17 04/07/17 04/07/17 06:00 05:30 05:30 WBC RBC Hgb Hct MCV MCH MCHC RDW Plt Count PT INR pCO2 43 pO2 64 L HCO3 33.5 H ABG pH 7.52 H ABG Total CO2 36.4 H ABG O2 Saturation 96.4 ABG O2 Content 15.1 ABG Base Excess 11.1 H ABG Hemoglobin 11.6 L ABG Carboxyhemoglobin 2.0 H POC ABG HHb (Measured) 3.5 ABG Methemoglobin 1.8 ABG O2 Capacity 15.7 L Raúl Test Yes A-a O2 Difference 167.0 Hgb O2 Saturation 92.6 L Vent Mode A/c Mechanical Rate 16 FiO2 40.0 Tidal Volume 500 PEEP 5 Pressure Support Sodium 142 Potassium 4.2 Chloride 103 Carbon Dioxide 31 H Anion Gap 12 BUN 18 Creatinine 0.6 L Est GFR ( Amer) > 60 Est GFR (Non-Af Amer) > 60 Random Glucose 107 Calcium 8.2 L Phosphorus Magnesium Total Bilirubin 0.7 AST 105 H ALT 113 H Alkaline Phosphatase 62 Total Creatine Kinase 1034 H NT-Pro-B Natriuret Pep Total Protein 5.9 L Albumin 3.0 L Globulin 2.9 Albumin/Globulin Ratio 1.0 Vitamin B12 Folate Free T4 TSH 3rd Generation Urine Color Urine Clarity Urine pH Ur Specific [place] Urine Protein Urine Glucose (UA) Urine Ketones Urine Blood Urine Nitrate Urine Bilirubin Urine Urobilinogen Ur Leukocyte Esterase Urine RBC (Auto) Urine Microscopic WBC Ur Squamous Epith Cells Vancomycin Trough 6.2 Mycoplasma pneumon IgG Mycoplasma pneumon IgM 04/07/17 06:01 WBC RBC Hgb Hct MCV MCH MCHC RDW Plt Count PT INR pCO2 52 H pO2 73 L HCO3 30.3 H ABG pH 7.41 ABG Total CO2 34.6 H ABG O2 Saturation 96.5 ABG O2 Content 16.6 ABG Base Excess 7.0 H ABG Hemoglobin 12.6 ABG Carboxyhemoglobin 1.9 H POC ABG HHb (Measured) 3.4 ABG Methemoglobin 1.5 ABG O2 Capacity 17.2 Raúl Test Yes A-a O2 Difference 219.0 Hgb O2 Saturation 93.2 L Vent Mode Simv Mechanical Rate 12 FiO2 50.0 Tidal Volume 500 PEEP 5 Pressure Support 15 Sodium Potassium Chloride Carbon Dioxide Anion Gap BUN Creatinine Est GFR ( Amer) Est GFR (Non-Af Amer) Random Glucose Calcium Phosphorus Magnesium Total Bilirubin AST ALT Alkaline Phosphatase Total Creatine Kinase NT-Pro-B Natriuret Pep Total Protein Albumin Globulin Albumin/Globulin Ratio Vitamin B12 Folate Free T4 TSH 3rd Generation Urine Color Urine Clarity Urine pH Ur Specific [place] Urine Protein Urine Glucose (UA) Urine Ketones Urine Blood Urine Nitrate Urine Bilirubin Urine Urobilinogen Ur Leukocyte Esterase Urine RBC (Auto) Urine Microscopic WBC Ur Squamous Epith Cells Vancomycin Trough Mycoplasma pneumon IgG Mycoplasma pneumon IgM Microbiology 04/05/17 16:45 Urine,[place] Urine Culture - Final No Growth (<1,000 CFU/ML) 04/02/17 10:45 Blood Blood Culture - Final NO GROWTH AFTER 5 DAYS 04/02/17 10:45 Blood Gram Stain - Final TEST NOT PERFORMED 04/02/17 10:40 Blood Blood Culture - Final NO GROWTH AFTER 5 DAYS 04/02/17 10:40 Blood Gram Stain - Final TEST NOT PERFORMED 04/02/17 17:00 Blood-Venous Blood Culture - Preliminary NO GROWTH AFTER 4 DAYS 04/02/17 17:00 Blood-Venous Blood Culture - Preliminary NO GROWTH AFTER 4 DAYS 04/05/17 16:40 Blood-Venous Blood Culture - Preliminary NO GROWTH AFTER 24 HOURS 04/04/17 12:49 Trachasp Gram Stain - Final 04/04/17 12:49 Trachasp Sputum Culture - Final NORMAL ORAL RAISSA 03/31/17 05:00 Blood Blood Culture - Final NO GROWTH AFTER 5 DAYS 03/31/17 05:00 Blood Gram Stain - Final TEST NOT PERFORMED 03/31/17 05:00 Blood Blood Culture - Final NO GROWTH AFTER 5 DAYS 03/31/17 05:00 Blood Gram Stain - Final TEST NOT PERFORMED 04/03/17 08:34 Urine,[place] Urine Culture - Final No Growth (<1,000 CFU/ML) 04/02/17 10:53 Sputum Gram Stain - Final 04/02/17 10:53 Sputum Sputum Culture - Final NORMAL ORAL RAISSA 04/01/17 05:00 Nose MRSA Culture (Admit) - Final MRSA NOT DETECTED 03/31/17 05:00 Urine,Clean Catch Urine Culture - Final No Growth (<1,000 CFU/ML) Accession No. : [id number] Patient Name / ID : CHAR CARPENTER / [id number] Exam Date : 04/07/2017 07:13:46 ( Approved ) Study Comment : Sex / Age : M / 51Y Creator : Finn Ortez Dictator : Finn Ortez Pre K Lead Teacher : Coil Winder Repair : Finn Ortez Approver2 : Report Date : 04/07/2017 10:57:20 My Comment : PROCEDURE: CHEST RADIOGRAPH, 1 VIEW HISTORY: pneumonia COMPARISON: Comparison is made to 04/06/2017 FINDINGS: LUNGS: No significant interval change in the lungs noted since the previous exam. The ET tube is again seen at appropriate position. PLEURA: No pneumothorax or pleural fluid seen. CARDIOVASCULAR: Normal. OSSEOUS STRUCTURES: No significant abnormalities. VISUALIZED UPPER ABDOMEN: The NG tube seen extending to the stomach. OTHER FINDINGS: None. IMPRESSION: No significant interval change noted since the previous study. Assessment and Plan (1) Legionella pneumophila infection Status: Acute (2) Pneumonia Status: Acute (3) Fever Status: Acute (4) Rhabdomyolysis Status: Acute (5) Transaminitis Status: Acute - Assessment and Plan (Free Text) Assessment: A/P- 51 year old male with no PMH admitted with rhabdomyolysis, fever, leukocytosis and multifocal pneumonia. 1. + legionella pneumophila 2.multifocal pneumonia 3. rhabdomyolysis 4.fever 5.transaminitis afebrile past 48 hours minimal leukocytosis has resolved. resp distress s/p intubation [address]- multifocal pneumonia urine legionella- pos HIV ab- neg influenza- neg blood cx- neg x 7 UA- neg urine tox- pos for cannabis high CK but trending down Transaminitis trending down sputum cx- neg cxr- report noted Plan- advise to continue with azithromycin for legionella treatment. day #7. continue with IV meropenem day #5. advise to continue with IV vancomycin , keep trough <15. IV hydration for the rhabdo as per ICU team. ICU time 50 minutes.
--- NOTE | 2017-04-07 14:05 | PN ---
DATE: 04/07/2017 CRITICAL CARE PROGRESS NOTE LOCATION: The patient in ICU, bed 427 TIME SPENT: 45 minutes. SUBJECTIVE: The patient is seen and evaluated at the bedside. Events since admission noted. Events overnight reviewed. A [id number]-male with medical history significant for alcohol dependence, substance abuse, admitted with 2 days of feeling being drunk with imbalance and unstable gait, status post fall with facial injury involving left face, left forehead, laceration to his lower lip and nose. CT chest showed multifocal pneumonia, intubated for hypoxic respiratory failure, on IV hydration for rhabdomyolysis. Overnight intubated on mechanical ventilation, AC/PRVC weight 16, tidal volume of 100, FiO2 60%, PEEP of 5, sedated on Diprivan drip, observed rate 16, exhaled tidal volume of 490 minute ventilation, 9.4 liters, peak airway pressure 19, and tidal CO2 28. Remains alert, awake, follows commands appropriately. No distress noted on the ventilator. PAST MEDICAL HISTORY, PAST SURGICAL HISTORY, AND SOCIAL HISTORY: Reviewed PHYSICAL EXAMINATION GENERAL: Temperature 99.8, heart rate 88 and regular, blood pressure 99/57, mean arterial pressure 71, oxygen saturation 100%; intake 2740, output 900, positive balance 1840; weight 256 pounds. HEAD, EYES, EARS, AND THROAT: Pupils are reactive. Conjunctivae are pink. Sclerae anicteric. Abrasion involving forehead, left side of face and left hip healing. Endotracheal tube in place. No secretion noted. HEART: Rhythm regular; S1 and S2 normal intensity. No audible murmur. No gallop. ABDOMEN: Bowel sounds present; soft, mildly distended, nontender. EXTREMITIES: 1+ edema, peripheral pulses intact, symmetrical. NEUROLOGIC: Sedated on Diprivan drip, but open eyes, follows commands appropriate. Able to move both upper and lower extremities. CURRENT MEDICATIONS: Include Tylenol 650 q. 6 p.r.n. for temp more than 100.4, albuterol-Atrovent inhalation 3 mL q. 4 hours, Ecotrin 81 mg daily, Zithromax 250 mg IV daily, Coreg 3.125 mg q. 12, Vasotec 2.5 mg daily, Lovenox 40 subcutaneous daily, Ativan 1 mg IV q. 6 p.r.n. for agitation, meropenem 1 gram IV q. 8 hours, nicotine patch daily, Protonix 40 IV daily, sodium chloride fluid at 80 mL per hour, vancomycin 1 gram IV q. 12 hours. LABORATORY DATA: WBC 9.2, hemoglobin 11.6, hematocrit 35.1, platelet count of 302, PT 13.7, INR 1.3. ABG, dated April 07, pH 7.41, pCO2 52, pO2 73, saturation 96.5 on IMV 12, 550%, PEEP of 5, pressure support of 50. SMA-7, sodium 142, potassium 4.2, chloride 103, CO2 31, blood urea nitrogen 18, creatinine 0.6, random glucose 107, calcium 8.2, phosphorus 3.4, magnesium 2.2, total bilirubin 0.7. AST 105, ALT 113, alkaline phosphatase 62, total CK 1034, total protein 5.9, albumin 3, albumin-globulin ratio of 1. TSH 1.33, folate 16.1, vitamin B12 766. Blood culture, no growth reported. Sputum culture, normal davida. Urine culture, no growth. Chest x-ray from this morning, endotracheal tube is in place. The patient is bilaterally more on the left than right obscuring left hemidiaphragm consistent with left lower lobe pneumonia. IMPRESSION: 1. Neurologic: Alert, awake, follows commands appropriately. Status post fall with abrasion involving left forehead and face, subluxation of the left temporomandibular joint. 2. Cardiac: History of alcohol abuse and substance abuse with reduced left ventricular function and left hypokinesis, left ventricle, remains normotensive. Continue Coreg 3.125 mg q. 12, Vasotec 2.5 mg daily. 3. Pulmonary. Acute hypoxic respiratory failure. Continue to wean as tolerated. Bronchodilator q. 6 hours. 4. Infectious disease: Multifocal pneumonia, urine positive for Legionella, on vancomycin, meropenem, and azithromycin. Appreciate infectious disease input. 5. Gastrointestinal. Continue feeding as tolerated. 6. Endocrine. Keep her blood sugar less than 100 mg. 7. Deep venous thrombosis, gastrointestinal prophylaxis. 8. History of smoking: On nicotine patch, to prevent withdrawal symptoms. 9. History of substance abuse with alcohol. Continue to monitor for withdrawal symptoms. Navi Barnes MD
--- NOTE | 2017-04-07 16:40 | PN ---
DATE: SUBJECTIVE: The patient is currently on CPAP. He is awake and cooperative. PHYSICAL EXAMINATION VITAL SIGNS: Blood pressure 110/67, heart rate 88, temperature 99.8, respirations 21. HEENT: Normocephalic. HEART: S1 and S2 regular. CHEST: Bibasilar rhonchi. EXTREMITIES: No edema. LABORATORY DATA: SMA-7 is within normal limits except for carbon dioxide of 31 and creatinine 0.6. Hemoglobin and hematocrit 11.6 and 35.1. White count and platelet count are within normal limit. ASSESSMENT: 1. Legionella pneumonia. 2. Respiratory failure. 3. Systolic heart failure. CONDITIONS: Continue IV Zithromax, IV meropenem and IV vancomycin. Continue Coreg at 3.125 mg twice a day, subcutaneous Lovenox at 40 mg once a day, enalapril 2.5 mg daily. Further cardiac workup has to be postponed until full and complete recovery from the patient's Legionella pneumonia. A CHF is most likely alcohol related and the patient will be started on thiamine 100 mg daily via nasogastric tube. Marcio Atkinson MD
[2017-04-08] MEDS: Meropenem 1 GM in Sodium Chloride 0.9% 100 ML IVPB SCH ×3 (00:13→17:15)
[2017-04-08] MEDS: Albuterol-Ipratrop 3 mg / 0.5 (3 ml) UD INH SCH ×6 (04:55→23:22)
[2017-04-08 05:53] LABS: ABG ALLEN TEST YES; ABG MECHANICAL RATE 12; ARTERIAL BLOOD GAS HCO3 31.8 mmol/L (21-28); ARTERIAL BLOOD GAS MODE PRVC/AC; ARTERIAL BLOOD GAS O2 CAPACITY 15.1 mL/dL (16-24); ARTERIAL BLOOD GAS O2 CONTENT 14.7 ML/dL (15-23); ARTERIAL BLOOD GAS PH 7.48 (7.35-7.45); ARTERIAL BLOOD GAS PO2 70 mm/Hg (80-100); ARTERIAL BLOOD HGB O2 SAT 93.1 % (95.0-98.0); ATERIAL BLOOD GAS PEEP 5; HHB 2.8 % (0.0-5.0); METHEMOGLOBIN 2.1 % (0.0-3.0)
[2017-04-08 06:56] LABS: HEMATOCRIT 32.7 % (35.0-51.0); MEAN CELL VOLUME 91.5 fl (80.0-94.0); MEAN CORPUSCULAR HEMOGLOBIN 30.1 pg (27.0-31.0); MEAN CORPUSCULAR HGB CONC 32.9 g/dL (33.0-37.0); RED CELL DISTRIBUTION WIDTH 14.1 % (11.5-14.5); WHITE BLOOD COUNT 9.2 K/uL (4.8-10.8)
[2017-04-08 07:47] LABS: BLOOD UREA NITROGEN 19 mg/dl (9-20); CHLORIDE 101 mmol/L (98-107); GFR AFRICAN-AMERICAN > 60; GLUCOSE,RANDOM 91 mg/dL (75-110); SODIUM 140 mmol/l (132-148)
[2017-04-08 08:33] LABS: CARBON DIOXIDE 31 mmol/L (22-30); POTASSIUM 3.8 MMOL/L (3.6-5.0)
--- NOTE | 2017-04-08 09:07 | CP.CCUPN ---
CCU Subjective - Physician Review Events Since Last Encounter (Free Text): 04/08/17 09:05 Patient on ventilator, on CPAP with PS 12, FIO2 40%, awake, follow simple commands, OG tube in place, no fever, no pressors, events reviewed CCU Objective - Vital Signs / Intake & Output Intake and Output (Last 8hrs): Intake & Output 04/07/17 04/08/17 04/08/17 22:59 06:59 14:59 Intake Total 1134 1286 Output Total 550 Balance 1134 736 Intake: IV 24 136 Intake, Piggyback 350 Tube Feeding 360 400 Free Water Flush 400 750 Output: Urine 550 Urethral (Marcano) 550 Other: # Bowel Movements 1 - Physical Exam Head: Positive for: Normocephalic, Abrasion (left face, bridge of nose, lower lip) Pupils: Positive for: PERRL Extroacular Muscles: Positive for: EOMI Conjunctiva: Positive for: Normal Mouth: Positive for: Moist Mucous Membranes (OG tube in place,continuous feed; ET tube in place-vent on PRVC mode) Nose (Internal): Positive for: Normal Inspection Neck: Positive for: Normal Range of Motion. Negative for: Meningeal Signs, MIDLINE TENDERNESS, Paraspinal Tenderness, JVD, Lymphadenopathy, Bruit, Other Respiratory/Chest: Positive for: Rhonchi (mild, bilateral). Negative for: Rales Cardiovascular: Positive for: Regular Rate and Rhythm, Normal S1, S2, Peripheal Pulses Present. Negative for: Murmurs Abdomen: Negative for: Tenderness, Distention, Peritoneal Signs Genitourinary Male: Positive for: Other (marcano catheter in place, draining clear yellow urine) Upper Extremity: Positive for: Normal Inspection (bilateral wrist restraints, IV line in right and left hand), Capillary Refill < 2s. Negative for: Cyanosis , Edema Lower Extremity: Positive for: Normal Inspection, NORMAL PULSES, Capillary Refill < 2 s. Negative for: Edema, CALF TENDERNESS Neurological: Positive for: Other (on ventilator) Skin: Positive for: Warm, Dry Psychiatric: Positive for: Alert (for short period of time on sedation vacation : awake, follows commands) - Medications Active Medications: Active Medications Generic Name Dose Route Start Last Admin Trade Name Freq PRN Reason Stop Dose Admin Acetaminophen 650 mg 04/05/17 06:30 04/05/17 06:44 Tylenol 650mg/20.3ml Solution Ud PO 650 mg Q6 PRN Administration Fever >100.4 F Albuterol/Ipratropium 3 ml 04/01/17 04:00 04/08/17 07:38 Duoneb 3 Mg/0.5 Mg (3 Ml) Ud INH 3 ml RQ4 [facility] Administration Aspirin 81 mg 04/01/17 09:00 04/07/17 11:16 Ecotrin PO 81 mg DAILY [facility] Administration Carvedilol 3.125 mg 04/01/17 21:00 04/07/17 20:14 Coreg PO 3.125 mg Q12 [facility] Administration Enalapril Maleate 2.5 mg 04/05/17 16:30 04/07/17 11:16 Vasotec NG 2.5 mg DAILY [facility] Administration Enoxaparin Sodium 40 mg 04/07/17 09:00 04/07/17 09:02 Lovenox SC 40 mg DAILY [facility] Administration Protocol Vancomycin HCl 1 gm/ Sodium 250 mls @ 166.667 mls/hr 04/01/17 09:00 04/07/17 20:12 Chloride IVPB 166.667 mls/hr Q12 [facility] Administration Azithromycin 500 mg/ Sodium 250 mls @ 250 mls/hr 04/01/17 09:00 04/07/17 11: 12 Chloride IVPB 250 mls/hr DAILY [facility] Administration Meropenem 1 gm/ Sodium 100 mls @ 100 mls/hr 04/03/17 20:30 04/08/17 00:13 Chloride IVPB 100 mls/hr Q8 [facility] Administration Lorazepam 1 mg 04/01/17 21:02 04/05/17 10:42 Ativan IVP 1 mg Q6 PRN Administration Agitation Nicotine 1 patch 04/01/17 09:00 04/07/17 11:17 Nicoderm Cq TD Not Given DAILY [facility] Pantoprazole Sodium 40 mg 04/04/17 12:30 04/07/17 09:01 Protonix Inj IVP 40 mg DAILY [facility] Administration Thiamine HCl 100 mg 04/07/17 15:45 04/07/17 16:44 Vitamin B1 Tab NG 100 mg DAILY [facility] Administration - Patient Studies Lab Studies: Microbiology Studies 04/02/17 17:00 Blood Culture - Final Blood-Venous NO GROWTH AFTER 5 DAYS Gram Stain - Final TEST NOT PERFORMED 04/02/17 17:00 Blood Culture - Final Blood-Venous NO GROWTH AFTER 5 DAYS Gram Stain - Final TEST NOT PERFORMED 04/05/17 16:40 Blood Culture - Preliminary Blood-Venous NO GROWTH AFTER 48 HOURS 04/05/17 16:45 Urine Culture - Final Urine,Marcano No Growth (<1,000 CFU/ML) 04/02/17 10:45 Blood Culture - Final Blood NO GROWTH AFTER 5 DAYS Gram Stain - Final TEST NOT PERFORMED 04/02/17 10:40 Blood Culture - Final Blood NO GROWTH AFTER 5 DAYS Gram Stain - Final TEST NOT PERFORMED Lab Studies 04/08/17 04/08/17 04/08/17 Range/Units 05:46 05:30 05:30 WBC 9.2 (4.8-10.8) K/uL RBC 3.57 L (4.40-5.90) Mil/uL Hgb 10.7 L (12.0-18.0) g/dL Hct 32.7 L (35.0-51.0) % MCV 91.5 (80.0-94.0) fl MCH 30.1 (27.0-31.0) pg MCHC 32.9 L (33.0-37.0) g/dL RDW 14.1 (11.5-14.5) % Plt Count 315 (130-400) K/uL pCO2 45 (35-45) mm/Hg pO2 70 L (80-100) mm/Hg HCO3 31.8 H (21-28) mmol/L ABG pH 7.48 H (7.35-7.45) ABG Total CO2 34.9 H (22-28) mmol/L ABG O2 Saturation 97.1 (95-98) % ABG O2 Content 14.7 L (15-23) ML/dL ABG Base Excess 8.9 H (-2.0-3.0) mmol/L ABG Hemoglobin 11.2 L (11.7-17.4) g/dL ABG Carboxyhemoglobin 2.0 H (0.5-1.5) % POC ABG HHb (Measured) 2.8 (0.0-5.0) % ABG Methemoglobin 2.1 (0.0-3.0) % ABG O2 Capacity 15.1 L (16-24) mL/dL Raúl Test Yes A-a O2 Difference 159.0 mm/Hg Hgb O2 Saturation 93.1 L (95.0-98.0) % Vent Mode Prvc/ac Mechanical Rate 12 FiO2 40.0 % Tidal Volume 500 PEEP 5 Sodium 140 (132-148) mmol/l Potassium 3.8 (3.6-5.0) MMOL/L Chloride 101 (98-107) mmol/L Carbon Dioxide 31 H (22-30) mmol/L Anion Gap 12 (10-20) BUN 19 (9-20) mg/dl Creatinine 0.7 L (0.8-1.5) mg/dL Est GFR ( Amer) > 60 Est GFR (Non-Af Amer) > 60 Random Glucose 91 (75-110) mg/dL Calcium 8.0 L (8.4-10.2) mg/dL Laboratory Results - last 24 hr 04/08/17 04/08/17 04/08/17 05:30 05:30 05:46 WBC 9.2 RBC 3.57 L Hgb 10.7 L Hct 32.7 L MCV 91.5 MCH 30.1 MCHC 32.9 L RDW 14.1 Plt Count 315 pCO2 45 pO2 70 L HCO3 31.8 H ABG pH 7.48 H ABG Total CO2 34.9 H ABG O2 Saturation 97.1 ABG O2 Content 14.7 L ABG Base Excess 8.9 H ABG Hemoglobin 11.2 L ABG Carboxyhemoglobin 2.0 H POC ABG HHb (Measured) 2.8 ABG Methemoglobin 2.1 ABG O2 Capacity 15.1 L Raúl Test Yes A-a O2 Difference 159.0 Hgb O2 Saturation 93.1 L Vent Mode Prvc/ac Mechanical Rate 12 FiO2 40.0 Tidal Volume 500 PEEP 5 Sodium 140 Potassium 3.8 Chloride 101 Carbon Dioxide 31 H Anion Gap 12 BUN 19 Creatinine 0.7 L Est GFR ( Amer) > 60 Est GFR (Non-Af Amer) > 60 Random Glucose 91 Calcium 8.0 L Critical Care Progress Note - Nutrition Nutrition: Nutrition Category Date Time Status NPO Diet [DIET] Diets 04/03/17 Breakfast Active Assessment/Plan - Assessment and Plan (Free Text) Assessment: A/P Respiratory failure, pneumonia, sepsis, metabolic encephalopathy, ETOH abuse, rahbdomyalitis, elevated troponin, CHF - ventilatory support - Weaning as tolerated - continue meds - Pulmonary toilets critical care 35 min
--- NOTE | 2017-04-08 09:37 | CP.PCM.PN ---
Subjective - Date & Time of Evaluation Date of Evaluation: 04/08/17 Time of Evaluation: 08:00 - Subjective Subjective: Patient seen and examined bedside.Awake, alert oriented , following commands, calm , cooperative in NAD. Intubated on MV PRVC/Ac mode 12/500/5/40% , with ABG this Am 45/70/31/7.4 CXR showed improved congestion from yesterday No acute issues overnight. Was on CPAP mode yesterday and tolerated well until started getting tachypneic with lower PS so was placved back on PRVC/ Ac mode overnight changed to CPAp mode this AM with PS 12 and FIO2 40 % BP 9104/55 Tmax 100.1 last 24 hours HR 76 WBC 9.4 Hgb 10.7 OGT with Jevity @ 70 ml/hr Vernon in place with good urine output I/O [id number]/90411 on soft restrains for safety and Propofol for mild sedation Objective - Vital Signs/Intake and Output Vital Signs (last 24 hours): Temp Pulse Resp BP Pulse Ox 99.5 F 76 19 104/55 L 100 04/08/17 04:00 04/08/17 04:00 04/08/17 04:00 04/08/17 04:00 04/08/17 04:00 Intake and Output: 04/08/17 04/08/17 06:59 18:59 Intake Total 1960 Output Total 550 Balance 1410 - Medications Medications: Current Medications Acetaminophen (Tylenol 650mg/20.3ml Solution Ud) 650 mg PO Q6 PRN PRN Reason: Fever >100.4 F Last Admin: 04/05/17 06:44 Dose: 650 mg Albuterol/Ipratropium (Duoneb 3 Mg/0.5 Mg (3 Ml) Ud) 3 ml INH RQ4 [facility] Last Admin: 04/08/17 07:38 Dose: 3 ml Aspirin (Ecotrin) 81 mg PO DAILY [facility] Last Admin: 04/07/17 11:16 Dose: 81 mg Carvedilol (Coreg) 3.125 mg PO Q12 [facility] Last Admin: 04/07/17 20:14 Dose: 3.125 mg Enalapril Maleate (Vasotec) 2.5 mg NG DAILY [facility] Last Admin: 04/07/17 11:16 Dose: 2.5 mg Enoxaparin Sodium (Lovenox) 40 mg SC DAILY [facility] PRN Reason: Protocol Last Admin: 04/07/17 09:02 Dose: 40 mg Furosemide (Lasix) 40 mg IVP DAILY [facility] Vancomycin HCl 1 gm/ Sodium (Chloride) 250 mls @ 166.667 mls/hr IVPB Q12 [facility] Last Admin: 04/07/17 20:12 Dose: 166.667 mls/hr Azithromycin 500 mg/ Sodium (Chloride) 250 mls @ 250 mls/hr IVPB DAILY [facility] Last Admin: 04/07/17 11:12 Dose: 250 mls/hr Meropenem 1 gm/ Sodium (Chloride) 100 mls @ 100 mls/hr IVPB Q8 [facility] Last Admin: 04/08/17 00:13 Dose: 100 mls/hr Lorazepam (Ativan) 1 mg IVP Q6 PRN PRN Reason: Agitation Last Admin: 04/05/17 10:42 Dose: 1 mg Nicotine (Nicoderm Cq) 1 patch TD DAILY [facility] Last Admin: 04/07/17 11:17 Dose: Not Given Pantoprazole Sodium (Protonix Inj) 40 mg IVP DAILY [facility] Last Admin: 04/07/17 09:01 Dose: 40 mg Thiamine HCl (Vitamin B1 Tab) 100 mg NG DAILY [facility] Last Admin: 04/07/17 16:44 Dose: 100 mg - Labs Labs: 04/08/17 05:30 04/08/17 05:30 PT 13.7 Seconds (9.8-13.1) H 04/05/17 05:00 INR 1.3 (0.9-1.2) H 04/05/17 05:00 APTT 35.2 Seconds (25.6-37.1) 03/31/17 21:50 - Constitutional Appears: Well, Non-toxic, No Acute Distress - Head Exam Head Exam: NORMAL INSPECTION, NORMOCEPHALIC Additional comments: left frontal area, nasal bridge and lower lip abrasions - Eye Exam Eye Exam: EOMI, Normal appearance, PERRL Pupil Exam: NORMAL ACCOMODATION - ENT Exam ENT Exam: Mucous Membranes Moist, Normal Exam - Neck Exam Neck Exam: Full ROM, Normal Inspection - Respiratory Exam Respiratory Exam: NORMAL BREATHING PATTERN. absent: Accessory Muscle Use, Prolonged Expiratory Phase, Rales, Rhonchi, Wheezes, Respiratory Distress Additional comments: coarse breath sounds bilateral - Cardiovascular Exam Cardiovascular Exam: REGULAR RHYTHM, RRR, +S1, +S2. absent: JVD - GI/Abdominal Exam GI & Abdominal Exam: Soft, Normal Bowel Sounds. absent: Distended, Guarding, Tenderness, Rebound - Rectal Exam Rectal Exam: Deferred - Extremities Exam Extremities Exam: Full ROM, Normal Capillary Refill, Normal Inspection. 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 Falling twice receiving trauma to the left side of the face and left forehead, laceration to his lower lip and nose. He began having non productive cough with chills and diarrhea on the day of admission. In the ED the Temperature was 103.6F with HR of 125/min. Patient admitted to ICU for Sepsis, acute hypoxemic respiratory failure. At present intubated on MV PRVC / Ac mode , awake ,alert ,calm , follows commands . CXR shows improved congestion. Will place on CPAP mode and start weaning trial . 1. Sepsis-- improving Most likely secondary to multifocal Pneumonia blood , urine , sputum cx-- with no growth so far CXR today showed improvement of vascular congestion and infiltrates Will start weaning trial in Am. Will give lasix 40 mg Iv stat placed on CPAP PS 12 FIo2 40 % Continue Meropenem IV, Vanco and Zithromax ID , pulmonary on consult Legionella + 2.Acute hypoxemic respiratory failure secondary to Multifocal Pneumonia Intubated ON MV PRVC/AC mode at present but much improved, awake CXR today showed improvement of congestion and infiltrates Placed on CPAP and started weaning trial Will give Lasix 40 mg IV stat Continue IV antibiotics( Meropenem, Vanco and Zithromax ), Duonebs Pulmonary on consult will try to extubate if patient tolerates well weaning trial 3. Metabolic encephalopathy-- resolved Patient was confused , agitated, restless , lethargic Multifactorial :most likely secondary to hypoxemia,sepsis and possible ETOH withdrawal Start weaning trials hold propofol as per weaning protocol Thiamine, folic acid and MVI 4. Suspected ETOH withdrawal / Impending DT-s -- resolved patient was tachycardic , delirius , agitated , flushed At present calm on very low dose of propofol continue Thiamine, Folic acid and MVI 5. Rhabdomyolysis most likely due to muscle injury caused by the [place] [address] to 1100 d/c IVF since patient is on positive balance 6.Hyponatremia - resolved probably due to SIADH caused by the legionella Pneumonia 7.Elevated Troponin Probably secondary to cardiac trauma Consult with Dr Atkinson appreciated was on Lovenox Therapeutic dose Q12H and now only on prophylactic dose no statin due to elevated LFT-s, CPK echo showed global hypokinesis and EF 30-35 % No cardiac intervention at present Started Coreg,Enalapril and ASA 8.Hypophosphatemia Repleted with Neutro Phos 9. Imbalance with Multiple falls CT head showed no acute pathology OT/PT evaluation and Treatment once stable 10. Mild pulmonary congestion most likely CHF systolic dysfunction EF 30-35% with global hypokinesis Cardiology on consult monitor I/O lasix 40 mg IV daily Continue ASa, coreg, enalapril 11.Transaminitis secondary to the muscle injury and sepsis improving 12. Nicotine Addiction Nicotine Patch 13. Coagulopathy with elevated INR Vitamin K 5mg given repeat INR 1.3 14. Subluxation of the left temporomandibular joint Pain management PRN 15.Cholelithiasis Stable 16. DVT Prophylaxis with SCD and Lovenox
--- NOTE | 2017-04-08 10:02 | CP.PCM.PN ---
Subjective - Date & Time of Evaluation Date of Evaluation: 04/08/17 Time of Evaluation: 10:01 - Subjective Subjective: still on the vent awake and alert Objective - Vital Signs/Intake and Output Vital Signs (last 24 hours): Temp Pulse Resp BP Pulse Ox 99.5 F 76 19 104/55 L 100 04/08/17 04:00 04/08/17 04:00 04/08/17 04:00 04/08/17 04:00 04/08/17 04:00 Intake and Output: 04/08/17 04/08/17 06:59 18:59 Intake Total 1960 Output Total 550 Balance 1410 - Medications Medications: Current Medications Acetaminophen (Tylenol 650mg/20.3ml Solution Ud) 650 mg PO Q6 PRN PRN Reason: Fever >100.4 F Last Admin: 04/05/17 06:44 Dose: 650 mg Albuterol/Ipratropium (Duoneb 3 Mg/0.5 Mg (3 Ml) Ud) 3 ml INH RQ4 [facility] Last Admin: 04/08/17 07:38 Dose: 3 ml Aspirin (Ecotrin) 81 mg PO DAILY [facility] Last Admin: 04/07/17 11:16 Dose: 81 mg Carvedilol (Coreg) 3.125 mg PO Q12 [facility] Last Admin: 04/07/17 20:14 Dose: 3.125 mg Enalapril Maleate (Vasotec) 2.5 mg NG DAILY [facility] Last Admin: 04/07/17 11:16 Dose: 2.5 mg Enoxaparin Sodium (Lovenox) 40 mg SC DAILY [facility] PRN Reason: Protocol Last Admin: 04/07/17 09:02 Dose: 40 mg Furosemide (Lasix) 40 mg IVP DAILY [facility] Vancomycin HCl 1 gm/ Sodium (Chloride) 250 mls @ 166.667 mls/hr IVPB Q12 [facility] Last Admin: 04/07/17 20:12 Dose: 166.667 mls/hr Azithromycin 500 mg/ Sodium (Chloride) 250 mls @ 250 mls/hr IVPB DAILY [facility] Last Admin: 04/07/17 11:12 Dose: 250 mls/hr Meropenem 1 gm/ Sodium (Chloride) 100 mls @ 100 mls/hr IVPB Q8 [facility] Last Admin: 04/08/17 00:13 Dose: 100 mls/hr Lorazepam (Ativan) 1 mg IVP Q6 PRN PRN Reason: Agitation Last Admin: 04/05/17 10:42 Dose: 1 mg Nicotine (Nicoderm Cq) 1 patch TD DAILY [facility] Last Admin: 04/07/17 11:17 Dose: Not Given Pantoprazole Sodium (Protonix Inj) 40 mg IVP DAILY [facility] Last Admin: 04/07/17 09:01 Dose: 40 mg Thiamine HCl (Vitamin B1 Tab) 100 mg NG DAILY [facility] Last Admin: 04/07/17 16:44 Dose: 100 mg - Labs Labs: 04/08/17 05:30 04/08/17 05:30 PT 13.7 Seconds (9.8-13.1) H 04/05/17 05:00 INR 1.3 (0.9-1.2) H 04/05/17 05:00 APTT 35.2 Seconds (25.6-37.1) 03/31/17 21:50 - Constitutional Appears: No Acute Distress - Head Exam Head Exam: ATRAUMATIC, NORMAL INSPECTION, NORMOCEPHALIC - Eye Exam Eye Exam: EOMI, Normal appearance, PERRL Pupil Exam: NORMAL ACCOMODATION, PERRL - ENT Exam ENT Exam: Mucous Membranes Moist, Normal Exam - Neck Exam Neck Exam: Full ROM, Normal Inspection. absent: Lymphadenopathy - Respiratory Exam Respiratory Exam: Clear to Ausculation Bilateral Additional comments: still on the vent - Cardiovascular Exam Cardiovascular Exam: REGULAR RHYTHM, +S1, +S2. absent: Murmur - GI/Abdominal Exam GI & Abdominal Exam: Soft, Normal Bowel Sounds. absent: Tenderness - Rectal Exam Rectal Exam: NORMAL INSPECTION - Extremities Exam Extremities Exam: Full ROM, Normal Capillary Refill, Normal Inspection. absent : Joint Swelling, Pedal Edema - Back Exam Back Exam: NORMAL INSPECTION - Neurological Exam Neurological Exam: Alert, Awake, CN II-XII Intact, Normal Gait, Oriented x3 - Psychiatric Exam Psychiatric exam: Normal Affect, Normal Mood - Skin Skin Exam: Dry, Intact, Normal Color, Warm Assessment and Plan - Assessment and Plan (Free Text) Assessment: respiratory failure improved Plan: attempt to extubate today
[2017-04-08] MEDS: Enoxaparin 40 mg Syringe SC SCH (10:12)
[2017-04-08] MEDS: Azithromycin 500 MG in Sodium Chloride 0.9% 250 ML IVPB SCH (10:23)
--- NOTE | 2017-04-08 15:05 | PN ---
DATE: SUBJECTIVE: The patient was extubated today. He appears comfortable on VentiMask. He is not aware of any prior cardiac history. He does admit to drinking heavily in the past. PHYSICAL EXAMINATION: VITAL SIGNS: Blood pressure 122/70, heart rate 88, temperature 99.5, and respirations 19. HEENT: Normocephalic. CHEST: Bibasilar course crepitations. HEART: S1 and S2 regular. ABDOMEN: Soft. EXTREMITIES: No edema. LABORATORY DATA: Hemoglobin and hematocrit 10.7 and 32.7. White count and platelet count are within normal limits. SMA-7 is within normal limits, except for carbon dioxide of 31 and creatinine is 0.7. ASSESSMENT: 1. Status post respiratory failure. 2. Cardiomyopathy. 3. Legionella pneumonia. 4. Mild anemia. 5. Cannabinoid abuse. RECOMMENDATIONS: Continue current IV Zithromax, IV meropenem, and IV vancomycin. Continue Vasotec 2.5 mg orally daily, thiamine 100 mg orally daily, Lasix 40 mg intravenously daily, aspirin 81 mg once a day, and Coreg 3.125 mg twice a day. Cardiac workup will be considered once the patient has completed evaluation of his pneumonia and he fully capable to managing his decision and outcome of his decisions. Case was discussed with the charging manipulator. Marcio Atkinson MD
--- NOTE | 2017-04-08 18:08 | RAD ---
PROCEDURE: CHEST RADIOGRAPH, 1 VIEW HISTORY: pneumonia COMPARISON: Comparison is made to 04/07/2017 FINDINGS: LUNGS: Interval mild improvement in the lungs since the previous exam. The ET tube is seen at appropriate position. PLEURA: Suspicious for small bilateral pleural effusions CARDIOVASCULAR: The cardiac silhouette is enlarged. OSSEOUS STRUCTURES: No significant abnormalities. VISUALIZED UPPER ABDOMEN: Normal. OTHER FINDINGS: None. IMPRESSION: Mild improvement in the lungs. Appropriate position of of the ETT. Possible small bilateral pleural effusions.
[2017-04-09] MEDS: Meropenem 1 GM in Sodium Chloride 0.9% 100 ML IVPB SCH ×2 (00:49→10:02)
[2017-04-09] MEDS: Albuterol-Ipratrop 3 mg / 0.5 (3 ml) UD INH SCH ×5 (05:34→19:16)
[2017-04-09 05:46] LABS: HEMATOCRIT 34.3 % (35.0-51.0); MEAN CORPUSCULAR HGB CONC 32.9 g/dL (33.0-37.0); RED CELL DISTRIBUTION WIDTH 13.5 % (11.5-14.5); WHITE BLOOD COUNT 9.8 K/uL (4.8-10.8)
[2017-04-09 05:53] LABS: ALKALINE PHOSPHATASE 61 U/L (38-126); ALT/SGPT 113 U/L (21-72); AST/SGOT 92 U/L (17-59); BILIRUBIN,TOTAL 0.9 mg/dl (0.2-1.3); BLOOD UREA NITROGEN 17 mg/dl (9-20); CALCIUM 8.1 mg/dL (8.4-10.2); CARBON DIOXIDE 30 mmol/L (22-30); CHLORIDE 101 mmol/L (98-107); GFR AFRICAN-AMERICAN > 60; GLUCOSE,RANDOM 93 mg/dL (75-110); POTASSIUM 3.7 MMOL/L (3.6-5.0); SODIUM 137 mmol/l (132-148); TOTAL PROTEIN 5.6 G/DL (6.3-8.2)
[2017-04-09 06:02] LABS: ALB/GLOB RATIO 0.9 (1.0-2.1)
--- NOTE | 2017-04-09 08:16 | RAD ---
PROCEDURE: CHEST RADIOGRAPH, 1 VIEW HISTORY: pneumonia COMPARISON: April 08, 2017. Study performed 08:40 FINDINGS: LUNGS: Clear. PLEURA: No pneumothorax or pleural fluid seen. CARDIOVASCULAR: Cardiomegaly. No evidence of acute, significant cardiovascular disease. OSSEOUS STRUCTURES: No significant abnormalities. VISUALIZED UPPER ABDOMEN: Normal. OTHER FINDINGS: Removal of support apparatus since the prior study: Endotracheal tube and nasogastric tube. IMPRESSION: No active disease.
[2017-04-09] MEDS: Azithromycin 500 MG in Sodium Chloride 0.9% 250 ML IVPB SCH (09:05)
--- NOTE | 2017-04-09 09:17 | CP.PCM.PN ---
Subjective - Date & Time of Evaluation Date of Evaluation: 04/09/17 Time of Evaluation: 09:18 - Subjective Subjective: EXTUBATED NO APPARENT DISTRESS NO CHEST PAINS/SOB AWAKE/ALERT AND ORIENTED X 3 Objective - Vital Signs/Intake and Output Vital Signs (last 24 hours): Temp Pulse Resp BP Pulse Ox 98.8 F 91 H 26 H 120/69 100 04/09/17 08:00 04/09/17 08:00 04/09/17 08:00 04/09/17 08:00 04/09/17 08:00 Intake and Output: 04/09/17 04/09/17 06:59 18:59 Intake Total 400 Output Total 1250 Balance -850 - Medications Medications: Current Medications Acetaminophen (Tylenol 650mg/20.3ml Solution Ud) 650 mg PO Q6 PRN PRN Reason: Fever >100.4 F Last Admin: 04/05/17 06:44 Dose: 650 mg Albuterol/Ipratropium (Duoneb 3 Mg/0.5 Mg (3 Ml) Ud) 3 ml INH RQ4 [facility] Last Admin: 04/09/17 07:49 Dose: 3 ml Aspirin (Ecotrin) 81 mg PO DAILY [facility] Last Admin: 04/08/17 10:12 Dose: 81 mg Carvedilol (Coreg) 3.125 mg PO Q12 [facility] Last Admin: 04/08/17 20:58 Dose: 3.125 mg Enalapril Maleate (Vasotec) 2.5 mg NG DAILY [facility] Last Admin: 04/08/17 10:13 Dose: 2.5 mg Enoxaparin Sodium (Lovenox) 40 mg SC DAILY [facility] PRN Reason: Protocol Last Admin: 04/08/17 10:12 Dose: 40 mg Furosemide (Lasix) 40 mg IVP DAILY [facility] Vancomycin HCl 1 gm/ Sodium (Chloride) 250 mls @ 166.667 mls/hr IVPB Q12 [facility] Last Admin: 04/08/17 20:58 Dose: 166.667 mls/hr Azithromycin 500 mg/ Sodium (Chloride) 250 mls @ 250 mls/hr IVPB DAILY [facility] Last Admin: 04/08/17 10:23 Dose: 250 mls/hr Meropenem 1 gm/ Sodium (Chloride) 100 mls @ 100 mls/hr IVPB Q8 [facility] Last Admin: 04/09/17 00:49 Dose: 100 mls/hr Lorazepam (Ativan) 1 mg IVP Q6 PRN PRN Reason: Agitation Last Admin: 04/05/17 10:42 Dose: 1 mg Nicotine (Nicoderm Cq) 1 patch TD DAILY [facility] Last Admin: 04/08/17 10:13 Dose: 1 patch Pantoprazole Sodium (Protonix Inj) 40 mg IVP DAILY [facility] Last Admin: 04/08/17 10:13 Dose: 40 mg Thiamine HCl (Vitamin B1 Tab) 100 mg NG DAILY [facility] Last Admin: 04/08/17 10:13 Dose: 100 mg - Labs Labs: 04/09/17 04:15 04/09/17 04:15 PT 13.7 Seconds (9.8-13.1) H 04/05/17 05:00 INR 1.3 (0.9-1.2) H 04/05/17 05:00 APTT 35.2 Seconds (25.6-37.1) 03/31/17 21:50 - Constitutional Appears: Well - Head Exam Head Exam: ATRAUMATIC, NORMAL INSPECTION, NORMOCEPHALIC - Eye Exam Eye Exam: EOMI, Normal appearance, PERRL Pupil Exam: NORMAL ACCOMODATION, PERRL - ENT Exam ENT Exam: Mucous Membranes Moist, Normal Exam - Neck Exam Neck Exam: Full ROM, Normal Inspection. absent: Lymphadenopathy - Respiratory Exam Respiratory Exam: Clear to Ausculation Bilateral, NORMAL BREATHING PATTERN - Cardiovascular Exam Cardiovascular Exam: REGULAR RHYTHM, +S1, +S2. absent: Murmur - GI/Abdominal Exam GI & Abdominal Exam: Soft, Normal Bowel Sounds. absent: Tenderness - Rectal Exam Rectal Exam: NORMAL INSPECTION - Extremities Exam Extremities Exam: Full ROM, Normal Capillary Refill, Normal Inspection. absent : Joint Swelling, Pedal Edema - Back Exam Back Exam: NORMAL INSPECTION - Neurological Exam Neurological Exam: Alert, Awake, CN II-XII Intact, Normal Gait, Oriented x3 - Psychiatric Exam Psychiatric exam: Normal Affect, Normal Mood - Skin Skin Exam: Dry, Intact, Normal Color, Warm Assessment and Plan - Assessment and Plan (Free Text) Assessment: RESPIRATORY FAILURE RESOLVED Plan: NO FURTHER PULMONARY INTERVENTION FOR NOW WILL SIN OFF CASE
--- NOTE | 2017-04-09 09:23 | PN ---
SUBJECTIVE: The patient . FiO2 was increased as the patient was desaturating. No reports of ventricular arrhythmia. PHYSICAL EXAMINATION: VITAL SIGNS: Blood pressure 122/73, heart rate 89, temperature 98.9. HEENT: Frontal bruising. NECK: . CHEST: Left basilar course and crepitations. HEART: S1 and S2 regular. EXTREMITIES: No edema. LABORATORY DATA: Hemoglobin and hematocrit 11.6 and 35.1; white count and platelet count are within normal limit. SMA-7: Sodium 140, potassium 3.9, chloride 104, CO2 of 31, glucose 112, BUN 19, creatinine 0.6. ASSESSMENT: 1. Legionella pneumonia. 2. Respiratory failure. 3. Congestive heart failure. 4. History of ETOH abuse. RECOMMENDATIONS: Continue current IV Zithromax, IV meropenem and IV vancomycin. Continue 2.5 mg daily via nasogastric tube. Therapeutic subcutaneous Lovenox may be reduced to 40 mg daily. Continue aspirin 81 mg once a day. Lasix is 40 mg intravenously daily and Coreg at 3.125 mg twice a day. Marcio Atkinson MD
[2017-04-09] MEDS: Enoxaparin 40 mg Syringe SC SCH (10:00)
--- NOTE | 2017-04-09 10:54 | CP.PCM.PN ---
<Juanita Duron - Last Filed: 04/09/17 15:29> Subjective - Date & Time of Evaluation Date of Evaluation: 04/09/17 Time of Evaluation: 09:45 - Subjective Subjective: Patient seen and examined. AAOx3, NAD, Afebrile, Extubated last night, Breathing comfortably on NS, sat 100%, +BM, marcano in place. No acute issue overnight, had applesauce last night and tolerated well. patient denies and N/V , chest/abdo pain or SOB. Objective - Vital Signs/Intake and Output Vital Signs (last 24 hours): Temp Pulse Resp BP Pulse Ox 98.8 F 91 H 26 H 120/69 100 04/09/17 08:00 04/09/17 09:59 04/09/17 08:00 04/09/17 10:00 04/09/17 08:00 Intake and Output: 04/09/17 04/09/17 06:59 18:59 Intake Total 400 Output Total 1250 Balance -850 - Medications Medications: Current Medications Acetaminophen (Tylenol 650mg/20.3ml Solution Ud) 650 mg PO Q6 PRN PRN Reason: Fever >100.4 F Last Admin: 04/05/17 06:44 Dose: 650 mg Albuterol/Ipratropium (Duoneb 3 Mg/0.5 Mg (3 Ml) Ud) 3 ml INH RQ4 [facility] Last Admin: 04/09/17 07:49 Dose: 3 ml Aspirin (Ecotrin) 81 mg PO DAILY [facility] Last Admin: 04/09/17 10:00 Dose: 81 mg Carvedilol (Coreg) 3.125 mg PO Q12 [facility] Last Admin: 04/09/17 09:59 Dose: 3.125 mg Enalapril Maleate (Vasotec) 2.5 mg NG DAILY [facility] Last Admin: 04/09/17 10:01 Dose: 2.5 mg Enoxaparin Sodium (Lovenox) 40 mg SC DAILY [facility] PRN Reason: Protocol Last Admin: 04/09/17 10:00 Dose: 40 mg Furosemide (Lasix) 40 mg IVP DAILY [facility] Last Admin: 04/09/17 10:00 Dose: 40 mg Vancomycin HCl 1 gm/ Sodium (Chloride) 250 mls @ 166.667 mls/hr IVPB Q12 [facility] Last Admin: 04/08/17 20:58 Dose: 166.667 mls/hr Azithromycin 500 mg/ Sodium (Chloride) 250 mls @ 250 mls/hr IVPB DAILY [facility] Last Admin: 04/08/17 10:23 Dose: 250 mls/hr Meropenem 1 gm/ Sodium (Chloride) 100 mls @ 100 mls/hr IVPB Q8 [facility] Last Admin: 04/09/17 10:02 Dose: 100 mls/hr Lorazepam (Ativan) 1 mg IVP Q6 PRN PRN Reason: Agitation Last Admin: 04/05/17 10:42 Dose: 1 mg Nicotine (Nicoderm Cq) 1 patch TD DAILY [facility] Last Admin: 04/09/17 10:01 Dose: 1 patch Pantoprazole Sodium (Protonix Inj) 40 mg IVP DAILY [facility] Last Admin: 04/09/17 10:01 Dose: 40 mg Thiamine HCl (Vitamin B1 Tab) 100 mg NG DAILY [facility] Last Admin: 04/09/17 10:01 Dose: 100 mg - Labs Labs: 04/09/17 04:15 04/09/17 04:15 PT 13.7 Seconds (9.8-13.1) H 04/05/17 05:00 INR 1.3 (0.9-1.2) H 04/05/17 05:00 APTT 35.2 Seconds (25.6-37.1) 03/31/17 21:50 - Constitutional Appears: No Acute Distress - Head Exam Additional comments: left frontal area, nasal bridge and lower lip abrasions - Eye Exam Eye Exam: Normal appearance, PERRL Pupil Exam: NORMAL ACCOMODATION - ENT Exam ENT Exam: Mucous Membranes Moist - Neck Exam Neck Exam: Normal Inspection - Respiratory Exam Respiratory Exam: Clear to Ausculation Bilateral, NORMAL BREATHING PATTERN - Cardiovascular Exam Cardiovascular Exam: REGULAR RHYTHM, +S1, +S2 - GI/Abdominal Exam GI & Abdominal Exam: Soft, Hypoactive Bowel Sounds - Back Exam Back Exam: Full ROM. absent: CVA tenderness (L), CVA tenderness (R) - Neurological Exam Neurological Exam: Alert, Awake, Oriented x3 Neuro motor strength exam: Left Upper Extremity: 5, Right Upper Extremity: 5, Left Lower Extremity: 5, Right Lower Extremity: 5 - Psychiatric Exam Psychiatric exam: Normal Affect, Normal Mood - Skin Skin Exam: Dry, Intact, Normal Color, Warm Assessment and Plan - Assessment and Plan (Free Text) Assessment: A/P: 51 yr old M with PMHx of Alcohol/Cig/marijuana use admitted to ICU for sepsis and acute respiratory failure requiring intubation secondary to Multifocal pneumonia, hyperphosphatemia/Rahbdo, metabolic encephalopathy, ETOH abuse and elevated serial troponins. Patient was intubated on PRVC/AC vent mode due to ABG low Po2, Extubated last night and on NC, O2 sat 100%. +BM, Afebrile and HD stable. Sepsis, possibly secondary to multifocal Pneumonia -Afebrile -blood , urine , sputum cx- with no growth -Legionella + -Improved CXR today, lungs: clear, no pneumot or plural effusion, improved vascular congestion and infiltrates -ID and pulmonary on consult -Continue Meropenem IV day#7, Vanco day#9 and Zithromax day#9 -Vanc T 6.2 on 04/07, will continue monitoring -Extubated last night, pt is stable -As per Dr. Khalil- no further Pulm interventions as this point Acute hypoxemic respiratory failure secondary to Multifocal Pneumonia -Improved. O2 Sat 100% on NC, Duoneb -Patient was extubated, HD stable, CXR improved -Pulmonary Dr. Khalil- pt is stable and doesn't need any interventions Metabolic encephalopathy -Resolved -Multifactorial :most likely secondary to hypoxemia,sepsis and possible ETOH withdrawal -Patient is AAOx3 -Continue Thiamine -Continue Protonix 40mg IVP daily Suspected ETOH withdrawal / Impending DT -Resolved -continue Thiamine 100mg NG daily -Ativan 1mg IVP Q6PRN Rhabdomyolysis -most likely due to muscle injury caused by the Falls -CPK trending down from -->1100-->1034-->419 today Hyponatremia -Resolved -probably due to SIADH caused by the legionella Pneumonia Elevated Troponin -Probably secondary to cardiac trauma -Consult with Dr Atkinson appreciated -no statin due to elevated LFT-s, CPK , Trending down, AST/ALT: 92/113 today and CPK: 419 -echo showed global hypokinesis and EF 30-35 % -No cardiac intervention at present -Continue Coreg, Enalapril and ASA Hypophosphatemia -Resolved -3.4 today -Repleted with Neutro Phos Imbalance with Multiple falls -CT head showed no acute pathology -OT/PT evaluation and Treatment once stable Mild pulmonary congestion most likely CHF systolic dysfunction -EF 30-35% with global hypokinesis -Cardiology on consult -monitor I/O -lasix 40 mg IV daily -Continue ASA, coreg, enalapril Transaminitis secondary to the muscle injury and sepsis -improving Nicotine Addiction -Nicotine Patch -urine Tox- positive for cannabis Coagulopathy with elevated INR -Vitamin K 5mg given -PT/INR 13.7/1.3 on 04/05 Subluxation of the left temporomandibular joint -Pain management PRN Cholelithiasis - Stable DVT Prophylaxis -SCD -Lovenox 40mg SC daily <Chayito Diaz - Last Filed: 04/09/17 15:53> Objective - Vital Signs/Intake and Output Vital Signs (last 24 hours): Temp Pulse Resp BP Pulse Ox 98 F 90 22 113/66 95 04/09/17 12:00 04/09/17 14:00 04/09/17 14:00 04/09/17 14:00 04/09/17 14:00 Intake and Output: 04/09/17 04/09/17 06:59 18:59 Intake Total 400 1190 Output Total 1250 1500 Balance -850 -310 - Medications Medications: Current Medications Acetaminophen (Tylenol 650mg/20.3ml Solution Ud) 650 mg PO Q6 PRN PRN Reason: Fever >100.4 F Last Admin: 04/05/17 06:44 Dose: 650 mg Albuterol/Ipratropium (Duoneb 3 Mg/0.5 Mg (3 Ml) Ud) 3 ml INH RQ4 [facility] Last Admin: 04/09/17 15:22 Dose: 3 ml Aspirin (Ecotrin) 81 mg PO DAILY [facility] Last Admin: 04/09/17 10:00 Dose: 81 mg Carvedilol (Coreg) 3.125 mg PO Q12 [facility] Last Admin: 04/09/17 09:59 Dose: 3.125 mg Enalapril Maleate (Vasotec) 2.5 mg NG DAILY [facility] Last Admin: 04/09/17 10:01 Dose: 2.5 mg Enoxaparin Sodium (Lovenox) 40 mg SC DAILY [facility] PRN Reason: Protocol Last Admin: 04/09/17 10:00 Dose: 40 mg Furosemide (Lasix) 40 mg IVP DAILY [facility] Last Admin: 04/09/17 10:00 Dose: 40 mg Azithromycin 500 mg/ Sodium (Chloride) 250 mls @ 250 mls/hr IVPB DAILY [facility] Last Admin: 04/09/17 09:05 Dose: 250 mls/hr Lorazepam (Ativan) 1 mg IVP Q6 PRN PRN Reason: Agitation Last Admin: 04/05/17 10:42 Dose: 1 mg Nicotine (Nicoderm Cq) 1 patch TD DAILY [facility] Last Admin: 04/09/17 10:01 Dose: 1 patch Pantoprazole Sodium (Protonix Inj) 40 mg IVP DAILY [facility] Last Admin: 04/09/17 10:01 Dose: 40 mg Thiamine HCl (Vitamin B1 Tab) 100 mg NG DAILY [facility] Last Admin: 04/09/17 10:01 Dose: 100 mg - Labs Labs: 04/09/17 04:15 04/09/17 04:15 PT 13.7 Seconds (9.8-13.1) H 04/05/17 05:00 INR 1.3 (0.9-1.2) H 04/05/17 05:00 APTT 35.2 Seconds (25.6-37.1) 03/31/17 21:50 Attending/Attestation - Attestation I have personally seen and examined this patient.: Yes I have fully participated in the care of the patient.: Yes I have reviewed all pertinent clinical information, including history, physical exam and plan: Yes Notes (Text): 04/09/17 15:51 51 years old male with no significant medical history, 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 Falling twice receiving trauma to the left side of the face and left forehead, laceration to his lower lip and nose. He began having non productive cough with chills and diarrhea on the day of admission. In the ED the Temperature was 103.6F with HR of 125/min. Patient admitted to ICU for Sepsis, acute hypoxemic respiratory failure. Extubated, doing well. 1. Sepsis-- improving Most likely secondary to multifocal Pneumonia blood , urine , sputum cx-- with no growth so far CXR today showed improvement of vascular congestion and infiltrates Continue Meropenem IV, Vanco and Zithromax ID , pulmonary on consult Legionella + 2.Acute hypoxemic respiratory failure secondary to Multifocal Pneumonia extubated, doing well CXR today showed improvement Continue IV antibiotics( Meropenem, Vanco and Zithromax ), Duonebs Pulmonary on consult 3. Metabolic encephalopathy-- resolved Patient was confused , agitated, restless , lethargic Multifactorial :most likely secondary to hypoxemia,sepsis and possible ETOH withdrawal Start weaning trials hold propofol as per weaning protocol Thiamine, folic acid and MVI 4. Suspected ETOH withdrawal / Impending DT-s -- resolved patient was tachycardic , delirius , agitated , flushed At present calm on very low dose of propofol continue Thiamine, Folic acid and MVI 5. Rhabdomyolysis most likely due to muscle injury caused by the [place] [id number] to 1100 d/c IVF since patient is on positive balance 6.Hyponatremia - resolved probably due to SIADH caused by the legionella Pneumonia 7.Elevated Troponin Probably secondary to cardiac trauma Consult with Dr Atkinson appreciated was on Lovenox Therapeutic dose Q12H and now only on prophylactic dose no statin due to elevated LFT-s, CPK echo showed global hypokinesis and EF 30-35 % No cardiac intervention at present Started Coreg,Enalapril and ASA 8.Hypophosphatemia Repleted with Neutro Phos 9. Imbalance with Multiple falls CT head showed no acute pathology OT/PT evaluation and Treatment once stable 10. Mild pulmonary congestion most likely CHF systolic dysfunction EF 30-35% with global hypokinesis Cardiology on consult monitor I/O lasix 40 mg IV daily Continue ASa, coreg, enalapril 11.Transaminitis secondary to the muscle injury and sepsis improving 12. Nicotine Addiction Nicotine Patch 13. Coagulopathy with elevated INR Vitamin K 5mg given repeat INR 1.3 14. Subluxation of the left temporomandibular joint Pain management PRN 15.Cholelithiasis Stable 16. DVT Prophylaxis with SCD and Lovenox
--- NOTE | 2017-04-09 11:38 | CP.PCM.PN ---
Subjective - Date & Time of Evaluation Date of Evaluation: 04/09/17 Time of Evaluation: 12:30 - Subjective Subjective: ID Note- Pt. seen and examined today in ICU. pt. s/p extubation yesterday and is sitting up in chair and in good spirits. denies any complaints. denies any fever or chills, denies any cough. denies any sob. Objective - Vital Signs/Intake and Output Vital Signs (last 24 hours): Temp Pulse Resp BP Pulse Ox 98.8 F 91 H 26 H 120/69 100 04/09/17 08:00 04/09/17 09:59 04/09/17 08:00 04/09/17 10:00 04/09/17 08:00 Intake and Output: 04/09/17 04/09/17 06:59 18:59 Intake Total 400 Output Total 1250 Balance -850 - Medications Medications: Current Medications Acetaminophen (Tylenol 650mg/20.3ml Solution Ud) 650 mg PO Q6 PRN PRN Reason: Fever >100.4 F Last Admin: 04/05/17 06:44 Dose: 650 mg Albuterol/Ipratropium (Duoneb 3 Mg/0.5 Mg (3 Ml) Ud) 3 ml INH RQ4 [facility] Last Admin: 04/09/17 11:29 Dose: 3 ml Aspirin (Ecotrin) 81 mg PO DAILY [facility] Last Admin: 04/09/17 10:00 Dose: 81 mg Carvedilol (Coreg) 3.125 mg PO Q12 [facility] Last Admin: 04/09/17 09:59 Dose: 3.125 mg Enalapril Maleate (Vasotec) 2.5 mg NG DAILY [facility] Last Admin: 04/09/17 10:01 Dose: 2.5 mg Enoxaparin Sodium (Lovenox) 40 mg SC DAILY [facility] PRN Reason: Protocol Last Admin: 04/09/17 10:00 Dose: 40 mg Furosemide (Lasix) 40 mg IVP DAILY [facility] Last Admin: 04/09/17 10:00 Dose: 40 mg Vancomycin HCl 1 gm/ Sodium (Chloride) 250 mls @ 166.667 mls/hr IVPB Q12 [facility] Last Admin: 04/08/17 20:58 Dose: 166.667 mls/hr Azithromycin 500 mg/ Sodium (Chloride) 250 mls @ 250 mls/hr IVPB DAILY [facility] Last Admin: 04/08/17 10:23 Dose: 250 mls/hr Meropenem 1 gm/ Sodium (Chloride) 100 mls @ 100 mls/hr IVPB Q8 [facility] Last Admin: 04/09/17 10:02 Dose: 100 mls/hr Lorazepam (Ativan) 1 mg IVP Q6 PRN PRN Reason: Agitation Last Admin: 04/05/17 10:42 Dose: 1 mg Nicotine (Nicoderm Cq) 1 patch TD DAILY [facility] Last Admin: 04/09/17 10:01 Dose: 1 patch Pantoprazole Sodium (Protonix Inj) 40 mg IVP DAILY [facility] Last Admin: 04/09/17 10:01 Dose: 40 mg Thiamine HCl (Vitamin B1 Tab) 100 mg NG DAILY [facility] Last Admin: 04/09/17 10:01 Dose: 100 mg - Labs Labs: - Constitutional Appears: No Acute Distress - Neck Exam Neck Exam: Full ROM - Respiratory Exam Respiratory Exam: NORMAL BREATHING PATTERN Additional comments: Good aeration B/L no wheezing no crackles - Cardiovascular Exam Cardiovascular Exam: RRR, +S1, +S2 - GI/Abdominal Exam GI & Abdominal Exam: Soft, Normal Bowel Sounds Additional comments: NT, ND - Extremities Exam Additional comments: no edema b/l LE - Neurological Exam Neurological Exam: Alert, Oriented x3 - Additional Findings Additional findings: Laboratory Results - last 72 hr 04/07/17 04/07/17 04/07/17 05:30 05:30 06:01 WBC RBC Hgb Hct MCV MCH MCHC RDW Plt Count pCO2 52 H pO2 73 L HCO3 30.3 H ABG pH 7.41 ABG Total CO2 34.6 H ABG O2 Saturation 96.5 ABG O2 Content 16.6 ABG Base Excess 7.0 H ABG Hemoglobin 12.6 ABG Carboxyhemoglobin 1.9 H POC ABG HHb (Measured) 3.4 ABG Methemoglobin 1.5 ABG O2 Capacity 17.2 Raúl Test Yes A-a O2 Difference 219.0 Hgb O2 Saturation 93.2 L Vent Mode Simv Mechanical Rate 12 FiO2 50.0 Tidal Volume 500 PEEP 5 Pressure Support 15 Sodium 142 Potassium 4.2 Chloride 103 Carbon Dioxide 31 H Anion Gap 12 BUN 18 Creatinine 0.6 L Est GFR ( Amer) > 60 Est GFR (Non-Af Amer) > 60 Random Glucose 107 Calcium 8.2 L Total Bilirubin 0.7 AST 105 H ALT 113 H Alkaline Phosphatase 62 Total Creatine Kinase 1034 H Total Protein 5.9 L Albumin 3.0 L Globulin 2.9 Albumin/Globulin Ratio 1.0 Vancomycin Trough 6.2 04/08/17 04/08/17 04/08/17 05:30 05:30 05:46 WBC 9.2 RBC 3.57 L Hgb 10.7 L Hct 32.7 L MCV 91.5 MCH 30.1 MCHC 32.9 L RDW 14.1 Plt Count 315 pCO2 45 pO2 70 L HCO3 31.8 H ABG pH 7.48 H ABG Total CO2 34.9 H ABG O2 Saturation 97.1 ABG O2 Content 14.7 L ABG Base Excess 8.9 H ABG Hemoglobin 11.2 L ABG Carboxyhemoglobin 2.0 H POC ABG HHb (Measured) 2.8 ABG Methemoglobin 2.1 ABG O2 Capacity 15.1 L Raúl Test Yes A-a O2 Difference 159.0 Hgb O2 Saturation 93.1 L Vent Mode Prvc/ac Mechanical Rate 12 FiO2 40.0 Tidal Volume 500 PEEP 5 Pressure Support Sodium 140 Potassium 3.8 Chloride 101 Carbon Dioxide 31 H Anion Gap 12 BUN 19 Creatinine 0.7 L Est GFR ( Amer) > 60 Est GFR (Non-Af Amer) > 60 Random Glucose 91 Calcium 8.0 L Total Bilirubin AST ALT Alkaline Phosphatase Total Creatine Kinase Total Protein Albumin Globulin Albumin/Globulin Ratio Vancomycin Trough 04/09/17 04/09/17 04/09/17 04:15 04:15 04:15 WBC 9.8 RBC 3.77 L Hgb 11.3 L Hct 34.3 L MCV 91.0 MCH 30.0 MCHC 32.9 L RDW 13.5 Plt Count 356 pCO2 pO2 HCO3 ABG pH ABG Total CO2 ABG O2 Saturation ABG O2 Content ABG Base Excess ABG Hemoglobin ABG Carboxyhemoglobin POC ABG HHb (Measured) ABG Methemoglobin ABG O2 Capacity Raúl Test A-a O2 Difference Hgb O2 Saturation Vent Mode Mechanical Rate FiO2 Tidal Volume PEEP Pressure Support Sodium 137 Potassium 3.7 Chloride 101 Carbon Dioxide 30 Anion Gap 10 BUN 17 Creatinine 0.6 L Est GFR ( Amer) > 60 Est GFR (Non-Af Amer) > 60 Random Glucose 93 Calcium 8.1 L Total Bilirubin 0.9 AST 92 H ALT 113 H Alkaline Phosphatase 61 Total Creatine Kinase 419 H Total Protein 5.6 L Albumin 2.7 L Globulin 2.9 Albumin/Globulin Ratio 0.9 L Vancomycin Trough Microbiology 04/05/17 16:40 Blood-Venous Blood Culture - Preliminary NO GROWTH AFTER 3 DAYS 04/02/17 17:00 Blood-Venous Blood Culture - Final NO GROWTH AFTER 5 DAYS 04/02/17 17:00 Blood-Venous Gram Stain - Final TEST NOT PERFORMED 04/02/17 17:00 Blood-Venous Blood Culture - Final NO GROWTH AFTER 5 DAYS 04/02/17 17:00 Blood-Venous Gram Stain - Final TEST NOT PERFORMED 04/05/17 16:45 Urine,[place] Urine Culture - Final No Growth (<1,000 CFU/ML) 04/02/17 10:45 Blood Blood Culture - Final NO GROWTH AFTER 5 DAYS 04/02/17 10:45 Blood Gram Stain - Final TEST NOT PERFORMED 04/02/17 10:40 Blood Blood Culture - Final NO GROWTH AFTER 5 DAYS 04/02/17 10:40 Blood Gram Stain - Final TEST NOT PERFORMED 04/04/17 12:49 Trachasp Gram Stain - Final 04/04/17 12:49 Trachasp Sputum Culture - Final NORMAL ORAL RAISSA 03/31/17 05:00 Blood Blood Culture - Final NO GROWTH AFTER 5 DAYS 03/31/17 05:00 Blood Gram Stain - Final TEST NOT PERFORMED 03/31/17 05:00 Blood Blood Culture - Final NO GROWTH AFTER 5 DAYS 03/31/17 05:00 Blood Gram Stain - Final TEST NOT PERFORMED 04/03/17 08:34 Urine,[place] Urine Culture - Final No Growth (<1,000 CFU/ML) 04/02/17 10:53 Sputum Gram Stain - Final 04/02/17 10:53 Sputum Sputum Culture - Final NORMAL ORAL RAISSA 04/01/17 05:00 Nose MRSA Culture (Admit) - Final MRSA NOT DETECTED 03/31/17 05:00 Urine,Clean Catch Urine Culture - Final No Growth (<1,000 CFU/ML) Accession No. : [id number] Patient Name / ID : CHAR CARPENTER / [id number] Exam Date : 04/09/2017 04:47:34 ( Approved ) Study Comment : Sex / Age : M / 51Y Creator : Steve Gauthier MD Dictator : Steve Gauthier MD Partner Marketing Manager : Kitchen Hand : Steve Gauthier MD Approver2 : Report Date : 04/09/2017 08:11:04 My Comment : PROCEDURE: CHEST RADIOGRAPH, 1 VIEW HISTORY: pneumonia COMPARISON: April 08, 2017. Study performed 08:40 FINDINGS: LUNGS: Clear. PLEURA: No pneumothorax or pleural fluid seen. CARDIOVASCULAR: Cardiomegaly. No evidence of acute, significant cardiovascular disease. OSSEOUS STRUCTURES: No significant abnormalities. VISUALIZED UPPER ABDOMEN: Normal. OTHER FINDINGS: Removal of support apparatus since the prior study: Endotracheal tube and nasogastric tube. IMPRESSION: No active disease. Assessment and Plan (1) Legionella pneumophila infection Status: Acute (2) Pneumonia Status: Acute (3) Fever Status: Acute (4) Rhabdomyolysis Status: Acute (5) Transaminitis Status: Acute - Assessment and Plan (Free Text) Assessment: A/P- 51 year old male with no PMH admitted with rhabdomyolysis, fever, leukocytosis and multifocal pneumonia. 1. + legionella pneumophila- 2.multifocal pneumonia- resolved 3. rhabdomyolysis-resolved extubated yesterday afebrile past 72 hours normal wbc urine legionella- pos ( has been treated) HIV ab- neg influenza- neg blood cx- neg x 8 UA- neg urine tox- pos for cannabis high CK but trending down Transaminitis trending down sputum cx- neg cxr- clear lungs as per report. Plan- advise to continue with azithromycin for legionella treatment. day #9. advise to continue with zithromax for 2 more days. can be switched to PO. has completed 7 days of IV meropnem. d/c meropneme today. d/c vancomycin today.. ICU time 50 minutes.
--- NOTE | 2017-04-09 15:18 | PN ---
DATE: SUBJECTIVE: The patient is currently sitting on the chair, comfortable with nasal O2. PHYSICAL EXAMINATION: VITAL SIGNS: Blood pressure 169/48, heart rate 92, temperature 98, respirations . HEENT: Pale conjunctivae. CHEST: Left basal coarse crepitations. HEART: S1 and S2 regular. EXTREMITIES: No edema. LABORATORY DATA: Hemoglobin and hematocrit 11.3 and 34.3, white count and platelet count are within normal limits. SMA-7 is within normal limits, except for creatinine of 0.6. Chest x-ray could not be opened on internet, the official report states no active disease. ASSESSMENT: 1. Legionella pneumonia. 2. Status post respiratory failure. 3. Cardiomyopathy. RECOMMENDATIONS: Continue Zithromax 500 mg intravenously daily, IV meropenem at 1 g intravenously q. 8 hours, vancomycin at 1 g intravenously q. 12 hours. Continue Vasotec 2.5 mg daily, thiamine 100 mg daily, aspirin 81 mg once a day, Lasix 40 mg intravenously daily, Lovenox 40 mg subcutaneously once a day and Coreg 3.125 mg twice a day. Marcio Atkinson MD
[2017-04-10] MEDS: Albuterol-Ipratrop 3 mg / 0.5 (3 ml) UD INH SCH ×4 (00:06→11:28)
[2017-04-10] MEDS ORDERED: Benzocaine/Menthol (Cepacol) Lozenge PO PRN (08:45)
--- NOTE | 2017-04-10 08:48 | CP.PCM.PN ---
<Juanita Duron - Last Filed: 04/10/17 13:06> Subjective - Date & Time of Evaluation Date of Evaluation: 04/10/17 Time of Evaluation: 08:30 - Subjective Subjective: Patient seen and examined this morning, sitting upright, NAD, AAOx3. Patient is afebrile x 24hrs, tolerating PO intake, +BM, voiding freely and ambulating. As per pt, he feels much better except mild cough and sore throat. denies any N/V, chest/abdo pain or dyspnea (uses NC 02). Objective - Vital Signs/Intake and Output Vital Signs (last 24 hours): Temp Pulse Resp BP Pulse Ox 98.5 F 86 20 108/65 94 L 04/10/17 08:00 04/10/17 08:00 04/10/17 08:00 04/10/17 08:00 04/10/17 08:00 Intake and Output: 04/10/17 04/10/17 06:59 18:59 Intake Total 10 Output Total 400 Balance -390 - Medications Medications: Current Medications Acetaminophen (Tylenol 650mg/20.3ml Solution Ud) 650 mg PO Q6 PRN PRN Reason: Fever >100.4 F Last Admin: 04/05/17 06:44 Dose: 650 mg Albuterol/Ipratropium (Duoneb 3 Mg/0.5 Mg (3 Ml) Ud) 3 ml INH RQ4 [facility] Last Admin: 04/10/17 05:20 Dose: 3 ml Aspirin (Ecotrin) 81 mg PO DAILY [facility] Last Admin: 04/09/17 10:00 Dose: 81 mg Carvedilol (Coreg) 3.125 mg PO Q12 [facility] Last Admin: 04/09/17 21:00 Dose: 3.125 mg Enalapril Maleate (Vasotec) 2.5 mg NG DAILY [facility] Last Admin: 04/09/17 10:01 Dose: 2.5 mg Enoxaparin Sodium (Lovenox) 40 mg SC DAILY [facility] PRN Reason: Protocol Last Admin: 04/09/17 10:00 Dose: 40 mg Furosemide (Lasix) 40 mg IVP DAILY [facility] Last Admin: 04/09/17 10:00 Dose: 40 mg Azithromycin 500 mg/ Sodium (Chloride) 250 mls @ 250 mls/hr IVPB DAILY [facility] Last Admin: 04/09/17 09:05 Dose: 250 mls/hr Lorazepam (Ativan) 1 mg IVP Q6 PRN PRN Reason: Agitation Last Admin: 04/05/17 10:42 Dose: 1 mg Nicotine (Nicoderm Cq) 1 patch TD DAILY [facility] Last Admin: 04/09/17 10:01 Dose: 1 patch Pantoprazole Sodium (Protonix Inj) 40 mg IVP DAILY [facility] Last Admin: 04/09/17 10:01 Dose: 40 mg Thiamine HCl (Vitamin B1 Tab) 100 mg NG DAILY [facility] Last Admin: 04/09/17 10:01 Dose: 100 mg - Labs Labs: 04/09/17 04:15 04/09/17 04:15 PT 13.7 Seconds (9.8-13.1) H 04/05/17 05:00 INR 1.3 (0.9-1.2) H 04/05/17 05:00 APTT 35.2 Seconds (25.6-37.1) 03/31/17 21:50 - Constitutional Appears: No Acute Distress - Head Exam Additional comments: left frontal area, nasal bridge and lower lip abrasions - Eye Exam Eye Exam: Normal appearance - ENT Exam ENT Exam: Mucous Membranes Moist, Normal Exam - Neck Exam Neck Exam: Normal Inspection - Respiratory Exam Respiratory Exam: Clear to Ausculation Bilateral, NORMAL BREATHING PATTERN. absent: Wheezes - Cardiovascular Exam Cardiovascular Exam: REGULAR RHYTHM, +S1, +S2 - GI/Abdominal Exam GI & Abdominal Exam: Soft, Normal Bowel Sounds - Extremities Exam Extremities Exam: Full ROM, Normal Capillary Refill, Normal Inspection - Back Exam Back Exam: NORMAL INSPECTION - Neurological Exam Neurological Exam: Alert, Awake, CN II-XII Intact, Oriented x3 Neuro motor strength exam: Left Upper Extremity: 5, Right Upper Extremity: 5, Left Lower Extremity: 5, Right Lower Extremity: 5 - Psychiatric Exam Psychiatric exam: Normal Mood - Skin Skin Exam: Dry, Intact, Normal Color, Warm Assessment and Plan - Assessment and Plan (Free Text) Assessment: A/P: 51 yr old M with PMHx of Alcohol/Cig/marijuana use admitted to ICU for sepsis and acute respiratory failure requiring intubation secondary to Multifocal pneumonia, hyperphosphatemia/Rahbdo, metabolic encephalopathy, ETOH abuse and elevated serial troponins. Patient was intubated on PRVC/AC vent mode due to ABG low Po2, Extubated on 04/08 and on NC, O2 sat 100%. +BM, Afebrile and HD stable. Sepsis, possibly secondary to multifocal Pneumonia -Afebrile -blood , urine , sputum cx- with no growth -Legionella + -Improved CXR on 04/09, lungs: clear, no pneumot or plural effusion, improved vascular congestion and infiltrates -ID and pulmonary recommendations appreciated -As per ID, d/c Meropenem IV day#7, and Vanco day#9 -Continue Zithromax day#10, will d/c after 04/11, As per ID -As per Dr. Khalil- no further Pulm interventions as this point Acute hypoxemic respiratory failure secondary to Multifocal Pneumonia -Improved. O2 Sat 100% on NC, Duoneb -Patient was extubated on 04/08, HD stable, CXR improved -Pulmonary Dr. Khalil- pt is stable and doesn't need any interventions Metabolic encephalopathy -Resolved -Multifactorial :most likely secondary to hypoxemia,sepsis and possible ETOH withdrawal -Patient is AAOx3 -Continue Thiamine -Continue Protonix 40mg IVP daily Suspected ETOH withdrawal / Impending DT -Resolved -continue Thiamine 100mg NG daily -Ativan 1mg IVP Q6PRN Rhabdomyolysis -most likely due to muscle injury caused by the Falls -CPK trending down from 00790 -->1100-->1034-->419 Hyponatremia -Resolved -probably due to SIADH caused by the legionella Pneumonia Elevated Troponin -Probably secondary to cardiac trauma -Consult with Dr Atkinson appreciated -no statin due to elevated LFT-s, CPK , Trending down, AST/ALT: 92/113 today and CPK: 419 -echo showed global hypokinesis and EF 30-35 % -No cardiac intervention at present -Continue Coreg, Enalapril and ASA Hypophosphatemia -Resolved -3.4 yesterday -Repleted with Neutro Phos Imbalance with Multiple falls -CT head showed no acute pathology -OT/PT evaluation and Treatment once stable Mild pulmonary congestion most likely CHF systolic dysfunction -EF 30-35% with global hypokinesis -Cardiology rec' appreciated -lasix 40 mg IV daily -Continue ASA, coreg, enalapril Transaminitis secondary to the muscle injury and sepsis -improving Nicotine Addiction -Nicotine Patch -urine Tox- positive for cannabis Coagulopathy with elevated INR -Vitamin K 5mg given -PT/INR 13.7/1.3 on 04/05 Subluxation of the left temporomandibular joint -Pain management PRN Cholelithiasis - Stable DVT Prophylaxis -SCD -encourage ambulation <Chayito Diaz - Last Filed: 04/11/17 15:36> Objective - Vital Signs/Intake and Output Vital Signs (last 24 hours): Temp Pulse Resp BP Pulse Ox 98.4 F 98 H 18 120/73 93 L 04/10/17 12:00 04/10/17 13:26 04/10/17 12:00 04/10/17 12:00 04/10/17 13:26 - Labs Labs: 04/09/17 04:15 04/09/17 04:15 PT 13.7 Seconds (9.8-13.1) H 04/05/17 05:00 INR 1.3 (0.9-1.2) H 04/05/17 05:00 APTT 35.2 Seconds (25.6-37.1) 03/31/17 21:50 Attending/Attestation - Attestation I have personally seen and examined this patient.: Yes I have fully participated in the care of the patient.: Yes I have reviewed all pertinent clinical information, including history, physical exam and plan: Yes Notes (Text): 04/11/17 15:36 agree with findings and plan as above, seen and examined and discussed with resident Dr. Juanita Duron
--- NOTE | 2017-04-10 08:57 | PN ---
CRITICAL CARE PROGRESS NOTE DATE: 04/09/2017 LOCATION: The patient is in ICU, bed 427. TIME SPENT: 25 minutes. SUBJECTIVE: The patient is seen and evaluated at the bedside. Case was discussed in multidisciplinary a.m. ICU rounds. Events overnight extubated and placed on oxygen supplement 2 L nasal cannula. Remained normotensive and afebrile. Telemetry, sinus rhythm. This morning, out of bed to recliner, alert, awake, and follows commands appropriately. Denies headache. No shortness of breath. Denies chest pain or palpitation. No abdominal pain. Vernon catheter discontinued. PHYSICAL EXAMINATION: VITAL SIGNS: Temperature 98.8, heart rate 91, blood pressure 120/69, and intake 4090 and output 1550, positive balance 2540. HEAD, EYES, EARS, NOSE, AND THROAT: Pupils are reactive. Conjunctivae pink. Sclerae white. NECK: Supple. CHEST: Bilateral breath sounds. Clear to auscultation. HEART: Rhythm regular. S1 and S2 normal intensity. No S3, S4, rub, or gallop. No audible murmur. ABDOMEN: Bowel sounds are present and soft. Liver and spleen not palpable. Bladder not distended. EXTREMITIES: Trace edema. NEUROLOGIC: Nonfocal. CURRENT MEDICATIONS: Tylenol 650 q.6 hours p.r.n., albuterol and Atrovent inhalation 3 mL via nebulizer q.4 hours, aspirin 81 mg daily, Zithromax 500 mg IV daily, Coreg 3.125 mg q.12 hours, Vasotec 2.5 mg daily, Lovenox 40 subcutaneously daily, Lasix 40 mg IV daily, Ativan 1 mg IV q.6 hours p.r.n., meropenem 1 g IV q.8 hours, nicotine patch daily, Protonix 40 IV daily, and vancomycin 1 g IV q.12 hours. LABORATORY DATA: WBC 9.8, hemoglobin 11.3, hematocrit 34.3, and platelet count 356. PT 13.7 and INR 1.3. SMA-7; sodium 137, potassium 3.7, chloride 103, CO2 of 30, blood urea nitrogen 17, creatinine 0.6, random glucose 93, calcium 8.1, total bilirubin 0.9, AST 92, ALT 113, CK 419, total protein 5.6, and albumin 2.7. Urinalysis is negative. Microbiology; urine culture no growth. Blood culture no growth. Sputum culture normal oral davida. Chest x-ray dated 04/09/2017 shows no active disease, lungs are clear. IMPRESSION AND PLAN: 1. Neurologic: Alert and oriented to name, place, and time. Status post fall with abrasion involving a left forehead and face, subluxation of the left temporomandibular joint. However, the patient is able to open the mouth, chew and tolerated the swallow evaluation. 2. Cardiac: History of alcohol abuse and substance abuse with reduced left ventricular function, global hypokinesis, left ventricle remains normotensive, on Coreg 3.125 mg q.12 hours and Vasotec 2.5 mg daily. 3. Pulmonary: Status post acute hypoxic respiratory failure, requiring mechanical ventilation, extubated, tolerating well on oxygen supplement 2 L nasal cannula. Continue bronchodilator q.6 hours. 4. Infectious disease. Multifocal pneumonia. Urine positive for Legionella, improved on vancomycin, meropenem, and azithromycin. Appreciate ID followup. 5. Gastrointestinal: Continue feeding with a heart healthy-diet as tolerated. 6. Endocrine: Keep blood sugar less than 100. Continue DVT and GI prophylaxis. History of substance abuse with alcohol. Continue to monitor for withdrawal symptoms. Continue nicotine patch. The patient may be transferred to telemetry floor. Navi Barnes MD MTDD
[2017-04-10] MEDS: Enoxaparin 40 mg Syringe SC SCH (09:06)
--- NOTE | 2017-04-10 09:59 | CP.PCM.DIS ---
<Juanita Duron - Last Filed: 04/10/17 13:29> Provider - Provider Date of Admission: 03/31/17 22:40 Attending physician: Paul Levine Primary care physician: N/A Consults: Cardiology, Dr. China MOYER, Dr. Issa Alberto, Dr. Khalil Time Spent in preparation of Discharge (in minutes): 30 Diagnosis - Discharge Diagnosis (1) Sepsis due to pneumonia Status: Resolved (2) Acute respiratory failure Status: Resolved (3) Metabolic encephalopathy Status: Resolved (4) Alcohol withdrawal Status: Acute (5) Legionella pneumophila infection Status: Acute (6) Hyponatremia Status: Resolved (7) Elevated troponin Status: Acute (8) Systolic dysfunction Status: Acute (9) Nicotine addiction Status: Chronic (10) Rhabdomyolysis Status: Acute (11) Transaminitis Status: Resolved Hospital Course - Lab Results Lab Results: Micro Results 04/05/17 16:40 Blood-Venous Blood Culture - Preliminary NO GROWTH AFTER 4 DAYS 04/02/17 17:00 Blood-Venous Blood Culture - Final NO GROWTH AFTER 5 DAYS 04/02/17 17:00 Blood-Venous Gram Stain - Final TEST NOT PERFORMED 04/02/17 17:00 Blood-Venous Blood Culture - Final NO GROWTH AFTER 5 DAYS 04/02/17 17:00 Blood-Venous Gram Stain - Final TEST NOT PERFORMED 04/05/17 16:45 Urine,Vernon Urine Culture - Final No Growth (<1,000 CFU/ML) 04/02/17 10:45 Blood Blood Culture - Final NO GROWTH AFTER 5 DAYS 04/02/17 10:45 Blood Gram Stain - Final TEST NOT PERFORMED 04/02/17 10:40 Blood Blood Culture - Final NO GROWTH AFTER 5 DAYS 04/02/17 10:40 Blood Gram Stain - Final TEST NOT PERFORMED 04/04/17 12:49 Trachasp Gram Stain - Final 04/04/17 12:49 Trachasp Sputum Culture - Final NORMAL ORAL RAISSA 03/31/17 05:00 Blood Blood Culture - Final NO GROWTH AFTER 5 DAYS 03/31/17 05:00 Blood Gram Stain - Final TEST NOT PERFORMED 03/31/17 05:00 Blood Blood Culture - Final NO GROWTH AFTER 5 DAYS 03/31/17 05:00 Blood Gram Stain - Final TEST NOT PERFORMED 04/03/17 08:34 Urine,Vernon Urine Culture - Final No Growth (<1,000 CFU/ML) 04/02/17 10:53 Sputum Gram Stain - Final 04/02/17 10:53 Sputum Sputum Culture - Final NORMAL ORAL RAISSA 04/01/17 05:00 Nose MRSA Culture (Admit) - Final MRSA NOT DETECTED 03/31/17 05:00 Urine,Clean Catch Urine Culture - Final No Growth (<1,000 CFU/ML) Most Recent Lab Values WBC 9.8 K/uL (4.8-10.8) 04/09/17 04:15 RBC 3.77 Mil/uL (4.40-5.90) L 04/09/17 04:15 Hgb 11.3 g/dL (12.0-18.0) L 04/09/17 04:15 Hct 34.3 % (35.0-51.0) L 04/09/17 04:15 MCV 91.0 fl (80.0-94.0) 04/09/17 04:15 MCH 30.0 pg (27.0-31.0) 04/09/17 04:15 MCHC 32.9 g/dL (33.0-37.0) L 04/09/17 04:15 RDW 13.5 % (11.5-14.5) 04/09/17 04:15 Plt Count 356 K/uL (130-400) 04/09/17 04:15 MPV 7.8 fl (7.2-11.7) 04/03/17 04:10 Neut % (Auto) 94.5 % (50.0-75.0) H 04/03/17 04:10 Lymph % (Auto) 2.7 % (20.0-40.0) L 04/03/17 04:10 Dent % (Auto) 1.9 % (0.0-10.0) 04/03/17 04:10 Eos % (Auto) 0.7 % (0.0-4.0) 04/03/17 04:10 Baso % (Auto) 0.2 % (0.0-2.0) 04/03/17 04:10 Neut # 11.5 K/uL (1.8-7.0) H 04/03/17 04:10 Lymph # 0.3 K/uL (1.0-4.3) L 04/03/17 04:10 Dent # 0.2 K/uL (0.0-0.8) 04/03/17 04:10 Eos # 0.1 K/uL (0.0-0.7) 04/03/17 04:10 Baso # 0.0 K/uL (0.0-0.2) 04/03/17 04:10 Neutrophils % (Manual) 88 % (42-75) H 04/03/17 04:10 Band Neutrophils % 3 % (0-2) H 04/03/17 04:10 Lymphocytes % (Manual) 3 % (20-50) L 04/03/17 04:10 Monocytes % (Manual) 5 % (0-10) 04/03/17 04:10 Eosinophils % (Manual) 1 % (0-7) 04/03/17 04:10 Myelocytes % 1 % (0-0) H 03/31/17 21:50 Platelet Estimate Normal (NORMAL) 04/03/17 04:10 RBC Morphology Normal (NORMAL) 04/03/17 04:10 Polychromasia Slight 03/31/17 21:50 PT 13.7 Seconds (9.8-13.1) H 04/05/17 05:00 INR 1.3 (0.9-1.2) H 04/05/17 05:00 APTT 35.2 Seconds (25.6-37.1) 03/31/17 21:50 pCO2 45 mm/Hg (35-45) 04/08/17 05:46 pO2 70 mm/Hg (80-100) L 04/08/17 05:46 HCO3 31.8 mmol/L (21-28) H 04/08/17 05:46 ABG pH 7.48 (7.35-7.45) H 04/08/17 05:46 ABG Total CO2 34.9 mmol/L (22-28) H 04/08/17 05:46 ABG O2 Saturation 97.1 % (95-98) 04/08/17 05:46 ABG O2 Content 14.7 ML/dL (15-23) L 04/08/17 05:46 ABG Base Excess 8.9 mmol/L (-2.0-3.0) H 04/08/17 05:46 ABG Hemoglobin 11.2 g/dL (11.7-17.4) L 04/08/17 05:46 ABG Carboxyhemoglobin 2.0 % (0.5-1.5) H 04/08/17 05:46 POC ABG HHb (Measured) 2.8 % (0.0-5.0) 04/08/17 05:46 ABG Methemoglobin 2.1 % (0.0-3.0) 04/08/17 05:46 ABG O2 Capacity 15.1 mL/dL (16-24) L 04/08/17 05:46 Raúl Test Yes 04/08/17 05:46 ABG Potassium 3.8 mmol/L (3.6-5.2) 03/31/17 21:28 A-a O2 Difference 159.0 mm/Hg 04/08/17 05:46 Hgb O2 Saturation 93.1 % (95.0-98.0) L 04/08/17 05:46 Sodium 122.0 mmol/L (132-148) L 03/31/17 21:28 Chloride 92.0 mmol/L (98-107) L 03/31/17 21:28 Glucose 140 mg/dL (75-110) H 03/31/17 21:28 Lactate 2.1 mmol/L (0.7-2.1) 03/31/17 21:28 Vent Mode Prvc/ac 04/08/17 05:46 Mechanical Rate 12 04/08/17 05:46 FiO2 40.0 % 04/08/17 05:46 Tidal Volume 500 04/08/17 05:46 PEEP 5 04/08/17 05:46 Pressure Support 15 04/07/17 06:01 Sodium 137 mmol/l (132-148) 04/09/17 04:15 Potassium 3.7 MMOL/L (3.6-5.0) 04/09/17 04:15 Chloride 101 mmol/L (98-107) 04/09/17 04:15 Carbon Dioxide 30 mmol/L (22-30) 04/09/17 04:15 Anion Gap 10 (10-20) 04/09/17 04:15 BUN 17 mg/dl (9-20) 04/09/17 04:15 Creatinine 0.6 mg/dL (0.8-1.5) L 04/09/17 04:15 Est GFR ( Amer) > 60 04/09/17 04:15 Est GFR (Non-Af Amer) > 60 04/09/17 04:15 POC Glucose (mg/dL) 125 mg/dL (65-110) H 03/31/17 21:46 Random Glucose 93 mg/dL (75-110) 04/09/17 04:15 Hemoglobin A1c 6.1 % (4.2-6.5) 04/02/17 04:45 Serum Osmolality 276 mosm/kg (272-300) 04/01/17 02:20 Lactic Acid 1.4 MMOL/L (0.7-2.1) 04/04/17 04:45 Calcium 8.1 mg/dL (8.4-10.2) L 04/09/17 04:15 Phosphorus 3.4 mg/dl (2.5-4.5) 04/06/17 04:30 Magnesium 2.0 MG/DL (1.6-2.3) 04/06/17 04:30 Total Bilirubin 0.9 mg/dl (0.2-1.3) 04/09/17 04:15 AST 92 U/L (17-59) H 04/09/17 04:15 ALT 113 U/L (21-72) H 04/09/17 04:15 Alkaline Phosphatase 61 U/L (38-126) 04/09/17 04:15 Total Creatine Kinase 419 U/L (55-170) H 04/09/17 04:15 Troponin I 0.5340 ng/mL (0.00-0.120) H* 04/01/17 10:00 NT-Pro-B Natriuret Pep 425 pg/ml (0-900) 04/05/17 05:00 Total Protein 5.6 G/DL (6.3-8.2) L 04/09/17 04:15 Albumin 2.7 g/dL (3.5-5.0) L 04/09/17 04:15 Globulin 2.9 gm/dL (2.2-3.9) 04/09/17 04:15 Albumin/Globulin Ratio 0.9 (1.0-2.1) L 04/09/17 04:15 Triglycerides 176 mg/DL (0-149) H 04/01/17 05:30 Cholesterol 90 mg/dL (0-199) 04/01/17 05:30 LDL Cholesterol Direct 32 mg/dL (0-129) 04/01/17 05:30 HDL Cholesterol 14 MG/DL (30-70) L 04/01/17 05:30 Vitamin B12 766 pg/mL (239-931) 04/05/17 05:00 Folate 16.1 ng/mL 04/05/17 05:00 Free T4 1.63 ng/dL (0.78-2.19) 04/05/17 05:00 TSH 3rd Generation 1.33 mIU/ML (0.46-4.68) 04/05/17 05:00 Arterial Blood Potassium 3.8 mmol/L (3.6-5.2) 03/31/17 21:28 Urine Color Yellow (YELLOW) 04/05/17 17:08 Urine Clarity Clear (Clear) 04/05/17 17:08 Urine pH 6 (5.0-8.0) 04/05/17 17:08 Ur Specific Sylvester 1.025 (1.003-1.030) 04/05/17 17:08 Urine Protein Trace mg/dL (NEGATIVE) 04/05/17 17:08 Urine Glucose (UA) Negative mg/dL (Normal) 04/05/17 17:08 Urine Ketones Negative mg/dL (NEGATIVE) 04/05/17 17:08 Urine Blood Negative (NEGATIVE) 04/05/17 17:08 Urine Nitrate Negative (NEGATIVE) 04/05/17 17:08 Urine Bilirubin Negative (NEGATIVE) 04/05/17 17:08 Urine Urobilinogen 0.2 mg/dL (0.2-1.0) 04/05/17 17:08 Ur Leukocyte Esterase Negative José Luis/uL (Negative) 04/05/17 17:08 Urine RBC (Auto) 2 /hpf (0-3) 04/05/17 17:08 Urine Microscopic WBC 2 /hpf (0-5) 04/05/17 17:08 Ur Squamous Epith Cells 3 /hpf (0-5) 04/05/17 17:08 Urine Bacteria Occ (<OCC) H 03/31/17 21:31 Urine Yeast (Budding) Occ /hpf (NEGATIVE) H 03/31/17 21:31 Urine Osmolality 215 mosm/kg (300-1000) L 04/01/17 02:45 Ur Random Sodium 17 meq/L 04/01/17 02:45 Ur Random Potassium 10.4 mmol/L 04/01/17 02:45 Vancomycin Trough 6.2 ug/mL (5.0-10.0) 04/07/17 05:30 Urine Opiates Screen Negative (NEGATIVE) 04/01/17 02:45 Urine Methadone Screen Negative (NEGATIVE) 04/01/17 02:45 Ur Barbiturates Screen Negative (NEGATIVE) 04/01/17 02:45 Ur Phencyclidine Scrn Negative (NEGATIVE) 04/01/17 02:45 Ur Amphetamines Screen Negative (NEGATIVE) 04/01/17 02:45 U Benzodiazepines Scrn Negative (NEGATIVE) 04/01/17 02:45 U Oth Cocaine Metabols Negative (NEGATIVE) 04/01/17 02:45 U Cannabinoids Screen Positive (NEGATIVE) H 04/01/17 02:45 Alcohol, Quantitative < 10 mg/dl (0-10) 04/01/17 10:00 HIV-1 Ab Rapid Screen Non reactive (NON REAC) 03/31/17 21:50 Influenza Typ A,B (EIA) Negative for flu a/b (NEGATIVE) 03/31/17 21:56 Ur L.pneumophila Ag Positive (NEGATIVE) H 04/01/17 10:15 Mycoplasma pneumon IgG 1.00 (<=0.90) H 04/01/17 10:00 Mycoplasma pneumon IgM 2 U/mL (<770) 04/01/17 10:00 - Hospital Course Hospital Course: 51 yr old M with PMHx of Alcohol/Cig/marijuana use admitted to ICU for multiple falls, sepsis and acute respiratory failure requiring intubation secondary to Multifocal pneumonia, hyperphosphatemia/Rahbdo, metabolic encephalopathy, ETOH abuse and elevated serial troponins. Initial CXR showed Left lower lobe Opacity with Mild congestion, Chest CT showed Multifocal pneumonia. Head CT negative for acute changes or bleeding. ID was counsulted, Legionella +, pt started on Meropenem, Zithromax and Vanco. As per Cardiology no cardiac interventions at this point, Chandler troponin due to cardiac trauma, Echo showed global hypokinesis and EF 30-35 %, started on Coreg, Enalapril, lasix and ASA . As per Pulmonary, patient was intubated on PRVC/AC vent mode due to low Po2 on ABG , Extubated on 04/08 and tolerated well. Resolved sepsis, repeated CXR improved, Hypo phospatemia resolved after Neutro phos, CPK tranding down, Transaminitis improving. Today, pt is afebrile x24hrs, HD stable, AAOx3, stable O2 sat on RA and ambulating. Patient is stable for discharge today with instructions to follow up with PCP in 1-2 week. - Date & Time of H&P Date of H&P: 04/01/17 Time of H&P: 01:39 Discharge Exam - Head Exam Additional comments: left frontal area, nasal bridge and lower lip abrasions - Eye Exam Eye Exam: Normal appearance Pupil Exam: NORMAL ACCOMODATION, PERRL - ENT Exam ENT Exam: Mucous Membranes Moist - Neck Exam Neck exam: Full Rom - Respiratory Exam Respiratory Exam: NORMAL BREATHING PATTERN. absent: Wheezes - Cardiovascular Exam Cardiovascular Exam: REGULAR RHYTHM, +S1, +S2 - GI/Abdominal Exam GI & Abdominal Exam: Normal Bowel Sounds, Soft - Extremities Exam Extremities exam: normal capillary refill, normal inspection, pedal pulses present - Back Exam Back exam: absent: CVA tenderness (L), CVA tenderness (R) - Neurological Exam Neurological exam: Alert, CN II-XII Intact, Oriented x3 - Psychiatric Exam Psychiatric exam: Normal Mood - Skin Skin Exam: Dry, Intact, Normal Color, Warm Discharge Plan - Discharge Medications Prescriptions: Aspirin [Ecotrin] 81 mg PO DAILY #30 tabec Azithromycin [Zithromax] 500 mg PO DAILY #2 tablet Carvedilol [Coreg] 3.125 mg PO Q12 #60 tab Enalapril Maleate [Vasotec] 2.5 mg NG DAILY #30 tab Nicotine 21 mg/24 hr [Nicoderm Cq] 1 patch TD DAILY #30 patch Thiamine [Vitamin B1 Tab] 100 mg NG DAILY #30 tab - Follow Up Plan Condition: STABLE Disposition: HOME/ ROUTINE Instructions: Community Acquired Pneumonia (DC) Additional Instructions: appointment at [facility] on 04/24/17 @ 9:20am with Dr Mynor guillermoierge number [phone] to assist with appointments if needed. Referrals: [facility] [Outside] Vasyl Parsons MD [Staff Provider] - Marcio Atkinson MD [Staff Provider] - Mynor Machado MD [Resident] - Mark Anthony Khalil MD [Staff Provider] - <Chayito Diaz - Last Filed: 04/11/17 15:37> Provider - Provider Date of Admission: 03/31/17 22:40 Attending physician: Paul Levine [facility] Course - Lab Results Lab Results: Micro Results 04/09/17 09:00 Naris MRSA Culture (Admit) - Final MRSA NOT DETECTED 04/05/17 16:40 Blood-Venous Blood Culture - Final NO GROWTH AFTER 5 DAYS 04/05/17 16:40 Blood-Venous Gram Stain - Final TEST NOT PERFORMED 04/02/17 17:00 Blood-Venous Blood Culture - Final NO GROWTH AFTER 5 DAYS 04/02/17 17:00 Blood-Venous Gram Stain - Final TEST NOT PERFORMED 04/02/17 17:00 Blood-Venous Blood Culture - Final NO GROWTH AFTER 5 DAYS 04/02/17 17:00 Blood-Venous Gram Stain - Final TEST NOT PERFORMED 04/05/17 16:45 Urine,Vernon Urine Culture - Final No Growth (<1,000 CFU/ML) 04/02/17 10:45 Blood Blood Culture - Final NO GROWTH AFTER 5 DAYS 04/02/17 10:45 Blood Gram Stain - Final TEST NOT PERFORMED 04/02/17 10:40 Blood Blood Culture - Final NO GROWTH AFTER 5 DAYS 04/02/17 10:40 Blood Gram Stain - Final TEST NOT PERFORMED 04/04/17 12:49 Trachasp Gram Stain - Final 04/04/17 12:49 Trachasp Sputum Culture - Final NORMAL ORAL RAISSA 03/31/17 05:00 Blood Blood Culture - Final NO GROWTH AFTER 5 DAYS 03/31/17 05:00 Blood Gram Stain - Final TEST NOT PERFORMED 03/31/17 05:00 Blood Blood Culture - Final NO GROWTH AFTER 5 DAYS 03/31/17 05:00 Blood Gram Stain - Final TEST NOT PERFORMED 04/03/17 08:34 Urine,Vernon Urine Culture - Final No Growth (<1,000 CFU/ML) 04/02/17 10:53 Sputum Gram Stain - Final 04/02/17 10:53 Sputum Sputum Culture - Final NORMAL ORAL RAISSA 04/01/17 05:00 Nose MRSA Culture (Admit) - Final MRSA NOT DETECTED 03/31/17 05:00 Urine,Clean Catch Urine Culture - Final No Growth (<1,000 CFU/ML) Most Recent Lab Values WBC 9.8 K/uL (4.8-10.8) 04/09/17 04:15 RBC 3.77 Mil/uL (4.40-5.90) L 04/09/17 04:15 Hgb 11.3 g/dL (12.0-18.0) L 04/09/17 04:15 Hct 34.3 % (35.0-51.0) L 04/09/17 04:15 MCV 91.0 fl (80.0-94.0) 04/09/17 04:15 MCH 30.0 pg (27.0-31.0) 04/09/17 04:15 MCHC 32.9 g/dL (33.0-37.0) L 04/09/17 04:15 RDW 13.5 % (11.5-14.5) 04/09/17 04:15 Plt Count 356 K/uL (130-400) 04/09/17 04:15 MPV 7.8 fl (7.2-11.7) 04/03/17 04:10 Neut % (Auto) 94.5 % (50.0-75.0) H 04/03/17 04:10 Lymph % (Auto) 2.7 % (20.0-40.0) L 04/03/17 04:10 Dent % (Auto) 1.9 % (0.0-10.0) 04/03/17 04:10 Eos % (Auto) 0.7 % (0.0-4.0) 04/03/17 04:10 Baso % (Auto) 0.2 % (0.0-2.0) 04/03/17 04:10 Neut # 11.5 K/uL (1.8-7.0) H 04/03/17 04:10 Lymph # 0.3 K/uL (1.0-4.3) L 04/03/17 04:10 Dent # 0.2 K/uL (0.0-0.8) 04/03/17 04:10 Eos # 0.1 K/uL (0.0-0.7) 04/03/17 04:10 Baso # 0.0 K/uL (0.0-0.2) 04/03/17 04:10 Neutrophils % (Manual) 88 % (42-75) H 04/03/17 04:10 Band Neutrophils % 3 % (0-2) H 04/03/17 04:10 Lymphocytes % (Manual) 3 % (20-50) L 04/03/17 04:10 Monocytes % (Manual) 5 % (0-10) 04/03/17 04:10 Eosinophils % (Manual) 1 % (0-7) 04/03/17 04:10 Myelocytes % 1 % (0-0) H 03/31/17 21:50 Platelet Estimate Normal (NORMAL) 04/03/17 04:10 RBC Morphology Normal (NORMAL) 04/03/17 04:10 Polychromasia Slight 03/31/17 21:50 PT 13.7 Seconds (9.8-13.1) H 04/05/17 05:00 INR 1.3 (0.9-1.2) H 04/05/17 05:00 APTT 35.2 Seconds (25.6-37.1) 03/31/17 21:50 pCO2 45 mm/Hg (35-45) 04/08/17 05:46 pO2 70 mm/Hg (80-100) L 04/08/17 05:46 HCO3 31.8 mmol/L (21-28) H 04/08/17 05:46 ABG pH 7.48 (7.35-7.45) H 04/08/17 05:46 ABG Total CO2 34.9 mmol/L (22-28) H 04/08/17 05:46 ABG O2 Saturation 97.1 % (95-98) 04/08/17 05:46 ABG O2 Content 14.7 ML/dL (15-23) L 04/08/17 05:46 ABG Base Excess 8.9 mmol/L (-2.0-3.0) H 04/08/17 05:46 ABG Hemoglobin 11.2 g/dL (11.7-17.4) L 04/08/17 05:46 ABG Carboxyhemoglobin 2.0 % (0.5-1.5) H 04/08/17 05:46 POC ABG HHb (Measured) 2.8 % (0.0-5.0) 04/08/17 05:46 ABG Methemoglobin 2.1 % (0.0-3.0) 04/08/17 05:46 ABG O2 Capacity 15.1 mL/dL (16-24) L 04/08/17 05:46 Raúl Test Yes 04/08/17 05:46 ABG Potassium 3.8 mmol/L (3.6-5.2) 03/31/17 21:28 A-a O2 Difference 159.0 mm/Hg 04/08/17 05:46 Hgb O2 Saturation 93.1 % (95.0-98.0) L 04/08/17 05:46 Sodium 122.0 mmol/L (132-148) L 03/31/17 21:28 Chloride 92.0 mmol/L (98-107) L 03/31/17 21:28 Glucose 140 mg/dL (75-110) H 03/31/17 21:28 Lactate 2.1 mmol/L (0.7-2.1) 03/31/17 21:28 Vent Mode Prvc/ac 04/08/17 05:46 Mechanical Rate 12 04/08/17 05:46 FiO2 40.0 % 04/08/17 05:46 Tidal Volume 500 04/08/17 05:46 PEEP 5 04/08/17 05:46 Pressure Support 15 04/07/17 06:01 Sodium 137 mmol/l (132-148) 04/09/17 04:15 Potassium 3.7 MMOL/L (3.6-5.0) 04/09/17 04:15 Chloride 101 mmol/L (98-107) 04/09/17 04:15 Carbon Dioxide 30 mmol/L (22-30) 04/09/17 04:15 Anion Gap 10 (10-20) 04/09/17 04:15 BUN 17 mg/dl (9-20) 04/09/17 04:15 Creatinine 0.6 mg/dL (0.8-1.5) L 04/09/17 04:15 Est GFR ( Amer) > 60 04/09/17 04:15 Est GFR (Non-Af Amer) > 60 04/09/17 04:15 POC Glucose (mg/dL) 125 mg/dL (65-110) H 03/31/17 21:46 Random Glucose 93 mg/dL (75-110) 04/09/17 04:15 Hemoglobin A1c 6.1 % (4.2-6.5) 04/02/17 04:45 Serum Osmolality 276 mosm/kg (272-300) 04/01/17 02:20 Lactic Acid 1.4 MMOL/L (0.7-2.1) 04/04/17 04:45 Calcium 8.1 mg/dL (8.4-10.2) L 04/09/17 04:15 Phosphorus 3.4 mg/dl (2.5-4.5) 04/06/17 04:30 Magnesium 2.0 MG/DL (1.6-2.3) 04/06/17 04:30 Total Bilirubin 0.9 mg/dl (0.2-1.3) 04/09/17 04:15 AST 92 U/L (17-59) H 04/09/17 04:15 ALT 113 U/L (21-72) H 04/09/17 04:15 Alkaline Phosphatase 61 U/L (38-126) 04/09/17 04:15 Total Creatine Kinase 419 U/L (55-170) H 04/09/17 04:15 Troponin I 0.5340 ng/mL (0.00-0.120) H* 04/01/17 10:00 NT-Pro-B Natriuret Pep 425 pg/ml (0-900) 04/05/17 05:00 Total Protein 5.6 G/DL (6.3-8.2) L 04/09/17 04:15 Albumin 2.7 g/dL (3.5-5.0) L 04/09/17 04:15 Globulin 2.9 gm/dL (2.2-3.9) 04/09/17 04:15 Albumin/Globulin Ratio 0.9 (1.0-2.1) L 04/09/17 04:15 Triglycerides 176 mg/DL (0-149) H 04/01/17 05:30 Cholesterol 90 mg/dL (0-199) 04/01/17 05:30 LDL Cholesterol Direct 32 mg/dL (0-129) 04/01/17 05:30 HDL Cholesterol 14 MG/DL (30-70) L 04/01/17 05:30 Vitamin B12 766 pg/mL (239-931) 04/05/17 05:00 Folate 16.1 ng/mL 04/05/17 05:00 Free T4 1.63 ng/dL (0.78-2.19) 04/05/17 05:00 TSH 3rd Generation 1.33 mIU/ML (0.46-4.68) 04/05/17 05:00 Arterial Blood Potassium 3.8 mmol/L (3.6-5.2) 03/31/17 21:28 Urine Color Yellow (YELLOW) 04/05/17 17:08 Urine Clarity Clear (Clear) 04/05/17 17:08 Urine pH 6 (5.0-8.0) 04/05/17 17:08 Ur Specific Sylvester 1.025 (1.003-1.030) 04/05/17 17:08 Urine Protein Trace mg/dL (NEGATIVE) 04/05/17 17:08 Urine Glucose (UA) Negative mg/dL (Normal) 04/05/17 17:08 Urine Ketones Negative mg/dL (NEGATIVE) 04/05/17 17:08 Urine Blood Negative (NEGATIVE) 04/05/17 17:08 Urine Nitrate Negative (NEGATIVE) 04/05/17 17:08 Urine Bilirubin Negative (NEGATIVE) 04/05/17 17:08 Urine Urobilinogen 0.2 mg/dL (0.2-1.0) 04/05/17 17:08 Ur Leukocyte Esterase Negative José Luis/uL (Negative) 04/05/17 17:08 Urine RBC (Auto) 2 /hpf (0-3) 04/05/17 17:08 Urine Microscopic WBC 2 /hpf (0-5) 04/05/17 17:08 Ur Squamous Epith Cells 3 /hpf (0-5) 04/05/17 17:08 Urine Bacteria Occ (<OCC) H 03/31/17 21:31 Urine Yeast (Budding) Occ /hpf (NEGATIVE) H 03/31/17 21:31 Urine Osmolality 215 mosm/kg (300-1000) L 04/01/17 02:45 Ur Random Sodium 17 meq/L 04/01/17 02:45 Ur Random Potassium 10.4 mmol/L 04/01/17 02:45 Vancomycin Trough 6.2 ug/mL (5.0-10.0) 04/07/17 05:30 Urine Opiates Screen Negative (NEGATIVE) 04/01/17 02:45 Urine Methadone Screen Negative (NEGATIVE) 04/01/17 02:45 Ur Barbiturates Screen Negative (NEGATIVE) 04/01/17 02:45 Ur Phencyclidine Scrn Negative (NEGATIVE) 04/01/17 02:45 Ur Amphetamines Screen Negative (NEGATIVE) 04/01/17 02:45 U Benzodiazepines Scrn Negative (NEGATIVE) 04/01/17 02:45 U Oth Cocaine Metabols Negative (NEGATIVE) 04/01/17 02:45 U Cannabinoids Screen Positive (NEGATIVE) H 04/01/17 02:45 Alcohol, Quantitative < 10 mg/dl (0-10) 04/01/17 10:00 HIV-1 Ab Rapid Screen Non reactive (NON REAC) 03/31/17 21:50 Influenza Typ A,B (EIA) Negative for flu a/b (NEGATIVE) 03/31/17 21:56 Ur L.pneumophila Ag Positive (NEGATIVE) H 04/01/17 10:15 Mycoplasma pneumon IgG 1.00 (<=0.90) H 04/01/17 10:00 Mycoplasma pneumon IgM 2 U/mL (<770) 04/01/17 10:00 Attending/Attestation - Attestation I have personally seen and examined this patient.: Yes I have fully participated in the care of the patient.: Yes I have reviewed all pertinent clinical information, including history, physical exam and plan: Yes Notes (Text): 04/11/17 15:37 agree with findings and plan as above, seen and examined and discussed with resident Dr. Juanita Duron
[2017-04-10 12:12] VITALS: BP 120/73; RESP 18; TEMP 98.4
[2017-04-10 13:33] VITALS: PULSE 98; O2SAT 93
== END 2017-04-10 14:30 | disposition home or self-care (01) | DRG 870 ==
LOC: H.ER 20:47 → H.TEL 22:40 → H.ERHOLD 04-01 00:23 → H.ICU/CCU 04-01 01:39 → H.TEL 04-09 23:13
PROVIDERS: ADMIT Internal Medicine; ATTEND Internal Medicine
PROC: 0HQ1XZZ Repair Face Skin, External Approach (ICD-10-PCS; 2017-03-31)
PROC: 0BH17EZ Insertion of Endotracheal Airway into Trachea, Via Natural or Artificial Opening (ICD-10-PCS; principal; 2017-04-03)
PROC: 5A1955Z Respiratory Ventilation, Greater than 96 Consecutive Hours (ICD-10-PCS; 2017-04-03)
DX: A41.9 Sepsis, unspecified organism (principal); J96.01 Acute respiratory failure with hypoxia; A48.1 Legionnaires' disease; G93.41 Metabolic encephalopathy; E22.2 Syndrome of inappropriate secretion of antidiuretic hormone; F10.239 Alcohol dependence with withdrawal, unspecified; D68.9 Coagulation defect, unspecified; I42.9 Cardiomyopathy, unspecified; I50.20 Unspecified systolic (congestive) heart failure; M62.82 Rhabdomyolysis; N39.0 Urinary tract infection, site not specified; E83.39 Other disorders of phosphorus metabolism; D35.01 Benign neoplasm of right adrenal gland; D64.9 Anemia, unspecified; F12.10 Cannabis abuse, uncomplicated; F17.210 Nicotine dependence, cigarettes, uncomplicated; K80.20 Calculus of gallbladder without cholecystitis without obstruction; M26.622 Arthralgia of left temporomandibular joint; R29.6 Repeated falls; S01.511A Laceration without foreign body of lip, initial encounter; S09.90XA Unspecified injury of head, initial encounter; W19.XXXA Unspecified fall, initial encounter; Y92.009 Unspecified place in unspecified non-institutional (private) residence as the place of occurrence of the external cause; Z79.01 Long term (current) use of anticoagulants; R26.81 Unsteadiness on feet; F10.20 Alcohol dependence, uncomplicated; R42 Dizziness and giddiness; R60.0 Localized edema; J02.9 Acute pharyngitis, unspecified; R00.0 Tachycardia, unspecified; R06.82 Tachypnea, not elsewhere classified; R19.7 Diarrhea, unspecified; R74.0 Nonspecific elevation of levels of transaminase and lactic acid dehydrogenase [LDH]; R74.8 Abnormal levels of other serum enzymes; R79.89 Other specified abnormal findings of blood chemistry; Y93.9 Activity, unspecified; Y92.9 Unspecified place or not applicable